=== PATIENT | female | born 1975 | race Two or more races ===

== ENCOUNTER 2024-05-19 08:48 | Inpatient (IN) | payer MEDICAID, OTHER ==
[~2024-05-19] VITALS: Ht 170.2 cm; Wt 73.7 kg
--- NOTE | 2024-05-19 09:29 | ED.PDOC ---
History of Present Illness HPI Comments 49-year-old female came to the ER complaining of shortness a breath chest pain for the past week. She was seen at [facility] discharged few days ago after being admitted for possible pneumonia. She continues to have shortness a breath even after discharge. She was using her mom's oxygen to maintain saturation. Patient came in with low saturation for which she was placed on 3 L oxygen. She denies history of asthma COPD. Denies any other symptoms. Chief Complaint: Shortness of Breath Time Seen by MD: 09:06 Reviewed Notes: Nurses Notes, Medications, Allergies Allergies: Coded Allergies: NO KNOWN ALLERGIES (Unverified , 05/19/24) Information Source: Patient Mode of Arrival: Ambulatory Severity: Moderate Timing: Days Duration: Since onset Past Medical History PAST MEDICAL HISTORY: Denies Surgical History: Denies all surgeries ASSISTANT MANAGER OF OPERATIONS History: No Pertinent ASSISTANT MANAGER OF OPERATIONS History Family History Family History: Reviewed,noncontributory to illness, No family hx of Cancer, No family hx of DM, No family hx of Heart néstor, No family hx of HTN, No family hx ofKidney néstor, No family hx of Liver néstor, No family hx of Lung néstor, No family hx of Stroke Social History Smoker: Non-Smoker Alcohol: Denies ETOH Use Drugs: Denies Drug Use Constitutional: denies: chills, diaphoresis, fatigue, fever, malaise, sweats, weakness, others EENTM: denies: blurred vision, double vision, ear bleeding, ear discharge, ear drainage, ear pain, ear ringing, eye pain, eye redness, hearing loss, mouth pain, mouth swelling, nasal discharge, nose bleeding, nose congestion, nose pain, photophobia, tearing, throat pain, throat swelling, voice changes, others Respiratory: reports: shortness of breath; denies: cough, hemoptysis, orthopnea, SOB at rest, SOB with excertion, stridor, wheezing, others Cardiovascular: denies: chest pain, dizzy spells, diaphoresis, Dyspnea on exertion, edema, irregular heart beat, left arm pain, lightheadedness, palpitations, PND, syncope, others Gastrointestinal: denies: abdomen distended, abdominal pain, blood streaked bowels, constipated, diarrhea, dysphagia, difficulty swallowing, hematemesis, melena, nausea, poor appetite, poor fluid intake, rectal bleeding, rectal pain, vomiting, others Genitourinary: denies: abnormal vagina bleeding, burning, dyspareunia, dysuria, flank pain, frequency, hematuria, incontinence, pain, , vagina discharge, urgency, others Neurological: denies: dizziness, fainting, headache, left sided numbness, left sided weakness, numbness, paresthesia, pre-existing deficit, right sided num bness, right sided weakness, seizure, speech problems, tingling, tremors, weakness, others Musculoskeletal: denies: back pain, gout, joint pain, joint swelling, muscle pain, muscle stiffness, neck pain, others Integumetry: denies: bruises, change in color, change in hair/nails, dryness, laceration, lesions, lumps, rash, wounds, others Allergic/Immunocompromised: denies: Difficulty Healing, Frequent Infections, Hives, Itching, others Hematologic/Lymphatic: denies: anemia, blood clots, easy bleeding, easy bruising, swollen glands, others Endocrine: denies: excessive hunger, excessive sweating, excessive thirst, excessive urination, flushing, intolerance to cold, intolerance to heat, unexplained weight gain, unexplained weight loss, others Psychiatric: denies: anxiety, bipolar disorder, depression, hopeless, panic disorder, schizophrenia, sleepless, suicidal, others Physical Exam General Appearance: Severe Distress HEENT: Normal ENT Inspection, Pharynx Normal, TMs Normal Neck: Full Range of Motion, Non-Tender, Normal, Normal Inspection Respiratory: Accessory Muscle Use, Respiratory Distress, Wheezing Cardiovascular: No Edema, No JVD, No Murmur, No Gallop, Normal Peripheral Pulses, Tachycardia Breast Exam: Deferred Gastrointestinal: No Organomegaly, Non Tender, No Pulsatile Mass, Normal Bowel Sounds, Soft Genitalia: Deferred Pelvic: Deferred Rectal: Deferred Extremities: No calf tenderness, Normal capillary refill, Normal inspection, Normal range of motion, Non-tender, No pedal edema Musculoskeletal : Apperance: Normal Neurologic: Alert, draw tender II-XII nml as Tested, No Motor Deficits, Normal Affect, Normal Mood, No Sensory Deficits Cerebellar Function: Normal Reflexes: Normal Skin: Dry, Normal Color, Warm Peripheral Pulses: 3+ Radial (R), 3+ Radial (L) Lymphatic: No Adenopathy Was a procedure done? Was a procedure done?: No Differential Dx Considerations may include: Pneumonia Electrolyte imbalance X-Ray, Labs, Meds, VS Vital Signs Date Time Temp Pulse Resp B/P (MAP) Pulse Ox O2 Delivery O2 Flow Rate FiO2 05/19/24 14:00 82 15 135/66 (89) 95 05/19/24 12:00 109 05/19/24 12:00 84 15 134/69 (90) 95 05/19/24 11:00 99 Nasal Cannula* 4 36 05/19/24 10:00 96 15 148/84 (105) 100 05/19/24 10:00 93 16 99 Nasal Cannula* 2 28 05/19/24 09:20 99.9 95 15 121/71 (88) 92 99.9 05/19/24 09:10 20 93 Nasal Cannula* 3 32 05/19/24 09:10 103 05/19/24 09:05 99.4 106 20 142/84 (103) 93 Lab Test 05/19/24 16:00 05/19/24 14:44 05/19/24 09:30 Range/Units Influenza Type A Antigen Pending Influenza Type B Antigen Pending SARS-CoV-2 Antigen (Rapid) Pending Urine Color Colorless Yellow Urine Clarity Clear Clear Urine pH 7.0 5.0-9.0 Urine Specific [place] 1.004 1.001-1.035 Urine Protein Negative Negative Urine Ketones 1+ H Negative Urine Blood 3+ H Negative /uL Urine Nitrite Negative Negative Urine Bilirubin Negative Negative Urine Urobilinogen Normal Negative mg/dL Urine Leukocyte Esterase Negative Negative /uL Urine RBC 53 0 - 4 /hpf Urine Microscopic WBC 6 H 0-5 /HPF Urine Squamous Epithelial Cells Few <5 /hpf Urine Bacteria None seen None Seen /hpf Urine Glucose Normal Normal mg/dL White Blood Count 21.6 H 4.4-10.8 10^3/uL Red Blood Count 3.80 L 4.0-5.20 10^6/uL Hemoglobin 10.9 L 12.2-16.2 g/dL Hematocrit 32.8 L 36.0-46.0 % Mean Corpuscular Volume 86.4 80.0-100.0 fL Mean Corpuscular Hemoglobin 28.6 28.0-32.0 pg Mean Corpuscular Hemoglobin Concent 33.2 32.0-36.0 g/dL Red Cell Distribution Width 16.4 H 11.8-14.3 % Platelet Count 405 140-450 10^3/uL Mean Platelet Volume 7.5 6.9-10.8 fL Neutrophils (%) (Auto) 37.0-80.0 % Lymphocytes (%) (Auto) 10.0-50.0 % Monocytes (%) (Auto) 0.0-12.0 % Basophils (%) (Auto) 0.0-2.0 % Neutrophils # (Auto) 1.6-8.6 10 ^3/uL Lymphocytes # (Auto) 0.4-5.4 10 ^3/uL Monocytes # (Auto) 0-1.3 10 ^3/uL Differential Total Cells Counted 100.0 100 Neutrophils % (Manual) 76 37.0-80.0 Band Neutrophils % (Manual) 10 Lymphocytes % (Manual) 6 L 10.0-50.0 Monocytes % (Manual) 6 0-12 Eosinophils % (Manual) 0 0-7 Basophils % (Manual) 0 0.0-2.0 Metamyelocytes % (manual) 1 Myelocytes % (Manual) 1 Promyelocytes % (Manual) 0 Blast Cells % (Manual) 0 Reactive Lymphocytes 0 Platelet Estimate Adequate Sodium Level 133 L 136-145 mmol/L Potassium Level 2.9 L 3.5-5.1 mmol/L Chloride Level 97 L 98-107 mmol/L Carbon Dioxide Level 26 20-31 mmol/L Anion Gap 10 5-15 Blood Urea Nitrogen 9 9-23 mg/dL Creatinine 0.86 0.550-1.02 mg/dL Glomerular Filtration Rate Calc 83 >90 mL/min BUN/Creatinine Ratio 10.5 10.0-20.0 Serum Glucose 100 74-106 mg/dL Lactic Acid Level 1.0 0.4-2.0 mmol/L Calcium Level 8.7 8.7-10.4 mg/dL Troponin I High Sensitivity 26 </=34 ng/L Current Medications Medications (Trade) Dose Ordered Sig/Mirian Route Start Time Stop Time Status Last Admin Methylprednisolone Sodium Succinate (Solu Medrol) 125 mg ONCE ONCE IV 05/19/24 09:30 05/19/24 09:31 DC 05/19/24 09:34 Ceftriaxone Sodium 50 ml @ 100 mls/hr ONCE ONCE IV 05/19/24 09:30 05/19/24 10:03 DC 05/19/24 09:34 Azithromycin 250 ml @ 125 mls/hr ONCE ONCE IV 05/19/24 09:30 05/19/24 11:29 DC 05/19/24 09:34 Patient alert. Complaining of shortness a breath. Tachycardia. Placed on oxygen. Mild fever. Possible pneumonia. Possible pneumonitis. Establish intravenous access. Was given Rocephin. Was given azithromycin. Reviewed her history. Explained to the patient. Continue cardiac monitoring. Time of 1ST Reevaluation: 09: Reevaluation 1ST: Unchanged Patient Education/Counseling: Diagnosis, Treatment, Prognosis Family Education/Counseling: No Family Present Departure 1 Departure Time of Disposition: : Impression: Primary Impression: Acute respiratory failure Qualified Codes: J96.01 - Acute respiratory failure with hypoxia Additional Impression: Pneumonia Qualified Codes: J18.9 - Pneumonia, unspecified organism Disposition: ADMITTED INPATIENT Admit to: Med Surg Condition: Guarded Critical Care Note Critical Care Time?: Yes (90 min-critical care time only) Stability Stability form required: No Heart Score Heart Score: Heart Score Response (Comments) Value History Slightly Suspicious 0 EKG Normal 0 Age 45-64 1 Risk Factors 1 or 2 risk factors 1 Troponin Normal limit 0 Total 2 JEREMY SUE MD May 19, 2024 09:29
[2024-05-19] MEDS: methylPREDNISolone SOD SUCC 125 MG/2 ML VL IV ONE (09:34)
[2024-05-19] MEDS: cefTRIAXone 1GM/50ML D5W 50 ML IV ONE (09:34)
[2024-05-19] MEDS: AZITHROMYCIN 500MG/ 250ML 250 ML IV ONE (09:34)
[2024-05-19 09:52] LABS: Hematocrit 32.8 % (36.0-46.0); Hemoglobin 10.9 g/dL (12.2-16.2); Mean Corpuscular Hemoglobin 28.6 pg (28.0-32.0); Mean Corpuscular Hgb Conc. 33.2 g/dL (32.0-36.0); Mean Corpuscular Volume 86.4 fL (80.0-100.0); Platelet Count (auto) 405 10^3/uL (140-450); Red Cell Distribution Width 16.4 % (11.8-14.3); White Blood Cell 21.6 10^3/uL (4.4-10.8)
--- NOTE | 2024-05-19 09:59 | DVH ---
EXAM: XY CHEST PORTABLE Indication: sob Technique: Single frontal view of the chest was obtained Comparison: 05/16/2024 FINDINGS: Lines and Tubes: None Lungs: Multifocal masslike opacities. Pleura: Small left pleural effusion. No pneumothorax. Cardiomediastinal contours: Unremarkable Bones: No acute osseous abnormality. IMPRESSION: Multifocal masslike opacities are visualized. Differential considerations include malignancy versus m ultifocal pneumonia.
[2024-05-19 10:00] VITALS: PULSE 93; RESP 16; O2SAT 99
[2024-05-19 10:09] LABS: Basophils % (manual) 0 (0.0-2.0); Blast Cells 0; Eosinophils % (manual) 0 (0-7); Promyelocytes % 0; Reactive Lymphocytes 0
[2024-05-19 10:17] LABS: Anion Gap 10 (5-15); Carbon Dioxide 26 mmol/L (20-31)
[2024-05-19 10:22] LABS: BUN/Creatinine Ratio 10.5 (10.0-20.0); Glucose 100 mg/dL (74-106)
[2024-05-19 10:34] LABS: Blood Urea Nitrogen 9 mg/dL (9-23); Calcium 8.7 mg/dL (8.7-10.4); Chloride 97 mmol/L (98-107); Potassium 2.9 mmol/L (3.5-5.1); Sodium 133 mmol/L (136-145)
[2024-05-19 11:24] LABS: Band Neutrophils % (manual) 10; Lymphocytes % (manual) 6 (10.0-50.0); Metamyelocytes % 1; Monocytes % (manual) 6 (0-12); Myelocytes % 1; Platelet Estimate Adequate
[2024-05-19 15:10] LABS: Urine Bacteria None Seen /hpf (None Seen)
[2024-05-19 15:18] LABS: Urine Blood 3+ /uL (Negative); Urine Clarity Clear (Clear); Urine Color Colorless (Yellow); Urine Protein, UAD Negative (Negative); Urine Specific Gravity 1.004 (1.001-1.035); Urine Squamous Epithelial Cell FEW /hpf (<5); Urine Urobilinogen Normal (Negative); Urine WBC 6 /HPF (0-5)
[2024-05-19 16:44] LABS: COVID19 ANTIGEN SOFIA FIA NEGATIVE (NEGATIVE); Rapid Influenza A Negative (Negative); Rapid Influenza B Negative (Negative)
[2024-05-19] MEDS ORDERED: NITROGLYCERIN 0.4 MG SL TAB SL PRN (17:00)
[2024-05-19] MEDS ORDERED: MORPHINE SULFATE INJ 2 MG/ml SYRG IV PRN (17:00)
[2024-05-19] MEDS ORDERED: AZITHROMYCIN 500MG/ 250ML 250 ML IV ONE (17:00)
[2024-05-19] MEDS: SODIUM CHLORIDE 0.9% 1,000 ML IV ONE (17:15)
[2024-05-19 19:03] LABS: % Iron Saturation 4.9 % (15-50)
[2024-05-19 19:15] VITALS: PULSE 80; RESP 22; O2SAT 95
--- NOTE | 2024-05-19 20:22 | DVHHP2 ---
Review of Systems Constitutional: No: Fever, Chills, Sweats, Weakness, Malaise, Other Respiratory: Cough, Shortness of breath Gastrointestinal: No: Nausea, Vomiting, Abdominal Pain, Diarrhea, Constipation, Melena, Hematochezia, Other Genitourinary: No Dysuria, No Frequency, No Incontinence, No Hematuria, No Retention, No Other Musculoskeletal: No: other, neck pain, shoulder pain, arm pain, back pain, hand pain, leg pain, foot pain Skin: No: Rash, Lesions, Jaundice, Bruising, Other Allergies: Coded Allergies: NO KNOWN ALLERGIES (Unverified , 05/19/24) Medications Current Medications Medications Dose Ordered Sig/Mirian Route Start Time Stop Time Status Last Admin Dose Admin Nitroglycerin 0.4 mg Q5MINP PRN SL 05/19/24 17:00 Morphine Sulfate 2 mg Q30M PRN IV 05/19/24 17:00 Ceftriaxone Sodium 50 ml @ 100 mls/hr DAILY@09 IV 05/20/24 09:00 Azithromycin 250 ml @ 125 mls/hr DAILY IV 05/20/24 10:00 Albuterol 2.5 mg Q6HPRN PRN NEB 05/19/24 17:00 Ferrous Sulfate 325 mg BIDWM PO 05/20/24 08:00 Exam Vital Signs Vital Signs Date Time Temp Pulse Resp B/P (MAP) Pulse Ox O2 Delivery O2 Flow Rate FiO2 05/19/24 19:15 80 22 95 Nasal Cannula* 05 1905/19/24 19:15 98.3 143/72 (95) 98.3 General Appearance: Alert, Oriented X3 Respiratory: Clear to auscultation, Other (Diminished) Cardiovascular: Regular rate, Normal S1, Normal S2, No murmurs Abdominal: Normal bowel sounds, Soft, No tenderness, No hepatospenomegaly, No masses Labs/Xrays Labs Test 05/19/24 17:27 05/19/24 16:00 05/19/24 14:44 05/19/24 09:30 Range/Units D-Dimer, Quantitative 3.49 H 0.0-0.49 mg/L FEU Iron Level 11 L 50-170 ug/dL Total Iron Binding Capacity 226 L 250-425 ug/dL Percent Iron Saturation 4.9 L 15-50 % Carcinoembryonic Antigen 0.63 <=5.0 ng/mL Influenza Type A Antigen Negative Negative Influenza Type B Antigen Negative Negative SARS-CoV-2 Antigen (Rapid) Negative NEGATIVE Urine Color Colorless Yellow Urine Clarity Clear Clear Urine pH 7.0 5.0-9.0 Urine Specific [place] 1.004 1.001-1.035 Urine Protein Negative Negative Urine Ketones 1+ H Negative Urine Blood 3+ H Negative /uL Urine Nitrite Negative Negative Urine Bilirubin Negative Negative Urine Urobilinogen Normal Negative mg/dL Urine Leukocyte Esterase Negative Negative /uL Urine RBC 53 0 - 4 /hpf Urine Microscopic WBC 6 H 0-5 /HPF Urine Squamous Epithelial Cells Few <5 /hpf Urine Bacteria None seen None Seen /hpf Urine Glucose Normal Normal mg/dL White Blood Count 21.6 H 4.4-10.8 10^3/uL Red Blood Count 3.80 L 4.0-5.20 10^6/uL Hemoglobin 10.9 L 12.2-16.2 g/dL Hematocrit 32.8 L 36.0-46.0 % Mean Corpuscular Volume 86.4 80.0-100.0 fL Mean Corpuscular Hemoglobin 28.6 28.0-32.0 pg Mean Corpuscular Hemoglobin Concent 33.2 32.0-36.0 g/dL Red Cell Distribution Width 16.4 H 11.8-14.3 % Platelet Count 405 140-450 10^3/uL Mean Platelet Volume 7.5 6.9-10.8 fL Neutrophils (%) (Auto) 37.0-80.0 % Lymphocytes (%) (Auto) 10.0-50.0 % Monocytes (%) (Auto) 0.0-12.0 % Basophils (%) (Auto) 0.0-2.0 % Neutrophils # (Auto) 1.6-8.6 10 ^3/uL Lymphocytes # (Auto) 0.4-5.4 10 ^3/uL Monocytes # (Auto) 0-1.3 10 ^3/uL Differential Total Cells Counted 100.0 100 Neutrophils % (Manual) 76 37.0-80.0 Band Neutrophils % (Manual) 10 Lymphocytes % (Manual) 6 L 10.0-50.0 Monocytes % (Manual) 6 0-12 Eosinophils % (Manual) 0 0-7 Basophils % (Manual) 0 0.0-2.0 Metamyelocytes % (manual) 1 Myelocytes % (Manual) 1 Promyelocytes % (Manual) 0 Blast Cells % (Manual) 0 Reactive Lymphocytes 0 Platelet Estimate Adequate Sodium Level 133 L 136-145 mmol/L Potassium Level 2.9 L 3.5-5.1 mmol/L Chloride Level 97 L 98-107 mmol/L Carbon Dioxide Level 26 20-31 mmol/L Anion Gap 10 5-15 Blood Urea Nitrogen 9 9-23 mg/dL Creatinine 0.86 0.550-1.02 mg/dL Glomerular Filtration Rate Calc 83 >90 mL/min BUN/Creatinine Ratio 10.5 10.0-20.0 Serum Glucose 100 74-106 mg/dL Hemoglobin A1c 5.5 <5.7 % A1C Lactic Acid Level 1.0 0.4-2.0 mmol/L Calcium Level 8.7 8.7-10.4 mg/dL Troponin I High Sensitivity 26 </=34 ng/L Assessment/Plan Assessment/Plan 1. Acute hypoxic respiratory failure likely from pneumonia IV antibiotics, pulmonary consult, med neb treatments 2. Community acquired pneumonia likely Gram-negative or Gram-positive IV antibiotics 3. Iron deficiency anemia Replace 4. Sepsis likely from pneumonia IV antibiotics, IV fluids Plan discussed with: Patient My Orders Orders - STEVE BRIGGS SENIOR WATER RESOURCES ENGINEER Procedure Category Date Status Time Admit ADMIT 05/19/24 Transmitted 16:58 Nitroglycerin PHA 05/19/24 In Process Sublingual (Ntrostat 17:00 Morphine Sulfate PHA 05/19/24 In Process Injection 17:00 Stat Ekg For Chest LESLYE 05/19/24 In Process Pain 16:58 Notify Of Changes [facility] 05/19/24 In Process From Base 16:58 Feller Machine Operator For [facility] 05/19/24 In Process 24 Hours 16:58 Emergency Dysrhythmia LESLYE 05/19/24 In Process Protocol 16:58 Rhythm Strips Once LESLYE 05/19/24 In Process Every Shift 16:58 Oxygen By Nasal RT 05/19/24 Transmitted Cannula 16:58 Ceftriaxone 1gm/50ml PHA 05/20/24 In Process D5w (Rocephin) 09:00 Azithromycin 500mg/ PHA 05/20/24 In Process 250ml (Zithromax 50 10:00 Albuterol Medneb PHA 05/19/24 In Process (Ventolin Medneb) 17:00 Respiratory Culture IRMA 05/19/24 Logged W/ Gs 17:01 *Consult CONS 05/19/24 Transmitted / 17:01 Carbohydrate Antigen LAB 05/19/24 In Process 19-9 Ca 125 (Serial) LAB 05/19/24 In Process 17:01 Sodium Chloride 0.9% PHA 05/19/24 In Process 17:15 Ferrous Sulfate Tablet PHA 05/20/24 In Process 08:[address] 05/19/24 Logged Contrast 20:02 Date of Service: May 19, 2024 Billing Provider: JERICA LUCIA MD Common Visit Codes: [id number] INP/OBS CARE (MOD) STEVE BRIGGS SENIOR WATER RESOURCES ENGINEER May 19, 2024 20:22
[2024-05-19 20:26] VITALS: BP 131/65; PULSE 85; RESP 20; O2SAT 95
[2024-05-19 21:35] VITALS: BP 154/92; PULSE 116; RESP 19; TEMP 98.1; O2SAT 90
[2024-05-19 21:36] VITALS: BP 154/92; PULSE 97; RESP 18; RESP 19; TEMP 98.1; O2SAT 90
--- NOTE | 2024-05-19 22:39 | DVH ---
Procedure: CT CT ANGIO CHEST CONTRAST Reason for study/Clinical History: r.o pe Comparison Study: None available at time of dictation. Exam Date: 05/19/2024 09:24 PM Radiation Dose Information: CT Dose: CTDI volume is 8.33 mGy. Dose-length product is 626.8 mGy*cm Contrast: Type of contrast: Omnipaque 350 Contrast inject: 100 mL Contrast wasted:0 TECHNIQUE: After the uneventful administration of intravenous contrast intravenously, CT imaging was performed through the chest. Coronal and sagittal reformations were performed by the technologist. Sagittal and coronal MIP reformations submitted for interpretation. FINDINGS: Lower Neck: Visualized portions of the thyroid gland are unremarkable. Aorta and Vasculature: Normal caliber of thoracic aorta. Lymph Nodes: No enlarged intrathoracic lymph nodes. Mediastinum: Heart size is normal. There is no pericardial effusion. The esophagus is unremarkable. Lungs: Multiple small cystic lesions no scattered throughout both lung king. These may represent ar eas of septic emboli or bronchiectatic changes. There also multiple pleural-based areas of consolidat ion. Musculoskeletal: No acute osseous abnormality. Upper abdomen: Limited portions of the upper abdomen are unremarkable. IMPRESSION: 1. No findings of pulmonary emboli or pulmonary artery hypertension. 2. Scattered areas of pleural-based consolidation as well as multiple small cystic areas which may re present septic emboli or bronchiectasis. All CT scans at this medical facility are performed using dose modulation techniques as appropriate t o a performed exam including the following: Automated exposure control was utilized; adjustment of th e MA and/or KV according to patient size; and use of iterative reconstruction technique. HS:Y
--- NOTE | 2024-05-19 22:45 | DVHINCON2 ---
Date of service: May 19, 2024 Referring Physician Petr Mayes NP Reason for Consultation Acute hypoxic respiratory failure, pneumonia, sepsis History of Present Illness A 49-year-old woman with no significant past medical history who presents to ED today complaining of shortness of breath and chest pain for the past week. She was seen at [facility] and discharged few days ago after being admitted for possible pneumonia. She continues to have shortness of breath even after discharge. She was using her mom's oxygen to maintain saturation. Patient came in with low saturation, for which she was placed on 3 L oxygen. She denies history of asthma or COPD. No other acute complaints. Patient was admitted for further care and pulmonary consultation is requested for evaluation and management of acute hypoxic respiratory failure, pneumonia and sepsis. Review of Systems: 14-point review of systems negative unless otherwise noted above. Past Medical History: Denies. Does report recent admission at [facility] for possible pneumonia. Past Surgical History: Denies Medications: Reviewed. Allergies: No known drug allergies. Family History: No family history of premature CAD. No family history of lung disorders. Social History: Nonsmoker. No alcohol or illicit drug use. Allergies: Coded Allergies: NO KNOWN ALLERGIES (Unverified , 05/19/24) Home Meds Reported Medications Fluticasone Propionate (Inhala (Fluticasone Propionate Di) 50 Mcg/Act Aer, 50 MCG IN PRN for SHORTNESS OF BREATH, AER 05/19/24 Tramadol Hcl (Tramadol Hcl) 50 Mg Tab, 50 MG PO Q8HP, MG 05/19/24 Current Medications Current Medications Medications (Trade) Dose Ordered Sig/Mirian Route PRN Reason Start Time Stop Time Status Last Admin Nitroglycerin (Ntrostat Sublingual) 0.4 mg Q5MINP PRN SL FOR CHEST PAIN 05/19/24 17:00 Morphine Sulfate 2 mg Q30M PRN IV FOR CHEST PAIN 05/19/24 17:00 Ceftriaxone Sodium 50 ml @ 100 mls/hr DAILY@09 IV 05/20/24 09:00 Azithromycin 250 ml @ 125 mls/hr DAILY IV 05/20/24 10:00 Albuterol (Ventolin Medneb) 2.5 mg Q6HPRN PRN NEB SHORTNESS OF BREATH 05/19/24 17:00 Ferrous Sulfate 325 mg BIDWM PO 05/20/24 08:00 Vital Signs Vital Signs Date Time Temp Pulse Resp B/P (MAP) Pulse Ox O2 Delivery O2 Flow Rate FiO2 05/19/24 21:35 98.1 116 19 154/92 (112) 90 98.1 05/19/24 20:26 2.0 28 05/19/24 19:15 Nasal Cannula* Physical Exam Gen.: Patient lying in bed in no apparent distress. On supplemental oxygen. Head: Normocephalic, atraumatic. Eyes: EOMI/PERRLA. Ears: Normal hearing. Normal anatomy. Neck/trachea: Trachea midline, supple. Nose: Normal external anatomy. Mouth: Moist mucous membranes. Chest: Decreased air entry bilaterally. No wheezing or rhonchi. Cardiovascular: Positive S1, positive S2. Regular rate and rhythm. Abdomen: Positive bowel sounds in all 4 quadrants. Soft, non-tender, non- distended. : Deferred. Rectal: Deferred. Skin: Warm, dry. Intact. Extremities: 2+ radial pulses bilaterally. No lower extremity edema. Neuro: Awake, alert, oriented x3. No gross motor or sensory deficits. Cranial nerves II through XII intact. Gait not assessed. Labs/Diagnostic Data Labs Test 05/19/24 17:27 05/19/24 16:00 05/19/24 14:44 05/19/24 09:30 Range/Units D-Dimer, Quantitative 3.49 H 0.0-0.49 mg/L FEU Iron Level 11 L 50-170 ug/dL Total Iron Binding Capacity 226 L 250-425 ug/dL Percent Iron Saturation 4.9 L 15-50 % Carcinoembryonic Antigen 0.63 <=5.0 ng/mL Influenza Type A Antigen Negative Negative Influenza Type B Antigen Negative Negative SARS-CoV-2 Antigen (Rapid) Negative NEGATIVE Urine Color Colorless Yellow Urine Clarity Clear Clear Urine pH 7.0 5.0-9.0 Urine Specific [place] 1.004 1.001-1.035 Urine Protein Negative Negative Urine Ketones 1+ H Negative Urine Blood 3+ H Negative /uL Urine Nitrite Negative Negative Urine Bilirubin Negative Negative Urine Urobilinogen Normal Negative mg/dL Urine Leukocyte Esterase Negative Negative /uL Urine RBC 53 0 - 4 /hpf Urine Microscopic WBC 6 H 0-5 /HPF Urine Squamous Epithelial Cells Few <5 /hpf Urine Bacteria None seen None Seen /hpf Urine Glucose Normal Normal mg/dL White Blood Count 21.6 H 4.4-10.8 10^3/uL Red Blood Count 3.80 L 4.0-5.20 10^6/uL Hemoglobin 10.9 L 12.2-16.2 g/dL Hematocrit 32.8 L 36.0-46.0 % Mean Corpuscular Volume 86.4 80.0-100.0 fL Mean Corpuscular Hemoglobin 28.6 28.0-32.0 pg Mean Corpuscular Hemoglobin Concent 33.2 32.0-36.0 g/dL Red Cell Distribution Width 16.4 H 11.8-14.3 % Platelet Count 405 140-450 10^3/uL Mean Platelet Volume 7.5 6.9-10.8 fL Neutrophils (%) (Auto) 37.0-80.0 % Lymphocytes (%) (Auto) 10.0-50.0 % Monocytes (%) (Auto) 0.0-12.0 % Basophils (%) (Auto) 0.0-2.0 % Neutrophils # (Auto) 1.6-8.6 10 ^3/uL Lymphocytes # (Auto) 0.4-5.4 10 ^3/uL Monocytes # (Auto) 0-1.3 10 ^3/uL Differential Total Cells Counted 100.0 100 Neutrophils % (Manual) 76 37.0-80.0 Band Neutrophils % (Manual) 10 Lymphocytes % (Manual) 6 L 10.0-50.0 Monocytes % (Manual) 6 0-12 Eosinophils % (Manual) 0 0-7 Basophils % (Manual) 0 0.0-2.0 Metamyelocytes % (manual) 1 Myelocytes % (Manual) 1 Promyelocytes % (Manual) 0 Blast Cells % (Manual) 0 Reactive Lymphocytes 0 Platelet Estimate Adequate Sodium Level 133 L 136-145 mmol/L Potassium Level 2.9 L 3.5-5.1 mmol/L Chloride Level 97 L 98-107 mmol/L Carbon Dioxide Level 26 20-31 mmol/L Anion Gap 10 5-15 Blood Urea Nitrogen 9 9-23 mg/dL Creatinine 0.86 0.550-1.02 mg/dL Glomerular Filtration Rate Calc 83 >90 mL/min BUN/Creatinine Ratio 10.5 10.0-20.0 Serum Glucose 100 74-106 mg/dL Hemoglobin A1c 5.5 <5.7 % A1C Lactic Acid Level 1.0 0.4-2.0 mmol/L Calcium Level 8.7 8.7-10.4 mg/dL Troponin I High Sensitivity 26 </=34 ng/L Assessment Impression: Acute hypoxic respiratory failure likely from pneumonia Pneumonia Dependence on supplemental oxygen Iron deficiency anemia Sepsis likely from pneumonia Bronchiectasis rule out MAC Plan: Supplemental oxygen Titrate to keep O2 sats above 92%. CXR reviewed, notable for multifocal masslike opacities and small left pleural effusion CTA of chest performed. No pulmonary emboli. Scattered areas of pleural based consolidation as well as multiple small cystic areas which may be septic emboli or bronchiectasis. Continue IV steroids Continue antibiotics Monitor hemoglobin Monitor renal function. Monitor electrolytes. Supplement as necessary. Monitor ins and outs. IV fluids with normal saline 100 ml/hr DVT prophylaxis. Prognosis: Poor given patient's multiple co-morbidities. Rest of plan per hospitalist and other consultants. Thank you, DRUG ABUSE PROGRAM COORDINATOR Sav Mayes, for allowing me to participate in this patient's care. Further recommendations will depend on the patient's clinical course. Please do not hesitate to contact me if you have any questions or concerns. This medical document was created using an electronic medical record system with [employer] dictation system. Although these documentations are being carefully reviewed, there may still be some phonetic and typographical changes. The errors are purely typographical, due to imperfection on the software program, and do not reflect any compromise in the patient's medical care. Plan discussed with: Patient, Other (RN/Sav Mayes DRUG ABUSE PROGRAM COORDINATOR/) REYES HOGUE MD May 19, 2024 22:45
[2024-05-19] MEDS ORDERED: TRAM50TA2 PO (23:25)
[2024-05-19] MEDS ORDERED: FLUT50AE5 IN (23:34)
[2024-05-20] VITALS (12 sets, daily range): BP systolic 104–129; BP diastolic 56–77; PULSE 78–111; RESP 16–20; TEMP 97.4–99.2; O2SAT 90–100
[2024-05-20] MEDS: FERROUS SULFATE 325mg EC TAB PO SCH (08:11)
[2024-05-20] MEDS: cefTRIAXone 1GM/50ML D5W 50 ML IV SCH (08:12)
[2024-05-20 09:07] LABS: Cancer Antigen (CA) 125 86.3 U/mL (0.0-38.1)
[2024-05-20] MEDS: AZITHROMYCIN 500MG/ 250ML 250 ML IV SCH (10:29)
[2024-05-20] MEDS: ALBUTEROL SULF 2.5 MG/0.5ML(0.5%) NEB SOLN NEB PRN (10:41)
[2024-05-20 11:59] LABS: Basophils # (auto) 0 10 ^3/uL (0-0.2); Basophils % (auto) 0.1 % (0.0-2.0); Eosinophils # (auto) 0.1 10 ^3/uL (0-0.8); Eosinophils % (auto) 0.4 % (0.0-7.0); Hemoglobin 9.5 g/dL (12.2-16.2); Lymphocytes # (auto) 1.5 10 ^3/uL (0.4-5.4); Lymphocytes % (auto) 8.9 % (10.0-50.0); Mean Corpuscular Hemoglobin 29.1 pg (28.0-32.0); Mean Corpuscular Volume 85.5 fL (80.0-100.0); Monocytes # (auto) 0.9 10 ^3/uL (0-1.3); Monocytes % (auto) 5.3 % (0.0-12.0); Neutrophils % (auto) 85.3 % (37.0-80.0); Platelet Count (auto) 424 10^3/uL (140-450); Red Blood Cells 3.27 10^6/uL (4.0-5.20); White Blood Cell 16.4 10^3/uL (4.4-10.8)
[2024-05-20 12:16] LABS: Alanine Aminotransferase 17 U/L (7-40); Albumin 3.3 g/dL (3.2-4.8); Alkaline Phosphatase 56 U/L (46-116); Anion Gap 8 (5-15); Aspartate Aminotransferase 14 U/L (13-40); BUN/Creatinine Ratio 14.3 (10.0-20.0); Blood Urea Nitrogen 11 mg/dL (9-23); Carbon Dioxide 27 mmol/L (20-31); Chloride 104 mmol/L (98-107); Sodium 139 mmol/L (136-145)
[2024-05-20 12:18] LABS: Bilirubin, Total 0.4 mg/dL (0.2-1.0)
[2024-05-20 12:25] LABS: Calcium 8.2 mg/dL (8.7-10.4); Glucose 148 mg/dL (74-106); Potassium 2.7 mmol/L (3.5-5.1); Total Protein 5.6 g/dL (5.7-8.2)
--- NOTE | 2024-05-20 13:42 | DVHINCON2 ---
Date of service: May 20, 2024 Referring Physician Petr Mayes NP Reason for Consultation Acute hypoxic respiratory failure, pneumonia, bronchiectasis History of Present Illness A 49-year-old woman with no significant past medical history who presented to ED on 05/19/24 complaining of shortness of breath and chest pain for the past week. She was seen at [facility] and discharged few days ago after being admitted for possible pneumonia. She continues to have shortness of breath even after discharge. She was using her mom's oxygen to maintain saturation. Patient came in with low saturation, for which she was placed on 3 L oxygen. She denies history of asthma or COPD. No other acute complaints. Patient was admitted for further care and pulmonary consultation is requested for evaluation and management of acute hypoxic respiratory failure, pneumonia and bronchiectasis. Review of Systems: 14-point review of systems negative unless otherwise noted above. Past Medical History: Denies. Does report recent admission at [facility] for possible pneumonia. Past Surgical History: Denies Medications: Reviewed. Allergies: No known drug allergies. Family History: No family history of premature CAD. No family history of lung disorders. Social History: Nonsmoker. No alcohol or illicit drug use. Family History: Diabetes mellitus G8 MOTHER G8 SISTER Allergies: Coded Allergies: NO KNOWN ALLERGIES (Unverified , 05/19/24) Home Meds Reported Medications Fluticasone Propionate (Inhala (Fluticasone Propionate Di) 50 Mcg/Act Aer, 50 MCG IN PRN for SHORTNESS OF BREATH, AER 05/19/24 Tramadol Hcl (Tramadol Hcl) 50 Mg Tab, 50 MG PO Q8HP, MG 05/19/24 Current Medications Current Medications Medications (Trade) Dose Ordered Sig/Mirian Route PRN Reason Start Time Stop Time Status Last Admin Nitroglycerin (Ntrostat Sublingual) 0.4 mg Q5MINP PRN SL FOR CHEST PAIN 05/19/24 17:00 Morphine Sulfate 2 mg Q30M PRN IV FOR CHEST PAIN 05/19/24 17:00 Ceftriaxone Sodium 50 ml @ 100 mls/hr DAILY@09 IV 05/20/24 09:00 05/20/24 08:12 Azithromycin 250 ml @ 125 mls/hr DAILY IV 05/20/24 10:00 05/20/24 10:29 Albuterol (Ventolin Medneb) 2.5 mg Q6HPRN PRN NEB SHORTNESS OF BREATH 05/19/24 17:00 05/20/24 10:41 Ferrous Sulfate 325 mg BIDWM PO 05/20/24 08:00 05/20/24 08:11 Vital Signs Vital Signs Date Time Temp Pulse Resp B/P (MAP) Pulse Ox O2 Delivery O2 Flow Rate FiO2 05/20/24 12:58 99.2 86 20 127/71 (89) 92 99.2 05/20/24 08:52 Nasal Cannula 2.0 05/20/24 08:52 28 Physical Exam Gen.: Patient lying in bed in no apparent distress. On supplemental oxygen. Head: Normocephalic, atraumatic. Eyes: EOMI/PERRLA. Ears: Normal hearing. Normal anatomy. Neck/trachea: Trachea midline, supple. Nose: Normal external anatomy. Mouth: Moist mucous membranes. Chest: Decreased air entry bilaterally. No wheezing or rhonchi. Cardiovascular: Positive S1, positive S2. Regular rate and rhythm. Abdomen: Positive bowel sounds in all 4 quadrants. Soft, non-tender, non- distended. : Deferred. Rectal: Deferred. Skin: Warm, dry. Intact. Extremities: 2+ radial pulses bilaterally. No lower extremity edema. Neuro: Awake, alert, oriented x3. No gross motor or sensory deficits. Cranial nerves II through XII intact. Gait not assessed. Labs/Diagnostic Data Labs Test 05/20/24 11:17 05/19/24 17:27 05/19/24 16:00 05/19/24 14:44 Range/Units White Blood Count 16.4 H 4.4-10.8 10^3/uL Red Blood Count 3.27 L 4.0-5.20 10^6/uL Hemoglobin 9.5 L 12.2-16.2 g/dL Hematocrit 28.0 #L 36.0-46.0 % Mean Corpuscular Volume 85.5 80.0-100.0 fL Mean Corpuscular Hemoglobin 29.1 28.0-32.0 pg Mean Corpuscular Hemoglobin Concent 34.0 32.0-36.0 g/dL Red Cell Distribution Width 16.0 H 11.8-14.3 % Platelet Count 424 140-450 10^3/uL Mean Platelet Volume 7.8 6.9-10.8 fL Neutrophils (%) (Auto) 85.3 H 37.0-80.0 % Lymphocytes (%) (Auto) 8.9 L 10.0-50.0 % Monocytes (%) (Auto) 5.3 0.0-12.0 % Eosinophils (%) (Auto) 0.4 0.0-7.0 % Basophils (%) (Auto) 0.1 0.0-2.0 % Neutrophils # (Auto) 14.0 H 1.6-8.6 10 ^3/uL Lymphocytes # (Auto) 1.5 0.4-5.4 10 ^3/uL Monocytes # (Auto) 0.9 0-1.3 10 ^3/uL Eosinophils # (Auto) 0.1 0-0.8 10 ^3/uL Basophils # (Auto) 0 0-0.2 10 ^3/uL Nucleated Red Blood Cells 0.0 % Sodium Level 139 # 136-145 mmol/L Potassium Level 2.7 L 3.5-5.1 mmol/L Chloride Level 104 98-107 mmol/L Carbon Dioxide Level 27 20-31 mmol/L Anion Gap 8 5-15 Blood Urea Nitrogen 11 9-23 mg/dL Creatinine 0.77 0.550-1.02 mg/dL Glomerular Filtration Rate Calc 95 >90 mL/min BUN/Creatinine Ratio 14.3 10.0-20.0 Serum Glucose 148 H 74-106 mg/dL Calcium Level 8.2 L 8.7-10.4 mg/dL Total Bilirubin 0.4 0.2-1.0 mg/dL Aspartate Amino Transferase (AST) 14 13-40 U/L Alanine Aminotransferase (ALT) 17 7-40 U/L Alkaline Phosphatase 56 46-116 U/L Total Protein 5.6 L 5.7-8.2 g/dL Albumin 3.3 3.2-4.8 g/dL D-Dimer, Quantitative 3.49 H 0.0-0.49 mg/L FEU Iron Level 11 L 50-170 ug/dL Total Iron Binding Capacity 226 L 250-425 ug/dL Percent Iron Saturation 4.9 L 15-50 % Carcinoembryonic Antigen 0.63 <=5.0 ng/mL CA 19-9 Antigen 7 0-35 U/mL CA 125 Antigen 86.3 H 0.0-38.1 U/mL Influenza Type A Antigen Negative Negative Influenza Type B Antigen Negative Negative SARS-CoV-2 Antigen (Rapid) Negative NEGATIVE Urine Color Colorless Yellow Urine Clarity Clear Clear Urine pH 7.0 5.0-9.0 Urine Specific [place] 1.004 1.001-1.035 Urine Protein Negative Negative Urine Ketones 1+ H Negative Urine Blood 3+ H Negative /uL Urine Nitrite Negative Negative Urine Bilirubin Negative Negative Urine Urobilinogen Normal Negative mg/dL Urine Leukocyte Esterase Negative Negative /uL Urine RBC 53 0 - 4 /hpf Urine Microscopic WBC 6 H 0-5 /HPF Urine Squamous Epithelial Cells Few <5 /hpf Urine Bacteria None seen None Seen /hpf Urine Glucose Normal Normal mg/dL Test 05/19/24 09:30 Range/Units Differential Total Cells Counted 100.0 100 Neutrophils % (Manual) 76 37.0-80.0 Band Neutrophils % (Manual) 10 Lymphocytes % (Manual) 6 L 10.0-50.0 Monocytes % (Manual) 6 0-12 Eosinophils % (Manual) 0 0-7 Basophils % (Manual) 0 0.0-2.0 Metamyelocytes % (manual) 1 Myelocytes % (Manual) 1 Promyelocytes % (Manual) 0 Blast Cells % (Manual) 0 Reactive Lymphocytes 0 Platelet Estimate Adequate Hemoglobin A1c 5.5 <5.7 % A1C Lactic Acid Level 1.0 0.4-2.0 mmol/L Troponin I High Sensitivity 26 </=34 ng/L Microbiology Date/Time Source Procedure Growth Status 05/19/24 09:40 Blood Blood Culture - Preliminary NO GROWTH AFTER 24 HOURS OF INCUBATION. Resulted Assessment Impression: Acute hypoxic respiratory failure Pneumonia Cough Dependence on supplemental oxygen Anemia Bronchiectasis Atelectasis Hypokalemia Elevated D-dimer Plan: Supplemental oxygen 2 LPM NC Titrate to keep O2 sats above 92%. Check QuantiFERON Gold CTA negative for pulmonary embolism CXR demonstrates Multifocal airspace opacities, similar to prior. Small left pleural effusion and/or atelectasis, slightly worse from prior. Obtain consent for bronchoscopy with BAL, possible brushings, possible biopsy. Pt agreed. Anesthesia for procedure discussed. Plan for conscious sedation. Pain control Avoid oversedation Antitussive for cough Continue bronchodilators Continue antibiotics Incentive spirometry Iron supplementation Monitor hemoglobin Monitor renal function. Monitor electrolytes. Supplement as necessary. Monitor ins and outs. Supplement potassium Check mag NPO at midnight. Plan for procedure in AM. IV fluids with normal saline 100 ml/hr DVT prophylaxis. Prognosis: Poor given patient's multiple co-morbidities. Rest of plan per hospitalist and other consultants. Thank you, MILAN Mayes, for allowing me to participate in this patient's care. Further recommendations will depend on the patient's clinical course. Please do not hesitate to contact me if you have any questions or concerns. This medical document was created using an electronic medical record system with [email or web address] dictation system. Although these documentations are being carefully reviewed, there may still be some phonetic and typographical changes. The errors are purely typographical, due to imperfection on the software program, and do not reflect any compromise in the patient's medical care. Plan discussed with: Patient, Other (ANTHONY David/MILAN Mayes/) REYES HOGUE MD May 20, 2024 13:42
[2024-05-20] MEDS: POTASSIUM EFFERVESENT TAB 25 MEQ PO ONE ×2 (14:10→18:28)
[2024-05-20] MEDS: guaiFENesin-CODEINE Liq 5 ML UD PO PRN (14:11)
--- NOTE | 2024-05-20 15:09 | DVH ---
EXAM: XY CHEST XRAY 1 VIEW TECHNIQUE: Single frontal chest radiograph CLINICAL HISTORY: pna COMPARISON: XY CHEST PORTABLE on DOS: 05/19/24 Findings/Impression: Frontal chest radiograph demonstrates no acute osseous or superficial soft tissue abnormalities. The trachea is midline. The cardiac silhouette and mediastinum are within normal limits. Multifocal airspace opacities, similar to prior. Small left pleural effusion and/or atelectasis, slightly worse from prior. No pneumothorax.
--- NOTE | 2024-05-20 17:36 | DVHINCON2 ---
"Date of service: May 20, 2024 Family History: Diabetes mellitus G8 MOTHER G8 SISTER Allergies: Coded Allergies: NO KNOWN ALLERGIES (Unverified , 05/19/24) Home Meds Reported Medications Fluticasone Propionate (Inhala (Fluticasone Propionate Di) 50 Mcg/Act Aer, 50 MCG IN PRN for SHORTNESS OF BREATH, AER 05/19/24 Tramadol Hcl (Tramadol Hcl) 50 Mg Tab, 50 MG PO Q8HP, MG 05/19/24 Current Medications Current Medications Medications (Trade) Dose Ordered Sig/Mirian Route PRN Reason Start Time Stop Time Status Last Admin Ceftriaxone Sodium 50 ml @ 100 mls/hr DAILY@09 IV 05/20/24 09:00 05/20/24 08:12 Azithromycin 250 ml @ 125 mls/hr DAILY IV 05/20/24 10:00 05/20/24 10:29 Ferrous Sulfate 325 mg BIDWM PO 05/20/24 08:00 05/20/24 08:11 Guaifenesin/ Codeine Phosphate (Robitussin/ Codeine Liq) 10 ml Q4HPRN PRN PO FOR COUGH 05/20/24 13:45 05/20/24 14:11 Vital Signs Vital Signs Date Time Temp Pulse Resp B/P (MAP) Pulse Ox O2 Delivery O2 Flow Rate FiO2 05/20/24 17:00 98.5 90 18 104/72 (83) 96 98.5 05/20/24 08:52 Nasal Cannula 2.0 05/20/24 08:52 28 Labs/Diagnostic Data Labs Test 05/20/24 16:20 05/20/24 11:17 05/19/24 17:27 05/19/24 16:00 Range/Units White Blood Count 16.4 H 4.4-10.8 10^3/uL Red Blood Count 3.27 L 4.0-5.20 10^6/uL Hemoglobin 9.5 L 12.2-16.2 g/dL Hematocrit 28.0 #L 36.0-46.0 % Mean Corpuscular Volume 85.5 80.0-100.0 fL Mean Corpuscular Hemoglobin 29.1 28.0-32.0 pg Mean Corpuscular Hemoglobin Concent 34.0 32.0-36.0 g/dL Red Cell Distribution Width 16.0 H 11.8-14.3 % Platelet Count 424 140-450 10^3/uL Mean Platelet Volume 7.8 6.9-10.8 fL Neutrophils (%) (Auto) 85.3 H 37.0-80.0 % Lymphocytes (%) (Auto) 8.9 L 10.0-50.0 % Monocytes (%) (Auto) 5.3 0.0-12.0 % Eosinophils (%) (Auto) 0.4 0.0-7.0 % Basophils (%) (Auto) 0.1 0.0-2.0 % Neutrophils # (Auto) 14.0 H 1.6-8.6 10 ^3/uL Lymphocytes # (Auto) 1.5 0.4-5.4 10 ^3/uL Monocytes # (Auto) 0.9 0-1.3 10 ^3/uL Eosinophils # (Auto) 0.1 0-0.8 10 ^3/uL Basophils # (Auto) 0 0-0.2 10 ^3/uL Nucleated Red Blood Cells 0.0 % Sodium Level 139 # 136-145 mmol/L Potassium Level 2.7 L 3.5-5.1 mmol/L Chloride Level 104 98-107 mmol/L Carbon Dioxide Level 27 20-31 mmol/L Anion Gap 8 5-15 Blood Urea Nitrogen 11 9-23 mg/dL Creatinine 0.77 0.550-1.02 mg/dL Glomerular Filtration Rate Calc 95 >90 mL/min BUN/Creatinine Ratio 14.3 10.0-20.0 Serum Glucose 148 H 74-106 mg/dL Calcium Level 8.2 L 8.7-10.4 mg/dL Magnesium Level 2.1 1.6-2.6 mg/dL Total Bilirubin 0.4 0.2-1.0 mg/dL Aspartate Amino Transferase (AST) 14 13-40 U/L Alanine Aminotransferase (ALT) 17 7-40 U/L Alkaline Phosphatase 56 46-116 U/L Total Protein 5.6 L 5.7-8.2 g/dL Albumin 3.3 3.2-4.8 g/dL D-Dimer, Quantitative 3.49 H 0.0-0.49 mg/L FEU Iron Level 11 L 50-170 ug/dL Total Iron Binding Capacity 226 L 250-425 ug/dL Percent Iron Saturation 4.9 L 15-50 % Carcinoembryonic Antigen 0.63 <=5.0 ng/mL CA 19-9 Antigen 7 0-35 U/mL CA 125 Antigen 86.3 H 0.0-38.1 U/mL Influenza Type A Antigen Negative Negative Influenza Type B Antigen Negative Negative SARS-CoV-2 Antigen (Rapid) Negative NEGATIVE Test 05/19/24 14:44 05/19/24 09:30 Range/Units Urine Color Colorless Yellow Urine Clarity Clear Clear Urine pH 7.0 5.0-9.0 Urine Specific Rosamond 1.004 1.001-1.035 Urine Protein Negative Negative Urine Ketones 1+ H Negative Urine Blood 3+ H Negative /uL Urine Nitrite Negative Negative Urine Bilirubin Negative Negative Urine Urobilinogen Normal Negative mg/dL Urine Leukocyte Esterase Negative Negative /uL Urine RBC 53 0 - 4 /hpf Urine Microscopic WBC 6 H 0-5 /HPF Urine Squamous Epithelial Cells Few <5 /hpf Urine Bacteria None seen None Seen /hpf Urine Glucose Normal Normal mg/dL Differential Total Cells Counted 100.0 100 Neutrophils % (Manual) 76 37.0-80.0 Band Neutrophils % (Manual) 10 Lymphocytes % (Manual) 6 L 10.0-50.0 Monocytes % (Manual) 6 0-12 Eosinophils % (Manual) 0 0-7 Basophils % (Manual) 0 0.0-2.0 Metamyelocytes % (manual) 1 Myelocytes % (Manual) 1 Promyelocytes % (Manual) 0 Blast Cells % (Manual) 0 Reactive Lymphocytes 0 Platelet Estimate Adequate Hemoglobin A1c 5.5 <5.7 % A1C Lactic Acid Level 1.0 0.4-2.0 mmol/L Troponin I High Sensitivity 26 </=34 ng/L Microbiology Date/Time Source Procedure Growth Status 05/19/24 22:45 Nose MRSA Screen - Final Complete 05/19/24 09:40 Blood Blood Culture - Preliminary NO GROWTH AFTER 24 HOURS OF INCUBATION. Resulted Problems(with codes): (1) MRSA (methicillin resistant staphylococcus aureus) pneumonia (2) Acute respiratory failure (3) Pneumonia Plan/Recommendation ASSESSMENT AND PLAN: ID Problem List: - Pneumonia - Hypoxia - Possible Staphylococcus aureus infection - Shortness of breath - Septic emboli - Tachycardia - Possible endocarditis Assessment This is a 49 y.o. female with no significant past medical history except possible asthma as a child, who presents with shortness of breath and chest pain. Patient was seen at [facility] a few days prior and was admitted for possible pneumonia. She continued to have shortness of breath after discharge. She was using her mother's oxygen and is requiring 3 liters nasal cannula here to maintain saturation at 90%. No history of COPD, smoking, alcohol, or heavy drug use. Medications include fluticasone. She was started on ceftriaxone and azithromycin while here. Vital signs notable for temperature of 98.1F, pulse of 116, respirations 19, blood pressure 154/92, requiring 3 liters nasal cannula and saturating at 90%. Physical exam notable for bilateral crackles and diffuse wheezing. COVID-19 rapid antigen negative, influenza A negative, influenza B negative. Lab results: Hemoglobin A1C is 5.5%. Chest CT notable for multifocal opacities and a small left pleural effusion. CT chest showed no pulmonary emboli, scattered areas of pleural-based consolidation, as well as multiple small cystic areas which may be due to septic emboli or bronchiectasis. Records from [facility] indicate the patient was seen by Dr. Sena on May 14 and was treated with azithromycin and vancomycin. Echocardiogram showed normal aortic, mitral, and tricuspid valves; pulmonic valve poorly visualized. No signs of endocarditis. Blood cultures were negative to date. Patient was discharged on levofloxacin 500 mg daily. EKG here shows sinus tachycardia with borderline repolarization abnormalities. Gram stain shows no organisms; however, there is concern for culture growth of likely Staphylococcus aureus. Plan: - Start vancomycin empirically to cover for staph pneumonia. - Continue ceftriaxone. - Discontinue azithromycin as the patient has already been treated for atypical pneumonia without response. - Follow up on sputum cultures and bronchoscopy with bronchoalveolar lavage results. - Follow up on sensitivities of the Staphylococcus aureus and respiratory cultures. - Follow up on blood cultures. - MRSA PCR nasal swab may be negative due to prior levofloxacin use; will not rely on this result. - Given visualization of septic emboli and possible Staphylococcus aureus pneumonia, concern for embolic source, primarily endocarditis. - Since TTE at [facility] did not show endocarditis, recommend CLAUDIA to further evaluate. - Defer to primary team for cardiology evaluation for CLAUDIA. Isolation Precautions: Standard Assessment and plan was discussed with the patient as written above. Plan is subject to change pending incorporation of new incoming information/diagnostics. Updates may be added as addendum at the bottom (OR TOP) of this note. Thank you for interesting consult. Will continue to follow. Please contact for any questions or concerns. Kelli Falcon M.D. [facility] Ph: ? History: The patient's chart and medications were reviewed in detail and the patient was seen and examined. History obtained from: patient Katya Mejia is a 49 y.o. female with no significant past medical history except possible asthma as a child, who presents with shortness of breath and chest pain. She was seen at [facility] a few days prior and was admitted for possible pneumonia. She continued to have shortness of breath after discharge. The patient was using her mother's oxygen and is requiring 3 liters nasal cannula here. No history of COPD, smoking, alcohol, or heavy drug use. Medications and allergies reviewed at home. She is on fluticasone. She was started on ceftriaxone and azithromycin while here. Review of Systems: A complete 10 system review of systems was completed and negative except as noted in the HPI or here. ROS: - CONSTITUTIONAL: Denies weight loss, fever, and chills. - HEENT: Denies changes in vision and hearing. - RESPIRATORY: Complains of shortness of breath and chest pain. Has crackles and wheezing. - CV: Denies palpitations and chest pain. - GI: Denies abdominal pain, nausea, vomiting, and diarrhea. - : Denies dysuria and urinary frequency. - MSK: Denies myalgia and joint pain. - SKIN: Denies rash and pruritus. - NEUROLOGICAL: Denies headache and syncope. - PSYCHIATRIC: Denies recent changes in mood. Denies anxiety and depression. Past Medical History: Diagnosis | Date - | Possible asthma as a child | Past Surgical History: History reviewed. No pertinent surgical history. Home Medications: Prior to Admission medications Medication | Sig - | fluticasone inhaler | Inhale as directed. Allergies: Allergies - No known drug allergies Family History: Family History Problem | Relation | Age of Onset - | - | Information not provided | | Family Status Relation | Name | Status - | - | Information not provided | | Social History: Socioeconomic History - Marital status: Not provided - Number of children: Not provided - Years of education: Not provided - Highest education level: Not provided Occupational History - Not provided Tobacco Use - Smoking status: Never smoker - Smokeless tobacco: Never Vaping Use - Vaping status: Never Used Substance and Sexual Activity - Alcohol use: Denies - Drug use: Denies - Sexual activity: Not provided Other Topics Concern - Not provided Social History Narrative - Not provided Social Determinants of Health Financial Resource Strain: Not provided Food Insecurity: Not provided Transportation Needs: Not provided Physical Activity: Not provided Stress: Not provided Social Connections: Not provided Intimate Partner Violence: Not provided Objective: Vital Signs on Arrival: Temp: 98.1F (36.7C)?BP: 154/92?Pulse: 116?Resp: 19?SpO?: 90% on 3L/min nasal cannula Most Recent Vital Signs: Not provided Admission Weight: Weight: Not provided?BMI: Not provided Physical Exam: General:?NAD Neck:?Supple. No masses. HEENT:?PERRL. Normal lids and conjunctiva. Moist mucous membranes. Oropharynx without lesions, exudates, or excessive erythema. Normal appearance of the external aspects of the nose and ears. Heart:?Regular rhythm, normal rate. No murmur. No lower extremity edema. Lungs:?Normal respiratory effort. Crackles and wheezing bilaterally. Abdomen:?Soft. Non-tender. Non-distended. No masses or abdominal hernia. MSK:?No digital cyanosis. Normal strength and tone in all 4 limbs Skin:?Warm and dry, no rashes. Neuro:?Alert. No facial droop or slurred speech. Extra-ocular movements intact. Sensation intact to soft touch in all 4 limbs. Psych:?Appropriate mood. Full affect. Oriented to person, place, time, and situation. Lines: Active Lines - Peripheral IV Line Diagnostic Studies: Available diagnostic studies were reviewed personally. Significant relevant results and findings are outlined below or addressed in the Assessment and Plan above. Pertinent Imaging: Recent Results (from the past 360 hour(s)) CT Chest with Contrast Impression IMPRESSION: 1. No pulmonary emboli. 2. Scattered areas of pleural-based consolidation. 3. Multiple small cystic areas which may be due to septic emboli or bronchiectasis. Chest X-ray Impression IMPRESSION: 1. Multifocal opacities. 2. Small left pleural effusion. Echocardiogram Impression IMPRESSION: 1. Normal aortic, mitral, and tricuspid valves. 2. Pulmonic valve poorly visualized. 3. No signs of endocarditis. EKG Impression IMPRESSION: 1. Sinus tachycardia with borderline repolarization abnormalities. Laboratory Studies: - COVID-19 rapid antigen: Negative - Influenza A and B: Negative - Hemoglobin A1C: 5.5% - Gram stain: No organisms seen - Blood cultures: No growth to date Plan discussed with: Patient KELLI AFLCON MD May 20, 2024 17:36"
[2024-05-20] MEDS: SODIUM CHLORIDE 0.9% 1,000 ML IV SCH (17:45)
--- NOTE | 2024-05-20 17:53 | DVHPN2 ---
Progress Note Date Seen: May 20, 2024 Medical Necessity Reason Pt with a Central, PICC or Fol: No Subjective Changes from previous H/P or p: No Changes Review of Systems: CVS:Normal, RESPIRATORY:Abnormal (Shortness of breath), NEURO:Normal Objective vital signs Vital Sign Date Time Temp Pulse Resp B/P (MAP) Pulse Ox O2 Delivery O2 Flow Rate FiO2 05/20/24 17:00 98.5 90 18 104/72 (83) 96 98.5 05/20/24 08:52 Nasal Cannula 2.0 05/20/24 08:52 28 Total Intake and Output 05/19/24 05/19/24 05/20/24 15:00 23:00 07:00 Intake Total 300 ml 300 ml Output Total 200 ml Balance 100 ml 300 ml medications Current Medications Medications Dose Ordered Sig/Mirian Route Start Time Stop Time Status Last Admin Dose Admin Nitroglycerin 0.4 mg Q5MINP PRN SL 05/19/24 17:00 Morphine Sulfate 2 mg Q30M PRN IV 05/19/24 17:00 Ceftriaxone Sodium 50 ml @ 100 mls/hr DAILY@09 IV 05/20/24 09:00 05/20/24 08:12 100 MLS/HR Azithromycin 250 ml @ 125 mls/hr DAILY IV 05/20/24 10:00 05/20/24 10:29 125 MLS/HR Albuterol 2.5 mg Q6HPRN PRN NEB 05/19/24 17:00 05/20/24 10:41 2.5 MG Ferrous Sulfate 325 mg BIDWM PO 05/20/24 08:00 05/20/24 08:11 325 MG Guaifenesin/ Codeine Phosphate 10 ml Q4HPRN PRN PO 05/20/24 13:45 05/20/24 14:11 10 ML Sodium Chloride 1,000 ml @ 75 mls/hr [id number] IV 05/20/24 17:45 UNV Examination: GENERAL:Normal, LUNGS:Abnormal (Diminished), ABDOMEN:Normal, SKIN:Normal, NEURO:Normal laboratory and microbiology Laboratory Tests 05/20/24 11:17 Test 05/20/24 11:17 Range/Units Serum Glucose 148 H 74-106 mg/dL Microbiology Date/Time Source Procedure Growth Status 05/19/24 22:45 Nose MRSA Screen - Final Complete 05/19/24 09:40 Blood Blood Culture - Preliminary NO GROWTH AFTER 24 HOURS OF INCUBATION. Resulted Labs and/or images reviewed: Labs reviewed by me, Image(s) reviewed by me Problem List/Assessment/Plan Problem List/Assessment/Plan 1. Acute hypoxic respiratory failure likely from pneumonia IV antibiotics, pulmonary consult, med neb treatments 2. Community acquired pneumonia likely Gram-negative or Gram-positive IV antibiotics 3. Iron deficiency anemia Replace 4. Sepsis likely from pneumonia IV antibiotics, IV fluids 5. Hypokalemia Replace Subjective awake and alert: Objective: Patient was admitted for acute hypoxic respiratory failure which is likely related to pneumonia. Patient was subsequently found to be septic with pneumonia. Patient was placed on IV antibiotics with IV Rocephin and azithromycin. D-dimer was elevated however CTA was negative for PE. Over CTA showing scattered areas of pleural-based consolidation as well as multiple small cystic areas which may represent septic emboli or brown bronchiectasis. Infectious Disease was consulted and is awaiting consult. Patient was seen by compliance advisor who planned for possible bronchoscopy. Patient was subsequently found to have iron-deficiency anemia with hemoglobin at 9.5. Plan: Continue with med neb treatments, continue with IV antibiotics, obtain sputum culture, obtain QuantiFERON gold test, consider bronchoscopy per compliance advisor, continue iron. Plan discussed with: Patient My Orders My Orders Orders - STEVE BRIGGS Procedure Category Date Status Time Ferrous Sulfate Tablet PHA 05/20/24 In Process 08:[address] 05/19/24 Resulted Contrast 20:02 * Infectious Fede- Dr. CONS 05/20/24 Transmitted K Ezekiel 07:05 Regular Diet DIET 05/20/24 Transmitted Lunch Chest Xray 1 View XY 05/20/24 Resulted 14:23 Complete Blood Count LAB 05/21/24 Verified 05:00 Basic Metabolic Panel LAB 05/21/24 Verified 05:00 Date of Service: May 20, 2024 Billing Provider: JERICA LUCIA MD Common Visit Codes: [id number] INP/OBS CARE (MOD) STEVE BRIGGS May 20, 2024 17:53
[2024-05-20] MEDS: MAGNESIUM SULFATE 1GM/100ML 100 ML IV SCH (20:46)
[2024-05-21] VITALS (14 sets, daily range): BP systolic 108–140; BP diastolic 54–81; PULSE 80–132; RESP 17–24; TEMP 98.4–100.2; O2SAT 92–100
[2024-05-21 07:12] LABS: Basophils # (auto) 0 10 ^3/uL (0-0.2); Eosinophils # (auto) 0.1 10 ^3/uL (0-0.8); Hematocrit 28.6 % (36.0-46.0); Hemoglobin 9.5 g/dL (12.2-16.2); Lymphocytes # (auto) 1.6 10 ^3/uL (0.4-5.4)
[2024-05-21 07:16] LABS: Basophils % (auto) 0.3 % (0.0-2.0); Eosinophils % (auto) 0.9 % (0.0-7.0); Lymphocytes % (auto) 11.7 % (10.0-50.0); Mean Corpuscular Hemoglobin 28.3 pg (28.0-32.0); Mean Corpuscular Hgb Conc. 33.2 g/dL (32.0-36.0); Mean Corpuscular Volume 85.5 fL (80.0-100.0); Monocytes # (auto) 0.9 10 ^3/uL (0-1.3); Monocytes % (auto) 6.5 % (0.0-12.0); Neutrophils # (auto) 10.8 10 ^3/uL (1.6-8.6); Neutrophils % (auto) 80.6 % (37.0-80.0); Platelet Count (auto) 530 10^3/uL (140-450); Red Blood Cells 3.35 10^6/uL (4.0-5.20); Red Cell Distribution Width 16.2 % (11.8-14.3); White Blood Cell 13.4 10^3/uL (4.4-10.8)
[2024-05-21 07:18] LABS: INR 1.02 (0.9-1.15); Partial Thromboplastin Time 26.2 SEC (24.5-34.5); Prothrombin Time 10.8 sec (9.3-11.8)
[2024-05-21 07:31] LABS: Chloride 105 mmol/L (98-107); Potassium 3.8 mmol/L (3.5-5.1); Sodium 141 mmol/L (136-145)
[2024-05-21 07:32] LABS: Anion Gap 10 (5-15); Carbon Dioxide 26 mmol/L (20-31)
[2024-05-21 07:33] LABS: Calcium 8.1 mg/dL (8.7-10.4)
[2024-05-21 07:37] LABS: BUN/Creatinine Ratio 12.7 (10.0-20.0); Glucose 103 mg/dL (74-106)
[2024-05-21 07:39] LABS: Blood Urea Nitrogen 9 mg/dL (9-23)
[2024-05-21] MEDS ORDERED: FLUMAZENIL 0.1 MG/ML INJ 10ML MDV IV ONE (09:01)
[2024-05-21] MEDS ORDERED: NALOXONE HCL 0.4 MG/ML VIAL ONE (09:01)
[2024-05-21] MEDS ORDERED: EPINEPHrine HCL 1 MG/1 ML AMP ONE (09:02)
[2024-05-21] MEDS ORDERED: MIDAZOLAM HCL 2MG/2ML 2ml VIAL (1mg/ml) ONE (09:03)
[2024-05-21] MEDS ORDERED: LIDOCAINE HCL 2% TOP JELLY 5ML TOP ONE (09:03)
[2024-05-21] MEDS ORDERED: ETOMIDATE (2MG/ML) 20ML VIAL IV ONE (09:18)
[2024-05-21] MEDS: GLYCOPYRROLATE 0.2 MG/ML 1ML VIAL ONE (10:09)
[2024-05-21] MEDS: fentaNYL CITRATE 100 MCG/2 ML VL ONE (10:09)
[2024-05-21] MEDS: diphenhdrAMINE HCL 50 MG/1 ML VL ONE (10:09)
[2024-05-21] MEDS: LIDOCAINE 2%HCL (LOCAL ANESTH.) INJ 20ML MDV ONE (10:10)
[2024-05-21] MEDS: EPINEPHrine HCL 0.5 ML NEB ONE (10:53)
--- NOTE | 2024-05-21 12:03 | DVHNC2 ---
Procedure - Bronchoscopy procedure note: Indications: Left lower lobe atelectasis, Possible mucous plugging. Obtain BAL for cultures, brushings and biopsy. Medicines: See blueprint reader notes. Complications: None Procedure: Patient medications and allergies reviewed. The risks and benefits of the procedure and the sedation options and risk were discussed with the patient's healthcare proxy. All questions were answered and informed consent was obtained. Patient identification and proposed procedure were verified prior to the procedure by the physician, and a nurse, and the respiratory therapist in ICU room. The heart rate, respiratory rate, oxygen saturations, blood pressure, adequacy of pulmonary ventilation, and response to care were monitored throughout the procedure. The physical status of the patient was reassessed after the procedure. After obtaining informed consent, the bronchoscope was introduced through the endotracheal tube and advanced into the trachea bronchial tree of both lungs. The procedure was accomplished without difficulty. The patient tolerated the procedure well. Findings: The trachea is in normal caliber. The magan is sharp. The tracheobronchial tree of the right lung was examined to at least the first subsegmental level. The bronchial mucosa was erythematous and friable. The anatomy in the right lung are normal. There are no endobronchial lesions. There was scant whitish secretions from right main stem bronchus onward throughout R1-R10. These were easily cleared. The left upper lobe, lingula, and left lower lobe were examined to at least the first subsegmental level. Bronchial mucosa was erythematous and friable. The anatomy in the left upper lobe and lingula are normal. There were no endobronchial lesions. There was copious whitish viscious secretions from left main stem bronchus onward throughout L1-L10. Mucous plugging removed from L1- L10. Left lower lobe (LLL) Bronchoalveolar lavage (BAL) obtained. LLL BAL sent for gram stain and culture, viral culture, fungal culture, and AFB smear and culture. Brushings and biopsies were obtained from left lower lobe. There was no active bleeding at the completion of the procedure. Estimated blood loss: Less than 5 mL. Impression: Left lower lobe atelectasis due to mucous plugging Mucous plugging from L1-L10 LLL BAL performed LLL brushings performed LLL biopsies performed. Recommendation: Follow-up LLL BAL, brushings and biopsies results. Procedure codes: 35188, bronchoscopy, rigid and flexible, including fluoroscopic guidance, one performed; with bronchial endobronchial broncho-alveolar lavage, single or multiple sites REYES HOGUE MD May 21, 2024 12:03
--- NOTE | 2024-05-21 12:36 | DVH ---
EXAM: XY CHEST XRAY 1 VIEW HISTORY: s/p bronchoscopy with biopsy COMPARISON: XY CHEST XRAY 1 VIEW on DOS: 05/20/24, XY CHEST PORTABLE on DOS: 05/19/24, CT scan of the est dated 05/19/2024. TECHNIQUE: Portable AP view of the chest was performed. FINDINGS: There are bilateral pulmonary infiltrates, predominating in the mid to lower lungs, with wo rsening compared with chest x-ray performed 1 day earlier. No pneumothorax. The heart is not enlarged . IMPRESSION: Multifocal bilateral pneumonia, with worsening compared with chest x-ray performed 1 day earlier.
--- NOTE | 2024-05-21 14:52 | DVHPN2 ---
Progress Note Date Seen: May 21, 2024 Medical Necessity Reason Pt with a Central, PICC or Fol: No Subjective Patient reports: No new complaints Review of Systems: CVS:Normal, RESPIRATORY:Abnormal (Shortness of breath) Objective vital signs Vital Sign Date Time Temp Pulse Resp B/P (MAP) Pulse Ox O2 Delivery O2 Flow Rate FiO2 05/21/24 13:00 99.1 88 24 108/54 (72) 97 99.1 05/21/24 10:53 Non-Rebreather 15 N/A Total Intake and Output 05/20/24 05/20/24 05/21/24 15:00 23:00 07:00 Intake Total 300 ml 536 ml 825 ml Balance 300 ml 536 ml 825 ml medications Current Medications Medications Dose Ordered Sig/Mirian Route Start Time Stop Time Status Last Admin Dose Admin Nitroglycerin 0.4 mg Q5MINP PRN SL 05/19/24 17:00 Morphine Sulfate 2 mg Q30M PRN IV 05/19/24 17:00 Ceftriaxone Sodium 50 ml @ 100 mls/hr DAILY@09 IV 05/20/24 09:00 05/20/24 08:12 100 MLS/HR Azithromycin 250 ml @ 125 mls/hr DAILY IV 05/20/24 10:00 05/20/24 10:29 125 MLS/HR Albuterol 2.5 mg Q6HPRN PRN NEB 05/19/24 17:00 05/21/24 10:53 2.5 MG Ferrous Sulfate 325 mg BIDWM PO 05/20/24 08:00 05/20/24 18:27 325 MG Guaifenesin/ Codeine Phosphate 10 ml Q4HPRN PRN PO 05/20/24 13:45 05/20/24 14:11 10 ML Sodium Chloride 1,000 ml @ 75 mls/hr [id number] IV 05/20/24 17:45 05/20/24 20:46 75 MLS/HR Examination: GENERAL:Normal, LUNGS:Normal, LUNGS:Abnormal (Diminished), CVS:Normal, ABDOMEN:Normal, SKIN:Normal, NEURO:Normal laboratory and microbiology Laboratory Tests 05/21/24 06:36 Test 05/21/24 06:36 Range/Units Serum Glucose 103 74-106 mg/dL Microbiology Date/Time Source Procedure Growth Status 05/20/24 11:00 Sputum Gram Stain Pending Resulted 05/20/24 11:00 Sputum Respiratory Culture - Preliminary Resulted 05/19/24 22:45 Nose MRSA Screen - Final Complete 05/19/24 09:40 Blood Blood Culture - Preliminary NO GROWTH AFTER 48 HOURS OF INCUBATION. Resulted Labs and/or images reviewed: Labs reviewed by me, Image(s) reviewed by me Problem List/Assessment/Plan Problem List/Assessment/Plan 1. Acute hypoxic respiratory failure likely from pneumonia IV antibiotics, pulmonary consult, med neb treatments 2. Community acquired pneumonia likely Gram-negative or Gram-positive IV antibiotics 3. Iron deficiency anemia Replace 4. Sepsis likely from pneumonia IV antibiotics, IV fluids 5. Hypokalemia Replace Subjective awake and alert: Objective: Patient was admitted for acute hypoxic respiratory failure which is likely related to pneumonia. Patient was subsequently found to be septic with pneumonia. Patient was placed on IV antibiotics with IV Rocephin and azithromycin. D-dimer was elevated however CTA was negative for PE. Over CTA showing scattered areas of pleural-based consolidation as well as multiple small cystic areas which may represent septic emboli or brown bronchiectasis. Infectious Disease was consulted and is awaiting consult. Patient is S/P bronchoscopy today by Dr. Monroy, respiratory cultures were sent. Patient was found to have mucus plug to left lower lobe. Patient was subsequently found to have iron-deficiency anemia with hemoglobin 9.5 currently on oral iron. Plan: Continue with med neb treatments, continue with IV antibiotics, await sputum cultures, await QuantiFERON gold test, pulmonology consult appreciated for bronchoscopy, continue iron Plan discussed with: Patient My Orders My Orders Orders - STEVE BRIGGS Procedure Category Date Status Time Complete Blood Count LAB 05/22/24 Verified 05:00 Basic Metabolic Panel LAB 05/22/24 Verified 05:00 Dietary Evaluation Review Comments: 1) Advance to regular diet when medically feasible, per [employer] approval 2) Continue iron supplementation - 325 mg bid 3) Encourage good PO intake 4) Continue to monitor appetite, labs, and skin integrity Expected Outcomes/Goals: 1) diet to advance 2) appetite and labs to improve 3) f/u in 5 days Date of Service: May 21, 2024 Billing Provider: JERICA LUCIA MD Common Visit Codes: [id number] INP/OBS CARE (MOD) STEVE BRIGGS May 21, 2024 14:52
[2024-05-21] MEDS: MIDAZOLAM HCL 2MG/2ML 2ml VIAL (1mg/ml) ONE (15:30)
[2024-05-21] MEDS: HYDROcodone-ACET 5/325MG TAB PO PRN (20:14)
--- NOTE | 2024-05-21 21:46 | DVHPN2 ---
Progress Note - Dictate Date Seen: May 21, 2024 Medical Necessity Reason Pt with a Central, PICC or Fol: No Subjective Patient seen and examined at bedside. Remains on supplemental oxygen Overnight events reviewed. vital signs Vital Sign Date Time Temp Pulse Resp B/P (MAP) Pulse Ox O2 Delivery O2 Flow Rate FiO2 05/21/24 21:00 98.4 80 18 116/57 (76) 100 98.4 05/21/24 20:26 Nasal Cannula* 4 36 Total Intake and Output 05/20/24 05/20/24 05/21/24 15:00 23:00 07:00 Intake Total 300 ml 536 ml 825 ml Balance 300 ml 536 ml 825 ml medications Current Medications Medications Dose Ordered Sig/Mirian Route Start Time Stop Time Status Last Admin Dose Admin Nitroglycerin 0.4 mg Q5MINP PRN SL 05/19/24 17:00 Morphine Sulfate 2 mg Q30M PRN IV 05/19/24 17:00 Ceftriaxone Sodium 50 ml @ 100 mls/hr DAILY@09 IV 05/20/24 09:00 05/20/24 08:12 100 MLS/HR Azithromycin 250 ml @ 125 mls/hr DAILY IV 05/20/24 10:00 05/20/24 10:29 125 MLS/HR Albuterol 2.5 mg Q6HPRN PRN NEB 05/19/24 17:00 05/21/24 10:53 2.5 MG Ferrous Sulfate 325 mg BIDWM PO 05/20/24 08:00 05/20/24 18:27 325 MG Guaifenesin/ Codeine Phosphate 10 ml Q4HPRN PRN PO 05/20/24 13:45 05/20/24 14:11 10 ML Sodium Chloride 1,000 ml @ 75 mls/hr [id number] IV 05/20/24 17:45 05/20/24 20:46 75 MLS/HR Acetaminophen/ Hydrocodone Bitart 1 tab Q4HPRN PRN PO 05/21/24 16:30 05/21/24 20:14 1 TAB Morphine Sulfate 2 mg Q4HPRN PRN IV 05/21/24 16:30 objective Gen.: Patient lying in bed in no apparent distress. On supplemental oxygen. Head: Normocephalic, atraumatic. Eyes: EOMI/PERRLA. Ears: Normal hearing. Normal anatomy. Neck/trachea: Trachea midline, supple. Nose: Normal external anatomy. Mouth: Moist mucous membranes. Chest: Decreased air entry bilaterally. No wheezing or rhonchi. Cardiovascular: Positive S1, positive S2. Regular rate and rhythm. Abdomen: Positive bowel sounds in all 4 quadrants. Soft, non-tender, non- distended. : Deferred. Rectal: Deferred. Skin: Warm, dry. Intact. Extremities: 2+ radial pulses bilaterally. No lower extremity edema. Neuro: Awake, alert, oriented x3. No gross motor or sensory deficits. Cranial nerves II through XII intact. Gait not assessed. laboratory and microbiology Laboratory Tests 05/21/24 06:36 Test 05/21/24 06:36 Range/Units Serum Glucose 103 74-106 mg/dL Assessment/Plan Impression: Acute hypoxic respiratory failure Pneumonia Cough Dependence on supplemental oxygen Anemia Bronchiectasis Atelectasis Hypokalemia Elevated D-dimer Events: Remains on supplemental oxygen, 5 LPM NC Taper O2 as tolerated Continue bronchodilators Continue antibiotics Incentive spirometry TB rule out ID recommendations appreciated. S/p bronchoscopy with biopsy today - see procedure note for details. LLL BAL sent for gram stain and culture, viral culture, fungal culture, and AFB smear and culture. Labs and imaging reviewed. Rest of plan as noted below. Plan: Supplemental oxygen Titrate to keep O2 sats above 92%. Check QuantiFERON Gold CTA negative for pulmonary embolism CXR demonstrates Multifocal airspace opacities, similar to prior. Small left pleural effusion and/or atelectasis, slightly worse from prior. Pain control Avoid oversedation Antitussive for cough Continue bronchodilators Continue antibiotics Incentive spirometry Iron supplementation Monitor hemoglobin Monitor renal function. Monitor electrolytes. Supplement as necessary. Monitor ins and outs. IV fluids with normal saline 75 ml/hr DVT prophylaxis. Prognosis: Poor given patient's multiple co-morbidities. Rest of plan per hospitalist and other consultants. Thank you, MILAN Mayes, for allowing me to participate in this patient's care. Further recommendations will depend on the patient's clinical course. Please do not hesitate to contact me if you have any questions or concerns. This medical document was created using an electronic medical record system with [employer] system. Although these documentations are being carefully reviewed, there may still be some phonetic and typographical changes. The errors are purely typographical, due to imperfection on the software program, and do not reflect any compromise in the patient's medical care. Dietary Evaluation Review Comments: 1) Advance to regular diet when medically feasible, per FISHING TOOL TECHNICIAN OIL WELL approval 2) Continue iron supplementation - 325 mg bid 3) Encourage good PO intake 4) Continue to monitor appetite, labs, and skin integrity Expected Outcomes/Goals: 1) diet to advance 2) appetite and labs to improve 3) f/u in 5 days Plan discussed with: Patient, Other (ANTHONY Ramirez) REYES HOGUE MD May 21, 2024 21:46
[2024-05-22] VITALS (13 sets, daily range): BP systolic 105–151; BP diastolic 63–89; PULSE 68–100; RESP 16–20; TEMP 97.4–100.6; O2SAT 93–98
[2024-05-22 06:18] LABS: Basophils # (auto) 0 10 ^3/uL (0-0.2); Eosinophils # (auto) 0.2 10 ^3/uL (0-0.8); Hemoglobin 9.1 g/dL (12.2-16.2); Lymphocytes # (auto) 1.4 10 ^3/uL (0.4-5.4); Mean Corpuscular Hemoglobin 28.8 pg (28.0-32.0); Monocytes # (auto) 0.6 10 ^3/uL (0-1.3); Red Blood Cells 3.15 10^6/uL (4.0-5.20)
[2024-05-22 06:22] LABS: Basophils % (auto) 0.2 % (0.0-2.0); Eosinophils % (auto) 1.8 % (0.0-7.0); Hematocrit 27.5 % (36.0-46.0); Lymphocytes % (auto) 14.4 % (10.0-50.0); Mean Corpuscular Volume 87.3 fL (80.0-100.0); Neutrophils # (auto) 7.7 10 ^3/uL (1.6-8.6); Neutrophils % (auto) 77.6 % (37.0-80.0); Platelet Count (auto) 530 10^3/uL (140-450); Red Cell Distribution Width 16.4 % (11.8-14.3); White Blood Cell 9.9 10^3/uL (4.4-10.8)
[2024-05-22 06:24] LABS: Chloride 104 mmol/L (98-107); Potassium 3.7 mmol/L (3.5-5.1); Sodium 138 mmol/L (136-145)
[2024-05-22 06:25] LABS: Anion Gap 9 (5-15); Carbon Dioxide 25 mmol/L (20-31)
[2024-05-22 06:30] LABS: BUN/Creatinine Ratio 11.8 (10.0-20.0); Glucose 101 mg/dL (74-106)
[2024-05-22 06:33] LABS: Blood Urea Nitrogen 9 mg/dL (9-23); Calcium 7.9 mg/dL (8.7-10.4)
[2024-05-22] MEDS: MORPHINE SULFATE INJ 2 MG/ml SYRG IV PRN (09:39)
--- NOTE | 2024-05-22 10:36 | DVH ---
CHEST RADIOGRAPH Indication: left side pain s/p bronchoscopy Technique: Portable AP view of the chest was performed. Comparison: XY CHEST XRAY 1 VIEW on DOS: 05/21/24, XY CHEST XRAY 1 VIEW on DOS: 05/20/24, XY CHEST PORTAB LE on DOS: 05/19/24, XY CHEST XRAY 1 VIEW on DOS: 05/21/24 FINDINGS: There are bilateral pulmonary infiltrates, predominating in the mid to lower lungs, with worsening co mpared with chest x-ray performed 1 day earlier. No pneumothorax. The heart is not enlarged. IMPRESSION: Multifocal bilateral pneumonia, with worsening compared with chest x-ray performed 1 day earlier. Moderate left pleural effusion.
--- NOTE | 2024-05-22 10:59 | DVHPN2 ---
Progress Note - Dictate Date Seen: May 22, 2024 Medical Necessity Reason Pt with a Central, PICC or Fol: No vital signs Vital Sign Date Time Temp Pulse Resp B/P (MAP) Pulse Ox O2 Delivery O2 Flow Rate FiO2 05/22/24 09:39 86 20 151/89 05/22/24 08:48 97.6 95 97.6 05/22/24 07:39 Nasal Cannula* 3 32 Total Intake and Output 05/21/24 05/21/24 05/22/24 15:00 23:00 07:00 Intake Total 118 ml 1275 ml Balance 118 ml 1275 ml medications Current Medications Medications Dose Ordered Sig/Mirian Route Start Time Stop Time Status Last Admin Dose Admin Nitroglycerin 0.4 mg Q5MINP PRN SL 05/19/24 17:00 Morphine Sulfate 2 mg Q30M PRN IV 05/19/24 17:00 Ceftriaxone Sodium 50 ml @ 100 mls/hr DAILY@09 IV 05/20/24 09:00 05/22/24 09:38 100 MLS/HR Azithromycin 250 ml @ 125 mls/hr DAILY IV 05/20/24 10:00 05/20/24 10:29 125 MLS/HR Albuterol 2.5 mg Q6HPRN PRN NEB 05/19/24 17:00 05/22/24 07:39 2.5 MG Ferrous Sulfate 325 mg BIDWM PO 05/20/24 08:00 05/22/24 09:38 325 MG Guaifenesin/ Codeine Phosphate 10 ml Q4HPRN PRN PO 05/20/24 13:45 05/20/24 14:11 10 ML Sodium Chloride 1,000 ml @ 75 mls/hr [id number] IV 05/20/24 17:45 05/21/24 23:42 75 MLS/HR Acetaminophen/ Hydrocodone Bitart 1 tab Q4HPRN PRN PO 05/21/24 16:30 05/22/24 02:29 1 TAB Morphine Sulfate 2 mg Q4HPRN PRN IV 05/21/24 16:30 05/22/24 09:39 2 MG objective General Appearance: alert, no distress HEENT: EOMI, PERRLA, normal external inspect of ears, no icterus, no nasal drainage Neck: no carotid bruit, no jugular venous distention (JVD), no lymphadenopathy Chest: normal thorax Respiratory: clear to auscultation, normal air movement Cardiovascular: regular rate and rhythm, no diastolic murmur, no jugular venous distention (JVD), no rub, no systolic murmur Abdominal: soft, no hepatomegaly, no mass, no splenomegaly, no tenderness Genitourinary: grossly normal external Musculoskeletal: no joint tenderness, no swelling Extremities: normal pulses, no calf tenderness, no clubbing, no cyanosis, no edema Skin: no bruising, no jaundice, no rash Neurological: alert, No focal deficit laboratory and microbiology Laboratory Tests 05/22/24 05:36 Test 05/22/24 05:36 Range/Units Serum Glucose 101 74-106 mg/dL Problem List 1. Acute hypoxic respiratory failure likely from pneumonia IV antibiotics, pulmonary consult, med neb treatments 2. Community acquired pneumonia likely Gram-negative or Gram-positive IV antibiotics 3. Iron deficiency anemia Replace 4. Sepsis likely from pneumonia IV antibiotics, IV fluids 5. Hypokalemia Replace Assessment/Plan Subjective Patient is awake and alert. Objective Patient was admitted on May 19, 2024. Patient had acute hypoxic respiratory failure related to community-acquired pneumonia most likely gram-negative and gram-positive. Patient was found to have sepsis. White blood cell count has now normalized. Patient has iron deficiency and anemia. Iron level was 11. Patient is currently on 3 L nasal cannula status post bronchoscopy. Respiratory cultures currently pending. Patient had hypokalemia which has since resolved. Patient had elevated D-dimer. CTA is negative for PE. Plan Continue antibiotics with azithromycin and Rocephin. Start iron replacement. Monitor daily labs. Monitor EKG. Continue to wean down O2 as tolerated. Dietary Evaluation Review Comments: 1) Advance to regular diet when medically feasible, per DECK OFFICER approval 2) Continue iron supplementation - 325 mg bid 3) Encourage good PO intake 4) Continue to monitor appetite, labs, and skin integrity Expected Outcomes/Goals: 1) diet to advance 2) appetite and labs to improve 3) f/u in 5 days Plan discussed with: Patient, Other LISS COHEN NP May 22, 2024 10:59
[2024-05-22] MEDS: ENOXAPARIN SOD 40 MG/0.4 ML SYRINGE SC SCH (11:00)
[2024-05-22] MEDS ORDERED: hydrALAZINE HCL 20 MG/ML VL IV PRN (11:00)
[2024-05-22] MEDS: IRON SUCROSE COMPLEX 110 ML IV SCH (12:00)
--- NOTE | 2024-05-22 12:17 | DVH ---
US CHEST ULTRASOUND, HISTORY: evaluate effusion COMPARISON(S): None TECHNICAL DATA: Transverse and longitudinal images are obtained of the chest. FINDING: IMPRESSION(S): There is small bilateral pleural effusion.
[2024-05-22] MEDS: FUROSEMIDE 40 MG/4 ML VIAL IV ONE (12:36)
[2024-05-22] MEDS: FAMOTIDINE 20 MG TAB PO SCH (12:36)
--- NOTE | 2024-05-22 22:13 | DVHPN2 ---
Progress Note - Dictate Date Seen: May 22, 2024 Medical Necessity Reason Pt with a Central, PICC or Fol: No Subjective Patient seen and examined at bedside. Remains on supplemental oxygen Overnight events reviewed. vital signs Vital Sign Date Time Temp Pulse Resp B/P (MAP) Pulse Ox O2 Delivery O2 Flow Rate FiO2 05/22/24 21:00 97.4 96 17 128/64 (85) 95 97.4 05/22/24 20:20 2.0 28 05/22/24 19:15 Nasal Cannula* Total Intake and Output 05/21/24 05/21/24 05/22/24 15:00 23:00 07:00 Intake Total 118 ml 1275 ml Balance 118 ml 1275 ml medications Current Medications Medications Dose Ordered Sig/Mirian Route Start Time Stop Time Status Last Admin Dose Admin Nitroglycerin 0.4 mg Q5MINP PRN SL 05/19/24 17:00 Morphine Sulfate 2 mg Q30M PRN IV 05/19/24 17:00 Ceftriaxone Sodium 50 ml @ 100 mls/hr DAILY@09 IV 05/20/24 09:00 05/22/24 09:38 100 MLS/HR Azithromycin 250 ml @ 125 mls/hr DAILY IV 05/20/24 10:00 05/22/24 10:00 125 MLS/HR Albuterol 2.5 mg Q6HPRN PRN NEB 05/19/24 17:00 05/22/24 19:18 2.5 MG Ferrous Sulfate 325 mg BIDWM PO 05/20/24 08:00 05/22/24 09:38 325 MG Guaifenesin/ Codeine Phosphate 10 ml Q4HPRN PRN PO 05/20/24 13:45 05/20/24 14:11 10 ML Sodium Chloride 1,000 ml @ 75 mls/hr [id number] IV 05/20/24 17:45 05/22/24 09:45 75 MLS/HR Acetaminophen/ Hydrocodone Bitart 1 tab Q4HPRN PRN PO 05/21/24 16:30 05/22/24 02:29 1 TAB Morphine Sulfate 2 mg Q4HPRN PRN IV 05/21/24 16:30 05/22/24 09:39 2 MG Iron Sucrose 110 ml @ 110 mls/hr DAILY@1200 IV 05/22/24 12:00 05/26/24 12:59 05/22/24 12:00 110 MLS/HR Hydralazine HCl 10 mg Q6HP PRN IV 05/22/24 11:00 Famotidine 20 mg DAILY PO 05/22/24 11:00 05/22/24 12:36 20 MG Enoxaparin Sodium 40 mg DAILY SC 05/22/24 11:00 Sodium Chloride 1 spr BIDPRN PRN EACHNOSTRI 05/22/24 17:00 Furosemide 20 mg DAILY IV 05/23/24 10:00 objective Gen.: Patient lying in bed in no apparent distress. On supplemental oxygen. Head: Normocephalic, atraumatic. Eyes: EOMI/PERRLA. Ears: Normal hearing. Normal anatomy. Neck/trachea: Trachea midline, supple. Nose: Normal external anatomy. Mouth: Moist mucous membranes. Chest: Decreased air entry bilaterally. No wheezing or rhonchi. Cardiovascular: Positive S1, positive S2. Regular rate and rhythm. Abdomen: Positive bowel sounds in all 4 quadrants. Soft, non-tender, non- distended. : Deferred. Rectal: Deferred. Skin: Warm, dry. Intact. Extremities: 2+ radial pulses bilaterally. No lower extremity edema. Neuro: Awake, alert, oriented x3. No gross motor or sensory deficits. Cranial nerves II through XII intact. Gait not assessed. laboratory and microbiology Laboratory Tests 05/22/24 05:36 Test 05/22/24 05:36 Range/Units Serum Glucose 101 74-106 mg/dL Assessment/Plan Impression: Acute hypoxic respiratory failure Pneumonia Cough Dependence on supplemental oxygen Anemia Bronchiectasis Atelectasis Hypokalemia Elevated D-dimer Events: Remains on supplemental oxygen, 3 LPM NC Taper O2 as tolerated Improving O2 requirements Gave Lasix 40 mg IVP Will give Lasix 20 mg IVP in the AM. Chest x-ray reviewed, improving except left lower lobe. Chest ultrasound revealed small bilateral pleural effusions. Continue bronchodilators Continue antibiotics Rillito nasal spray q.12 hours for dry nares. Incentive spirometry TB rule out ID recommendations appreciated. S/p bronchoscopy with biopsy on 05/21/24 - see procedure note for details. LLL BAL sent for gram stain and culture, viral culture, fungal culture, and AFB smear and culture. Labs and imaging reviewed. Rest of plan as noted below. Plan: Supplemental oxygen Titrate to keep O2 sats above 92%. Check QuantiFERON Gold CTA negative for pulmonary embolism CXR demonstrates Multifocal airspace opacities, similar to prior. Small left pleural effusion and/or atelectasis, slightly worse from prior. Pain control Avoid oversedation Antitussive for cough Continue bronchodilators Continue antibiotics Incentive spirometry Iron supplementation Monitor hemoglobin Monitor renal function. Monitor electrolytes. Supplement as necessary. Monitor ins and outs. IV fluids with normal saline 75 ml/hr DVT prophylaxis. Prognosis: Guarded given patient's multiple co-morbidities. Rest of plan per hospitalist and other consultants. Thank you, MILAN Mayes, for allowing me to participate in this patient's care. Further recommendations will depend on the patient's clinical course. Please do not hesitate to contact me if you have any questions or concerns. This medical document was created using an electronic medical record system with [employer] dictation system. Although these documentations are being carefully reviewed, there may still be some phonetic and typographical changes. The errors are purely typographical, due to imperfection on the software program, and do not reflect any compromise in the patient's medical care. Dietary Evaluation Review Comments: 1) Advance to regular diet when medically feasible, per MOLD STAMPER approval 2) Continue iron supplementation - 325 mg bid 3) Encourage good PO intake 4) Continue to monitor appetite, labs, and skin integrity Expected Outcomes/Goals: 1) diet to advance 2) appetite and labs to improve 3) f/u in 5 days Plan discussed with: Patient, Other (ANTHONY Ramirez) REYES HOGUE MD May 22, 2024 22:13
[2024-05-23] VITALS (10 sets, daily range): BP systolic 107–126; BP diastolic 54–72; PULSE 68–112; RESP 16–20; TEMP 98–99.3; O2SAT 92–100
[2024-05-23] MEDS: SALINE 0.65 % NASAL SPRAY 45ML BOTTLE EACHNOSTRI PRN (03:05)
--- NOTE | 2024-05-23 07:21 | DVH ---
EXAM: XR Chest, 1 View CLINICAL INDICATION: interval changes with pneumonia TECHNIQUE: Frontal view of the chest. COMPARISON: XY CHEST XRAY 1 VIEW on DOS: 05/22/24, XY CHEST XRAY 1 VIEW on DOS: 05/21/24, XY CHEST XRAY 1 VIEW on DOS: 05/20/24, XY CHEST PORTABLE on DOS: 05/19/24 FINDINGS: LUNGS AND PLEURAL SPACES: Congestion and edema, unchanged. No pneumothorax. HEART: Unremarkable. No cardiomegaly. MEDIASTINUM: Unremarkable. Normal mediastinal contour. BONES/JOINTS: Unremarkable. No acute fracture. OTHER FINDINGS: . No significant change from the prior exam. IMPRESSION: No acute cardiopulmonary process.
[2024-05-23] MEDS: FUROSEMIDE 20 MG/2 ML VIAL IV SCH (10:15)
--- NOTE | 2024-05-23 11:08 | DVHPN2 ---
Progress Note - Dictate Date Seen: May 23, 2024 Medical Necessity Reason Pt with a Central, PICC or Fol: No vital signs Vital Sign Date Time Temp Pulse Resp B/P (MAP) Pulse Ox O2 Delivery O2 Flow Rate FiO2 05/23/24 10:15 107/60 05/23/24 08:30 98.1 96 18 96 98.1 05/22/24 20:20 2.0 28 05/22/24 20:00 Nasal Cannula* Total Intake and Output 05/22/24 05/22/24 05/23/24 15:00 23:00 07:00 Intake Total 410 ml 225 ml 1150 ml Balance 410 ml 225 ml 1150 ml medications Current Medications Medications Dose Ordered Sig/Mirian Route Start Time Stop Time Status Last Admin Dose Admin Nitroglycerin 0.4 mg Q5MINP PRN SL 05/19/24 17:00 Morphine Sulfate 2 mg Q30M PRN IV 05/19/24 17:00 Ceftriaxone Sodium 50 ml @ 100 mls/hr DAILY@09 IV 05/20/24 09:00 05/23/24 10:19 100 MLS/HR Azithromycin 250 ml @ 125 mls/hr DAILY IV 05/20/24 10:00 05/22/24 10:00 125 MLS/HR Albuterol 2.5 mg Q6HPRN PRN NEB 05/19/24 17:00 05/22/24 19:18 2.5 MG Ferrous Sulfate 325 mg BIDWM PO 05/20/24 08:00 05/23/24 10:35 325 MG Sodium Chloride 1,000 ml @ 75 mls/hr [id number] IV 05/20/24 17:45 05/23/24 05:45 75 MLS/HR Acetaminophen/ Hydrocodone Bitart 1 tab Q4HPRN PRN PO 05/21/24 16:30 05/23/24 10:37 1 TAB Morphine Sulfate 2 mg Q4HPRN PRN IV 05/21/24 16:30 05/22/24 23:32 2 MG Iron Sucrose 110 ml @ 110 mls/hr DAILY@1200 IV 05/22/24 12:00 05/26/24 12:59 05/22/24 12:00 110 MLS/HR Hydralazine HCl 10 mg Q6HP PRN IV 05/22/24 11:00 Famotidine 20 mg DAILY PO 05/22/24 11:00 05/23/24 10:14 20 MG Enoxaparin Sodium 40 mg DAILY SC 05/22/24 11:00 05/23/24 10:15 40 MG Sodium Chloride 1 spr BIDPRN PRN EACHNOSTRI 05/22/24 17:00 05/23/24 10:14 1 SPR Furosemide 20 mg DAILY IV 05/23/24 10:00 05/23/24 10:15 20 MG Fluticasone Propionate 50 mcg Q12HR EACHNOSTRI 05/23/24 11:00 UNV objective General Appearance: alert, no distress HEENT: EOMI, PERRLA, normal external inspect of ears, no icterus, no nasal drainage Neck: no carotid bruit, no jugular venous distention (JVD), no lymphadenopathy Chest: normal thorax Respiratory: clear to auscultation, normal air movement Cardiovascular: regular rate and rhythm, no diastolic murmur, no jugular venous distention (JVD), no rub, no systolic murmur Abdominal: soft, no hepatomegaly, no mass, no splenomegaly, no tenderness Genitourinary: grossly normal external Musculoskeletal: no joint tenderness, no swelling Extremities: normal pulses, no calf tenderness, no clubbing, no cyanosis, no edema Skin: no bruising, no jaundice, no rash Neurological: alert, No focal deficit laboratory and microbiology Laboratory Tests 05/22/24 05:36 Test 05/22/24 05:36 Range/Units Serum Glucose 101 74-106 mg/dL Problem List 1. Acute hypoxic respiratory failure likely from pneumonia IV antibiotics, pulmonary consult, med neb treatments 2. Community acquired pneumonia likely Gram-negative or Gram-positive IV antibiotics 3. Iron deficiency anemia Replace 4. Sepsis likely from pneumonia IV antibiotics, IV fluids 5. Hypokalemia Replace Assessment/Plan Subjective Patient is awake and alert. Objective Patient was admitted for acute hypoxic respiratory failure related to community acquired pneumonia. Most likely gram positive and gram negative. Patient had an elevated D-dimer. CTA was negative for PE. Patient had status post bronchoscopy by Doctor Monroy. Patient has sepsis from pneumonia. Patient is still hypoxic, currently on three liters nasal cannula. Patient states she does not use oxygen at home. Plan Continue antibiotics with azithromycin and Rocephin. Patient has an elevated Ca125 level. Will need repeat CT of the chest for continued shortness of breath and CT of the abdomen and pelvis. Oncology consult. Continue med Neb treatments and IV antibiotics. Dietary Evaluation Review Comments: 1) Advance to regular diet when medically feasible, per TOY DEPARTMENT MANAGER approval 2) Continue iron supplementation - 325 mg bid 3) Encourage good PO intake 4) Continue to monitor appetite, labs, and skin integrity Expected Outcomes/Goals: 1) diet to advance 2) appetite and labs to improve 3) f/u in 5 days Plan discussed with: Patient, Other LISS COHEN NP May 23, 2024 11:08
--- NOTE | 2024-05-23 14:24 | ECG ---
[facility] Test Date: 2024-05-19 Test Time: 09:10:03 Pat Name: CHICO CARDENAS Department: ER Room: 0239T A Gender: F Inspector [employer]: ORTEGA : 1975 Requested By: JEREMY SUE Order Number: [id number] Reading MD: Steve Eli Measurements Intervals [place] Rate: 103 P: 75 OK: 123 QRS: 87 QRSD: 80 T: 63 QT: 358 QTc: 469 Interpretive Statements Sinus tachycardia Borderline repolarization abnormality Electronically Signed On 05-27-2024 16:45:15 PST by Steve Eli Please click the below link to view image of tracing.
[2024-05-23] MEDS: FLUTICASONE PROP NASAL SPR 0.05 % (50MCG) 16GM EACHNOSTRI SCH (14:57)
--- NOTE | 2024-05-23 14:57 | DVH ---
Exam: CT CHST AB PEL W WO CON-IV ONLY History: elevated ca 125 Comparison Study: None available at time of dictation. TECHNIQUE: Multidetector CT of the abdomen was performed from lung bases to pubic symphysis. Imaging was performed without IV contrast. Axial, coronal and sagittal multiplanar reformats were obtained fr om the axial data set by the technologist. Radiation Dose Information: CT Dose: CTDI volume is 8.59 mGy. Dose-length product is 1154.27 mGy*cm Omnipaque 300: 100 mL FINDINGS: Evaluation of solid organs is limited due to lack of intravenous contrast use. Findings: Lung Bases: Multiple patchy areas of pulmonary consolidation. Some pleural-based. Others containing lucent centers. Can not exclude septic emboli. Small left pleural effusion and consolidation left low er lobe. Left larger than right. Normal heart size. No pleural or pericardial effusion. No findings of pulmonary artery hypertension or pulmonary emboli. Liver: The liver is normal in size. No focal lesions. Gallbladder and Biliary Tree: No calcified gallstones Spleen: Unremarkable Pancreas: The pancreas is grossly normal in appearance. Adrenal Glands: Unremarkable Kidneys: Kidneys are grossly normal without calculi or hydronephrosis. Bladder: Grossly unremarkable for degree of distention. Bowel: The stomach is grossly normal in appearance. Small bowel and colon are normal in caliber and d istribution. Large stool burden throughout colon no findings to suggest abnormally dilated small charlotte l or colon to suggest obstruction. The appendix is not visualized; however, no secondary findings of acute appendicitis identified. Ascites: Absent Lymphadenopathy: No mesenteric, retroperitoneal or periportal lymphadenopathy. Abdominal Wall and Mesentery: Unremarkable. Vasculature: The visualized abdominal aorta is normal in size and caliber. Evaluation of abdominal a nd pelvic vessels is limited due to lack of intravenous contrast. Pelvic Organs: Unremarkable Musculoskeletal: No aggressive focal bony lesions, acute fractures or dislocation. Grade 1 anterior s pondylolisthesis L5-S1 Soft tissues: Unremarkable IMPRESSION: 1. CHEST: Patchy bilateral areas of pulmonary infiltrate and consolidations. Some of these areas of consolidation had lucent centers can not exclude septic emboli. Findings worse than 05/16/2024. 2. Bibasilar areas of atelectasis infiltrate and pleural effusions. Left worse than right. Findings w orse than 05/19/2024. 3. Liver and spleen are unremarkable. 4. No findings of bowel obstruction. 5. Large stool burden throughout the colon 6. No nephrolithiasis or hydronephrosis. 7. Gallbladder contracted no calcified gallstones 8. No free air no free fluid 9. Grade 1 anterior spondylolisthesis L5-S1. Radiation optimization: All CT scans at this facility use at least one of these dose optimization jessica hniques: automated exposure control mA and/or kV adjustment per patient size (includes targeted exam s where dose is matched to clinical indication) or iterative reconstruction.
[2024-05-23] MEDS ORDERED: VANCOMYCIN PER PHARMACY 0 MG IV SCH ×2 (15:00→16:45)
[2024-05-23] MEDS: VANCOMYCIN 1GM/250ML KIT 250 ML IV ONE (17:56)
--- NOTE | 2024-05-23 18:05 | DVHPN2 ---
Consult Progress Note Date Seen: May 21, 2024 Subjective Patient reports: Other (worsen to 15 liters non rebreather and underwent bronchoscopy today , crackles in lungs bilaterally and coarse rhonchi with thick yellow mucus production ) Objective vital signs Vital Sign Date Time Temp Pulse Resp B/P (MAP) Pulse Ox O2 Delivery O2 Flow Rate FiO2 05/23/24 16:30 98.7 89 18 126/70 (88) 96 98.7 05/23/24 14:13 Nasal Cannula 2.0 05/23/24 14:13 28 Total Intake and Output 05/22/24 05/22/24 05/23/24 15:00 23:00 07:00 Intake Total 410 ml 225 ml 1150 ml Balance 410 ml 225 ml 1150 ml medications Current Medications Medications Dose Ordered Sig/Mirian Route Start Time Stop Time Status Last Admin Dose Admin Nitroglycerin 0.4 mg Q5MINP PRN SL 05/19/24 17:00 Morphine Sulfate 2 mg Q30M PRN IV 05/19/24 17:00 Ceftriaxone Sodium 50 ml @ 100 mls/hr DAILY@09 IV 05/20/24 09:00 05/23/24 10:19 100 MLS/HR Albuterol 2.5 mg Q6HPRN PRN NEB 05/19/24 17:00 05/23/24 14:13 2.5 MG Ferrous Sulfate 325 mg BIDWM PO 05/20/24 08:00 05/23/24 18:00 325 MG Sodium Chloride 1,000 ml @ 75 mls/hr [id number] IV 05/20/24 17:45 05/23/24 05:45 75 MLS/HR Acetaminophen/ Hydrocodone Bitart 1 tab Q4HPRN PRN PO 05/21/24 16:30 05/23/24 10:37 1 TAB Morphine Sulfate 2 mg Q4HPRN PRN IV 05/21/24 16:30 05/22/24 23:32 2 MG Iron Sucrose 110 ml @ 110 mls/hr DAILY@1200 IV 05/22/24 12:00 05/26/24 12:59 05/23/24 12:00 110 MLS/HR Hydralazine HCl 10 mg Q6HP PRN IV 05/22/24 11:00 Famotidine 20 mg DAILY PO 05/22/24 11:00 05/23/24 10:14 20 MG Enoxaparin Sodium 40 mg DAILY SC 05/22/24 11:00 05/23/24 10:15 40 MG Sodium Chloride 1 spr BIDPRN PRN EACHNOSTRI 05/22/24 17:00 05/23/24 10:14 1 SPR Furosemide 20 mg DAILY IV 05/23/24 10:00 05/23/24 10:15 20 MG Fluticasone Propionate 50 mcg Q12HR EACHNOSTRI 05/23/24 11:00 05/23/24 14:57 50 MCG Vancomycin HCl 0 ml @ 0 mls/hr UD IV 05/23/24 16:45 Docusate Sodium 100 mg BID PO 05/23/24 22:00 Polyethylene Glycol 17 gm DAILY PO 05/24/24 10:00 Physical Exam: General:?NAD Neck:?Supple. No masses. HEENT:?PERRL. Normal lids and conjunctiva. Moist mucous membranes. Oropharynx without lesions, exudates, or excessive erythema. Normal appearance of the external aspects of the nose and ears. Heart:?Regular rhythm, normal rate. No murmur. No lower extremity edema. Lungs:?Normal respiratory effort. Crackles and wheezing bilaterally. Abdomen:?Soft. Non-tender. Non-distended. No masses or abdominal hernia. MSK:?No digital cyanosis. Normal strength and tone in all 4 limbs Skin:?Warm and dry, no rashes. Neuro:?Alert. No facial droop or slurred speech. Extra-ocular movements intact. Sensation intact to soft touch in all 4 limbs. Psych:?Appropriate mood. Full affect. Oriented to person, place, time, and situation. laboratory and microbiology Laboratory Tests 05/22/24 05:36 Test 05/22/24 05:36 Range/Units Serum Glucose 101 74-106 mg/dL Problem List/Assessment/Plan Problems(with codes): (1) Shortness of breath (2) Acute respiratory failure (3) Pneumonia (4) MRSA (methicillin resistant staphylococcus aureus) pneumonia (5) Hypoxia Problem List/Assessment/Plan ID Problem List: - Pneumonia - Hypoxia - Possible Staphylococcus aureus infection - Shortness of breath - Septic emboli - Tachycardia - Possible endocarditis Assessment This is a 49 y.o. female with no significant past medical history except possible asthma as a child, who presents with shortness of breath and chest pain. Patient was seen at [facility] a few days prior and was admitted for possible pneumonia. She continued to have shortness of breath after discharge. She was using her mother's oxygen and is requiring 3 liters nasal cannula here to maintain saturation at 90%. No history of COPD, smoking, alcohol, or heavy drug use. Medications include fluticasone. She was started on ceftriaxone and azithromycin while here. Vital signs notable for temperature of 98.1F, pulse of 116, respirations 19, blood pressure 154/92, requiring 3 liters nasal cannula and saturating at 90%. Physical exam notable for bilateral crackles and diffuse wheezing. COVID-19 rapid antigen negative, influenza A negative, influenza B negative. Lab results: Hemoglobin A1C is 5.5%. Chest CT notable for multifocal opacities and a small left pleural effusion. CT chest showed no pulmonary emboli, scattered areas of pleural-based consolidation, as well as multiple small cystic areas which may be due to septic emboli or bronchiectasis. Records from [facility] indicate the patient was seen by Dr. Sena on May 14 and was treated with azithromycin and vancomycin. Echocardiogram showed normal aortic, mitral, and tricuspid valves; pulmonic valve poorly visualized. No signs of endocarditis. Blood cultures were negative to date. Patient was discharged on levofloxacin 500 mg daily. EKG here shows sinus tachycardia with borderline repolarization abnormalities. Gram stain shows no organisms; however, there is concern for culture growth of likely Staphylococcus aureus. 05/21: Dr. Monroy preformed a bronchoscopy , there was left lower lobe atolectusis due to mucus plugging from L1-L10 which was relieved . biopsies and cultures were acquired Plan: - Follow up on BAL cultures , sputum cultures - Continue vancomycin empirically to cover for staph pneumonia. - Continue ceftriaxone. - Discontinue azithromycin as the patient has already been treated for atypical pneumonia without response. - Follow up on sputum cultures and bronchoscopy with bronchoalveolar lavage results. - Follow up on sensitivities of the Staphylococcus aureus and respiratory cultures. - Follow up on blood cultures. - MRSA PCR nasal swab may be negative due to prior levofloxacin use; will not rely on this result. - Given visualization of septic emboli and possible Staphylococcus aureus pneumonia, concern for embolic source, primarily endocarditis. - Since TTE at [facility] did not show endocarditis, recommend CLAUDIA to further evaluate. - Defer to primary team for cardiology evaluation for CLAUDIA. Isolation Precautions: Standard Plan discussed with: Other Dietary Evaluation Review Comments: 1) Advance to regular diet when medically feasible, per SENIOR C SOFTWARE ENGINEER approval 2) Continue iron supplementation - 325 mg bid 3) Encourage good PO intake 4) Continue to monitor appetite, labs, and skin integrity Expected Outcomes/Goals: 1) diet to advance 2) appetite and labs to improve 3) f/u in 5 days KELLI NIETO MD May 23, 2024 18:05
--- NOTE | 2024-05-23 18:05 | DVHPN2 ---
Consult Progress Note Date Seen: May 22, 2024 Subjective Patient reports: Other (on 3 liters nasal canula , hypoxia has improved , not coughing up as much sputum ) Objective vital signs Vital Sign Date Time Temp Pulse Resp B/P (MAP) Pulse Ox O2 Delivery O2 Flow Rate FiO2 05/23/24 16:30 98.7 89 18 126/70 (88) 96 98.7 05/23/24 14:13 Nasal Cannula 2.0 05/23/24 14:13 28 Total Intake and Output 05/22/24 05/22/24 05/23/24 15:00 23:00 07:00 Intake Total 410 ml 225 ml 1150 ml Balance 410 ml 225 ml 1150 ml medications Current Medications Medications Dose Ordered Sig/Mirian Route Start Time Stop Time Status Last Admin Dose Admin Nitroglycerin 0.4 mg Q5MINP PRN SL 05/19/24 17:00 Morphine Sulfate 2 mg Q30M PRN IV 05/19/24 17:00 Ceftriaxone Sodium 50 ml @ 100 mls/hr DAILY@09 IV 05/20/24 09:00 05/23/24 10:19 100 MLS/HR Albuterol 2.5 mg Q6HPRN PRN NEB 05/19/24 17:00 05/23/24 14:13 2.5 MG Ferrous Sulfate 325 mg BIDWM PO 05/20/24 08:00 05/23/24 18:00 325 MG Sodium Chloride 1,000 ml @ 75 mls/hr [id number] IV 05/20/24 17:45 05/23/24 05:45 75 MLS/HR Acetaminophen/ Hydrocodone Bitart 1 tab Q4HPRN PRN PO 05/21/24 16:30 05/23/24 10:37 1 TAB Morphine Sulfate 2 mg Q4HPRN PRN IV 05/21/24 16:30 05/22/24 23:32 2 MG Iron Sucrose 110 ml @ 110 mls/hr DAILY@1200 IV 05/22/24 12:00 05/26/24 12:59 05/23/24 12:00 110 MLS/HR Hydralazine HCl 10 mg Q6HP PRN IV 05/22/24 11:00 Famotidine 20 mg DAILY PO 05/22/24 11:00 05/23/24 10:14 20 MG Enoxaparin Sodium 40 mg DAILY SC 05/22/24 11:00 05/23/24 10:15 40 MG Sodium Chloride 1 spr BIDPRN PRN EACHNOSTRI 05/22/24 17:00 05/23/24 10:14 1 SPR Furosemide 20 mg DAILY IV 05/23/24 10:00 05/23/24 10:15 20 MG Fluticasone Propionate 50 mcg Q12HR EACHNOSTRI 05/23/24 11:00 05/23/24 14:57 50 MCG Vancomycin HCl 0 ml @ 0 mls/hr UD IV 05/23/24 16:45 Docusate Sodium 100 mg BID PO 05/23/24 22:00 Polyethylene Glycol 17 gm DAILY PO 05/24/24 10:00 Physical Exam: General:?NAD Neck:?Supple. No masses. HEENT:?PERRL. Normal lids and conjunctiva. Moist mucous membranes. Oropharynx without lesions, exudates, or excessive erythema. Normal appearance of the external aspects of the nose and ears. Heart:?Regular rhythm, normal rate. No murmur. No lower extremity edema. Lungs:?Normal respiratory effort. Crackles and wheezing bilaterally. Abdomen:?Soft. Non-tender. Non-distended. No masses or abdominal hernia. MSK:?No digital cyanosis. Normal strength and tone in all 4 limbs Skin:?Warm and dry, no rashes. Neuro:?Alert. No facial droop or slurred speech. Extra-ocular movements intact. Sensation intact to soft touch in all 4 limbs. Psych:?Appropriate mood. Full affect. Oriented to person, place, time, and situation. laboratory and microbiology Laboratory Tests 05/22/24 05:36 Test 05/22/24 05:36 Range/Units Serum Glucose 101 74-106 mg/dL Problem List/Assessment/Plan Problems(with codes): (1) MRSA (methicillin resistant staphylococcus aureus) pneumonia (2) Pneumonia (3) Acute respiratory failure (4) Hypoxia (5) Shortness of breath Problem List/Assessment/Plan ID Problem List: - Pneumonia - Hypoxia - Possible Staphylococcus aureus infection - Shortness of breath - Septic emboli - Tachycardia - Possible endocarditis Assessment This is a 49 y.o. female with no significant past medical history except possible asthma as a child, who presents with shortness of breath and chest pain. Patient was seen at [facility] a few days prior and was admitted for possible pneumonia. She continued to have shortness of breath after discharge. She was using her mother's oxygen and is requiring 3 liters nasal cannula here to maintain saturation at 90%. No history of COPD, smoking, alcohol, or heavy drug use. Medications include fluticasone. She was started on ceftriaxone and azithromycin while here. Vital signs notable for temperature of 98.1F, pulse of 116, respirations 19, blood pressure 154/92, requiring 3 liters nasal cannula and saturating at 90%. Physical exam notable for bilateral crackles and diffuse wheezing. COVID-19 rapid antigen negative, influenza A negative, influenza B negative. Lab results: Hemoglobin A1C is 5.5%. Chest CT notable for multifocal opacities and a small left pleural effusion. CT chest showed no pulmonary emboli, scattered areas of pleural-based consolidation, as well as multiple small cystic areas which may be due to septic emboli or bronchiectasis. Records from [facility] indicate the patient was seen by Dr. Sena on May 14 and was treated with azithromycin and vancomycin. Echocardiogram showed normal aortic, mitral, and tricuspid valves; pulmonic valve poorly visualized. No signs of endocarditis. Blood cultures were negative to date. Patient was discharged on levofloxacin 500 mg daily. EKG here shows sinus tachycardia with borderline repolarization abnormalities. Gram stain shows no organisms; however, there is concern for culture growth of likely Staphylococcus aureus. 3/: Dr. Monroy preformed a bronchoscopy , there was left lower lobe atelectasis due to mucus plugging from L1-L10 which was relieved . biopsies and cultures were acquired 05/22: Patient appears significantly improved after therapeutic bronchoscopy, growing MRSA in the lungs Plan: - Follow up on BAL cultures , sputum cultures - Continue vancomycin empirically to cover for staph pneumonia. - Continue ceftriaxone. - Discontinue azithromycin as the patient has already been treated for atypical pneumonia without response. - Follow up on sputum cultures and bronchoscopy with bronchoalveolar lavage results. - Follow up on sensitivities of the Staphylococcus aureus and respiratory cultures. - Follow up on blood cultures. - MRSA PCR nasal swab may be negative due to prior levofloxacin use; will not rely on this result. - Given visualization of septic emboli and possible Staphylococcus aureus pneumonia, concern for embolic source, primarily endocarditis. - Since TTE at [facility] did not show endocarditis, recommend CLAUDIA to further evaluate. - Defer to primary team for cardiology evaluation for CLAUDIA. Isolation Precautions: Standard Plan discussed with: Other Dietary Evaluation Review Comments: 1) Advance to regular diet when medically feasible, per CONTROL PANEL OPERATOR [employer]IT approval 2) Continue iron supplementation - 325 mg bid 3) Encourage good PO intake 4) Continue to monitor appetite, labs, and skin integrity Expected Outcomes/Goals: 1) diet to advance 2) appetite and labs to improve 3) f/u in 5 days KELLI NIETO MD May 23, 2024 18:05
--- NOTE | 2024-05-23 19:47 | DVHPN2 ---
Consult Progress Note Date Seen: May 23, 2024 Subjective Patient reports: Other (has been recieving vancoycin doses due to order eeor , remains afebrile and on 2 liters nasal canula settign 94% ) Objective vital signs Vital Sign Date Time Temp Pulse Resp B/P (MAP) Pulse Ox O2 Delivery O2 Flow Rate FiO2 05/23/24 16:30 98.7 89 18 126/70 (88) 96 98.7 05/23/24 14:13 Nasal Cannula 2.0 05/23/24 14:13 28 Total Intake and Output 05/22/24 05/22/24 05/23/24 15:00 23:00 07:00 Intake Total 410 ml 225 ml 1150 ml Balance 410 ml 225 ml 1150 ml medications Current Medications Medications Dose Ordered Sig/Mirian Route Start Time Stop Time Status Last Admin Dose Admin Nitroglycerin 0.4 mg Q5MINP PRN SL 05/19/24 17:00 Morphine Sulfate 2 mg Q30M PRN IV 05/19/24 17:00 Ceftriaxone Sodium 50 ml @ 100 mls/hr DAILY@09 IV 05/20/24 09:00 05/23/24 10:19 100 MLS/HR Albuterol 2.5 mg Q6HPRN PRN NEB 05/19/24 17:00 05/23/24 14:13 2.5 MG Ferrous Sulfate 325 mg BIDWM PO 05/20/24 08:00 05/23/24 18:00 325 MG Sodium Chloride 1,000 ml @ 75 mls/hr [id number] IV 05/20/24 17:45 05/23/24 05:45 75 MLS/HR Acetaminophen/ Hydrocodone Bitart 1 tab Q4HPRN PRN PO 05/21/24 16:30 05/23/24 10:37 1 TAB Morphine Sulfate 2 mg Q4HPRN PRN IV 05/21/24 16:30 05/22/24 23:32 2 MG Iron Sucrose 110 ml @ 110 mls/hr DAILY@1200 IV 05/22/24 12:00 05/26/24 12:59 05/23/24 12:00 110 MLS/HR Hydralazine HCl 10 mg Q6HP PRN IV 05/22/24 11:00 Famotidine 20 mg DAILY PO 05/22/24 11:00 05/23/24 10:14 20 MG Enoxaparin Sodium 40 mg DAILY SC 05/22/24 11:00 05/23/24 10:15 40 MG Sodium Chloride 1 spr BIDPRN PRN EACHNOSTRI 05/22/24 17:00 05/23/24 10:14 1 SPR Furosemide 20 mg DAILY IV 05/23/24 10:00 05/23/24 10:15 20 MG Fluticasone Propionate 50 mcg Q12HR EACHNOSTRI 05/23/24 11:00 05/23/24 14:57 50 MCG Vancomycin HCl 0 ml @ 0 mls/hr UD IV 05/23/24 16:45 Docusate Sodium 100 mg BID PO 05/23/24 22:00 Polyethylene Glycol 17 gm DAILY PO 05/24/24 10:00 Vancomycin HCl 250 ml @ 250 mls/hr Q10H IV 05/24/24 04:00 Physical Exam: General:?NAD Neck:?Supple. No masses. HEENT:?PERRL. Normal lids and conjunctiva. Moist mucous membranes. Oropharynx without lesions, exudates, or excessive erythema. Normal appearance of the external aspects of the nose and ears. Heart:?Regular rhythm, normal rate. No murmur. No lower extremity edema. Lungs:?Normal respiratory effort. Crackles and wheezing bilaterally. Abdomen:?Soft. Non-tender. Non-distended. No masses or abdominal hernia. MSK:?No digital cyanosis. Normal strength and tone in all 4 limbs Skin:?Warm and dry, no rashes. Neuro:?Alert. No facial droop or slurred speech. Extra-ocular movements intact. Sensation intact to soft touch in all 4 limbs. Psych:?Appropriate mood. Full affect. Oriented to person, place, time, and situation. laboratory and microbiology Laboratory Tests 05/22/24 05:36 Test 05/22/24 05:36 Range/Units Serum Glucose 101 74-106 mg/dL Problem List/Assessment/Plan Problems(with codes): (1) Hypoxia (2) Shortness of breath (3) MRSA (methicillin resistant staphylococcus aureus) pneumonia (4) Pneumonia (5) Acute respiratory failure Problem List/Assessment/Plan ID Problem List: - Pneumonia - Hypoxia - Possible Staphylococcus aureus infection - Shortness of breath - Septic emboli - Tachycardia - Possible endocarditis Assessment This is a 49 y.o. female with no significant past medical history except possible asthma as a child, who presents with shortness of breath and chest pain. Patient was seen at [facility] a few days prior and was admitted for possible pneumonia. She continued to have shortness of breath after discharge. She was using her mother's oxygen and is requiring 3 liters nasal cannula here to maintain saturation at 90%. No history of COPD, smoking, alcohol, or heavy drug use. Medications include fluticasone. She was started on ceftriaxone and azithromycin while here. Vital signs notable for temperature of 98.1F, pulse of 116, respirations 19, blood pressure 154/92, requiring 3 liters nasal cannula and saturating at 90%. Physical exam notable for bilateral crackles and diffuse wheezing. COVID-19 rapid antigen negative, influenza A negative, influenza B negative. Lab results: Hemoglobin A1C is 5.5%. Chest CT notable for multifocal opacities and a small left pleural effusion. CT chest showed no pulmonary emboli, scattered areas of pleural-based consolidation, as well as multiple small cystic areas which may be due to septic emboli or bronchiectasis. Records from [facility] indicate the patient was seen by Dr. Sena on May 14 and was treated with azithromycin and vancomycin. Echocardiogram showed normal aortic, mitral, and tricuspid valves; pulmonic valve poorly visualized. No signs of endocarditis. Blood cultures were negative to date. Patient was discharged on levofloxacin 500 mg daily. EKG here shows sinus tachycardia with borderline repolarization abnormalities. Gram stain shows no organisms; however, there is concern for culture growth of likely Staphylococcus aureus. 3: Dr. Monroy preformed a bronchoscopy , there was left lower lobe atelectasis due to mucus plugging from L1-L10 which was relieved . biopsies and cultures were acquired 3/3: Patient appears significantly improved after therapeutic bronchoscopy, growing MRSA in the lungs 3/4: Had a [facility] chest abdomen and pelvis done today which showed patchy bilateral areas of pulmonary infiltrated and consolidation ,some of these areas of consolidations has [facility] thaat cannot exclude septic emboli findings are worse than 05/16. bibasilar atolectissi infiltrated and plural effusions left worse than right . no finding of bowel infection , large stool burden throughout the colon , no nephrolithiasis , gallbladder consuelo no calcified , free air in gallbladder Plan: - given worsening left plural effusion defer to pulmonology if patient would warrant a therapeutic and diagnostic thoracentesis , if done send for bacterial culture as well as plural fluid analysis , protein , glucose , cell count - Follow up on BAL cultures , sputum cultures - Continue vancomycin empirically to cover for staph pneumonia. - Continue ceftriaxone. - Discontinue azithromycin as the patient has already been treated for atypical pneumonia without response. - Follow up on sputum cultures and bronchoscopy with bronchoalveolar lavage results. - Follow up on sensitivities of the Staphylococcus aureus and respiratory cultures. - Follow up on blood cultures. - MRSA PCR nasal swab may be negative due to prior levofloxacin use; will not rely on this result. - Given visualization of septic emboli and possible Staphylococcus aureus pneumonia, concern for embolic source, primarily endocarditis. - Since TTE at [facility] did not show endocarditis, recommend CLAUDIA to further evaluate. - Defer to primary team for cardiology evaluation for CLAUDIA. Isolation Precautions: Standard Plan discussed with: Other Dietary Evaluation Review Comments: 1) Advance to regular diet when medically feasible, per MACHINE BANDER AND CELLOPHANER approval 2) Continue iron supplementation - 325 mg bid 3) Encourage good PO intake 4) Continue to monitor appetite, labs, and skin integrity Expected Outcomes/Goals: 1) diet to advance 2) appetite and labs to improve 3) f/u in 5 days KELLI NIETO MD May 23, 2024 19:47
[2024-05-23] MEDS: DOCUSATE SOD 100 MG CAP PO SCH (22:00)
--- NOTE | 2024-05-23 22:09 | DVHPN2 ---
Progress Note - Dictate Date Seen: May 23, 2024 Medical Necessity Reason Pt with a Central, PICC or Fol: No Subjective Patient seen and examined at bedside. Remains on supplemental oxygen Overnight events reviewed. vital signs Vital Sign Date Time Temp Pulse Resp B/P (MAP) Pulse Ox O2 Delivery O2 Flow Rate FiO2 05/23/24 21:00 98.5 95 18 126/57 (80) 92 98.5 05/23/24 14:13 Nasal Cannula 2.0 05/23/24 14:13 28 Total Intake and Output 05/22/24 05/22/24 05/23/24 15:00 23:00 07:00 Intake Total 410 ml 225 ml 1150 ml Balance 410 ml 225 ml 1150 ml medications Current Medications Medications Dose Ordered Sig/Mirian Route Start Time Stop Time Status Last Admin Dose Admin Nitroglycerin 0.4 mg Q5MINP PRN SL 05/19/24 17:00 Morphine Sulfate 2 mg Q30M PRN IV 05/19/24 17:00 Ceftriaxone Sodium 50 ml @ 100 mls/hr DAILY@09 IV 05/20/24 09:00 05/23/24 10:19 100 MLS/HR Albuterol 2.5 mg Q6HPRN PRN NEB 05/19/24 17:00 05/23/24 14:13 2.5 MG Ferrous Sulfate 325 mg BIDWM PO 05/20/24 08:00 05/23/24 18:00 325 MG Sodium Chloride 1,000 ml @ 75 mls/hr [id number] IV 05/20/24 17:45 05/23/24 05:45 75 MLS/HR Acetaminophen/ Hydrocodone Bitart 1 tab Q4HPRN PRN PO 05/21/24 16:30 05/23/24 19:48 1 TAB Morphine Sulfate 2 mg Q4HPRN PRN IV 05/21/24 16:30 05/22/24 23:32 2 MG Iron Sucrose 110 ml @ 110 mls/hr DAILY@1200 IV 05/22/24 12:00 05/26/24 12:59 05/23/24 12:00 110 MLS/HR Hydralazine HCl 10 mg Q6HP PRN IV 05/22/24 11:00 Famotidine 20 mg DAILY PO 05/22/24 11:00 05/23/24 10:14 20 MG Enoxaparin Sodium 40 mg DAILY SC 05/22/24 11:00 05/23/24 10:15 40 MG Sodium Chloride 1 spr BIDPRN PRN EACHNOSTRI 05/22/24 17:00 05/23/24 10:14 1 SPR Furosemide 20 mg DAILY IV 05/23/24 10:00 05/23/24 10:15 20 MG Fluticasone Propionate 50 mcg Q12HR EACHNOSTRI 05/23/24 11:00 05/23/24 14:57 50 MCG Vancomycin HCl 0 ml @ 0 mls/hr UD IV 05/23/24 16:45 Docusate Sodium 100 mg BID PO 05/23/24 22:00 Polyethylene Glycol 17 gm DAILY PO 05/24/24 10:00 Vancomycin HCl 250 ml @ 250 mls/hr Q10H IV 05/24/24 04:00 objective Gen.: Patient lying in bed in no apparent distress. On supplemental oxygen. Head: Normocephalic, atraumatic. Eyes: EOMI/PERRLA. Ears: Normal hearing. Normal anatomy. Neck/trachea: Trachea midline, supple. Nose: Normal external anatomy. Mouth: Moist mucous membranes. Chest: Decreased air entry bilaterally. No wheezing or rhonchi. Cardiovascular: Positive S1, positive S2. Regular rate and rhythm. Abdomen: Positive bowel sounds in all 4 quadrants. Soft, non-tender, non- distended. : Deferred. Rectal: Deferred. Skin: Warm, dry. Intact. Extremities: 2+ radial pulses bilaterally. No lower extremity edema. Neuro: Awake, alert, oriented x3. No gross motor or sensory deficits. Cranial nerves II through XII intact. Gait not assessed. laboratory and microbiology Laboratory Tests 05/22/24 05:36 Test 05/22/24 05:36 Range/Units Serum Glucose 101 74-106 mg/dL Assessment/Plan Impression: Acute hypoxic respiratory failure Pneumonia Cough Dependence on supplemental oxygen Anemia Bronchiectasis Atelectasis Hypokalemia Elevated D-dimer Events: Remains on supplemental oxygen, 3 LPM NC Taper O2 as tolerated Improving O2 requirements Repeat CT chest - worsening bibasilar opacities and pleural effusions. Patient declined thoracentesis Sputum cultures positive for MRSA. Follow up ID recommendations for antibiotics Start vancomycin per pharmacy Continue antibiotics Colace/Miralax for constipation. Continue bronchodilators [place] nasal spray q.12 hours for dry nares. Incentive spirometry Pain control Avoid oversedation TB rule out - Follow up QuantiFERON Gold S/p bronchoscopy with biopsy on 05/21/24 - see procedure note for details. LLL BAL sent for gram stain and culture, viral culture, fungal culture, and AFB smear and culture. Labs and imaging reviewed. Rest of plan as noted below. Plan: Supplemental oxygen Titrate to keep O2 sats above 92%. Follow up QuantiFERON Gold CTA negative for pulmonary embolism Pain control Avoid oversedation Antitussive for cough Continue bronchodilators Continue antibiotics Incentive spirometry Iron supplementation Monitor hemoglobin Monitor renal function. Monitor electrolytes. Supplement as necessary. Monitor ins and outs. IV fluids with normal saline 75 ml/hr DVT prophylaxis. Prognosis: Guarded given patient's multiple co-morbidities. Rest of plan per hospitalist and other consultants. Thank you, MILAN Mayes, for allowing me to participate in this patient's care. Further recommendations will depend on the patient's clinical course. Please do not hesitate to contact me if you have any questions or concerns. This medical document was created using an electronic medical record system with [employer] dictation system. Although these documentations are being carefully reviewed, there may still be some phonetic and typographical changes. The errors are purely typographical, due to imperfection on the software program, and do not reflect any compromise in the patient's medical care. Dietary Evaluation Review Comments: 1) Advance to regular diet when medically feasible, per GERMINATION WORKER approval 2) Continue iron supplementation - 325 mg bid 3) Encourage good PO intake 4) Continue to monitor appetite, labs, and skin integrity Expected Outcomes/Goals: 1) diet to advance 2) appetite and labs to improve 3) f/u in 5 days Plan discussed with: Patient, Other (ANTHONY Humphreys) REYES HOGUE MD May 23, 2024 22:09
[2024-05-24] VITALS (11 sets, daily range): BP systolic 111–122; BP diastolic 56–66; PULSE 76–247; RESP 16–19; TEMP 97.6–98.4; O2SAT 93–96
[2024-05-24] MEDS: VANCOMYCIN 1GM/250ML KIT 250 ML IV SCH (03:43)
[2024-05-24] MEDS: POLYETHYLENE GLYCOL 17 GM PWDR PO SCH (08:39)
--- NOTE | 2024-05-24 14:48 | DVHPN2 ---
Progress Note - Dictate Date Seen: May 24, 2024 Medical Necessity Reason Pt with a Central, PICC or Fol: No vital signs Vital Sign Date Time Temp Pulse Resp B/P (MAP) Pulse Ox O2 Delivery O2 Flow Rate FiO2 05/24/24 12:36 98.4 91 19 118/61 (80) 96 98.4 05/24/24 08:00 Nasal Cannula* 3 32 Total Intake and Output 05/23/24 05/23/24 05/24/24 15:00 23:00 07:00 Intake Total 410 ml 863 ml 1050 ml Balance 410 ml 863 ml 1050 ml medications Current Medications Medications Dose Ordered Sig/Mirian Route Start Time Stop Time Status Last Admin Dose Admin Nitroglycerin 0.4 mg Q5MINP PRN SL 05/19/24 17:00 Morphine Sulfate 2 mg Q30M PRN IV 05/19/24 17:00 Ceftriaxone Sodium 50 ml @ 100 mls/hr DAILY@09 IV 05/20/24 09:00 05/24/24 08:31 100 MLS/HR Albuterol 2.5 mg Q6HPRN PRN NEB 05/19/24 17:00 05/23/24 14:13 2.5 MG Ferrous Sulfate 325 mg BIDWM PO 05/20/24 08:00 05/24/24 08:29 325 MG Sodium Chloride 1,000 ml @ 75 mls/hr [id number] IV 05/20/24 17:45 05/24/24 14:16 75 MLS/HR Acetaminophen/ Hydrocodone Bitart 1 tab Q4HPRN PRN PO 05/21/24 16:30 05/24/24 05:40 1 TAB Morphine Sulfate 2 mg Q4HPRN PRN IV 05/21/24 16:30 05/22/24 23:32 2 MG Iron Sucrose 110 ml @ 110 mls/hr DAILY@1200 IV 05/22/24 12:00 05/26/24 12:59 05/23/24 12:00 110 MLS/HR Hydralazine HCl 10 mg Q6HP PRN IV 05/22/24 11:00 Famotidine 20 mg DAILY PO 05/22/24 11:00 05/24/24 08:37 20 MG Enoxaparin Sodium 40 mg DAILY SC 05/22/24 11:00 05/24/24 08:38 40 MG Sodium Chloride 1 spr BIDPRN PRN EACHNOSTRI 05/22/24 17:00 05/23/24 10:14 1 SPR Furosemide 20 mg DAILY IV 05/23/24 10:00 05/24/24 08:38 20 MG Fluticasone Propionate 50 mcg Q12HR EACHNOSTRI 05/23/24 11:00 05/24/24 08:39 50 MCG Vancomycin HCl 0 ml @ 0 mls/hr UD IV 05/23/24 16:45 Docusate Sodium 100 mg BID PO 05/23/24 22:00 Polyethylene Glycol 17 gm DAILY PO 05/24/24 10:00 Vancomycin HCl 250 ml @ 250 mls/hr Q10H IV 05/24/24 04:00 05/24/24 14:16 250 MLS/HR objective General Appearance: alert, no distress HEENT: EOMI, PERRLA, normal external inspect of ears, no icterus, no nasal drainage Neck: no carotid bruit, no jugular venous distention (JVD), no lymphadenopathy Chest: normal thorax Respiratory: clear to auscultation, normal air movement Cardiovascular: regular rate and rhythm, no diastolic murmur, no jugular venous distention (JVD), no rub, no systolic murmur Abdominal: soft, no hepatomegaly, no mass, no splenomegaly, no tenderness Genitourinary: grossly normal external Musculoskeletal: no joint tenderness, no swelling Extremities: normal pulses, no calf tenderness, no clubbing, no cyanosis, no edema Skin: no bruising, no jaundice, no rash Neurological: alert, No focal deficit laboratory and microbiology Laboratory Tests 05/24/24 05:24 05/22/24 05:36 Test 05/22/24 05:36 Range/Units Serum Glucose 101 74-106 mg/dL Problem List 1. Acute hypoxic respiratory failure likely from pneumonia IV antibiotics, pulmonary consult, med neb treatments 2. Community acquired pneumonia likely Gram-negative or Gram-positive IV antibiotics 3. Iron deficiency anemia Replace 4. Sepsis likely from pneumonia IV antibiotics, IV fluids 5. Hypokalemia Replace Assessment/Plan Subjective Patient is awake and alert. Objective Patient remains short of breath related to acute hypoxic respiratory failure and pneumonia. CT imaging shows possible septic emboli. Echocardiogram has been ordered and cardiology has been consulted. Patient had an elevated D-dimer. CTA was negative for PE. Patient is status post bronchoscopy. Patient was offered a thoracentesis. Patient states she did not know what that entailed and she was nervous. Patient also noted to have an elevated CA125 level. Plan Oncology consulted. Awaiting for recommendations for elevated CA125. Possible thoracentesis if patient is agreeable. Continue antibiotics. Cardiology consult. Echocardiogram ordered to rule out endocarditis. Continue antibiotics as ordered by ID. Continue Med-Neb treatments. Continue Supplemental O2. Dietary Evaluation Review Comments: 1) Advance to regular diet when medically feasible, per STOCKROOM ASSOCIATE approval 2) Continue iron supplementation - 325 mg bid 3) Encourage good PO intake 4) Continue to monitor appetite, labs, and skin integrity Expected Outcomes/Goals: 1) diet to advance 2) appetite and labs to improve 3) f/u in 5 days Plan discussed with: Patient, Other LISS COHEN NP May 24, 2024 14:48
--- NOTE | 2024-05-24 14:55 | MEDREC ---
[facility] ASP Intervention Section I [facility] ASP Intervention: Deescalate AB based on CS (PLEASE CONSIDER DE-ESCALATION BASED ON CULTURE RESULTS ) BETI MADISON PHARMACIST May 24, 2024 14:55
--- NOTE | 2024-05-24 22:13 | DVHPN2 ---
Consult Progress Note Date Seen: May 24, 2024 Subjective Patient reports: Other (breathing much better today on room air , some occasional chest pains scattered mostly in back of her chest with clear lungs , settign well on 2 liters nasal canula 95% ) Objective vital signs Vital Sign Date Time Temp Pulse Resp B/P (MAP) Pulse Ox O2 Delivery O2 Flow Rate FiO2 05/24/24 16:54 98.4 88 17 122/66 (84) 95 98.4 05/24/24 16:00 Nasal Cannula 2.0 05/24/24 16:00 28 Total Intake and Output 05/23/24 05/23/24 05/24/24 15:00 23:00 07:00 Intake Total 410 ml 863 ml 1050 ml Balance 410 ml 863 ml 1050 ml medications Current Medications Medications Dose Ordered Sig/Mirian Route Start Time Stop Time Status Last Admin Dose Admin Nitroglycerin 0.4 mg Q5MINP PRN SL 05/19/24 17:00 Morphine Sulfate 2 mg Q30M PRN IV 05/19/24 17:00 Ceftriaxone Sodium 50 ml @ 100 mls/hr DAILY@09 IV 05/20/24 09:00 05/24/24 08:31 100 MLS/HR Albuterol 2.5 mg Q6HPRN PRN NEB 05/19/24 17:00 05/23/24 14:13 2.5 MG Ferrous Sulfate 325 mg BIDWM PO 05/20/24 08:00 05/24/24 17:39 325 MG Sodium Chloride 1,000 ml @ 75 mls/hr [id number] IV 05/20/24 17:45 05/24/24 21:26 75 MLS/HR Acetaminophen/ Hydrocodone Bitart 1 tab Q4HPRN PRN PO 05/21/24 16:30 05/24/24 21:43 1 TAB Morphine Sulfate 2 mg Q4HPRN PRN IV 05/21/24 16:30 05/22/24 23:32 2 MG Iron Sucrose 110 ml @ 110 mls/hr DAILY@1200 IV 05/22/24 12:00 05/26/24 12:59 05/24/24 15:28 110 MLS/HR Hydralazine HCl 10 mg Q6HP PRN IV 05/22/24 11:00 Famotidine 20 mg DAILY PO 05/22/24 11:00 05/24/24 08:37 20 MG Enoxaparin Sodium 40 mg DAILY SC 05/22/24 11:00 05/24/24 08:38 40 MG Sodium Chloride 1 spr BIDPRN PRN EACHNOSTRI 05/22/24 17:00 05/23/24 10:14 1 SPR Furosemide 20 mg DAILY IV 05/23/24 10:00 05/24/24 08:38 20 MG Fluticasone Propionate 50 mcg Q12HR EACHNOSTRI 05/23/24 11:00 05/24/24 21:32 50 MCG Vancomycin HCl 0 ml @ 0 mls/hr UD IV 05/23/24 16:45 Docusate Sodium 100 mg BID PO 05/23/24 22:00 05/24/24 21:26 100 MG Polyethylene Glycol 17 gm DAILY PO 05/24/24 10:00 Vancomycin HCl 250 ml @ 250 mls/hr Q10H IV 05/24/24 04:00 05/24/24 14:16 250 MLS/HR Temazepam 15 mg HSPRN PRN PO 05/24/24 18:30 Physical Exam: General:?NAD Neck:?Supple. No masses. HEENT:?PERRL. Normal lids and conjunctiva. Moist mucous membranes. Oropharynx without lesions, exudates, or excessive erythema. Normal appearance of the external aspects of the nose and ears. Heart:?Regular rhythm, normal rate. No murmur. No lower extremity edema. Lungs:?Normal respiratory effort. Crackles and wheezing bilaterally. Abdomen:?Soft. Non-tender. Non-distended. No masses or abdominal hernia. MSK:?No digital cyanosis. Normal strength and tone in all 4 limbs Skin:?Warm and dry, no rashes. Neuro:?Alert. No facial droop or slurred speech. Extra-ocular movements intact. Sensation intact to soft touch in all 4 limbs. Psych:?Appropriate mood. Full affect. Oriented to person, place, time, and situation. laboratory and microbiology Laboratory Tests 05/24/24 05:24 05/22/24 05:36 Test 05/22/24 05:36 Range/Units Serum Glucose 101 74-106 mg/dL Problem List/Assessment/Plan Problems(with codes): (1) Hypoxia (2) Shortness of breath (3) MRSA (methicillin resistant staphylococcus aureus) pneumonia (4) Pneumonia (5) Acute respiratory failure Problem List/Assessment/Plan ID Problem List: - Pneumonia - Hypoxia - Possible Staphylococcus aureus infection - Shortness of breath - Septic emboli - Tachycardia - Possible endocarditis Assessment This is a 49 y.o. female with no significant past medical history except possible asthma as a child, who presents with shortness of breath and chest pain. Patient was seen at [facility] a few days prior and was admitted for possible pneumonia. She continued to have shortness of breath after discharge. She was using her mother's oxygen and is requiring 3 liters nasal cannula here to maintain saturation at 90%. No history of COPD, smoking, alcohol, or heavy drug use. Medications include fluticasone. She was started on ceftriaxone and azithromycin while here. Vital signs notable for temperature of 98.1F, pulse of 116, respirations 19, blood pressure 154/92, requiring 3 liters nasal cannula and saturating at 90%. Physical exam notable for bilateral crackles and diffuse wheezing. COVID-19 rapid antigen negative, influenza A negative, influenza B negative. Lab results: Hemoglobin A1C is 5.5%. Chest CT notable for multifocal opacities and a small left pleural effusion. CT chest showed no pulmonary emboli, scattered areas of pleural-based consolidation, as well as multiple small cystic areas which may be due to septic emboli or bronchiectasis. Records from [facility] indicate the patient was seen by Dr. Sena on May 14 and was treated with azithromycin and vancomycin. Echocardiogram showed normal aortic, mitral, and tricuspid valves; pulmonic valve poorly visualized. No signs of endocarditis. Blood cultures were negative to date. Patient was discharged on levofloxacin 500 mg daily. EKG here shows sinus tachycardia with borderline repolarization abnormalities. Gram stain shows no organisms; however, there is concern for culture growth of likely Staphylococcus aureus. 05/21: Dr. Monroy preformed a bronchoscopy , there was left lower lobe atelectasis due to mucus plugging from L1-L10 which was relieved . biopsies and cultures were acquired 05/22: Patient appears significantly improved after therapeutic bronchoscopy, growing MRSA in the lungs 05/23: Had a [facility] chest abdomen and pelvis done today which showed patchy bilateral areas of pulmonary infiltrated and consolidation ,some of these areas of consolidations has lucent centers that cannot exclude septic emboli findings are worse than 05/16. bibasilar atelectasis infiltrated and plural effusions left worse than right . no finding of bowel infection , large stool burden throughout the colon , no nephrolithiasis , gallbladder consuelo no calcified , free air in gallbladder 5:is clearly having MRSA pneumonia , likely septic emboli based off imaging , awaiting CLAUDIA to be preformed Plan: - given worsening left plural effusion defer to pulmonology if patient would warrant a therapeutic and diagnostic thoracentesis , if done send for bacterial culture as well as plural fluid analysis , protein , glucose , cell count - Follow up on BAL cultures , sputum cultures - Continue vancomycin empirically to cover for staph pneumonia. - Continue ceftriaxone. - Discontinue azithromycin as the patient has already been treated for atypical pneumonia without response. - Follow up on sputum cultures and bronchoscopy with bronchoalveolar lavage results. - Follow up on sensitivities of the Staphylococcus aureus and respiratory cultures. - Follow up on blood cultures. - MRSA PCR nasal swab may be negative due to prior levofloxacin use; will not rely on this result. - Given visualization of septic emboli and possible Staphylococcus aureus pneumonia, concern for embolic source, primarily endocarditis. - Since TTE at [facility] did not show endocarditis, recommend CLAUDIA to further evaluate. - Defer to primary team for cardiology evaluation for CLAUDIA. Isolation Precautions: Standard Plan discussed with: Other Dietary Evaluation Review Comments: 1) Advance to regular diet when medically feasible, per WEATHER STRIP MECHANIC approval 2) Continue iron supplementation - 325 mg bid 3) Encourage good PO intake 4) Continue to monitor appetite, labs, and skin integrity Expected Outcomes/Goals: 1) diet to advance 2) appetite and labs to improve 3) f/u in 5 days KELLI NIETO MD May 24, 2024 22:13
--- NOTE | 2024-05-24 23:23 | DVHPN2 ---
Progress Note - Dictate Date Seen: May 24, 2024 Medical Necessity Reason Pt with a Central, PICC or Fol: No Subjective Patient seen and examined at bedside. Remains on supplemental oxygen Overnight events reviewed. vital signs Vital Sign Date Time Temp Pulse Resp B/P (MAP) Pulse Ox O2 Delivery O2 Flow Rate FiO2 05/24/24 21:00 97.6 82 18 111/61 (78) 93 97.6 05/24/24 16:00 Nasal Cannula 2.0 05/24/24 16:00 28 Total Intake and Output 05/23/24 05/23/24 05/24/24 15:00 23:00 07:00 Intake Total 410 ml 863 ml 1050 ml Balance 410 ml 863 ml 1050 ml medications Current Medications Medications Dose Ordered Sig/Mirian Route Start Time Stop Time Status Last Admin Dose Admin Nitroglycerin 0.4 mg Q5MINP PRN SL 05/19/24 17:00 Morphine Sulfate 2 mg Q30M PRN IV 05/19/24 17:00 Ceftriaxone Sodium 50 ml @ 100 mls/hr DAILY@09 IV 05/20/24 09:00 05/24/24 08:31 100 MLS/HR Albuterol 2.5 mg Q6HPRN PRN NEB 05/19/24 17:00 05/23/24 14:13 2.5 MG Ferrous Sulfate 325 mg BIDWM PO 05/20/24 08:00 05/24/24 17:39 325 MG Sodium Chloride 1,000 ml @ 75 mls/hr [id number] IV 05/20/24 17:45 05/24/24 21:26 75 MLS/HR Acetaminophen/ Hydrocodone Bitart 1 tab Q4HPRN PRN PO 05/21/24 16:30 05/24/24 21:43 1 TAB Morphine Sulfate 2 mg Q4HPRN PRN IV 05/21/24 16:30 05/22/24 23:32 2 MG Iron Sucrose 110 ml @ 110 mls/hr DAILY@1200 IV 05/22/24 12:00 05/26/24 12:59 05/24/24 15:28 110 MLS/HR Hydralazine HCl 10 mg Q6HP PRN IV 05/22/24 11:00 Famotidine 20 mg DAILY PO 05/22/24 11:00 05/24/24 08:37 20 MG Enoxaparin Sodium 40 mg DAILY SC 05/22/24 11:00 05/24/24 08:38 40 MG Sodium Chloride 1 spr BIDPRN PRN EACHNOSTRI 05/22/24 17:00 05/23/24 10:14 1 SPR Furosemide 20 mg DAILY IV 05/23/24 10:00 05/24/24 08:38 20 MG Fluticasone Propionate 50 mcg Q12HR EACHNOSTRI 05/23/24 11:00 05/24/24 21:32 50 MCG Vancomycin HCl 0 ml @ 0 mls/hr UD IV 05/23/24 16:45 Docusate Sodium 100 mg BID PO 05/23/24 22:00 05/24/24 21:26 100 MG Polyethylene Glycol 17 gm DAILY PO 05/24/24 10:00 Vancomycin HCl 250 ml @ 250 mls/hr Q10H IV 05/24/24 04:00 05/24/24 14:16 250 MLS/HR Temazepam 15 mg HSPRN PRN PO 05/24/24 18:30 objective Gen.: Patient lying in bed in no apparent distress. On supplemental oxygen. Head: Normocephalic, atraumatic. Eyes: EOMI/PERRLA. Ears: Normal hearing. Normal anatomy. Neck/trachea: Trachea midline, supple. Nose: Normal external anatomy. Mouth: Moist mucous membranes. Chest: Decreased air entry bilaterally. No wheezing or rhonchi. Cardiovascular: Positive S1, positive S2. Regular rate and rhythm. Abdomen: Positive bowel sounds in all 4 quadrants. Soft, non-tender, non- distended. : Deferred. Rectal: Deferred. Skin: Warm, dry. Intact. Extremities: 2+ radial pulses bilaterally. No lower extremity edema. Neuro: Awake, alert, oriented x3. No gross motor or sensory deficits. Cranial nerves II through XII intact. Gait not assessed. laboratory and microbiology Laboratory Tests 05/24/24 05:24 05/22/24 05:36 Test 05/22/24 05:36 Range/Units Serum Glucose 101 74-106 mg/dL Assessment/Plan Impression: Acute hypoxic respiratory failure Pneumonia Cough Dependence on supplemental oxygen Anemia Bronchiectasis Atelectasis Hypokalemia Elevated D-dimer Events: Remains on supplemental oxygen, 3 LPM NC Taper O2 as tolerated Restoril for sleep aid Repeat CT chest - worsening bibasilar opacities and pleural effusions. Patient declined thoracentesis Sputum cultures positive for MRSA. ID recommendations appreciated Continue antibiotics - vancomycin for MRSA. Continue bronchodilators PRN [place] nasal spray q.12 hours for dry nares. Incentive spirometry Hx of vaping likely made pt more susceptible to pneumonia Tachycardia - Cardiology recs appreciated Obtain TSH + Echo Monitor hemoglobin Iron supplementation Colace for constipation. Pain control Avoid oversedation TB rule out - Awaiting QuantiFERON Gold S/p bronchoscopy with biopsy on 05/21/24 - see procedure note for details. LLL BAL sent for gram stain and culture, viral culture, fungal culture, and AFB smear and culture. Labs and imaging reviewed. Rest of plan as noted below. Plan: Supplemental oxygen Titrate to keep O2 sats above 92%. Follow up QuantiFERON Gold CTA negative for pulmonary embolism Pain control Avoid oversedation Antitussive for cough Continue bronchodilators Continue antibiotics Incentive spirometry Iron supplementation Monitor hemoglobin Monitor renal function. Monitor electrolytes. Supplement as necessary. Monitor ins and outs. IV fluids with normal saline 75 ml/hr DVT prophylaxis. Prognosis: Guarded given patient's multiple co-morbidities. Rest of plan per hospitalist and other consultants. Thank you, MILAN Mayes, for allowing me to participate in this patient's care. Further recommendations will depend on the patient's clinical course. Please do not hesitate to contact me if you have any questions or concerns. This medical document was created using an electronic medical record system with [facility] dictation system. Although these documentations are being carefully reviewed, there may still be some phonetic and typographical changes. The errors are purely typographical, due to imperfection on the software program, and do not reflect any compromise in the patient's medical care. Dietary Evaluation Review Comments: 1) Advance to regular diet when medically feasible, per COURT COMMISSIONER approval 2) Continue iron supplementation - 325 mg bid 3) Encourage good PO intake 4) Continue to monitor appetite, labs, and skin integrity Expected Outcomes/Goals: 1) diet to advance 2) appetite and labs to improve 3) f/u in 5 days Plan discussed with: Patient, Other (ANTHONY Humphreys) REYES HOGUE MD May 24, 2024 23:23
[2024-05-25] VITALS (13 sets, daily range): BP systolic 112–128; BP diastolic 52–73; PULSE 70–89; RESP 16–19; TEMP 97.3–98.2; O2SAT 94–100
[2024-05-25 06:57] LABS: Basophils # (auto) 0.1 10 ^3/uL (0-0.2); Eosinophils # (auto) 0.1 10 ^3/uL (0-0.8); Hemoglobin 9.3 g/dL (12.2-16.2); Lymphocytes % (auto) 10.3 % (10.0-50.0); Mean Corpuscular Hemoglobin 29.8 pg (28.0-32.0); Monocytes # (auto) 0.8 10 ^3/uL (0-1.3)
[2024-05-25 06:59] LABS: Basophils % (auto) 0.7 % (0.0-2.0); Hematocrit 27.3 % (36.0-46.0); Lymphocytes # (auto) 1.1 10 ^3/uL (0.4-5.4); Mean Corpuscular Hgb Conc. 34.2 g/dL (32.0-36.0); Monocytes % (auto) 6.8 % (0.0-12.0); Neutrophils # (auto) 8.9 10 ^3/uL (1.6-8.6); Neutrophils % (auto) 81.2 % (37.0-80.0); Red Blood Cells 3.14 10^6/uL (4.0-5.20); Red Cell Distribution Width 15.5 % (11.8-14.3)
[2024-05-25 07:07] LABS: QuantiFERON-TB Gold Plus Negative (Negative)
[2024-05-25 07:09] LABS: Alanine Aminotransferase 31 U/L (7-40); Albumin 3.5 g/dL (3.2-4.8); Alkaline Phosphatase 52 U/L (46-116); Anion Gap 7 (5-15); Aspartate Aminotransferase 21 U/L (13-40); BUN/Creatinine Ratio 7.5 (10.0-20.0); Calcium 8.7 mg/dL (8.7-10.4); Carbon Dioxide 27 mmol/L (20-31); Chloride 105 mmol/L (98-107); Glucose 100 mg/dL (74-106); Phosphorus 3.4 mg/dL (2.4-5.1); Potassium 3.5 mmol/L (3.5-5.1); Sodium 139 mmol/L (136-145); Total Protein 6.4 g/dL (5.7-8.2)
[2024-05-25 07:15] LABS: Bilirubin, Total 0.3 mg/dL (0.2-1.0); Blood Urea Nitrogen 6 mg/dL (9-23)
[2024-05-25 07:17] LABS: Platelet Count (auto) 766 10^3/uL (140-450)
--- NOTE | 2024-05-25 07:25 | DVHSR ---
APPROVED REPORT EXAM: Two-dimensional and M-mode echocardiogram with Doppler and color Doppler. Blood Pressure: 118/61 mmHg INDICATION r/o endocarditis RISK FACTORS Height: 5'7, Weight: 165 DIMENSIONS LVDd5.0 (3.8-5.7cm)LA (2D)3.6 (1.9-4.0cm)Aortic Root3.0 (2.0-3.7cm) LVDs3.3 (2.5-4.0cm)LA (MM) (1.9-4.0cm)Aortic Cusp Exc1.8 (1.5-2.0cm) EF (%) 60.0 (55-70%)Rt. Atrium4.4 (1.9-4.0cm)Asc. Aorta cm IVSd0.7 (0.7-1.1cm)RV (D)4.5 (1.8-2.4cm) PWd0.8 (0.7-1.1cm) Mitral Valve MitralMitral Stenosis E wave0.89m/sMV Mean GR.mmHg A wave0.77m/sMV Peak GR.83mmHg E/A ratio1.22D MVAcm2 DECEL [id number] 1/2 Timems Aortic Valve Aortic ValveAortic Stenosis V11.27m/Anand Mean GR.5mmHg V21.52m/Anand Peak GR.9mmHg LVOT Diameter2.0 (1.8-2.4cm)Doppler AVA2.62cm2 Pulmonic Valve V21.00m/s Tricuspid Valve TR Velocity2.59m/s [id number] Other Information Quality : Technically LimitedRhythm : Technically limited study due to body habitus.patient position. Conclusion Left ventricle: Left ventricle was normal sized with normal systolic function. LVEF was 60-65%. Th ere was no wall motion abnormality. Diastolic function of left ventricle was considered normal. Right ventricle was dilated with normal systolic function. Left atrium was normal sized. Right atri um was mildly dilated. Aortic valve: Aortic valve was trileaflet. There was no aortic insufficiency stage stenosis. There was trace mitral/tricuspid regurgitation. Pulmonary valve was not well visualized. Right ventricular systolic pressure was assessed that 30 mm Hg (normal). IVC was normal size with no rmal respiratory variation. There was trace pericardial effusion.
--- NOTE | 2024-05-25 08:47 | DVHINCON2 ---
Date of service: May 25, 2024 Referring Physician Barry Anderson Reason for Consultation Anemia thrombocytosis iron deficiency. No history of cancer has some how the tumor markers checked with elevated CA 125 History of Present Illness 49 years old female who has been in good health until lately when she presented with shortness of breath and was admitted at [facility] and now she is here at [facility] [place] with coughing shortness of breath fevers. She has been having irregular vaginal bleeding for the last few months and has become iron deficient anemia with reactive thrombocytosis The CBC from 05/25/2024 showed a white count of 11 hemoglobin 9.3 MCV 87 platelets 766 with a normal differential Normal renal functions hepatic functions. Serum iron 11 saturation 4.9 TIBC 226 normal liver functions. For some unknown reason CA 125 was checked which was found to be 86.3. Beta HCG is negative PT INR 1.[address] of the chest abdomen pelvis with and without IV contrast showed patchy bilateral areas of pulmonary infiltrates and consolidations could be septic emboli also. Bibasilar areas of atelectasis infiltrate and pleural effusions left worse in the right. Otherwise abdomen pelvis is unremarkable There is no previous history of any anemia or any hematological problems or any malignancies. She has been twice and has two children normal deliveries No weight loss. No headaches nausea vomiting. No night sweats bruising. No significant abdominal pains The patient had bronchoscope on 05/21/2024 described left lower lobe atelectasis due to mucus plugging impressions biopsies were performed For the iron deficiency anemia she has been given IV iron Past Medical History Has been in good health Family History: Diabetes mellitus G8 MOTHER G8 SISTER Family History Unremarkable for malignancy or hematological disorders Social History No drinking alcohol or drugs. She does vaping Allergies: Coded Allergies: NO KNOWN ALLERGIES (Unverified , 05/19/24) Home Meds Reported Medications Fluticasone Propionate (Inhala (Fluticasone Propionate Di) 50 Mcg/Act Aer, 50 MCG IN PRN for SHORTNESS OF BREATH, AER 05/19/24 Tramadol Hcl (Tramadol Hcl) 50 Mg Tab, 50 MG PO Q8HP, MG 05/19/24 Current Medications Current Medications Medications (Trade) Dose Ordered Sig/Mirian Route PRN Reason Start Time Stop Time Status Last Admin Polyethylene Glycol (Miralax 17GM Powder) 17 gm DAILY PO 05/24/24 10:00 Temazepam (Restoril) 15 mg HSPRN PRN PO FOR INSOMNIA 05/24/24 18:30 Vital Signs Vital Signs Date Time Temp Pulse Resp B/P (MAP) Pulse Ox O2 Delivery O2 Flow Rate FiO2 05/25/24 05:00 98.2 78 18 119/71 (87) 96 98.2 05/25/24 04:31 Nasal Cannula 3.0 05/25/24 04:31 32 Physical Exam Moderately built and nourished, in no acute distress, alert and oriented. No jaundice Head and neck: Unremarkable for any masses or neck nodes. No conjunctival or mucosal hemorrhage Lungs: Clear Cardiovascular: S1-S2 heard well Abdomen: No organomegaly, tenderness or ascites. Bowel sounds are present. Extremities: No clubbing edema cyanosis or calf tenderness. Skin: Unremarkable for petechia purpura ecchymosis Lymphadenopathy: None Neurological exam: No focal deficit Labs/Diagnostic Data Labs Test 05/25/24 05:43 05/24/24 23:00 05/24/24 05:24 05/23/24 13:00 Range/Units White Blood Count 11.0 H 4.4-10.8 10^3/uL Red Blood Count 3.14 L 4.0-5.20 10^6/uL Hemoglobin 9.3 L 12.2-16.2 g/dL Hematocrit 27.3 L 36.0-46.0 % Mean Corpuscular Volume 87.0 80.0-100.0 fL Mean Corpuscular Hemoglobin 29.8 28.0-32.0 pg Mean Corpuscular Hemoglobin Concent 34.2 32.0-36.0 g/dL Red Cell Distribution Width 15.5 H 11.8-14.3 % Platelet Count 766 *H 140-450 10^3/uL Mean Platelet Volume 7.2 6.9-10.8 fL Neutrophils (%) (Auto) 81.2 H 37.0-80.0 % Lymphocytes (%) (Auto) 10.3 10.0-50.0 % Monocytes (%) (Auto) 6.8 0.0-12.0 % Eosinophils (%) (Auto) 1.0 0.0-7.0 % Basophils (%) (Auto) 0.7 0.0-2.0 % Neutrophils # (Auto) 8.9 H 1.6-8.6 10 ^3/uL Lymphocytes # (Auto) 1.1 0.4-5.4 10 ^3/uL Monocytes # (Auto) 0.8 0-1.3 10 ^3/uL Eosinophils # (Auto) 0.1 0-0.8 10 ^3/uL Basophils # (Auto) 0.1 0-0.2 10 ^3/uL Nucleated Red Blood Cells 0.0 % Sodium Level 139 136-145 mmol/L Potassium Level 3.5 3.5-5.1 mmol/L Chloride Level 105 98-107 mmol/L Carbon Dioxide Level 27 20-31 mmol/L Anion Gap 7 5-15 Blood Urea Nitrogen 6 L 9-23 mg/dL Creatinine 0.80 0.550-1.02 mg/dL Glomerular Filtration Rate Calc 91 >90 mL/min BUN/Creatinine Ratio 7.5 L 10.0-20.0 Serum Glucose 100 74-106 mg/dL Calcium Level 8.7 8.7-10.4 mg/dL Phosphorus Level 3.4 2.4-5.1 mg/dL Magnesium Level 2.0 1.6-2.6 mg/dL Total Bilirubin 0.3 0.2-1.0 mg/dL Aspartate Amino Transferase (AST) 21 13-40 U/L Alanine Aminotransferase (ALT) 31 7-40 U/L Alkaline Phosphatase 52 46-116 U/L Total Protein 6.4 5.7-8.2 g/dL Albumin 3.5 3.2-4.8 g/dL Vancomycin Level Trough 9.8 5-10 ug/mL Thyroid Stimulating Hormone (TSH) 6.71 H 0.55-4.78 uIU/mL HIV (1&2) Antibody Negative Negative Beta HCG, Quantitative 0.6 L 1.5-4.2 mIU/mL Test 05/21/24 06:36 05/21/24 06:20 05/20/24 16:20 05/19/24 17:27 Range/Units Prothrombin Time 10.8 9.3-11.8 sec Prothrombin Time INR 1.02 0.9-1.15 Activated Partial Thromboplast Time 26.2 24.5-34.5 SEC Urine Test Negative Negative TB Test (QFT) Gold Plus Negative Negative TB Test (QFT) Nil 0.01 . IU/mL TB Test (QFT) Mitogen 9.59 . IU/mL TB Test (QFT) Antigen 1 0.02 . IU/mL TB Test (QFT) Antigen 2 0.03 . IU/mL TB Test (QFT) Criteria Comment . D-Dimer, Quantitative 3.49 H 0.0-0.49 mg/L FEU Iron Level 11 L 50-170 ug/dL Total Iron Binding Capacity 226 L 250-425 ug/dL Percent Iron Saturation 4.9 L 15-50 % Carcinoembryonic Antigen 0.63 <=5.0 ng/mL CA 19-9 Antigen 7 0-35 U/mL CA 125 Antigen 86.3 H 0.0-38.1 U/mL Test 05/19/24 16:00 05/19/24 14:44 05/19/24 09:30 Range/Units Influenza Type A Antigen Negative Negative Influenza Type B Antigen Negative Negative SARS-CoV-2 Antigen (Rapid) Negative NEGATIVE Urine Color Colorless Yellow Urine Clarity Clear Clear Urine pH 7.0 5.0-9.0 Urine Specific [place] 1.004 1.001-1.035 Urine Protein Negative Negative Urine Ketones 1+ H Negative Urine Blood 3+ H Negative /uL Urine Nitrite Negative Negative Urine Bilirubin Negative Negative Urine Urobilinogen Normal Negative mg/dL Urine Leukocyte Esterase Negative Negative /uL Urine RBC 53 0 - 4 /hpf Urine Microscopic WBC 6 H 0-5 /HPF Urine Squamous Epithelial Cells Few <5 /hpf Urine Bacteria None seen None Seen /hpf Urine Glucose Normal Normal mg/dL Differential Total Cells Counted 100.0 100 Neutrophils % (Manual) 76 37.0-80.0 Band Neutrophils % (Manual) 10 Lymphocytes % (Manual) 6 L 10.0-50.0 Monocytes % (Manual) 6 0-12 Eosinophils % (Manual) 0 0-7 Basophils % (Manual) 0 0.0-2.0 Metamyelocytes % (manual) 1 Myelocytes % (Manual) 1 Promyelocytes % (Manual) 0 Blast Cells % (Manual) 0 Reactive Lymphocytes 0 Platelet Estimate Adequate Hemoglobin A1c 5.5 <5.7 % A1C Lactic Acid Level 1.0 0.4-2.0 mmol/L Troponin I High Sensitivity 26 </=34 ng/L Microbiology Date/Time Source Procedure Growth Status 05/21/24 16:20 Lung Pending Resulted 05/21/24 16:20 Lung Pending Resulted 05/21/24 16:20 Lung Pending Resulted 05/21/24 16:20 Lung Pending Resulted 05/21/24 16:20 Lung - Final See Separate Report... Resulted 05/21/24 16:20 Bronchial Washings Gram Stain - Final Complete 05/21/24 16:20 Respiratory Culture - Final Methicillin Resistant S.aureus Complete 05/19/24 09:40 Blood Blood Culture - Final NO GROWTH AFTER 5 DAYS OF INCUBATION. Complete Assessment 1. Microcytic hypochromic anemia consistent with iron deficiency and reactive thrombocytosis, secondary to irregular continues menstrual bleeding. Patient is receiving IV iron 2. For some unknown reasons CA 125 was checked which was elevated (86.3). The reasons for elevated CA 125 could be pelvic inflammatory disease versus hand heel seat fitter malignancy 3. Pneumonia being treated with the antibiotics Plan/Recommendation May give oral iron with ferrous sulfate 325 mg p.o. q.d. with vitamin-C 500 mg a day Ambulatory Care evaluation to rule out the possibility of any hand heel seat fitter malignancy Follow onto the CA 125 Plan discussed with: Patient FABIANO CYR MD May 25, 2024 08:47
--- NOTE | 2024-05-25 09:52 | DVHINCON2 ---
Date of service: May 25, 2024 History of Present Illness HPI Patient is a 49-year-old female who originally presented to the hospital on May 19, 2024 for shortness of breaths. Since that time, the patient is found to have pneumonia/respiratory failure/sepsis. She has been managed on telemetry unit she has had bronchoscopy. While on telemetry, patient had questionable tachyarrhythmia on May 24, 2024 and cardiology was involved. Review of the tele rhythms reveals artifact. Patient has remained in sinus rhythm with no tachy arrhythmia. Patient has also been seen by Pulm onary/ID/primary team. There is questioned for Staphylococcus pneumonia and possible endocarditis? Patient denies previous cardiac history. Patient herself actually denies any previous medical history prior to this presentation. There is question about childhood asthma. And there is also question about baseline history of some anemia. It is of note that since admission the patient was found to have increased D-dimer for which CT angiography ruled out pulmonary emboli. She also is found to have increased CA 125 antigen for which is being managed/evaluated by primary team Home Meds Reported Medications Fluticasone Propionate (Inhala (Fluticasone Propionate Di) 50 Mcg/Act Aer, 50 MCG IN PRN for SHORTNESS OF BREATH, AER 05/19/24 Tramadol Hcl (Tramadol Hcl) 50 Mg Tab, 50 MG PO Q8HP, MG 05/19/24 Past Medical History Others Denies previous medical history. There is question about previous anemia and also childhood asthma? Family History: No pertinent Hx Patient Family History: Diabetes mellitus G8 MOTHER G8 SISTER Smoker: Positive Alocohol: None Drugs: None Review of Systems Cardiovascular: No symptom reported All Other Systems Fourteen point review of system was performed. Relevant findings as per above and as per HPI. Otherwise negative H&P Exam Vital Signs Vital Signs Date Time Temp Pulse Resp B/P (MAP) Pulse Ox O2 Delivery O2 Flow Rate FiO2 05/25/24 08:59 97.9 70 16 125/52 (76) 94 97.9 05/25/24 04:31 Nasal Cannula 3.0 05/25/24 04:31 32 General Appeara: Well developed Head Exam: Normal inspection Eye Exam: bilateral eye PERRL Pulmonary/Respiratory: Rhonci Cardiovascular/Chest: Regular rate Neuro/Mental St: Alert, Oriented Appearance: Appropriate appearance Eye contact/ Speech: Cooperative Labs/Xrays Labs Test 3/6/25 05:43 05/24/24 23:00 05/24/24 05:24 05/23/24 13:00 Range/Units White Blood Count 11.0 H 4.4-10.8 10^3/uL Red Blood Count 3.14 L 4.0-5.20 10^6/uL Hemoglobin 9.3 L 12.2-16.2 g/dL Hematocrit 27.3 L 36.0-46.0 % Mean Corpuscular Volume 87.0 80.0-100.0 fL Mean Corpuscular Hemoglobin 29.8 28.0-32.0 pg Mean Corpuscular Hemoglobin Concent 34.2 32.0-36.0 g/dL Red Cell Distribution Width 15.5 H 11.8-14.3 % Platelet Count 766 *H 140-450 10^3/uL Mean Platelet Volume 7.2 6.9-10.8 fL Neutrophils (%) (Auto) 81.2 H 37.0-80.0 % Lymphocytes (%) (Auto) 10.3 10.0-50.0 % Monocytes (%) (Auto) 6.8 0.0-12.0 % Eosinophils (%) (Auto) 1.0 0.0-7.0 % Basophils (%) (Auto) 0.7 0.0-2.0 % Neutrophils # (Auto) 8.9 H 1.6-8.6 10 ^3/uL Lymphocytes # (Auto) 1.1 0.4-5.4 10 ^3/uL Monocytes # (Auto) 0.8 0-1.3 10 ^3/uL Eosinophils # (Auto) 0.1 0-0.8 10 ^3/uL Basophils # (Auto) 0.1 0-0.2 10 ^3/uL Nucleated Red Blood Cells 0.0 % Sodium Level 139 136-145 mmol/L Potassium Level 3.5 3.5-5.1 mmol/L Chloride Level 105 98-107 mmol/L Carbon Dioxide Level 27 20-31 mmol/L Anion Gap 7 5-15 Blood Urea Nitrogen 6 L 9-23 mg/dL Creatinine 0.80 0.550-1.02 mg/dL Glomerular Filtration Rate Calc 91 >90 mL/min BUN/Creatinine Ratio 7.5 L 10.0-20.0 Serum Glucose 100 74-106 mg/dL Calcium Level 8.7 8.7-10.4 mg/dL Phosphorus Level 3.4 2.4-5.1 mg/dL Magnesium Level 2.0 1.6-2.6 mg/dL Total Bilirubin 0.3 0.2-1.0 mg/dL Aspartate Amino Transferase (AST) 21 13-40 U/L Alanine Aminotransferase (ALT) 31 7-40 U/L Alkaline Phosphatase 52 46-116 U/L Total Protein 6.4 5.7-8.2 g/dL Albumin 3.5 3.2-4.8 g/dL Vancomycin Level Trough 9.8 5-10 ug/mL Thyroid Stimulating Hormone (TSH) 6.71 H 0.55-4.78 uIU/mL HIV (1&2) Antibody Negative Negative Beta HCG, Quantitative 0.6 L 1.5-4.2 mIU/mL Test 05/21/24 06:36 05/21/24 06:20 05/20/24 16:20 05/19/24 17:27 Range/Units Prothrombin Time 10.8 9.3-11.8 sec Prothrombin Time INR 1.02 0.9-1.15 Activated Partial Thromboplast Time 26.2 24.5-34.5 SEC Urine Test Negative Negative TB Test (QFT) Gold Plus Negative Negative TB Test (QFT) Nil 0.01 . IU/mL TB Test (QFT) Mitogen 9.59 . IU/mL TB Test (QFT) Antigen 1 0.02 . IU/mL TB Test (QFT) Antigen 2 0.03 . IU/mL TB Test (QFT) Criteria Comment . D-Dimer, Quantitative 3.49 H 0.0-0.49 mg/L FEU Iron Level 11 L 50-170 ug/dL Total Iron Binding Capacity 226 L 250-425 ug/dL Percent Iron Saturation 4.9 L 15-50 % Carcinoembryonic Antigen 0.63 <=5.0 ng/mL CA 19-9 Antigen 7 0-35 U/mL CA 125 Antigen 86.3 H 0.0-38.1 U/mL Test 05/19/24 16:00 05/19/24 14:44 05/19/24 09:30 Range/Units Influenza Type A Antigen Negative Negative Influenza Type B Antigen Negative Negative SARS-CoV-2 Antigen (Rapid) Negative NEGATIVE Urine Color Colorless Yellow Urine Clarity Clear Clear Urine pH 7.0 5.0-9.0 Urine Specific [place] 1.004 1.001-1.035 Urine Protein Negative Negative Urine Ketones 1+ H Negative Urine Blood 3+ H Negative /uL Urine Nitrite Negative Negative Urine Bilirubin Negative Negative Urine Urobilinogen Normal Negative mg/dL Urine Leukocyte Esterase Negative Negative /uL Urine RBC 53 0 - 4 /hpf Urine Microscopic WBC 6 H 0-5 /HPF Urine Squamous Epithelial Cells Few <5 /hpf Urine Bacteria None seen None Seen /hpf Urine Glucose Normal Normal mg/dL Differential Total Cells Counted 100.0 100 Neutrophils % (Manual) 76 37.0-80.0 Band Neutrophils % (Manual) 10 Lymphocytes % (Manual) 6 L 10.0-50.0 Monocytes % (Manual) 6 0-12 Eosinophils % (Manual) 0 0-7 Basophils % (Manual) 0 0.0-2.0 Metamyelocytes % (manual) 1 Myelocytes % (Manual) 1 Promyelocytes % (Manual) 0 Blast Cells % (Manual) 0 Reactive Lymphocytes 0 Platelet Estimate Adequate Hemoglobin A1c 5.5 <5.7 % A1C Lactic Acid Level 1.0 0.4-2.0 mmol/L Troponin I High Sensitivity 26 </=34 ng/L Microbiology Date/Time Source Procedure Growth Status 05/21/24 16:20 Lung Pending Resulted 05/21/24 16:20 Lung Pending Resulted 05/21/24 16:20 Lung Pending Resulted 05/21/24 16:20 Lung Pending Resulted 05/21/24 16:20 Lung - Final See Separate Report... Resulted 05/21/24 16:20 Bronchial Washings Gram Stain - Final Complete 05/21/24 16:20 Respiratory Culture - Final Methicillin Resistant S.aureus Complete 05/19/24 09:40 Blood Blood Culture - Final NO GROWTH AFTER 5 DAYS OF INCUBATION. Complete Assessment/Plan Plan Patient is a 49-year-old female who originally presented to the hospital on May 19, 2024 for shortness of breaths. Since that time, the patient is found to have pneumonia/respiratory failure/sepsis. She has been managed on telemetry unit she has had bronchoscopy. While on telemetry, patient had questionable tachyarrhythmia on May 24, 2024 and cardiology was involved. Review of the tele rhythms reveals artifact. Patient has remained in sinus rhythm with no tachy arrhythmia. Patient has also been seen by Pulmonary/ID/primary team. There is questioned for Staphylococcus pneumonia and possible endocarditis? Patient denies previous cardiac history. Patient herself actually denies any previous medical history prior to this presentation. There is question about childhood asthma. And there is also question about baseline history of some anemia. It is of note that since admission the patient was found to have increased D-dimer for which CT angiography ruled out pulmonary emboli. She also is found to have increased CA 125 antigen for which is being managed/evaluated by primary team Not in acute distress. Not using accessory muscles of breathing. Mucosa is pink and wet. No carotid bruit. Lungs reveal scattered rhonchi in the lungs. Cardiac regular, no thrills/gallop. Abdomen is soft. There is no hepatomegaly. Extremities do not reveal edema. Denies previous medical history. There is question about previous anemia and also childhood asthma? Troponin: 26 (within normal limit) D-dimer: 3.49 Chest x-ray revealed: IMPRESSION: Multifocal masslike opacities are visualized. Differential considerations include malignancy versus multifocal pneumonia. Repeat chest x-ray revealed: LUNGS AND PLEURAL SPACES: Congestion and edema, unchanged. No pneumothorax. HEART: Unremarkable. No cardiomegaly. MEDIASTINUM: Unremarkable. Normal mediastinal contour. BONES/JOINTS: Unremarkable. No acute fracture. OTHER FINDINGS: . No significant change from the prior exam. IMPRESSION: No acute cardiopulmonary process. CT angio of the chest reported: CT of the chest/abdomen and pelvis reported: Telemetry reveals sinus rhythm. Elaine occasions of artifact. There was no tachyarrhythmia Echocardiogram reported: Left ventricle: Left ventricle was normal sized with normal systolic function. LVEF was 60-65%. There was no wall motion abnormality. Diastolic function of left ventricle was considered normal. Right ventricle was dilated with normal systolic function. Left atrium was normal sized. Right atrium was mildly dilated. Aortic valve: Aortic valve was trileaflet. There was no aortic insufficiency stage stenosis. There was trace mitral/tricuspid regurgitation. Pulmonary valve was not well visualized. Right ventricular systolic pressure was assessed that 30 mm Hg (normal). IVC was normal size with normal respiratory variation. There was trace pericardial effusion. Patient is a 49-year-old female who presented with shortness of breaths and is found to have pneumonia. Has had bronchoscopy. There is question about MRSA pneumonia. D-dimer was elevated but CT angio of the chest ruled out pulmonary emboli. There was questionable with tachyarrhythmia which was artifact. Steph questions endocarditis as a source of infection. Echocardiogram has been nonrevealing. CLAUDIA was suggested to the patient. At this point, the patient is refusing and wants to think about Pneumonia Sepsis Pneumonia, MRSA Bronchiectasis Respiratory failure Increased D-dimer Cardiac suggestion for management: Managed on telemetry Follow up electrolytes and kidney function tests and correct abnormalities Transthoracic echocardiogram was non-revealing for any sign for endocarditis. As per suggestion of Infectious Disease, CLAUDIA was offered to the patient. At this point, patient is refusing and wants to think about it. Evaluation and management of sepsis/pneumonia as per primary team/pulmonary/infectious disease Evaluation and management of increased CA 125 antigen as per primary team. You may consider oncology evaluation Further evaluation and management depends on the above and clinical course Thank you for consultation A total of 75 minutes was spent reviewing the patient record, examining the patient, making a diagnostic and therapeutic plan, discussing this plan with medical personnel, following up on diagnostic studies and following the patient for clinical stability excluding any and all procedures. At least 50% of this time was spent in direct, [id number] contact. Thank you for allowing me to participate in this patient's care. Further recommendations will depend on patient's clinical course. Please do not hesitate to contact me if you have any questions or concerns. This medical document was created using electronic medical record system with [employer] computerized dictation system. Although this document has been carefully reviewed, there may still be some phonetic and typographical errors. These areas are purely typographical due to the imperfection of the software programs, and do not reflect any compromise in the patient's medical care. Plan discussed with: Patient, Other (nurse) FREDERICK CARNEY MD May 25, 2024 09:52
[2024-05-25 10:31] LABS: Hepatitis A Ab IgM Negative; Hepatitis B Core IgM Negative (Negative); Hepatitis B Surface Antigen Negative (Negative); Hepatitis C Antibody Negative (Negative)
--- NOTE | 2024-05-25 10:45 | DVHPN2 ---
Progress Note - Dictate Date Seen: May 25, 2024 Medical Necessity Reason Pt with a Central, PICC or Fol: No vital signs Vital Sign Date Time Temp Pulse Resp B/P (MAP) Pulse Ox O2 Delivery O2 Flow Rate FiO2 05/25/24 08:59 97.9 70 16 125/52 (76) 94 97.9 05/25/24 04:31 Nasal Cannula 3.0 05/25/24 04:31 32 Total Intake and Output 05/24/24 05/24/24 05/25/24 15:00 23:00 07:00 Intake Total 50 ml 1700 ml 1050 ml Balance 50 ml 1700 ml 1050 ml medications Current Medications Medications Dose Ordered Sig/Mirian Route Start Time Stop Time Status Last Admin Dose Admin Nitroglycerin 0.4 mg Q5MINP PRN SL 05/19/24 17:00 Morphine Sulfate 2 mg Q30M PRN IV 05/19/24 17:00 Ceftriaxone Sodium 50 ml @ 100 mls/hr DAILY@09 IV 05/20/24 09:00 05/24/24 08:31 100 MLS/HR Albuterol 2.5 mg Q6HPRN PRN NEB 05/19/24 17:00 05/25/24 04:31 2.5 MG Ferrous Sulfate 325 mg BIDWM PO 05/20/24 08:00 05/24/24 17:39 325 MG Sodium Chloride 1,000 ml @ 75 mls/hr [id number] IV 05/20/24 17:45 05/24/24 21:26 75 MLS/HR Acetaminophen/ Hydrocodone Bitart 1 tab Q4HPRN PRN PO 05/21/24 16:30 05/25/24 06:18 1 TAB Morphine Sulfate 2 mg Q4HPRN PRN IV 05/21/24 16:30 05/25/24 01:20 2 MG Iron Sucrose 110 ml @ 110 mls/hr DAILY@1200 IV 05/22/24 12:00 05/26/24 12:59 05/24/24 15:28 110 MLS/HR Hydralazine HCl 10 mg Q6HP PRN IV 05/22/24 11:00 Famotidine 20 mg DAILY PO 05/22/24 11:00 05/24/24 08:37 20 MG Enoxaparin Sodium 40 mg DAILY SC 05/22/24 11:00 05/24/24 08:38 40 MG Sodium Chloride 1 spr BIDPRN PRN EACHNOSTRI 05/22/24 17:00 05/23/24 10:14 1 SPR Furosemide 20 mg DAILY IV 05/23/24 10:00 05/24/24 08:38 20 MG Fluticasone Propionate 50 mcg Q12HR EACHNOSTRI 05/23/24 11:00 05/24/24 21:32 50 MCG Vancomycin HCl 0 ml @ 0 mls/hr UD IV 05/23/24 16:45 Docusate Sodium 100 mg BID PO 05/23/24 22:00 05/24/24 21:26 100 MG Polyethylene Glycol 17 gm DAILY PO 05/24/24 10:00 Temazepam 15 mg HSPRN PRN PO 05/24/24 18:30 Vancomycin HCl 250 ml @ 250 mls/hr Q8H IV 05/25/24 10:00 objective General Appearance: alert, no distress HEENT: EOMI, PERRLA, normal external inspect of ears, no icterus, no nasal drainage Neck: no carotid bruit, no jugular venous distention (JVD), no lymphadenopathy Chest: normal thorax Respiratory: clear to auscultation, normal air movement Cardiovascular: regular rate and rhythm, no diastolic murmur, no jugular venous distention (JVD), no rub, no systolic murmur Abdominal: soft, no hepatomegaly, no mass, no splenomegaly, no tenderness Genitourinary: grossly normal external Musculoskeletal: no joint tenderness, no swelling Extremities: normal pulses, no calf tenderness, no clubbing, no cyanosis, no edema Skin: no bruising, no jaundice, no rash Neurological: alert, No focal deficit laboratory and microbiology Laboratory Tests 05/25/24 05:43 Test 05/25/24 05:43 Range/Units Serum Glucose 100 74-106 mg/dL Problem List 1. Acute hypoxic respiratory failure likely from pneumonia IV antibiotics, pulmonary consult, med neb treatments 2. Community acquired pneumonia likely Gram-negative or Gram-positive IV antibiotics 3. Iron deficiency anemia Replace 4. Sepsis likely from pneumonia IV antibiotics, IV fluids 5. Hypokalemia Replace Assessment/Plan Objective Patient is awake and alert. Subjective Patient was admitted for shortness of breath related to sepsis and community- acquired pneumonia. Patient ic currently on 3 L nasal cannula. Patient status post bronchoscopy. Repeat chest x-ray shows pleural effusion. Patient refused thoracentesis offered by pulmonary. Patient had elevated CA125. Patient was seen by oncology. They are recommending follow-up with OB. Plan OB consult. Continue current treatment for sepsis and pneumonia. Continue to wean down O2 as tolerated. Echocardiogram is pending. CT imaging of chest showed possible septic emboli. Need to rule out endocarditis. Dietary Evaluation Review Comments: 1) Advance to regular diet when medically feasible, per DIRECTOR OF NUCLEAR MEDICINE approval 2) Continue iron supplementation - 325 mg bid 3) Encourage good PO intake 4) Continue to monitor appetite, labs, and skin integrity Expected Outcomes/Goals: 1) diet to advance 2) appetite and labs to improve 3) f/u in 5 days Plan discussed with: Patient, Other LISS COHEN NP May 25, 2024 10:45
[2024-05-25] MEDS: VANCOMYCIN 1GM/250ML KIT 250 ML IV SCH (11:38)
[2024-05-25] MEDS: FLEET MINERAL OIL ENEMA 133 ML PR PRN (17:00)
[2024-05-25] MEDS: TEMAZEPAM 15 MG CAP PO PRN (20:15)
--- NOTE | 2024-05-25 23:11 | DVHPN2 ---
Progress Note - Dictate Date Seen: May 25, 2024 Medical Necessity Reason Pt with a Central, PICC or Fol: No Subjective Patient seen and examined at bedside. Remains on supplemental oxygen Overnight events reviewed. vital signs Vital Sign Date Time Temp Pulse Resp B/P (MAP) Pulse Ox O2 Delivery O2 Flow Rate FiO2 05/25/24 20:46 97.9 81 19 115/62 (79) 94 97.9 05/25/24 20:28 Nasal Cannula 4.0 05/25/24 20:28 36 Total Intake and Output 05/24/24 05/24/24 05/25/24 15:00 23:00 07:00 Intake Total 50 ml 1700 ml 1050 ml Balance 50 ml 1700 ml 1050 ml medications Current Medications Medications Dose Ordered Sig/Mirian Route Start Time Stop Time Status Last Admin Dose Admin Nitroglycerin 0.4 mg Q5MINP PRN SL 05/19/24 17:00 Morphine Sulfate 2 mg Q30M PRN IV 05/19/24 17:00 Ceftriaxone Sodium 50 ml @ 100 mls/hr DAILY@09 IV 05/20/24 09:00 05/25/24 12:56 100 MLS/HR Albuterol 2.5 mg Q6HPRN PRN NEB 05/19/24 17:00 05/25/24 20:27 2.5 MG Ferrous Sulfate 325 mg BIDWM PO 05/20/24 08:00 05/25/24 17:00 325 MG Sodium Chloride 1,000 ml @ 75 mls/hr [id number] IV 05/20/24 17:45 05/25/24 16:35 75 MLS/HR Acetaminophen/ Hydrocodone Bitart 1 tab Q4HPRN PRN PO 05/21/24 16:30 05/25/24 12:55 1 TAB Morphine Sulfate 2 mg Q4HPRN PRN IV 05/21/24 16:30 05/25/24 01:20 2 MG Iron Sucrose 110 ml @ 110 mls/hr DAILY@1200 IV 05/22/24 12:00 05/26/24 12:59 05/25/24 14:06 110 MLS/HR Hydralazine HCl 10 mg Q6HP PRN IV 05/22/24 11:00 Famotidine 20 mg DAILY PO 05/22/24 11:00 05/25/24 11:39 20 MG Enoxaparin Sodium 40 mg DAILY SC 05/22/24 11:00 05/25/24 11:35 40 MG Sodium Chloride 1 spr BIDPRN PRN EACHNOSTRI 05/22/24 17:00 05/25/24 20:15 1 SPR Furosemide 20 mg DAILY IV 05/23/24 10:00 05/25/24 11:36 20 MG Fluticasone Propionate 50 mcg Q12HR EACHNOSTRI 05/23/24 11:00 05/25/24 11:51 50 MCG Vancomycin HCl 0 ml @ 0 mls/hr UD IV 05/23/24 16:45 Docusate Sodium 100 mg BID PO 05/23/24 22:00 05/24/24 21:26 100 MG Polyethylene Glycol 17 gm DAILY PO 05/24/24 10:00 Temazepam 15 mg HSPRN PRN PO 05/24/24 18:30 05/25/24 20:15 15 MG Vancomycin HCl 250 ml @ 250 mls/hr Q8H IV 05/25/24 10:00 05/25/24 17:00 250 MLS/HR Sodium Biphosphate/ Sodium Phosphate 133 ml DAILYP PRN NM 05/25/24 12:15 05/25/24 17:00 133 ML objective Gen.: Patient lying in bed in no apparent distress. On supplemental oxygen. Head: Normocephalic, atraumatic. Eyes: EOMI/PERRLA. Ears: Normal hearing. Normal anatomy. Neck/trachea: Trachea midline, supple. Nose: Normal external anatomy. Mouth: Moist mucous membranes. Chest: Decreased air entry bilaterally. No wheezing or rhonchi. Cardiovascular: Positive S1, positive S2. Regular rate and rhythm. Abdomen: Positive bowel sounds in all 4 quadrants. Soft, non-tender, non- distended. : Deferred. Rectal: Deferred. Skin: Warm, dry. Intact. Extremities: 2+ radial pulses bilaterally. No lower extremity edema. Neuro: Awake, alert, oriented x3. No gross motor or sensory deficits. Cranial nerves II through XII intact. Gait not assessed. laboratory and microbiology Laboratory Tests 05/25/24 05:43 Test 05/25/24 05:43 Range/Units Serum Glucose 100 74-106 mg/dL Assessment/Plan Impression: Acute hypoxic respiratory failure Pneumonia Cough Dependence on supplemental oxygen Anemia Bronchiectasis Atelectasis Hypokalemia Elevated D-dimer Events: Remains on supplemental oxygen, 3 LPM NC Taper O2 as tolerated Restoril for sleep aid QuantiFERON negative. Patient refused CLAUDIA. Cardiology recs appreciated. Repeat CT chest - worsening bibasilar opacities and pleural effusions. Patient declined thoracentesis Sputum cultures positive for MRSA. ID recommendations appreciated Continue antibiotics - vancomycin for MRSA. Continue bronchodilators PRN [place] nasal spray q.12 hours for dry nares. Incentive spirometry Hx of vaping likely made pt more susceptible to pneumonia Monitor hemoglobin Iron supplementation Pain control Avoid oversedation TB rule out - QuantiFERON Gold negative S/p bronchoscopy with biopsy on 05/21/24 - see procedure note for details. LLL BAL sent for gram stain and culture, viral culture, fungal culture, and AFB smear and culture. Labs and imaging reviewed. Rest of plan as noted below. Plan: Supplemental oxygen Titrate to keep O2 sats above 92%. QuantiFERON Gold negative CTA negative for pulmonary embolism Pain control Avoid oversedation Antitussive for cough Continue bronchodilators Continue antibiotics Incentive spirometry Iron supplementation Monitor hemoglobin Monitor renal function. Monitor electrolytes. Supplement as necessary. Monitor ins and outs. IV fluids with normal saline 75 ml/hr DVT prophylaxis. Prognosis: Guarded given patient's multiple co-morbidities. Rest of plan per hospitalist and other consultants. Thank you, MILAN Mayes, for allowing me to participate in this patient's care. Further recommendations will depend on the patient's clinical course. Please do not hesitate to contact me if you have any questions or concerns. This medical document was created using an electronic medical record system with [employer] dictation system. Although these documentations are being carefully reviewed, there may still be some phonetic and typographical changes. The errors are purely typographical, due to imperfection on the software program, and do not reflect any compromise in the patient's medical care. Dietary Evaluation Review Comments: 1) Advance to regular diet when medically feasible, per MACHINE OPERATIONS SUPERVISOR approval 2) Continue iron supplementation - 325 mg bid 3) Encourage good PO intake 4) Continue to monitor appetite, labs, and skin integrity Expected Outcomes/Goals: 1) diet to advance 2) appetite and labs to improve 3) f/u in 5 days Plan discussed with: Patient, Other (ANTHONY Umaña) REYES HOGUE MD May 25, 2024 23:11
[2024-05-26] VITALS (11 sets, daily range): BP systolic 113–133; BP diastolic 56–70; PULSE 75–104; RESP 16–20; TEMP 97.7–98.8; O2SAT 94–99
--- NOTE | 2024-05-26 06:53 | DVHPN2 ---
Progress Note - Dictate Date Seen: May 26, 2024 Medical Necessity Reason Pt with a Central, PICC or Fol: No vital signs Vital Sign Date Time Temp Pulse Resp B/P (MAP) Pulse Ox O2 Delivery O2 Flow Rate FiO2 05/26/24 06:49 75 16 99 05/26/24 06:43 Nasal Cannula 3.0 05/26/24 06:43 32 05/26/24 04:49 97.7 118/70 (86) 97.7 Total Intake and Output 05/25/24 05/25/24 05/26/24 15:00 23:00 07:00 Intake Total 300 ml 3130 ml 3050 ml Balance 300 ml 3130 ml 3050 ml medications Current Medications Medications Dose Ordered Sig/Mirian Route Start Time Stop Time Status Last Admin Dose Admin Nitroglycerin 0.4 mg Q5MINP PRN SL 05/19/24 17:00 Morphine Sulfate 2 mg Q30M PRN IV 05/19/24 17:00 Ceftriaxone Sodium 50 ml @ 100 mls/hr DAILY@09 IV 05/20/24 09:00 05/25/24 12:56 100 MLS/HR Albuterol 2.5 mg Q6HPRN PRN NEB 05/19/24 17:00 05/26/24 06:43 2.5 MG Ferrous Sulfate 325 mg BIDWM PO 05/20/24 08:00 05/25/24 17:00 325 MG Sodium Chloride 1,000 ml @ 75 mls/hr [id number] IV 05/20/24 17:45 05/26/24 01:37 75 MLS/HR Acetaminophen/ Hydrocodone Bitart 1 tab Q4HPRN PRN PO 05/21/24 16:30 05/25/24 12:55 1 TAB Morphine Sulfate 2 mg Q4HPRN PRN IV 05/21/24 16:30 05/25/24 01:20 2 MG Iron Sucrose 110 ml @ 110 mls/hr DAILY@1200 IV 05/22/24 12:00 05/26/24 12:59 05/25/24 14:06 110 MLS/HR Hydralazine HCl 10 mg Q6HP PRN IV 05/22/24 11:00 Famotidine 20 mg DAILY PO 05/22/24 11:00 05/25/24 11:39 20 MG Enoxaparin Sodium 40 mg DAILY SC 05/22/24 11:00 05/25/24 11:35 40 MG Sodium Chloride 1 spr BIDPRN PRN EACHNOSTRI 05/22/24 17:00 05/25/24 20:15 1 SPR Furosemide 20 mg DAILY IV 05/23/24 10:00 05/25/24 11:36 20 MG Fluticasone Propionate 50 mcg Q12HR EACHNOSTRI 05/23/24 11:00 05/25/24 11:51 50 MCG Vancomycin HCl 0 ml @ 0 mls/hr UD IV 05/23/24 16:45 Docusate Sodium 100 mg BID PO 05/23/24 22:00 05/24/24 21:26 100 MG Polyethylene Glycol 17 gm DAILY PO 05/24/24 10:00 Temazepam 15 mg HSPRN PRN PO 05/24/24 18:30 05/25/24 20:15 15 MG Vancomycin HCl 250 ml @ 250 mls/hr Q8H IV 05/25/24 10:00 05/26/24 01:37 250 MLS/HR Sodium Biphosphate/ Sodium Phosphate 133 ml DAILYP PRN [place] 05/25/24 12:15 05/25/24 17:00 133 ML laboratory and microbiology Laboratory Tests 05/25/24 05:43 Test 05/25/24 05:43 Range/Units Serum Glucose 100 74-106 mg/dL Assessment/Plan Patient is a 49-year-old female who originally presented to the hospital on May 19, 2024 for shortness of breaths. Since that time, the patient is found to have pneumonia/respiratory failure/sepsis. She has been managed on telemetry unit she has had bronchoscopy. While on telemetry, patient had questionable tachyarrhythmia on May 24, 2024 and cardiology was involved. Review of the tele rhythms reveals artifact. Patient has remained in sinus rhythm with no tachy arrhythmia. Patient has also been seen by Pulmonary/ID/primary team. There is questioned for Staphylococcus pneumonia and possible endocarditis? Patient denies previous cardiac history. Patient herself actually denies any previous medical history prior to this presentation. There is question about childhood asthma. And there is also question about baseline history of some anemia. It is of note that since admission the patient was found to have increased D-dimer for which CT angiography ruled out pulmonary emboli. She also is found to have increased CA 125 antigen for which is being managed/evaluated by primary team Not in acute distress. Not using accessory muscles of breathing. Mucosa is pink and wet. No carotid bruit. Lungs reveal scattered rhonchi in the lungs. Cardiac regular, no thrills/gallop. Abdomen is soft. There is no hepatomegaly. Extremities do not reveal edema. Denies previous medical history. There is question about previous anemia and also childhood asthma? Troponin: 26 (within normal limit) D-dimer: 3.49 Chest x-ray revealed: IMPRESSION: Multifocal masslike opacities are visualized. Differential considerations include malignancy versus multifocal pneumonia. Repeat chest x-ray revealed: LUNGS AND PLEURAL SPACES: Congestion and edema, unchanged. No pneumothorax. HEART: Unremarkable. No cardiomegaly. MEDIASTINUM: Unremarkable. Normal mediastinal contour. BONES/JOINTS: Unremarkable. No acute fracture. OTHER FINDINGS: . No significant change from the prior exam. IMPRESSION: No acute cardiopulmonary process. CT angio of the chest reported: CT of the chest/abdomen and pelvis reported: Telemetry reveals sinus rhythm. Elaine occasions of artifact. There was no tachyarrhythmia Echocardiogram reported: Left ventricle: Left ventricle was normal sized with normal systolic function. LVEF was 60-65%. There was no wall motion abnormality. Diastolic function of left ventricle was considered normal. Right ventricle was dilated with normal systolic function. Left atrium was normal sized. Right atrium was mildly dilated. Aortic valve: Aortic valve was trileaflet. There was no aortic insufficiency stage stenosis. There was trace mitral/tricuspid regurgitation. Pulmonary valve was not well visualized. Right ventricular systolic pressure was assessed that 30 mm Hg (normal). IVC was normal size with normal respiratory variation. There was trace pericardial effusion. Patient is a 49-year-old female who presented with shortness of breaths and is found to have pneumonia. Has had bronchoscopy. There is question about MRSA pneumonia. D-dimer was elevated but CT angio of the chest ruled out pulmonary emboli. There was questionable with tachyarrhythmia which was artifact. Steph questions endocarditis as a source of infection. Echocardiogram has been nonrevealing. CLAUDIA was suggested to the patient. At this point, the patient is refusing and wants to think about Pneumonia Sepsis Pneumonia, MRSA Bronchiectasis Respiratory failure Increased D-dimer Cardiac suggestion for management: Managed on telemetry Follow up electrolytes and kidney function tests and correct abnormalities Transthoracic echocardiogram was non-revealing for any sign for endocarditis. As per suggestion of Infectious Disease, CLAUDIA was offered to the patient. Again today, patient is refusing and wants to think about it. Wants to go for cleaning of lungs first and then decide. Evaluation and management of sepsis/pneumonia as per primary team/pulmonary/infectious disease Evaluation and management of increased CA 125 antigen as per primary team. You may consider oncology evaluation Further evaluation and management depends on the above and clinical course A total of 55 minutes was spent reviewing the patient record, examining the patient, making a diagnostic and therapeutic plan, discussing this plan with medical personnel, following up on diagnostic studies and following the patient for clinical stability excluding any and all procedures. At least 50% of this time was spent in direct, [id number] contact. Thank you for allowing me to participate in this patient's care. Further recommendations will depend on patient's clinical course. Please do not hesitate to contact me if you have any questions or concerns. This medical document was created using electronic medical record system with [employer] computerized dictation system. Although this document has been carefully reviewed, there may still be some phonetic and typographical errors. These areas are purely typographical due to the imperfection of the software programs, and do not reflect any compromise in the patient's medical care. Dietary Evaluation Review Comments: 1) Advance to regular diet when medically feasible, per JOB ANALYSIS MANAGER approval 2) Continue iron supplementation - 325 mg bid 3) Encourage good PO intake 4) Continue to monitor appetite, labs, and skin integrity Expected Outcomes/Goals: 1) diet to advance 2) appetite and labs to improve 3) f/u in 5 days Plan discussed with: Patient, Other (nurse) FREDERICK CARNEY MD May 26, 2024 06:53
--- NOTE | 2024-05-26 10:26 | DVHPN2 ---
Progress Note - Dictate Date Seen: May 26, 2024 Medical Necessity Reason Pt with a Central, PICC or Fol: No vital signs Vital Sign Date Time Temp Pulse Resp B/P (MAP) Pulse Ox O2 Delivery O2 Flow Rate FiO2 05/26/24 09:00 98.0 85 20 115/61 (79) 97 98.0 05/26/24 06:43 Nasal Cannula 3.0 05/26/24 06:43 32 Total Intake and Output 05/25/24 05/25/24 05/26/24 15:00 23:00 07:00 Intake Total 300 ml 3130 ml 3050 ml Balance 300 ml 3130 ml 3050 ml medications Current Medications Medications Dose Ordered Sig/Mirian Route Start Time Stop Time Status Last Admin Dose Admin Nitroglycerin 0.4 mg Q5MINP PRN SL 05/19/24 17:00 Morphine Sulfate 2 mg Q30M PRN IV 05/19/24 17:00 Ceftriaxone Sodium 50 ml @ 100 mls/hr DAILY@09 IV 05/20/24 09:00 05/25/24 12:56 100 MLS/HR Albuterol 2.5 mg Q6HPRN PRN NEB 05/19/24 17:00 05/26/24 06:43 2.5 MG Ferrous Sulfate 325 mg BIDWM PO 05/20/24 08:00 05/25/24 17:00 325 MG Acetaminophen/ Hydrocodone Bitart 1 tab Q4HPRN PRN PO 05/21/24 16:30 05/25/24 12:55 1 TAB Morphine Sulfate 2 mg Q4HPRN PRN IV 05/21/24 16:30 05/25/24 01:20 2 MG Iron Sucrose 110 ml @ 110 mls/hr DAILY@1200 IV 05/22/24 12:00 05/26/24 12:59 05/25/24 14:06 110 MLS/HR Hydralazine HCl 10 mg Q6HP PRN IV 05/22/24 11:00 Famotidine 20 mg DAILY PO 05/22/24 11:00 05/25/24 11:39 20 MG Enoxaparin Sodium 40 mg DAILY SC 05/22/24 11:00 05/25/24 11:35 40 MG Sodium Chloride 1 spr BIDPRN PRN EACHNOSTRI 05/22/24 17:00 05/25/24 20:15 1 SPR Furosemide 20 mg DAILY IV 05/23/24 10:00 05/25/24 11:36 20 MG Fluticasone Propionate 50 mcg Q12HR EACHNOSTRI 05/23/24 11:00 05/25/24 11:51 50 MCG Vancomycin HCl 0 ml @ 0 mls/hr UD IV 05/23/24 16:45 Docusate Sodium 100 mg BID PO 05/23/24 22:00 05/24/24 21:26 100 MG Polyethylene Glycol 17 gm DAILY PO 05/24/24 10:00 Temazepam 15 mg HSPRN PRN PO 05/24/24 18:30 05/25/24 20:15 15 MG Sodium Biphosphate/ Sodium Phosphate 133 ml DAILYP PRN [place] 05/25/24 12:15 05/25/24 17:00 133 ML Sodium Chloride 1,000 ml @ 30 mls/hr Q24H IV 05/26/24 10:30 UNV objective General Appearance: alert, no distress HEENT: EOMI, PERRLA, normal external inspect of ears, no icterus, no nasal drainage Neck: no carotid bruit, no jugular venous distention (JVD), no lymphadenopathy Chest: normal thorax Respiratory: clear to auscultation, normal air movement Cardiovascular: regular rate and rhythm, no diastolic murmur, no jugular venous distention (JVD), no rub, no systolic murmur Abdominal: soft, no hepatomegaly, no mass, no splenomegaly, no tenderness Genitourinary: grossly normal external Musculoskeletal: no joint tenderness, no swelling Extremities: normal pulses, no calf tenderness, no clubbing, no cyanosis, no edema Skin: no bruising, no jaundice, no rash Neurological: alert, No focal deficit laboratory and microbiology Laboratory Tests 05/26/24 08:57 05/25/24 05:43 Test 05/25/24 05:43 Range/Units Serum Glucose 100 74-106 mg/dL Problem List 1. Acute hypoxic respiratory failure likely from pneumonia IV antibiotics, pulmonary consult, med neb treatments 2. Community acquired pneumonia likely Gram-negative or Gram-positive IV antibiotics 3. Iron deficiency anemia Replace 4. Sepsis likely from pneumonia IV antibiotics, IV fluids 5. Hypokalemia Replace Assessment/Plan Subjective: Patient is awake and alert. Objective: Patient was admitted for acute hypoxic respiratory failure and sepsis related to community-acquired pneumonia. Elevated CA 125 levels were noted, and an OB consult is pending. The patient had episodes of constipation and received several enemas, resulting in three bowel movements. Sputum culture was positive for MRSA. Plan: Continue vancomycin for MRSA pneumonia. Awaiting ultrasound to determine if thoracentesis is needed today. Patient is now agreeable to the procedure. Continue to wean down O2 as tolerated. Dietary Evaluation Review Comments: 1) Advance to regular diet when medically feasible, per STOCK TRANSFER CLERK approval 2) Continue iron supplementation - 325 mg bid 3) Encourage good PO intake 4) Continue to monitor appetite, labs, and skin integrity Expected Outcomes/Goals: 1) diet to advance 2) appetite and labs to improve 3) f/u in 5 days Plan discussed with: Patient, Other LISS COHEN NP May 26, 2024 10:26
[2024-05-26] MEDS: SODIUM CHLORIDE 0.9% 1,000 ML IV SCH (10:30)
--- NOTE | 2024-05-26 10:45 | DVH ---
Bilateral Chest Sonogram Date: 05/26/2024 10:00 AM Clinical history: EVALUSTION OF PLEURAL EFFUSIONS Findings: Limited sonographic evaluation of the right and left chest was performed to localize and alyson fluid f or thoracentesis. Moderate left pleural effusion. Small right pleural effusion IMPRESSION: Moderate left pleural effusion. Small right pleural effusion END IMPRESSION:
[2024-05-26] MEDS: VANCOMYCIN 1GM/250ML KIT 250 ML IV SCH (16:00)
--- NOTE | 2024-05-26 18:14 | DVHPN2 ---
Consult Progress Note Date Seen: May 25, 2024 Subjective Patient reports: Other (on 4 liters nasal canula , lungs sound clear ) Objective vital signs Vital Sign Date Time Temp Pulse Resp B/P (MAP) Pulse Ox O2 Delivery O2 Flow Rate FiO2 05/26/24 16:55 98.5 80 16 118/68 (85) 96 98.5 05/26/24 08:00 Nasal Cannula* 2 28 Total Intake and Output 05/25/24 05/25/24 05/26/24 15:00 23:00 07:00 Intake Total 300 ml 3130 ml 3050 ml Balance 300 ml 3130 ml 3050 ml medications Current Medications Medications Dose Ordered Sig/Mirian Route Start Time Stop Time Status Last Admin Dose Admin Nitroglycerin 0.4 mg Q5MINP PRN SL 05/19/24 17:00 Morphine Sulfate 2 mg Q30M PRN IV 05/19/24 17:00 Ceftriaxone Sodium 50 ml @ 100 mls/hr DAILY@09 IV 05/20/24 09:00 05/26/24 11:12 100 MLS/HR Albuterol 2.5 mg Q6HPRN PRN NEB 05/19/24 17:00 05/26/24 06:43 2.5 MG Ferrous Sulfate 325 mg BIDWM PO 05/20/24 08:00 05/26/24 18:02 325 MG Acetaminophen/ Hydrocodone Bitart 1 tab Q4HPRN PRN PO 05/21/24 16:30 05/25/24 12:55 1 TAB Morphine Sulfate 2 mg Q4HPRN PRN IV 05/21/24 16:30 05/25/24 01:20 2 MG Hydralazine HCl 10 mg Q6HP PRN IV 05/22/24 11:00 Famotidine 20 mg DAILY PO 05/22/24 11:00 05/26/24 11:11 20 MG Enoxaparin Sodium 40 mg DAILY SC 05/22/24 11:00 05/26/24 11:10 40 MG Sodium Chloride 1 spr BIDPRN PRN EACHNOSTRI 05/22/24 17:00 05/25/24 20:15 1 SPR Furosemide 20 mg DAILY IV 05/23/24 10:00 05/26/24 11:11 20 MG Fluticasone Propionate 50 mcg Q12HR EACHNOSTRI 05/23/24 11:00 05/26/24 10:00 50 MCG Vancomycin HCl 0 ml @ 0 mls/hr UD IV 05/23/24 16:45 Docusate Sodium 100 mg BID PO 05/23/24 22:00 05/26/24 11:11 100 MG Polyethylene Glycol 17 gm DAILY PO 05/24/24 10:00 05/26/24 11:09 17 GM Temazepam 15 mg HSPRN PRN PO 05/24/24 18:30 05/25/24 20:15 15 MG Sodium Biphosphate/ Sodium Phosphate 133 ml DAILYP PRN KS 05/25/24 12:15 05/25/24 17:00 133 ML Sodium Chloride 1,000 ml @ 30 mls/hr Q24H IV 05/26/24 10:30 05/26/24 10:30 30 MLS/HR Vancomycin HCl 250 ml @ 250 mls/hr Q12HR@0500,1700 IV 05/26/24 16:00 05/26/24 16:00 250 MLS/HR Physical Exam: General:?NAD Neck:?Supple. No masses. HEENT:?PERRL. Normal lids and conjunctiva. Moist mucous membranes. Oropharynx without lesions, exudates, or excessive erythema. Normal appearance of the external aspects of the nose and ears. Heart:?Regular rhythm, normal rate. No murmur. No lower extremity edema. Lungs:?Normal respiratory effort. Crackles and wheezing bilaterally. Abdomen:?Soft. Non-tender. Non-distended. No masses or abdominal hernia. MSK:?No digital cyanosis. Normal strength and tone in all 4 limbs Skin:?Warm and dry, no rashes. Neuro:?Alert. No facial droop or slurred speech. Extra-ocular movements intact. Sensation intact to soft touch in all 4 limbs. Psych:?Appropriate mood. Full affect. Oriented to person, place, time, and situation. laboratory and microbiology Laboratory Tests 05/26/24 08:57 05/25/24 05:43 Test 05/25/24 05:43 Range/Units Serum Glucose 100 74-106 mg/dL Problem List/Assessment/Plan Problems(with codes): (1) Acute respiratory failure (2) Pneumonia (3) MRSA (methicillin resistant staphylococcus aureus) pneumonia (4) Shortness of breath (5) Hypoxia Problem List/Assessment/Plan ID Problem List: - Pneumonia - Hypoxia - Possible Staphylococcus aureus infection - Shortness of breath - Septic emboli - Tachycardia - Possible endocarditis Assessment This is a 49 y.o. female with no significant past medical history except possible asthma as a child, who presents with shortness of breath and chest pain. Patient was seen at [facility] a few days prior and was admitted for possible pneumonia. She continued to have shortness of breath after discharge. She was using her mother's oxygen and is requiring 3 liters nasal cannula here to maintain saturation at 90%. No history of COPD, smoking, alcohol, or heavy drug use. Medications include fluticasone. She was started on ceftriaxone and azithromycin while here. Vital signs notable for temperature of 98.1F, pulse of 116, respirations 19, blood pressure 154/92, requiring 3 liters nasal cannula and saturating at 90%. Physical exam notable for bilateral crackles and diffuse wheezing. COVID-19 rapid antigen negative, influenza A negative, influenza B negative. Lab results: Hemoglobin A1C is 5.5%. Chest CT notable for multifocal opacities and a small left pleural effusion. CT chest showed no pulmonary emboli, scattered areas of pleural-based consolidation, as well as multiple small cystic areas which may be due to septic emboli or bronchiectasis. Records from [facility] indicate the patient was seen by Dr. Sena on May 14 and was treated with azithromycin and vancomycin. Echocardiogram showed normal aortic, mitral, and tricuspid valves; pulmonic valve poorly visualized. No signs of endocarditis. Blood cultures were negative to date. Patient was discharged on levofloxacin 500 mg daily. EKG here shows sinus tachycardia with borderline repolarization abnormalities. Gram stain shows no organisms; however, there is concern for culture growth of likely Staphylococcus aureus. 3: Dr. Monroy preformed a bronchoscopy , there was left lower lobe atelectasis due to mucus plugging from L1-L10 which was relieved . biopsies and cultures were acquired 05/22: Patient appears significantly improved after therapeutic bronchoscopy, growing MRSA in the lungs 05/23: Had a [facility] chest abdomen and pelvis done today which showed patchy bilateral areas of pulmonary infiltrated and consolidation ,some of these areas of consolidations has lucent centers that cannot exclude septic emboli findings are worse than 05/16. bibasilar atelectasis infiltrated and plural effusions left worse than right . no finding of bowel infection , large stool burden throughout the colon , no nephrolithiasis , gallbladder consuelo no calcified , free air in gallbladder 05/24:is clearly having MRSA pneumonia , likely septic emboli based off imaging , awaiting CLAUDIA to be preformed 05/25: vancomycin trots are currently sub therapeutic. cardiology evaluated patient for CLAUDIA and patient is currently considering whether to have the procedure done Plan: - will discuss potential possibility of patient going on empiric antibiotics if CLAUDIA is not preformed , would likely be difficult given frequency of vancomycin currently required - increase vancomycin dose for troth for 15-20 for endocarditis - given worsening left plural effusion defer to pulmonology if patient would warrant a therapeutic and diagnostic thoracentesis , if done send for bacterial culture as well as plural fluid analysis , protein , glucose , cell count - Follow up on BAL cultures , sputum cultures - Continue vancomycin empirically to cover for staph pneumonia. - Continue ceftriaxone. - Discontinue azithromycin as the patient has already been treated for atypical pneumonia without response. - Follow up on sputum cultures and bronchoscopy with bronchoalveolar lavage results. - Follow up on sensitivities of the Staphylococcus aureus and respiratory cultures. - Follow up on blood cultures. - MRSA PCR nasal swab may be negative due to prior levofloxacin use; will not rely on this result. - Given visualization of septic emboli and possible Staphylococcus aureus pneumonia, concern for embolic source, primarily endocarditis. - Since TTE at [facility] did not show endocarditis, recommend CLAUDIA to further evaluate. - Defer to primary team for cardiology evaluation for CLAUDIA. Isolation Precautions: Standard Plan discussed with: Other Dietary Evaluation Review Comments: 1) Advance to regular diet when medically feasible, per WINDING RACK OPERATOR approval 2) Continue iron supplementation - 325 mg bid 3) Encourage good PO intake 4) Continue to monitor appetite, labs, and skin integrity Expected Outcomes/Goals: 1) diet to advance 2) appetite and labs to improve 3) f/u in 5 days KLELI NIETO MD May 26, 2024 18:14
--- NOTE | 2024-05-26 23:32 | DVHPN2 ---
Progress Note - Dictate Date Seen: May 26, 2024 Medical Necessity Reason Pt with a Central, PICC or Fol: No Subjective Patient seen and examined at bedside. Remains on supplemental oxygen Overnight events reviewed. vital signs Vital Sign Date Time Temp Pulse Resp B/P (MAP) Pulse Ox O2 Delivery O2 Flow Rate FiO2 05/26/24 21:00 98.8 78 19 127/68 (87) 94 98.8 05/26/24 19:05 Nasal Cannula 2.0 05/26/24 19:05 28 Total Intake and Output 05/25/24 05/25/24 05/26/24 15:00 23:00 07:00 Intake Total 300 ml 3130 ml 3050 ml Balance 300 ml 3130 ml 3050 ml medications Current Medications Medications Dose Ordered Sig/Mirian Route Start Time Stop Time Status Last Admin Dose Admin Nitroglycerin 0.4 mg Q5MINP PRN SL 05/19/24 17:00 Morphine Sulfate 2 mg Q30M PRN IV 05/19/24 17:00 Ceftriaxone Sodium 50 ml @ 100 mls/hr DAILY@09 IV 05/20/24 09:00 05/26/24 11:12 100 MLS/HR Albuterol 2.5 mg Q6HPRN PRN NEB 05/19/24 17:00 05/26/24 06:43 2.5 MG Ferrous Sulfate 325 mg BIDWM PO 05/20/24 08:00 05/26/24 18:02 325 MG Acetaminophen/ Hydrocodone Bitart 1 tab Q4HPRN PRN PO 05/21/24 16:30 05/26/24 21:33 1 TAB Morphine Sulfate 2 mg Q4HPRN PRN IV 05/21/24 16:30 05/25/24 01:20 2 MG Hydralazine HCl 10 mg Q6HP PRN IV 05/22/24 11:00 Famotidine 20 mg DAILY PO 05/22/24 11:00 05/26/24 11:11 20 MG Enoxaparin Sodium 40 mg DAILY SC 05/22/24 11:00 05/26/24 11:10 40 MG Sodium Chloride 1 spr BIDPRN PRN EACHNOSTRI 05/22/24 17:00 05/25/24 20:15 1 SPR Furosemide 20 mg DAILY IV 05/23/24 10:00 05/26/24 11:11 20 MG Fluticasone Propionate 50 mcg Q12HR EACHNOSTRI 05/23/24 11:00 05/26/24 21:36 50 MCG Vancomycin HCl 0 ml @ 0 mls/hr UD IV 05/23/24 16:45 Docusate Sodium 100 mg BID PO 05/23/24 22:00 05/26/24 21:32 100 MG Polyethylene Glycol 17 gm DAILY PO 05/24/24 10:00 05/26/24 11:09 17 GM Temazepam 15 mg HSPRN PRN PO 05/24/24 18:30 05/25/24 20:15 15 MG Sodium Biphosphate/ Sodium Phosphate 133 ml DAILYP PRN [place] 05/25/24 12:15 05/25/24 17:00 133 ML Sodium Chloride 1,000 ml @ 30 mls/hr Q24H IV 05/26/24 10:30 05/26/24 10:30 30 MLS/HR Vancomycin HCl 250 ml @ 250 mls/hr Q12HR@0500,1700 IV 05/26/24 16:00 05/26/24 16:00 250 MLS/HR objective Gen.: Patient lying in bed in no apparent distress. On supplemental oxygen. Head: Normocephalic, atraumatic. Eyes: EOMI/PERRLA. Ears: Normal hearing. Normal anatomy. Neck/trachea: Trachea midline, supple. Nose: Normal external anatomy. Mouth: Moist mucous membranes. Chest: Decreased air entry bilaterally. No wheezing or rhonchi. Cardiovascular: Positive S1, positive S2. Regular rate and rhythm. Abdomen: Positive bowel sounds in all 4 quadrants. Soft, non-tender, non- distended. : Deferred. Rectal: Deferred. Skin: Warm, dry. Intact. Extremities: 2+ radial pulses bilaterally. No lower extremity edema. Neuro: Awake, alert, oriented x3. No gross motor or sensory deficits. Cranial nerves II through XII intact. Gait not assessed. laboratory and microbiology Laboratory Tests 05/26/24 08:57 05/25/24 05:43 Test 05/25/24 05:43 Range/Units Serum Glucose 100 74-106 mg/dL Assessment/Plan Impression: Acute hypoxic respiratory failure Pneumonia Cough Dependence on supplemental oxygen Anemia Bronchiectasis Atelectasis Hypokalemia Elevated D-dimer Events: Remains on supplemental oxygen, 2 LPM NC Taper O2 as tolerated Improving O2 requirements Chest ultrasound revealed moderate left pleural effusion and small right pleural effusion. Plan for thoracentesis Sputum cultures positive for MRSA. ID recommendations appreciated Continue antibiotics - vancomycin for MRSA. Continue bronchodilators/Mucomyst Incentive spirometry Hx of vaping likely made pt more susceptible to pneumonia Monitor hemoglobin Iron supplementation IV fluids with normal saline 30 ml/hr Pain control Avoid oversedation Patient refused CLAUDIA. Cardiology recs appreciated. TB rule out - QuantiFERON Gold negative S/p bronchoscopy with biopsy on 05/21/24 - see procedure note for details. LLL BAL sent for gram stain and culture, viral culture, fungal culture, and AFB smear and culture. Labs and imaging reviewed. Rest of plan as noted below. Plan: Supplemental oxygen Titrate to keep O2 sats above 92%. QuantiFERON Gold negative CTA negative for pulmonary embolism Pain control Avoid oversedation Antitussive for cough Continue bronchodilators Continue antibiotics Incentive spirometry Iron supplementation Monitor hemoglobin Monitor renal function. Monitor electrolytes. Supplement as necessary. Monitor ins and outs. DVT prophylaxis. Prognosis: Guarded given patient's multiple co-morbidities. Rest of plan per hospitalist and other consultants. Thank you, MILAN Mayes, for allowing me to participate in this patient's care. Further recommendations will depend on the patient's clinical course. Please do not hesitate to contact me if you have any questions or concerns. This medical document was created using an electronic medical record system with [employer] dictation system. Although these documentations are being carefully reviewed, there may still be some phonetic and typographical changes. The errors are purely typographical, due to imperfection on the software program, and do not reflect any compromise in the patient's medical care. Dietary Evaluation Review Comments: 1) Advance to regular diet when medically feasible, per DIRECTOR OF HEMOPHILIA approval 2) Continue iron supplementation - 325 mg bid 3) Encourage good PO intake 4) Continue to monitor appetite, labs, and skin integrity Expected Outcomes/Goals: 1) diet to advance 2) appetite and labs to improve 3) f/u in 5 days Plan discussed with: Patient, Other (ANTHONY Ramirez) REYES HOGUE MD May 26, 2024 23:32
[2024-05-27] VITALS (10 sets, daily range): BP systolic 118–126; BP diastolic 55–71; PULSE 70–130; RESP 16–19; TEMP 97.8–98.6; O2SAT 91–97
[2024-05-27 05:58] LABS: Basophils # (auto) 0.1 10 ^3/uL (0-0.2); Eosinophils # (auto) 0.1 10 ^3/uL (0-0.8); Monocytes # (auto) 0.6 10 ^3/uL (0-1.3); Monocytes % (auto) 8.1 % (0.0-12.0)
[2024-05-27 06:00] LABS: Basophils % (auto) 1.2 % (0.0-2.0); Eosinophils % (auto) 1.2 % (0.0-7.0); Hematocrit 26.6 % (36.0-46.0); Hemoglobin 9.1 g/dL (12.2-16.2); Lymphocytes # (auto) 1.4 10 ^3/uL (0.4-5.4); Lymphocytes % (auto) 20.2 % (10.0-50.0); Mean Corpuscular Hemoglobin 30.1 pg (28.0-32.0); Mean Corpuscular Hgb Conc. 34.3 g/dL (32.0-36.0); Mean Corpuscular Volume 87.7 fL (80.0-100.0); Neutrophils # (auto) 4.9 10 ^3/uL (1.6-8.6); Neutrophils % (auto) 69.3 % (37.0-80.0); Platelet Count (auto) 746 10^3/uL (140-450); Red Blood Cells 3.04 10^6/uL (4.0-5.20); Red Cell Distribution Width 15.9 % (11.8-14.3); White Blood Cell 7.1 10^3/uL (4.4-10.8)
[2024-05-27 06:11] LABS: Calcium 8.7 mg/dL (8.7-10.4); Chloride 106 mmol/L (98-107); Potassium 4.1 mmol/L (3.5-5.1); Sodium 139 mmol/L (136-145)
[2024-05-27 06:12] LABS: Anion Gap 7 (5-15); Carbon Dioxide 26 mmol/L (20-31)
[2024-05-27 06:17] LABS: BUN/Creatinine Ratio 10.1 (10.0-20.0)
[2024-05-27 06:19] LABS: Phosphorus 3.5 mg/dL (2.4-5.1)
[2024-05-27 06:30] LABS: Blood Urea Nitrogen 8 mg/dL (9-23); Glucose 130 mg/dL (74-106)
[2024-05-27] MEDS: ROCURONIUM 10MG/ML 10ML VIAL IV ONE (08:52)
[2024-05-27] MEDS: IOHEXOL 350 MG/ML 100ML IJ ONE (08:52)
[2024-05-27] MEDS: CLOPIDOGREL BISULFATE 75 MG TAB ONE (08:53)
[2024-05-27] MEDS: IOHEXOL 300 MG/ML 100ML BOTTLE IJ ONE (08:53)
--- NOTE | 2024-05-27 10:43 | DVH ---
EXAM: XR Chest, 2 Views CLINICAL INDICATION: sob TECHNIQUE: Frontal and lateral views of the chest. COMPARISON: None FINDINGS: LUNGS AND PLEURAL SPACES: Left pleural effusion. HEART: Cardiomegaly with mild congestion. MEDIASTINUM: Unremarkable. Normal mediastinal contour. BONES/JOINTS: Unremarkable. No acute fracture. OTHER FINDINGS: . IMPRESSION: 1. Cardiomegaly with mild congestion. 2. Left pleural effusion.
--- NOTE | 2024-05-27 11:34 | DVHPN2 ---
Progress Note - Dictate Date Seen: May 27, 2024 Medical Necessity Reason Pt with a Central, PICC or Fol: No vital signs Vital Sign Date Time Temp Pulse Resp B/P (MAP) Pulse Ox O2 Delivery O2 Flow Rate FiO2 05/27/24 09:55 118/70 05/27/24 09:10 98.3 77 16 94 98.3 05/27/24 08:00 Nasal Cannula* 1 24 Total Intake and Output 05/26/24 05/26/24 05/27/24 15:00 23:00 07:00 Intake Total 160 ml 2090 ml 730 ml Balance 160 ml 2090 ml 730 ml medications Current Medications Medications Dose Ordered Sig/Mirian Route Start Time Stop Time Status Last Admin Dose Admin Nitroglycerin 0.4 mg Q5MINP PRN SL 05/19/24 17:00 Morphine Sulfate 2 mg Q30M PRN IV 05/19/24 17:00 Ceftriaxone Sodium 50 ml @ 100 mls/hr DAILY@09 IV 05/20/24 09:00 05/27/24 09:55 100 MLS/HR Albuterol 2.5 mg Q6HPRN PRN NEB 05/19/24 17:00 05/26/24 06:43 2.5 MG Ferrous Sulfate 325 mg BIDWM PO 05/20/24 08:00 05/27/24 09:56 325 MG Acetaminophen/ Hydrocodone Bitart 1 tab Q4HPRN PRN PO 05/21/24 16:30 05/26/24 21:33 1 TAB Morphine Sulfate 2 mg Q4HPRN PRN IV 05/21/24 16:30 05/25/24 01:20 2 MG Hydralazine HCl 10 mg Q6HP PRN IV 05/22/24 11:00 Famotidine 20 mg DAILY PO 05/22/24 11:00 05/27/24 09:55 20 MG Enoxaparin Sodium 40 mg DAILY SC 05/22/24 11:00 05/27/24 09:55 40 MG Sodium Chloride 1 spr BIDPRN PRN EACHNOSTRI 05/22/24 17:00 05/25/24 20:15 1 SPR Furosemide 20 mg DAILY IV 05/23/24 10:00 05/27/24 09:55 20 MG Fluticasone Propionate 50 mcg Q12HR EACHNOSTRI 05/23/24 11:00 05/27/24 09:56 50 MCG Vancomycin HCl 0 ml @ 0 mls/hr UD IV 05/23/24 16:45 Docusate Sodium 100 mg BID PO 05/23/24 22:00 05/27/24 09:55 100 MG Polyethylene Glycol 17 gm DAILY PO 05/24/24 10:00 05/27/24 09:56 17 GM Temazepam 15 mg HSPRN PRN PO 05/24/24 18:30 05/25/24 20:15 15 MG Sodium Biphosphate/ Sodium Phosphate 133 ml DAILYP PRN [place] 05/25/24 12:15 05/25/24 17:00 133 ML Sodium Chloride 1,000 ml @ 30 mls/hr Q24H IV 05/26/24 10:30 05/26/24 10:30 30 MLS/HR Vancomycin HCl 250 ml @ 250 mls/hr Q12HR@0500,1700 IV 05/26/24 16:00 05/27/24 04:35 250 MLS/HR objective General Appearance: alert, no distress HEENT: EOMI, PERRLA, normal external inspect of ears, no icterus, no nasal drainage Neck: no carotid bruit, no jugular venous distention (JVD), no lymphadenopathy Chest: normal thorax Respiratory: clear to auscultation, normal air movement Cardiovascular: regular rate and rhythm, no diastolic murmur, no jugular venous distention (JVD), no rub, no systolic murmur Abdominal: soft, no hepatomegaly, no mass, no splenomegaly, no tenderness Genitourinary: grossly normal external Musculoskeletal: no joint tenderness, no swelling Extremities: normal pulses, no calf tenderness, no clubbing, no cyanosis, no edema Skin: no bruising, no jaundice, no rash Neurological: alert, No focal deficit laboratory and microbiology Laboratory Tests 05/27/24 05:32 Test 05/27/24 05:32 Range/Units Serum Glucose 130 H 74-106 mg/dL Problem List 1. Acute hypoxic respiratory failure likely from pneumonia IV antibiotics, pulmonary consult, med neb treatments 2. Community acquired pneumonia likely Gram-negative or Gram-positive IV antibiotics 3. Iron deficiency anemia Replace 4. Sepsis likely from pneumonia IV antibiotics, IV fluids 5. Hypokalemia Replace Assessment/Plan Subjective: Patient is awake and alert. Objective: Patient was admitted for acute hypoxic respiratory failure and sepsis related to MRSA pneumonia. She continues to experience shortness of breath. Patient does not use oxygen at home but is currently on 3 liters via nasal cannula. Imaging revealed a moderate left pleural effusion, and the patient is now amenable to thoracentesis. CT imaging showed possible septic emboli. Elevated CA-125 level noted; OB consult is pending. Plan: Patient is scheduled for left thoracentesis today. Continue vancomycin for MRSA pneumonia. Continue supplemental oxygen. Plan for CLAUDIA, and schedule a transvaginal ultrasound to evaluate causes of elevated CA-125. Dietary Evaluation Review Comments: 1) Advance to regular diet when medically feasible, per REPAIRER HELPER approval 2) Continue iron supplementation - 325 mg bid 3) Encourage good PO intake 4) Continue to monitor appetite, labs, and skin integrity Expected Outcomes/Goals: 1) diet to advance 2) appetite and labs to improve 3) f/u in 5 days Plan discussed with: Patient, Other LISS COHEN NP May 27, 2024 11:34
--- NOTE | 2024-05-27 14:46 | DVHPN2 ---
Consult Progress Note Date Seen: May 26, 2024 Subjective Patient reports: Other (still SOB , on 1 liter nasal canula , has some diminished breath sounds in the left base lung ) Objective vital signs Vital Sign Date Time Temp Pulse Resp B/P (MAP) Pulse Ox O2 Delivery O2 Flow Rate FiO2 05/27/24 14:36 89 18 110/68 05/27/24 13:00 98.1 97 98.1 05/27/24 08:00 Nasal Cannula* 1 24 Total Intake and Output 05/26/24 05/26/24 05/27/24 14:59 22:59 06:59 Intake Total 160 ml 2090 ml 730 ml Balance 160 ml 2090 ml 730 ml medications Current Medications Medications Dose Ordered Sig/Mirian Route Start Time Stop Time Status Last Admin Dose Admin Nitroglycerin 0.4 mg Q5MINP PRN SL 05/19/24 17:00 Morphine Sulfate 2 mg Q30M PRN IV 05/19/24 17:00 Ceftriaxone Sodium 50 ml @ 100 mls/hr DAILY@09 IV 05/20/24 09:00 05/27/24 09:55 100 MLS/HR Albuterol 2.5 mg Q6HPRN PRN NEB 05/19/24 17:00 05/26/24 06:43 2.5 MG Ferrous Sulfate 325 mg BIDWM PO 05/20/24 08:00 05/27/24 09:56 325 MG Acetaminophen/ Hydrocodone Bitart 1 tab Q4HPRN PRN PO 05/21/24 16:30 05/26/24 21:33 1 TAB Morphine Sulfate 2 mg Q4HPRN PRN IV 05/21/24 16:30 05/27/24 14:05 2 MG Hydralazine HCl 10 mg Q6HP PRN IV 05/22/24 11:00 Famotidine 20 mg DAILY PO 05/22/24 11:00 05/27/24 09:55 20 MG Enoxaparin Sodium 40 mg DAILY SC 05/22/24 11:00 05/27/24 09:55 40 MG Sodium Chloride 1 spr BIDPRN PRN EACHNOSTRI 05/22/24 17:00 05/25/24 20:15 1 SPR Furosemide 20 mg DAILY IV 05/23/24 10:00 05/27/24 09:55 20 MG Fluticasone Propionate 50 mcg Q12HR EACHNOSTRI 05/23/24 11:00 05/27/24 09:56 50 MCG Vancomycin HCl 0 ml @ 0 mls/hr UD IV 05/23/24 16:45 Docusate Sodium 100 mg BID PO 05/23/24 22:00 05/27/24 09:55 100 MG Polyethylene Glycol 17 gm DAILY PO 05/24/24 10:00 05/27/24 09:56 17 GM Temazepam 15 mg HSPRN PRN PO 05/24/24 18:30 05/25/24 20:15 15 MG Sodium Biphosphate/ Sodium Phosphate 133 ml DAILYP PRN OK 05/25/24 12:15 05/25/24 17:00 133 ML Sodium Chloride 1,000 ml @ 30 mls/hr Q24H IV 05/26/24 10:30 05/26/24 10:30 30 MLS/HR Vancomycin HCl 250 ml @ 250 mls/hr Q12HR@0500,1700 IV 05/26/24 16:00 05/27/24 04:35 250 MLS/HR Physical Exam: General:?NAD Neck:?Supple. No masses. HEENT:?PERRL. Normal lids and conjunctiva. Moist mucous membranes. Oropharynx without lesions, exudates, or excessive erythema. Normal appearance of the external aspects of the nose and ears. Heart:?Regular rhythm, normal rate. No murmur. No lower extremity edema. Lungs:?Normal respiratory effort. Crackles and wheezing bilaterally. Abdomen:?Soft. Non-tender. Non-distended. No masses or abdominal hernia. MSK:?No digital cyanosis. Normal strength and tone in all 4 limbs Skin:?Warm and dry, no rashes. Neuro:?Alert. No facial droop or slurred speech. Extra-ocular movements intact. Sensation intact to soft touch in all 4 limbs. Psych:?Appropriate mood. Full affect. Oriented to person, place, time, and situation. laboratory and microbiology Laboratory Tests 05/27/24 05:32 Test 05/27/24 05:32 Range/Units Serum Glucose 130 H 74-106 mg/dL Problem List/Assessment/Plan Problems(with codes): (1) Hypoxia (2) Shortness of breath (3) MRSA (methicillin resistant staphylococcus aureus) pneumonia (4) Pneumonia (5) Acute respiratory failure Problem List/Assessment/Plan ID Problem List: - Pneumonia - Hypoxia - Possible Staphylococcus aureus infection - Shortness of breath - Septic emboli - Tachycardia - Possible endocarditis Assessment This is a 49 y.o. female with no significant past medical history except possible asthma as a child, who presents with shortness of breath and chest pain. Patient was seen at [facility] a few days prior and was admitted for possible pneumonia. She continued to have shortness of breath after discharge. She was using her mother's oxygen and is requiring 3 liters nasal cannula here to maintain saturation at 90%. No history of COPD, smoking, alcohol, or heavy drug use. Medications include fluticasone. She was started on ceftriaxone and azithromycin while here. Vital signs notable for temperature of 98.1F, pulse of 116, respirations 19, blood pressure 154/92, requiring 3 liters nasal cannula and saturating at 90%. Physical exam notable for bilateral crackles and diffuse wheezing. COVID-19 rapid antigen negative, influenza A negative, influenza B negative. Lab results: Hemoglobin A1C is 5.5%. Chest CT notable for multifocal opacities and a small left pleural effusion. CT chest showed no pulmonary emboli, scattered areas of pleural-based consolidation, as well as multiple small cystic areas which may be due to septic emboli or bronchiectasis. Records from [facility] indicate the patient was seen by Dr. Sena on May 14 and was treated with azithromycin and vancomycin. Echocardiogram showed normal aortic, mitral, and tricuspid valves; pulmonic valve poorly visualized. No signs of endocarditis. Blood cultures were negative to date. Patient was discharged on levofloxacin 500 mg daily. EKG here shows sinus tachycardia with borderline repolarization abnormalities. Gram stain shows no organisms; however, there is concern for culture growth of likely Staphylococcus aureus. 3: Dr. Monroy preformed a bronchoscopy , there was left lower lobe atelectasis due to mucus plugging from L1-L10 which was relieved . biopsies and cultures were acquired 05/22: Patient appears significantly improved after therapeutic bronchoscopy, growing MRSA in the lungs 3: Had a [facility] chest abdomen and pelvis done today which showed patchy bilateral areas of pulmonary infiltrated and consolidation ,some of these areas of consolidations has lucent centers that cannot exclude septic emboli findings are worse than 05/16. bibasilar atelectasis infiltrated and plural effusions left worse than right . no finding of bowel infection , large stool burden throughout the colon , no nephrolithiasis , gallbladder consuelo no calcified , free air in gallbladder 05/24:is clearly having MRSA pneumonia , likely septic emboli based off imaging , awaiting CLAUDIA to be preformed 05/25: vancomycin trots are currently sub therapeutic. cardiology evaluated patient for CLAUDIA and patient is currently considering whether to have the procedure done 05/26: IS to have a thoracentesis done by Dr Monroy on 05/27, will discuss doing a CLAUDIA option with patient today Plan: - will discuss potential possibility of patient going on empiric antibiotics if CLAUDIA is not preformed , would likely be difficult given frequency of vancomycin currently required - increase vancomycin dose for troth for 15-20 for endocarditis - given worsening left plural effusion defer to pulmonology if patient would warrant a therapeutic and diagnostic thoracentesis , if done send for bacterial culture as well as plural fluid analysis , protein , glucose , cell count - Follow up on BAL cultures , sputum cultures - Continue vancomycin empirically to cover for staph pneumonia. - Continue ceftriaxone. - Discontinue azithromycin as the patient has already been treated for atypical pneumonia without response. - Follow up on sputum cultures and bronchoscopy with bronchoalveolar lavage results. - Follow up on sensitivities of the Staphylococcus aureus and respiratory cultures. - Follow up on blood cultures. - MRSA PCR nasal swab may be negative due to prior levofloxacin use; will not rely on this result. - Given visualization of septic emboli and possible Staphylococcus aureus pneumonia, concern for embolic source, primarily endocarditis. - Since TTE at [facility] did not show endocarditis, recommend CLAUDIA to further evaluate. - Defer to primary team for cardiology evaluation for CLAUDIA. Isolation Precautions: Standard Plan discussed with: Other Dietary Evaluation Review Comments: 1) Advance to regular diet when medically feasible, per MANAGER CONSUMER INSIGHTS approval 2) Continue iron supplementation - 325 mg bid 3) Encourage good PO intake 4) Continue to monitor appetite, labs, and skin integrity Expected Outcomes/Goals: 1) diet to advance 2) appetite and labs to improve 3) f/u in 5 days KELLI NIETO MD May 27, 2024 14:46
--- NOTE | 2024-05-27 14:49 | DVH ---
INDICATION: elevated ca125 TECHNIQUE: Multiple real-time grayscale transabdominal patient declined transvaginal exam sonographic images along with color and duplex Doppler of the uterus and ovaries were obtained. COMPARISON: None FINDINGS: The uterus measures 7.3 x 4.9 x 4.5 cm. The endometrial stripe measures 0.28 cm. The right ovary not visualized The left not visualized IMPRESSION: 1. Uterus is unremarkable. 2. Ovaries not visualized. 3. Patient declined transvaginal exam
--- NOTE | 2024-05-27 14:58 | DVH ---
CHEST RADIOGRAPH Indication: rule out PTX, s/p left thoracentesis Technique: Single frontal view of the chest was obtained Comparison: XY CHEST XRAY 1 VIEW on DOS: 05/23/24, XY CHEST XRAY 1 VIEW on DOS: 05/22/24, XY CHEST XRAY 1 VIEW on DOS: 05/21/24 FINDINGS: Lines and Tubes: None Lungs: Airspace disease unimproved when compared to 05/27/2024 Pleura: No effusion. No pneumothorax. Cardiomediastinal contours: Unremarkable Bones: No acute osseous abnormality. IMPRESSION: 1. Unimproved airspace disease compared to 05/27/2024. 2. No pneumothorax on the left.
[2024-05-27 19:36] LABS: Body Fluid Polymorphonuclear 20 % (0-25); Body Fluid Red Blood Cells 2922 CUMM (0-2000); Body Fluid White Blood Cells 3088 CUMM (0-200)
--- NOTE | 2024-05-27 21:40 | DVHPN2 ---
Consult Progress Note Date Seen: May 27, 2024 Subjective Patient reports: Other (850ccs of fluid drained form her left plural via thoracentesis , has left sided chest tenderness, appears physicallt weak , sore throat ) Objective vital signs Vital Sign Date Time Temp Pulse Resp B/P (MAP) Pulse Ox O2 Delivery O2 Flow Rate FiO2 05/27/24 16:36 98.0 75 16 118/67 (84) 97 98.0 05/27/24 08:00 Nasal Cannula* 1 24 Total Intake and Output 05/26/24 05/26/24 05/27/24 15:00 23:00 07:00 Intake Total 160 ml 2090 ml 730 ml Balance 160 ml 2090 ml 730 ml medications Current Medications Medications Dose Ordered Sig/Mirian Route Start Time Stop Time Status Last Admin Dose Admin Nitroglycerin 0.4 mg Q5MINP PRN SL 05/19/24 17:00 Morphine Sulfate 2 mg Q30M PRN IV 05/19/24 17:00 Ceftriaxone Sodium 50 ml @ 100 mls/hr DAILY@09 IV 05/20/24 09:00 05/27/24 09:55 100 MLS/HR Albuterol 2.5 mg Q6HPRN PRN NEB 05/19/24 17:00 05/26/24 06:43 2.5 MG Ferrous Sulfate 325 mg BIDWM PO 05/20/24 08:00 05/27/24 17:10 325 MG Acetaminophen/ Hydrocodone Bitart 1 tab Q4HPRN PRN PO 05/21/24 16:30 05/26/24 21:33 1 TAB Morphine Sulfate 2 mg Q4HPRN PRN IV 05/21/24 16:30 05/27/24 14:05 2 MG Hydralazine HCl 10 mg Q6HP PRN IV 05/22/24 11:00 Famotidine 20 mg DAILY PO 05/22/24 11:00 05/27/24 09:55 20 MG Enoxaparin Sodium 40 mg DAILY SC 05/22/24 11:00 05/27/24 09:55 40 MG Sodium Chloride 1 spr BIDPRN PRN EACHNOSTRI 05/22/24 17:00 05/25/24 20:15 1 SPR Furosemide 20 mg DAILY IV 05/23/24 10:00 05/27/24 09:55 20 MG Fluticasone Propionate 50 mcg Q12HR EACHNOSTRI 05/23/24 11:00 05/27/24 09:56 50 MCG Vancomycin HCl 0 ml @ 0 mls/hr UD IV 05/23/24 16:45 Docusate Sodium 100 mg BID PO 05/23/24 22:00 05/27/24 21:27 100 MG Polyethylene Glycol 17 gm DAILY PO 05/24/24 10:00 05/27/24 09:56 17 GM Temazepam 15 mg HSPRN PRN PO 05/24/24 18:30 05/27/24 21:27 15 MG Sodium Biphosphate/ Sodium Phosphate 133 ml DAILYP PRN MN 05/25/24 12:15 05/25/24 17:00 133 ML Sodium Chloride 1,000 ml @ 30 mls/hr Q24H IV 05/26/24 10:30 05/26/24 10:30 30 MLS/HR Vancomycin HCl 250 ml @ 250 mls/hr Q12HR@0500,1700 IV 05/26/24 16:00 05/27/24 17:13 250 MLS/HR Physical Exam: General:?NAD Neck:?Supple. No masses. HEENT:?PERRL. Normal lids and conjunctiva. Moist mucous membranes. Oropharynx without lesions, exudates, or excessive erythema. Normal appearance of the external aspects of the nose and ears. Heart:?Regular rhythm, normal rate. No murmur. No lower extremity edema. Lungs:?Normal respiratory effort. Crackles and wheezing bilaterally. Abdomen:?Soft. Non-tender. Non-distended. No masses or abdominal hernia. MSK:?No digital cyanosis. Normal strength and tone in all 4 limbs Skin:?Warm and dry, no rashes. Neuro:?Alert. No facial droop or slurred speech. Extra-ocular movements intact. Sensation intact to soft touch in all 4 limbs. Psych:?Appropriate mood. Full affect. Oriented to person, place, time, and situation. laboratory and microbiology Laboratory Tests 05/27/24 05:32 Test 05/27/24 05:32 Range/Units Serum Glucose 130 H 74-106 mg/dL Problem List/Assessment/Plan Problems(with codes): (1) Acute respiratory failure (2) Pneumonia (3) MRSA (methicillin resistant staphylococcus aureus) pneumonia (4) Shortness of breath (5) Hypoxia Problem List/Assessment/Plan ID Problem List: - Pneumonia - Hypoxia - Possible Staphylococcus aureus infection - Shortness of breath - Septic emboli - Tachycardia - Possible endocarditis Assessment This is a 49 y.o. female with no significant past medical history except possible asthma as a child, who presents with shortness of breath and chest pain. Patient was seen at [facility] a few days prior and was admitted for possible pneumonia. She continued to have shortness of breath after discharge. She was using her mother's oxygen and is requiring 3 liters nasal cannula here to maintain saturation at 90%. No history of COPD, smoking, alcohol, or heavy drug use. Medications include fluticasone. She was started on ceftriaxone and azithromycin while here. Vital signs notable for temperature of 98.1F, pulse of 116, respirations 19, blood pressure 154/92, requiring 3 liters nasal cannula and saturating at 90%. Physical exam notable for bilateral crackles and diffuse wheezing. COVID-19 rapid antigen negative, influenza A negative, influenza B negative. Lab results: Hemoglobin A1C is 5.5%. Chest CT notable for multifocal opacities and a small left pleural effusion. CT chest showed no pulmonary emboli, scattered areas of pleural-based consolidation, as well as multiple small cystic areas which may be due to septic emboli or bronchiectasis. Records from [facility] indicate the patient was seen by Dr. Sena on May 14 and was treated with azithromycin and vancomycin. Echocardiogram showed normal aortic, mitral, and tricuspid valves; pulmonic valve poorly visualized. No signs of endocarditis. Blood cultures were negative to date. Patient was discharged on levofloxacin 500 mg daily. EKG here shows sinus tachycardia with borderline repolarization abnormalities. Gram stain shows no organisms; however, there is concern for culture growth of likely Staphylococcus aureus. 05/21: Dr. Monory preformed a bronchoscopy , there was left lower lobe atelectasis due to mucus plugging from L1-L10 which was relieved . biopsies and cultures were acquired 05/22: Patient appears significantly improved after therapeutic bronchoscopy, growing MRSA in the lungs 05/23: Had a [facility] Ct chest abdomen and pelvis done today which showed patchy bilateral areas of pulmonary infiltrated and consolidation ,some of these areas of consolidations has lucent centers that cannot exclude septic emboli findings are worse than 05/16. bibasilar atelectasis infiltrated and plural effusions left worse than right . no finding of bowel infection , large stool burden throughout the colon , no nephrolithiasis , gallbladder consuelo no calcified , free air in gallbladder 05/24:is clearly having MRSA pneumonia , likely septic emboli based off imaging , awaiting CLAUDIA to be preformed 05/25: vancomycin trots are currently sub therapeutic. cardiology evaluated patient for CLAUDIA and patient is currently considering whether to have the procedure done 05/26: IS to have a thoracentesis done by Dr Monroy on 05/27, will discuss doing a CLAUDIA option with patient today 05/27: Patient underwent left thoracentesis today , chest x ray appears largely unchanged after procedure , discussed with patient the prospect of doing a CLAUDIA and avoiding a prolonged IV antibiotic therapy if theirs no endocarditis and patient is currently deliberating whether or no to do the procedure Plan: - follow up on plural fluid cultures and analysis - will discuss potential possibility of patient going on empiric antibiotics if CLAUDIA is not preformed , would likely be difficult given frequency of vancomycin currently required - increase vancomycin dose for troth for 15-20 for endocarditis - given worsening left plural effusion defer to pulmonology if patient would warrant a therapeutic and diagnostic thoracentesis , if done send for bacterial culture as well as plural fluid analysis , protein , glucose , cell count - Follow up on BAL cultures , sputum cultures - Continue vancomycin empirically to cover for staph pneumonia. - Continue ceftriaxone. - Discontinue azithromycin as the patient has already been treated for atypical pneumonia without response. - Follow up on sputum cultures and bronchoscopy with bronchoalveolar lavage results. - Follow up on sensitivities of the Staphylococcus aureus and respiratory cultures. - Follow up on blood cultures. - MRSA PCR nasal swab may be negative due to prior levofloxacin use; will not rely on this result. - Given visualization of septic emboli and possible Staphylococcus aureus pneumonia, concern for embolic source, primarily endocarditis. - Since TTE at [facility] did not show endocarditis, recommend CLAUDIA to further evaluate. - Defer to primary team for cardiology evaluation for CLAUDIA. Isolation Precautions: Standard Plan discussed with: Other Dietary Evaluation Review Comments: 1) Advance to regular diet when medically feasible, per GAME DESIGNER approval 2) Continue iron supplementation - 325 mg bid 3) Encourage good PO intake 4) Continue to monitor appetite, labs, and skin integrity Expected Outcomes/Goals: 1) diet to advance 2) appetite and labs to improve 3) f/u in 5 days KELLI NIETO MD May 27, 2024 21:40
--- NOTE | 2024-05-27 23:27 | DVHPN2 ---
Progress Note - Dictate Date Seen: May 27, 2024 Medical Necessity Reason Pt with a Central, PICC or Fol: No Subjective Patient seen and examined at bedside. Remains on supplemental oxygen Overnight events reviewed. vital signs Vital Sign Date Time Temp Pulse Resp B/P (MAP) Pulse Ox O2 Delivery O2 Flow Rate FiO2 05/27/24 21:57 97 Nasal Cannula 1.0 05/27/24 21:57 24 05/27/24 21:00 97.8 76 18 121/55 (77) 97.8 Total Intake and Output 05/26/24 05/26/24 05/27/24 15:00 23:00 07:00 Intake Total 160 ml 2090 ml 730 ml Balance 160 ml 2090 ml 730 ml medications Current Medications Medications Dose Ordered Sig/Mirian Route Start Time Stop Time Status Last Admin Dose Admin Nitroglycerin 0.4 mg Q5MINP PRN SL 05/19/24 17:00 Morphine Sulfate 2 mg Q30M PRN IV 05/19/24 17:00 Ceftriaxone Sodium 50 ml @ 100 mls/hr DAILY@09 IV 05/20/24 09:00 05/27/24 09:55 100 MLS/HR Albuterol 2.5 mg Q6HPRN PRN NEB 05/19/24 17:00 05/26/24 06:43 2.5 MG Ferrous Sulfate 325 mg BIDWM PO 05/20/24 08:00 05/27/24 17:10 325 MG Acetaminophen/ Hydrocodone Bitart 1 tab Q4HPRN PRN PO 05/21/24 16:30 05/26/24 21:33 1 TAB Morphine Sulfate 2 mg Q4HPRN PRN IV 05/21/24 16:30 05/27/24 14:05 2 MG Hydralazine HCl 10 mg Q6HP PRN IV 05/22/24 11:00 Famotidine 20 mg DAILY PO 05/22/24 11:00 05/27/24 09:55 20 MG Enoxaparin Sodium 40 mg DAILY SC 05/22/24 11:00 05/27/24 09:55 40 MG Sodium Chloride 1 spr BIDPRN PRN EACHNOSTRI 05/22/24 17:00 05/25/24 20:15 1 SPR Furosemide 20 mg DAILY IV 05/23/24 10:00 05/27/24 09:55 20 MG Fluticasone Propionate 50 mcg Q12HR EACHNOSTRI 05/23/24 11:00 05/27/24 09:56 50 MCG Vancomycin HCl 0 ml @ 0 mls/hr UD IV 05/23/24 16:45 Docusate Sodium 100 mg BID PO 05/23/24 22:00 05/27/24 21:27 100 MG Polyethylene Glycol 17 gm DAILY PO 05/24/24 10:00 05/27/24 09:56 17 GM Temazepam 15 mg HSPRN PRN PO 05/24/24 18:30 05/27/24 21:27 15 MG Sodium Biphosphate/ Sodium Phosphate 133 ml DAILYP PRN ND 05/25/24 12:15 05/25/24 17:00 133 ML Sodium Chloride 1,000 ml @ 30 mls/hr Q24H IV 05/26/24 10:30 05/26/24 10:30 30 MLS/HR Vancomycin HCl 250 ml @ 250 mls/hr Q12HR@0500,1700 IV 05/26/24 16:00 05/27/24 17:13 250 MLS/HR objective Gen.: Patient lying in bed in no apparent distress. On supplemental oxygen. Head: Normocephalic, atraumatic. Eyes: EOMI/PERRLA. Ears: Normal hearing. Normal anatomy. Neck/trachea: Trachea midline, supple. Nose: Normal external anatomy. Mouth: Moist mucous membranes. Chest: Decreased air entry bilaterally. No wheezing or rhonchi. Cardiovascular: Positive S1, positive S2. Regular rate and rhythm. Abdomen: Positive bowel sounds in all 4 quadrants. Soft, non-tender, non- distended. : Deferred. Rectal: Deferred. Skin: Warm, dry. Intact. Extremities: 2+ radial pulses bilaterally. No lower extremity edema. Neuro: Awake, alert, oriented x3. No gross motor or sensory deficits. Cranial nerves II through XII intact. Gait not assessed. laboratory and microbiology Laboratory Tests 05/27/24 05:32 Test 05/27/24 05:32 Range/Units Serum Glucose 130 H 74-106 mg/dL Assessment/Plan Impression: Acute hypoxic respiratory failure Pneumonia Cough Dependence on supplemental oxygen Anemia Bronchiectasis Atelectasis Hypokalemia Elevated D-dimer Events: Remains on supplemental oxygen, 2 LPM NC Taper O2 as tolerated S/p left thoracentesis today with drainage of 850 mL jarad fluid from left pleural space See separate procedure note for details Plan for CLAUDIA to rule out endocarditis. Sputum cultures positive for MRSA. ID recommendations appreciated Cardiology recommendations appreciated Continue antibiotics - vancomycin for MRSA. Continue bronchodilators Incentive spirometry Hx of vaping likely made pt more susceptible to pneumonia Monitor hemoglobin Iron supplementation IV fluids with normal saline 30 ml/hr Pain control Avoid oversedation TB rule out - QuantiFERON Gold negative S/p bronchoscopy with biopsy on 05/21/24 - see procedure note for details. LLL BAL sent for gram stain and culture, viral culture, fungal culture, and AFB smear and culture. Labs and imaging reviewed. Rest of plan as noted below. Plan: Supplemental oxygen Titrate to keep O2 sats above 92%. QuantiFERON Gold negative CTA negative for pulmonary embolism Pain control Avoid oversedation Antitussive for cough Continue bronchodilators Continue antibiotics Incentive spirometry Iron supplementation Monitor hemoglobin Monitor renal function. Monitor electrolytes. Supplement as necessary. Monitor ins and outs. DVT prophylaxis. Prognosis: Guarded given patient's multiple co-morbidities. Rest of plan per hospitalist and other consultants. Thank you, LINING IRONER Sav Mayes, for allowing me to participate in this patient's care. Further recommendations will depend on the patient's clinical course. Please do not hesitate to contact me if you have any questions or concerns. This medical document was created using an electronic medical record system with [employer] dictation system. Although these documentations are being carefully reviewed, there may still be some phonetic and typographical changes. The errors are purely typographical, due to imperfection on the software program, and do not reflect any compromise in the patient's medical care. Dietary Evaluation Review Comments: 1) Advance to regular diet when medically feasible, per SALES PROGRAM COORDINATOR approval 2) Continue iron supplementation - 325 mg bid 3) Encourage good PO intake 4) Continue to monitor appetite, labs, and skin integrity Expected Outcomes/Goals: 1) diet to advance 2) appetite and labs to improve 3) f/u in 5 days Plan discussed with: Patient, Other (ANTHONY Posadas/Nallely) REYES HOGUE MD May 27, 2024 23:27
[2024-05-28] VITALS (7 sets, daily range): BP systolic 114–125; BP diastolic 59–74; PULSE 66–77; RESP 14–17; TEMP 98–98.7; O2SAT 95–99
[2024-05-28 05:51] LABS: Basophils # (auto) 0.1 10 ^3/uL (0-0.2); Basophils % (auto) 1.1 % (0.0-2.0); Eosinophils # (auto) 0.1 10 ^3/uL (0-0.8); Hematocrit 29.5 % (36.0-46.0); Hemoglobin 9.9 g/dL (12.2-16.2); Lymphocytes # (auto) 1.5 10 ^3/uL (0.4-5.4); Lymphocytes % (auto) 17.3 % (10.0-50.0); Mean Corpuscular Hemoglobin 29.5 pg (28.0-32.0); Mean Corpuscular Hgb Conc. 33.5 g/dL (32.0-36.0); Monocytes # (auto) 0.7 10 ^3/uL (0-1.3); Monocytes % (auto) 7.6 % (0.0-12.0); Neutrophils # (auto) 6.5 10 ^3/uL (1.6-8.6); Nucleated Red Blood Cells % 0.1 %; Red Blood Cells 3.35 10^6/uL (4.0-5.20); Red Cell Distribution Width 16.4 % (11.8-14.3); White Blood Cell 8.9 10^3/uL (4.4-10.8)
[2024-05-28 05:54] LABS: Platelet Count (auto) 770 10^3/uL (140-450)
--- NOTE | 2024-05-28 06:18 | DVHNC2 ---
Procedure - Ultrasound-guided LEFT thoracentesis procedure note: Physician: Dr Smitha Monroy Insurance Claims Examiner: ANTHONY Browning Date: 05/27/2024 Time out time: 1405 Patient medications and allergies reviewed. The risks and benefits of the procedure and the sedation options and risk were discussed with the patient's healthcare proxy. All questions were answered and informed consent was obtained. Patient identification and proposed procedure were verified prior to the procedure by the physician, and a nurse in the patient's room. The heart rate, respiratory rate, oxygen saturations, blood pressure, adequacy of pulmonary ventilation, and response to care were monitored throughout the procedure. The physical status of the patient was reassessed after the procedure. Consent: Consent was obtained from patient's healthcare proxy prior to procedure. Indication, risks, and benefits were explained at length. Procedure summary: A time-out was performed and a chest x-ray was reviewed prior to procedure. The appropriate site was confirmed and marked. My hands were washed immediately prior to the procedure, I wore a surgical cap, mask with protective eyewear, sterile gown and sterile gloves throughout the procedure. The patient was prepped and draped in a sterile manner using chlorhexidine scrub after the appropriate level was percussed and confirmed by ultrasound. 1% lidocaine was used to anesthetize the skin, subcutaneous tissue, superior aspect of the rib periosteum and parietal pleura. A finder needle was then introduced over the superior aspect of the rib to locate the pleural fluid; MIRELA fluid was aspirated. Thoracentesis needle was then introduced through the skin incision into the pleural space using negative aspiration pressure. The thoracentesis catheter was then threaded without difficulty. 850 mL's of MIRELA colored fluid were removed without difficulty. The catheter was then removed. No immediate complications were noted during the procedure. A postprocedure chest x-ray is pending at the time of this note. The pleural fluid will be sent for cultures and cytology. Estimated blood loss is less than 5 mL's. CPT: 15111 REYES MONROY MD May 28, 2024 06:18
[2024-05-28] MEDS: VANCOMYCIN 1GM/250ML KIT 250 ML IV SCH (06:51)
--- NOTE | 2024-05-28 11:21 | DVHINCON2 ---
Date of service: May 28, 2024 Referring Physician hospitalist Reason for Consultation Elevated CA 125 History of Present Illness Patient continues to have irregular menstruation at 49 years old. She had a Pap April 10, 2024 normal. Past Medical History Ultrasound shows no evidence of ascites were even able to detect enlargement of right or left ovary. right or left ovary not seen. Past Surgical History CT shows normal pelvic anatomy Family History Noncontributory Social History Denies contributory social history Patient Family History: Diabetes mellitus G8 MOTHER G8 SISTER Allergies: Coded Allergies: NO KNOWN ALLERGIES (Unverified , 05/19/24) Home Meds Reported Medications Fluticasone Propionate (Inhala (Fluticasone Propionate Di) 50 Mcg/Act Aer, 50 MCG IN PRN for SHORTNESS OF BREATH, AER 05/19/24 Tramadol Hcl (Tramadol Hcl) 50 Mg Tab, 50 MG PO Q8HP, MG 05/19/24 Current Medications Current Medications Medications (Trade) Dose Ordered Sig/Mirian Route PRN Reason Start Time Stop Time Status Last Admin Vancomycin HCl 250 ml @ 250 mls/hr Q12HR@0700,1900 IV 05/28/24 07:00 05/28/24 06:51 Review of Systems Constitutional: no fever, chill, weight loss HEENT: no eye pain, no hearing loss, no oral lesion, no scleral icterus Heart: no chest pain, no chest pressure Lung: no cough, no dyspnea with exertion Abdomen: see HPI : no pain with urination, normal appearing urine Musculoskeletal: no joint pain, no muscle pain Neurological: no seizure, no loss of sensation, no weakness in extremities Pysch: no depression, no anxiety Derm: no rash, no jaundice Vital Signs Vital Signs Date Time Temp Pulse Resp B/P (MAP) Pulse Ox O2 Delivery O2 Flow Rate FiO2 05/28/24 09:44 125/67 05/28/24 08:30 98.7 71 16 96 98.7 05/28/24 08:00 Nasal Cannula* 1 24 Physical Exam SKIN: Slightly pale and dry otherwise normal HEENT: Appropriate NECK: Soft CARDIAC: Rate rhythm regular PULMONARY: Deferred to hospital hospitalist team ABDOMEN: Soft positive bowel sounds non obese Pelvic exam external genitalia normal cervix normal no adnexal palpated masses uterus nontender no cervical motion tenderness no discharge or bleeding noted. Rectal exam no rectal masses guaiac-negative no gross blood normal-appearing stool MUSCULOSKELETAL: Appears normal NEURO: Alert awake oriented x3 Labs/Diagnostic Data Labs Test 05/28/24 04:40 05/27/24 14:25 05/27/24 05:32 05/26/24 14:00 Range/Units White Blood Count 8.9 # 4.4-10.8 10^3/uL Red Blood Count 3.35 L 4.0-5.20 10^6/uL Hemoglobin 9.9 L 12.2-16.2 g/dL Hematocrit 29.5 #L 36.0-46.0 % Mean Corpuscular Volume 88.0 80.0-100.0 fL Mean Corpuscular Hemoglobin 29.5 28.0-32.0 pg Mean Corpuscular Hemoglobin Concent 33.5 32.0-36.0 g/dL Red Cell Distribution Width 16.4 H 11.8-14.3 % Platelet Count 770 *H 140-450 10^3/uL Mean Platelet Volume 7.1 6.9-10.8 fL Neutrophils (%) (Auto) 73.0 37.0-80.0 % Lymphocytes (%) (Auto) 17.3 10.0-50.0 % Monocytes (%) (Auto) 7.6 0.0-12.0 % Eosinophils (%) (Auto) 1.0 0.0-7.0 % Basophils (%) (Auto) 1.1 0.0-2.0 % Neutrophils # (Auto) 6.5 1.6-8.6 10 ^3/uL Lymphocytes # (Auto) 1.5 0.4-5.4 10 ^3/uL Monocytes # (Auto) 0.7 0-1.3 10 ^3/uL Eosinophils # (Auto) 0.1 0-0.8 10 ^3/uL Basophils # (Auto) 0.1 0-0.2 10 ^3/uL Nucleated Red Blood Cells 0.1 % Creatinine 0.81 0.550-1.02 mg/dL Glomerular Filtration Rate Calc 89 >90 mL/min Vancomycin Level Trough 17.0 H 5-10 ug/mL Body Fluid Source Pleural fluid Body Fluid pH 9.0 Body Fluid WBC (Manual) 3088 H 0-200 CUMM Body Fluid RBC (Manual) 2922 H 0-2000 CUMM Body Fluid Mononuclear Cells 80 % Body Fluid Polymorphonuclear Cells 20 0-25 % Sodium Level 139 136-145 mmol/L Potassium Level 4.1 3.5-5.1 mmol/L Chloride Level 106 98-107 mmol/L Carbon Dioxide Level 26 20-31 mmol/L Anion Gap 7 5-15 Blood Urea Nitrogen 8 L 9-23 mg/dL BUN/Creatinine Ratio 10.1 10.0-20.0 Serum Glucose 130 H 74-106 mg/dL Calcium Level 8.7 8.7-10.4 mg/dL Phosphorus Level 3.5 2.4-5.1 mg/dL Magnesium Level 2.0 1.6-2.6 mg/dL Random Vancomycin Level 15.0 H 5-10 ug/mL Test 05/25/24 05:43 05/24/24 05:24 05/23/24 13:00 05/21/24 06:36 Range/Units Total Bilirubin 0.3 0.2-1.0 mg/dL Aspartate Amino Transferase (AST) 21 13-40 U/L Alanine Aminotransferase (ALT) 31 7-40 U/L Alkaline Phosphatase 52 46-116 U/L Total Protein 6.4 5.7-8.2 g/dL Albumin 3.5 3.2-4.8 g/dL Thyroid Stimulating Hormone (TSH) 6.71 H 0.55-4.78 uIU/mL Hepatitis A IgM Antibody Negative Hepatitis B Surface Antigen Negative Negative Hepatitis B Core IgM Antibody Negative Negative Hepatitis C Antibody Negative Negative HIV (1&2) Antibody Negative Negative Beta HCG, Quantitative 0.6 L 1.5-4.2 mIU/mL Prothrombin Time 10.8 9.3-11.8 sec Prothrombin Time INR 1.02 0.9-1.15 Activated Partial Thromboplast Time 26.2 24.5-34.5 SEC Test 05/21/24 06:20 05/20/24 16:20 05/19/24 17:27 05/19/24 16:00 Range/Units Urine Test Negative Negative TB Test (QFT) Gold Plus Negative Negative TB Test (QFT) Nil 0.01 . IU/mL TB Test (QFT) Mitogen 9.59 . IU/mL TB Test (QFT) Antigen 1 0.02 . IU/mL TB Test (QFT) Antigen 2 0.03 . IU/mL TB Test (QFT) Criteria Comment . D-Dimer, Quantitative 3.49 H 0.0-0.49 mg/L FEU Iron Level 11 L 50-170 ug/dL Total Iron Binding Capacity 226 L 250-425 ug/dL Percent Iron Saturation 4.9 L 15-50 % Carcinoembryonic Antigen 0.63 <=5.0 ng/mL CA 19-9 Antigen 7 0-35 U/mL CA 125 Antigen 86.3 H 0.0-38.1 U/mL Influenza Type A Antigen Negative Negative Influenza Type B Antigen Negative Negative SARS-CoV-2 Antigen (Rapid) Negative NEGATIVE Test 05/19/24 14:44 05/19/24 09:30 Range/Units Urine Color Colorless Yellow Urine Clarity Clear Clear Urine pH 7.0 5.0-9.0 Urine Specific [place] 1.004 1.001-1.035 Urine Protein Negative Negative Urine Ketones 1+ H Negative Urine Blood 3+ H Negative /uL Urine Nitrite Negative Negative Urine Bilirubin Negative Negative Urine Urobilinogen Normal Negative mg/dL Urine Leukocyte Esterase Negative Negative /uL Urine RBC 53 0 - 4 /hpf Urine Microscopic WBC 6 H 0-5 /HPF Urine Squamous Epithelial Cells Few <5 /hpf Urine Bacteria None seen None Seen /hpf Urine Glucose Normal Normal mg/dL Differential Total Cells Counted 100.0 100 Neutrophils % (Manual) 76 37.0-80.0 Band Neutrophils % (Manual) 10 Lymphocytes % (Manual) 6 L 10.0-50.0 Monocytes % (Manual) 6 0-12 Eosinophils % (Manual) 0 0-7 Basophils % (Manual) 0 0.0-2.0 Metamyelocytes % (manual) 1 Myelocytes % (Manual) 1 Promyelocytes % (Manual) 0 Blast Cells % (Manual) 0 Reactive Lymphocytes 0 Platelet Estimate Adequate Hemoglobin A1c 5.5 <5.7 % A1C Lactic Acid Level 1.0 0.4-2.0 mmol/L Troponin I High Sensitivity 26 </=34 ng/L Microbiology Date/Time Source Procedure Growth Status 05/27/24 14:25 Pleural Fluid Gram Stain Pending Resulted 05/27/24 14:25 Pleural Fluid Body Fluid Culture - Preliminary Resulted 05/21/24 16:20 Lung - Final Resulted 05/21/24 16:20 Lung - Final Resulted 05/21/24 16:20 Lung Pending Resulted 05/21/24 16:20 Lung Pending Resulted 05/21/24 16:20 Lung - Final See Separate Report... Resulted 05/21/24 16:20 Bronchial Washings Gram Stain - Final Complete 05/21/24 16:20 Respiratory Culture - Final Methicillin Resistant S.aureus Complete 05/19/24 09:40 Blood Blood Culture - Final NO GROWTH AFTER 5 DAYS OF INCUBATION. Complete Primary Diagnosis Elevated CA with 125 + 86 incidentally Admitting Diagnosis: Elevated CA 125 FYI many benign processes can lead to increased CA-125 as high as [id number]. Most commonly these benign conditions may be as simple as menstruation ,,pelvic benign tumors, pelvic inflammatory disease, ovarian hyperstimulation syndrome, and peritonitis. Also any diseases leading to pleural effusion or ascites may increase the CA - 125 Plan I reassured the patient I found no evidence of ovarian cancer and that many different benign benign diagnosis is can increase the CA 125 Plan discussed with: Patient YUDITH PRAJAPATI DO May 28, 2024 11:20
--- NOTE | 2024-05-28 11:54 | DVHPN2 ---
Progress Note Date Seen: May 27, 2024 Medical Necessity Reason Pt with a Central, PICC or Fol: No Objective vital signs Vital Sign Date Time Temp Pulse Resp B/P (MAP) Pulse Ox O2 Delivery O2 Flow Rate FiO2 05/28/24 09:44 125/67 05/28/24 08:30 98.7 71 16 96 98.7 05/28/24 08:00 Nasal Cannula* 1 24 Total Intake and Output 05/27/24 05/27/24 05/28/24 15:00 23:00 07:00 Intake Total 500 ml 1500 ml 1225 ml Balance 500 ml 1500 ml 1225 ml medications Current Medications Medications Dose Ordered Sig/Mirian Route Start Time Stop Time Status Last Admin Dose Admin Nitroglycerin 0.4 mg Q5MINP PRN SL 05/19/24 17:00 Morphine Sulfate 2 mg Q30M PRN IV 05/19/24 17:00 Ceftriaxone Sodium 50 ml @ 100 mls/hr DAILY@09 IV 05/20/24 09:00 05/28/24 09:44 100 MLS/HR Ferrous Sulfate 325 mg BIDWM PO 05/20/24 08:00 05/28/24 09:44 325 MG Acetaminophen/ Hydrocodone Bitart 1 tab Q4HPRN PRN PO 05/21/24 16:30 05/26/24 21:33 1 TAB Morphine Sulfate 2 mg Q4HPRN PRN IV 05/21/24 16:30 05/27/24 14:05 2 MG Hydralazine HCl 10 mg Q6HP PRN IV 05/22/24 11:00 Famotidine 20 mg DAILY PO 05/22/24 11:00 05/28/24 09:43 20 MG Enoxaparin Sodium 40 mg DAILY SC 05/22/24 11:00 05/28/24 09:44 40 MG Sodium Chloride 1 spr BIDPRN PRN EACHNOSTRI 05/22/24 17:00 05/25/24 20:15 1 SPR Furosemide 20 mg DAILY IV 05/23/24 10:00 05/28/24 09:44 20 MG Fluticasone Propionate 50 mcg Q12HR EACHNOSTRI 05/23/24 11:00 05/27/24 09:56 50 MCG Vancomycin HCl 0 ml @ 0 mls/hr UD IV 05/23/24 16:45 Docusate Sodium 100 mg BID PO 05/23/24 22:00 05/28/24 09:44 100 MG Polyethylene Glycol 17 gm DAILY PO 05/24/24 10:00 05/28/24 09:44 17 GM Temazepam 15 mg HSPRN PRN PO 05/24/24 18:30 05/27/24 21:27 15 MG Sodium Biphosphate/ Sodium Phosphate 133 ml DAILYP PRN UT 05/25/24 12:15 05/25/24 17:00 133 ML Sodium Chloride 1,000 ml @ 30 mls/hr Q24H IV 05/26/24 10:30 05/28/24 09:46 30 MLS/HR Vancomycin HCl 250 ml @ 250 mls/hr Q12HR@0700,1900 IV 05/28/24 07:00 05/28/24 06:51 250 MLS/HR laboratory and microbiology Laboratory Tests 05/28/24 04:40 05/27/24 05:32 Test 05/27/24 05:32 Range/Units Serum Glucose 130 H 74-106 mg/dL Microbiology Date/Time Source Procedure Growth Status 05/27/24 14:25 Pleural Fluid Gram Stain Pending Resulted 05/27/24 14:25 Pleural Fluid Body Fluid Culture - Preliminary Resulted 05/21/24 16:20 Lung - Final Resulted 05/21/24 16:20 Lung - Final Resulted 05/21/24 16:20 Lung Pending Resulted 05/21/24 16:20 Lung Pending Resulted 05/21/24 16:20 Lung - Final See Separate Report... Resulted 05/21/24 16:20 Bronchial Washings Gram Stain - Final Complete 05/21/24 16:20 Respiratory Culture - Final Methicillin Resistant S.aureus Complete 05/19/24 09:40 Blood Blood Culture - Final NO GROWTH AFTER 5 DAYS OF INCUBATION. Complete Problem List/Assessment/Plan Problem List/Assessment/Plan Assessment/Plan Plan Patient is a 49-year-old female who originally presented to the hospital on May 19, 2024 for shortness of breaths. Since that time, the patient is found to have pneumonia/respiratory failure/sepsis. She has been managed on telemetry unit she has had bronchoscopy. While on telemetry, patient had questionable tachyarrhythmia on May 24, 2024 and cardiology was involved. Review of the tele rhythms reveals artifact. Patient has remained in sinus rhythm with no tachy arrhythmia. Patient has also been seen by Pulmonary/ID/primary team. There is questioned for Staphylococcus pneumonia and possible endocarditis? Patient denies previous cardiac history. Patient herself actually denies any previous medical history prior to this presentation. There is question about childhood asthma. And there is also question about baseline history of some anemia. It is of note that since admission the patient was found to have increased D-dimer for which CT angiography ruled out pulmonary emboli. She also is found to have increased CA 125 antigen for which is being managed/evaluated by primary team Not in acute distress. Not using accessory muscles of breathing. Mucosa is pink and wet. No carotid bruit. Lungs reveal scattered rhonchi in the lungs. Cardiac regular, no thrills/gallop. Abdomen is soft. There is no hepatomegaly. Extremities do not reveal edema. Denies previous medical history. There is question about previous anemia and also childhood asthma? Troponin: 26 (within normal limit) D-dimer: 3.49 Chest x-ray revealed: IMPRESSION: Multifocal masslike opacities are visualized. Differential considerations include malignancy versus multifocal pneumonia. Repeat chest x-ray revealed: LUNGS AND PLEURAL SPACES: Congestion and edema, unchanged. No pneumothorax. HEART: Unremarkable. No cardiomegaly. MEDIASTINUM: Unremarkable. Normal mediastinal contour. BONES/JOINTS: Unremarkable. No acute fracture. OTHER FINDINGS: . No significant change from the prior exam. IMPRESSION: No acute cardiopulmonary process. CT angio of the chest reported: CT of the chest/abdomen and pelvis reported: Telemetry reveals sinus rhythm. Elaine occasions of artifact. There was no tachyarrhythmia Echocardiogram reported: Left ventricle: Left ventricle was normal sized with normal systolic function. LVEF was 60-65%. There was no wall motion abnormality. Diastolic function of left ventricle was considered normal. Right ventricle was dilated with normal systolic function. Left atrium was normal sized. Right atrium was mildly dilated. Aortic valve: Aortic valve was trileaflet. There was no aortic insufficiency stage stenosis. There was trace mitral/tricuspid regurgitation. Pulmonary valve was not well visualized. Right ventricular systolic pressure was assessed that 30 mm Hg (normal). IVC was normal size with normal respiratory variation. There was trace pericardial effusion. Patient is a 49-year-old female who presented with shortness of breaths and is found to have pneumonia. Has had bronchoscopy. There is question about MRSA pneumonia. D-dimer was elevated but CT angio of the chest ruled out pulmonary emboli. There was questionable with tachyarrhythmia which was artifact. Steph questions endocarditis as a source of infection. Echocardiogram has been nonrevealing. CLAUDIA was suggested to the patient. At this point, the patient is refusing and wants to think about Pneumonia Sepsis Pneumonia, MRSA Bronchiectasis Respiratory failure Increased D-dimer Cardiac suggestion for management: Managed on telemetry Follow up electrolytes and kidney function tests and correct abnormalities Transthoracic echocardiogram was non-revealing for any sign for endocarditis. As per suggestion of Infectious Disease, CLAUDIA was offered to the patient. At this point, patient is refusing and wants to think about it. Evaluation and management of sepsis/pneumonia as per primary team/pulmonary/infectious disease Evaluation and management of increased CA 125 antigen as per primary team. You may consider oncology evaluation Further evaluation and management depends on the above and clinical course Thank you for consultation A total of 55 minutes was spent reviewing the patient record, examining the patient, making a diagnostic and therapeutic plan, discussing this plan with medical personnel, following up on diagnostic studies and following the patient for clinical stability excluding any and all procedures. At least 50% of this time was spent in direct, [id number] contact. Thank you for allowing me to participate in this patient's care. Further recommendations will depend on patient's clinical course. Please do not hesitate to contact me if you have any questions or concerns. Plan discussed with: Other (nurse) Dietary Evaluation Review Comments: 1) Advance to regular diet when medically feasible, per PLASMA TABLE OPERATOR approval 2) Continue iron supplementation - 325 mg bid 3) Encourage good PO intake 4) Continue to monitor appetite, labs, and skin integrity Expected Outcomes/Goals: 1) diet to advance 2) appetite and labs to improve 3) f/u in 5 days ZULY SANDERS MD May 28, 2024 11:54
--- NOTE | 2024-05-28 20:53 | DVHPN2 ---
Progress Note - Dictate Date Seen: May 28, 2024 Medical Necessity Reason Pt with a Central, PICC or Fol: No vital signs Vital Sign Date Time Temp Pulse Resp B/P (MAP) Pulse Ox O2 Delivery O2 Flow Rate FiO2 05/28/24 16:43 98.5 77 16 117/69 (85) 99 98.5 05/28/24 08:00 Nasal Cannula* 1 24 Total Intake and Output 05/27/24 05/27/24 05/28/24 15:00 23:00 07:00 Intake Total 500 ml 1500 ml 1225 ml Balance 500 ml 1500 ml 1225 ml medications Current Medications Medications Dose Ordered Sig/Mirian Route Start Time Stop Time Status Last Admin Dose Admin Nitroglycerin 0.4 mg Q5MINP PRN SL 05/19/24 17:00 Ceftriaxone Sodium 50 ml @ 100 mls/hr DAILY@09 IV 05/20/24 09:00 05/28/24 09:44 100 MLS/HR Ferrous Sulfate 325 mg BIDWM PO 05/20/24 08:00 05/28/24 17:52 325 MG Acetaminophen/ Hydrocodone Bitart 1 tab Q4HPRN PRN PO 05/21/24 16:30 05/28/24 18:06 1 TAB Morphine Sulfate 2 mg Q4HPRN PRN IV 05/21/24 16:30 05/27/24 14:05 2 MG Hydralazine HCl 10 mg Q6HP PRN IV 05/22/24 11:00 Famotidine 20 mg DAILY PO 05/22/24 11:00 05/28/24 09:43 20 MG Enoxaparin Sodium 40 mg DAILY SC 05/22/24 11:00 05/28/24 09:44 40 MG Sodium Chloride 1 spr BIDPRN PRN EACHNOSTRI 05/22/24 17:00 05/25/24 20:15 1 SPR Furosemide 20 mg DAILY IV 05/23/24 10:00 05/28/24 09:44 20 MG Fluticasone Propionate 50 mcg Q12HR EACHNOSTRI 05/23/24 11:00 05/27/24 09:56 50 MCG Vancomycin HCl 0 ml @ 0 mls/hr UD IV 05/23/24 16:45 Docusate Sodium 100 mg BID PO 05/23/24 22:00 05/28/24 09:44 100 MG Polyethylene Glycol 17 gm DAILY PO 05/24/24 10:00 05/28/24 09:44 17 GM Temazepam 15 mg HSPRN PRN PO 05/24/24 18:30 05/27/24 21:27 15 MG Sodium Biphosphate/ Sodium Phosphate 133 ml DAILYP PRN [place] 05/25/24 12:15 05/25/24 17:00 133 ML Sodium Chloride 1,000 ml @ 30 mls/hr Q24H IV 05/26/24 10:30 05/28/24 09:46 30 MLS/HR Vancomycin HCl 250 ml @ 250 mls/hr Q12HR@0700,1900 IV 05/28/24 07:00 05/28/24 17:56 250 MLS/HR objective General Appearance: alert, no distress HEENT: EOMI, PERRLA, normal external inspect of ears, no icterus, no nasal drainage Neck: no carotid bruit, no jugular venous distention (JVD), no lymphadenopathy Chest: normal thorax Respiratory: clear to auscultation, normal air movement Cardiovascular: regular rate and rhythm, no diastolic murmur, no jugular venous distention (JVD), no rub, no systolic murmur Abdominal: soft, no hepatomegaly, no mass, no splenomegaly, no tenderness Genitourinary: grossly normal external Musculoskeletal: no joint tenderness, no swelling Extremities: normal pulses, no calf tenderness, no clubbing, no cyanosis, no edema Skin: no bruising, no jaundice, no rash Neurological: alert, No focal deficit laboratory and microbiology Laboratory Tests 05/28/24 04:40 05/27/24 05:32 Test 05/27/24 05:32 Range/Units Serum Glucose 130 H 74-106 mg/dL Problem List 1. Acute hypoxic respiratory failure likely from pneumonia IV antibiotics, pulmonary consult, med neb treatments 2. Community acquired pneumonia likely Gram-negative or Gram-positive IV antibiotics 3. Iron deficiency anemia Replace 4. Sepsis likely from pneumonia IV antibiotics, IV fluids 5. Hypokalemia Replace Assessment/Plan Subjective: Patient is awake and alert. Objective: Patient was admitted for acute hypoxic respiratory failure related to MRSA pneumonia. CT imaging showed possible septic thrombosis. Patient is scheduled for CLAUDIA today. Echocardiogram was negative for endocarditis. Patient was seen by infectious disease. Patient had elevated Ca125 level. Patient had a transvaginal ultrasound done. Plan: Continue current treatment. Patient will need possible OB outpatient follow up. Patient could also have other reasons for elevated Ca125 levels. Continue to wean down O2 as tolerated. Continue IV antibiotics. Patient to ambulate and monitor daily labs. Dietary Evaluation Review Comments: 1) Advance to regular diet when medically feasible, per AURICULAR ACUPUNCTURIST approval 2) Continue iron supplementation - 325 mg bid 3) Encourage good PO intake 4) Continue to monitor appetite, labs, and skin integrity Expected Outcomes/Goals: 1) diet to advance 2) appetite and labs to improve 3) f/u in 5 days Plan discussed with: Patient, Other LISS COHEN NP May 28, 2024 20:53
--- NOTE | 2024-05-28 21:16 | DVHPN2 ---
Progress Note - Dictate Date Seen: May 28, 2024 Medical Necessity Reason Pt with a Central, PICC or Fol: No Subjective Patient seen and examined at bedside. Remains on supplemental oxygen Overnight events reviewed. vital signs Vital Sign Date Time Temp Pulse Resp B/P (MAP) Pulse Ox O2 Delivery O2 Flow Rate FiO2 05/28/24 16:43 98.5 77 16 117/69 (85) 99 98.5 05/28/24 08:00 Nasal Cannula* 1 24 Total Intake and Output 05/27/24 05/27/24 05/28/24 14:59 22:59 06:59 Intake Total 500 ml 1500 ml 1225 ml Balance 500 ml 1500 ml 1225 ml medications Current Medications Medications Dose Ordered Sig/Mirian Route Start Time Stop Time Status Last Admin Dose Admin Nitroglycerin 0.4 mg Q5MINP PRN SL 05/19/24 17:00 Ceftriaxone Sodium 50 ml @ 100 mls/hr DAILY@09 IV 05/20/24 09:00 05/28/24 09:44 100 MLS/HR Ferrous Sulfate 325 mg BIDWM PO 05/20/24 08:00 05/28/24 17:52 325 MG Acetaminophen/ Hydrocodone Bitart 1 tab Q4HPRN PRN PO 05/21/24 16:30 05/28/24 18:06 1 TAB Morphine Sulfate 2 mg Q4HPRN PRN IV 05/21/24 16:30 05/27/24 14:05 2 MG Hydralazine HCl 10 mg Q6HP PRN IV 05/22/24 11:00 Famotidine 20 mg DAILY PO 05/22/24 11:00 05/28/24 09:43 20 MG Enoxaparin Sodium 40 mg DAILY SC 05/22/24 11:00 05/28/24 09:44 40 MG Sodium Chloride 1 spr BIDPRN PRN EACHNOSTRI 05/22/24 17:00 05/25/24 20:15 1 SPR Furosemide 20 mg DAILY IV 05/23/24 10:00 05/28/24 09:44 20 MG Fluticasone Propionate 50 mcg Q12HR EACHNOSTRI 05/23/24 11:00 05/27/24 09:56 50 MCG Vancomycin HCl 0 ml @ 0 mls/hr UD IV 05/23/24 16:45 Docusate Sodium 100 mg BID PO 05/23/24 22:00 3/9/25 09:44 100 MG Polyethylene Glycol 17 gm DAILY PO 05/24/24 10:00 05/28/24 09:44 17 GM Temazepam 15 mg HSPRN PRN PO 05/24/24 18:30 05/27/24 21:27 15 MG Sodium Biphosphate/ Sodium Phosphate 133 ml DAILYP PRN [place] 05/25/24 12:15 05/25/24 17:00 133 ML Sodium Chloride 1,000 ml @ 30 mls/hr Q24H IV 05/26/24 10:30 05/28/24 09:46 30 MLS/HR Vancomycin HCl 250 ml @ 250 mls/hr Q12HR@0700,1900 IV 05/28/24 07:00 05/28/24 17:56 250 MLS/HR objective Gen.: Patient lying in bed in no apparent distress. On supplemental oxygen. Head: Normocephalic, atraumatic. Eyes: EOMI/PERRLA. Ears: Normal hearing. Normal anatomy. Neck/trachea: Trachea midline, supple. Nose: Normal external anatomy. Mouth: Moist mucous membranes. Chest: Decreased air entry bilaterally. No wheezing or rhonchi. Cardiovascular: Positive S1, positive S2. Regular rate and rhythm. Abdomen: Positive bowel sounds in all 4 quadrants. Soft, non-tender, non- distended. : Deferred. Rectal: Deferred. Skin: Warm, dry. Intact. Extremities: 2+ radial pulses bilaterally. No lower extremity edema. Neuro: Awake, alert, oriented x3. No gross motor or sensory deficits. Cranial nerves II through XII intact. Gait not assessed. laboratory and microbiology Laboratory Tests 05/28/24 04:40 05/27/24 05:32 Test 05/27/24 05:32 Range/Units Serum Glucose 130 H 74-106 mg/dL Assessment/Plan Impression: Acute hypoxic respiratory failure Pneumonia Cough Dependence on supplemental oxygen Anemia Bronchiectasis Atelectasis Hypokalemia Elevated D-dimer Events: Remains on supplemental oxygen, 2 LPM NC Taper O2 as tolerated S/p left thoracentesis on 05/27/24 with drainage of 850 mL jarad fluid from left pleural space See separate procedure note for details Pleural fluid culture shows no growth Plan for CLAUDIA to rule out endocarditis. Sputum cultures positive for MRSA. ID recommendations appreciated Cardiology recommendations appreciated Continue antibiotics - vancomycin for MRSA. Continue bronchodilators Incentive spirometry Hx of vaping likely made pt more susceptible to pneumonia Monitor hemoglobin Iron supplementation IV fluids with normal saline 30 ml/hr Pain control Avoid oversedation TB rule out - QuantiFERON Gold negative S/p bronchoscopy with biopsy on 05/21/24 - see procedure note for details. LLL BAL sent for gram stain and culture, viral culture, fungal culture, and AFB smear and culture. Labs and imaging reviewed. Rest of plan as noted below. Plan: Supplemental oxygen Titrate to keep O2 sats above 92%. QuantiFERON Gold negative CTA negative for pulmonary embolism Pain control Avoid oversedation Antitussive for cough Continue bronchodilators Continue antibiotics Incentive spirometry Iron supplementation Monitor hemoglobin Monitor renal function. Monitor electrolytes. Supplement as necessary. Monitor ins and outs. DVT prophylaxis. Prognosis: Guarded given patient's multiple co-morbidities. Rest of plan per hospitalist and other consultants. Thank you, MILAN Mayes, for allowing me to participate in this patient's care. Further recommendations will depend on the patient's clinical course. Please do not hesitate to contact me if you have any questions or concerns. This medical document was created using an electronic medical record system with [employer] dictation system. Although these documentations are being carefully reviewed, there may still be some phonetic and typographical changes. The errors are purely typographical, due to imperfection on the software program, and do not reflect any compromise in the patient's medical care. Dietary Evaluation Review Comments: 1) Advance to regular diet when medically feasible, per OTHER SPATIAL SCIENTIST approval 2) Continue iron supplementation - 325 mg bid 3) Encourage good PO intake 4) Continue to monitor appetite, labs, and skin integrity Expected Outcomes/Goals: 1) diet to advance 2) appetite and labs to improve 3) f/u in 5 days Plan discussed with: Patient, Other (ANTHONY Langford) REYES HOGUE MD May 28, 2024 21:16
--- NOTE | 2024-05-28 22:49 | DVHPN2 ---
Consult Progress Note Date Seen: May 28, 2024 Subjective Patient reports: Other (patient was evaluated by gynecology for regular period and was determined to have no overclinical signs of uterine cancer , Patient is scheduled to get a CLAUDIA ) Objective vital signs Vital Sign Date Time Temp Pulse Resp B/P (MAP) Pulse Ox O2 Delivery O2 Flow Rate FiO2 05/28/24 21:00 98.1 68 17 118/69 (85) 95 98.1 05/28/24 08:00 Nasal Cannula* 1 24 Total Intake and Output 05/27/24 05/27/24 05/28/24 15:00 23:00 07:00 Intake Total 500 ml 1500 ml 1225 ml Balance 500 ml 1500 ml 1225 ml medications Current Medications Medications Dose Ordered Sig/Mirian Route Start Time Stop Time Status Last Admin Dose Admin Nitroglycerin 0.4 mg Q5MINP PRN SL 05/19/24 17:00 Ceftriaxone Sodium 50 ml @ 100 mls/hr DAILY@09 IV 05/20/24 09:00 05/28/24 09:44 100 MLS/HR Ferrous Sulfate 325 mg BIDWM PO 05/20/24 08:00 05/28/24 17:52 325 MG Acetaminophen/ Hydrocodone Bitart 1 tab Q4HPRN PRN PO 05/21/24 16:30 05/28/24 18:06 1 TAB Morphine Sulfate 2 mg Q4HPRN PRN IV 05/21/24 16:30 05/27/24 14:05 2 MG Hydralazine HCl 10 mg Q6HP PRN IV 05/22/24 11:00 Famotidine 20 mg DAILY PO 05/22/24 11:00 05/28/24 09:43 20 MG Enoxaparin Sodium 40 mg DAILY SC 05/22/24 11:00 05/28/24 09:44 40 MG Sodium Chloride 1 spr BIDPRN PRN EACHNOSTRI 05/22/24 17:00 05/25/24 20:15 1 SPR Furosemide 20 mg DAILY IV 05/23/24 10:00 05/28/24 09:44 20 MG Fluticasone Propionate 50 mcg Q12HR EACHNOSTRI 05/23/24 11:00 05/27/24 09:56 50 MCG Vancomycin HCl 0 ml @ 0 mls/hr UD IV 05/23/24 16:45 Docusate Sodium 100 mg BID PO 05/23/24 22:00 05/28/24 22:33 100 MG Polyethylene Glycol 17 gm DAILY PO 05/24/24 10:00 05/28/24 09:44 17 GM Temazepam 15 mg HSPRN PRN PO 05/24/24 18:30 05/28/24 22:39 15 MG Sodium Biphosphate/ Sodium Phosphate 133 ml DAILYP PRN [place] 05/25/24 12:15 05/25/24 17:00 133 ML Sodium Chloride 1,000 ml @ 30 mls/hr Q24H IV 05/26/24 10:30 05/28/24 09:46 30 MLS/HR Vancomycin HCl 250 ml @ 250 mls/hr Q12HR@0700,1900 IV 05/28/24 07:00 05/28/24 17:56 250 MLS/HR Physical Exam: General:?NAD Neck:?Supple. No masses. HEENT:?PERRL. Normal lids and conjunctiva. Moist mucous membranes. Oropharynx without lesions, exudates, or excessive erythema. Normal appearance of the external aspects of the nose and ears. Heart:?Regular rhythm, normal rate. No murmur. No lower extremity edema. Lungs:?Normal respiratory effort. Crackles and wheezing bilaterally. Abdomen:?Soft. Non-tender. Non-distended. No masses or abdominal hernia. MSK:?No digital cyanosis. Normal strength and tone in all 4 limbs Skin:?Warm and dry, no rashes. Neuro:?Alert. No facial droop or slurred speech. Extra-ocular movements intact. Sensation intact to soft touch in all 4 limbs. Psych:?Appropriate mood. Full affect. Oriented to person, place, time, and situation. laboratory and microbiology Laboratory Tests 05/28/24 04:40 05/27/24 05:32 Test 05/27/24 05:32 Range/Units Serum Glucose 130 H 74-106 mg/dL Problem List/Assessment/Plan Problems(with codes): (1) MRSA (methicillin resistant staphylococcus aureus) pneumonia (2) Pneumonia (3) Acute respiratory failure (4) Shortness of breath (5) Hypoxia Problem List/Assessment/Plan ID Problem List: - Pneumonia - Hypoxia - Possible Staphylococcus aureus infection - Shortness of breath - Septic emboli - Tachycardia - Possible endocarditis Assessment This is a 49 y.o. female with no significant past medical history except possible asthma as a child, who presents with shortness of breath and chest pain. Patient was seen at [facility] a few days prior and was admitted for possible pneumonia. She continued to have shortness of breath after discharge. She was using her mother's oxygen and is requiring 3 liters nasal cannula here to maintain saturation at 90%. No history of COPD, smoking, alcohol, or heavy drug use. Medications include fluticasone. She was started on ceftriaxone and azithromycin while here. Vital signs notable for temperature of 98.1F, pulse of 116, respirations 19, blood pressure 154/92, requiring 3 liters nasal cannula and saturating at 90%. Physical exam notable for bilateral crackles and diffuse wheezing. COVID-19 rapid antigen negative, influenza A negative, influenza B negative. Lab results: Hemoglobin A1C is 5.5%. Chest CT notable for multifocal opacities and a small left pleural effusion. CT chest showed no pulmonary emboli, scattered areas of pleural-based consolidation, as well as multiple small cystic areas which may be due to septic emboli or bronchiectasis. Records from [facility] indicate the patient was seen by Dr. Sena on May 14 and was treated with azithromycin and vancomycin. Echocardiogram showed normal aortic, mitral, and tricuspid valves; pulmonic valve poorly visualized. No signs of endocarditis. Blood cultures were negative to date. Patient was discharged on levofloxacin 500 mg daily. EKG here shows sinus tachycardia with borderline repolarization abnormalities. Gram stain shows no organisms; however, there is concern for culture growth of likely Staphylococcus aureus. 3: Dr. Monroy preformed a bronchoscopy , there was left lower lobe atelectasis due to mucus plugging from L1-L10 which was relieved . biopsies and cultures were acquired 05/22: Patient appears significantly improved after therapeutic bronchoscopy, growing MRSA in the lungs 3: Had a [facility] chest abdomen and pelvis done today which showed patchy bilateral areas of pulmonary infiltrated and consolidation ,some of these areas of consolidations has lucent centers that cannot exclude septic emboli findings are worse than 05/16. bibasilar atelectasis infiltrated and plural effusions left worse than right . no finding of bowel infection , large stool burden throughout the colon , no nephrolithiasis , gallbladder consuelo no calcified , free air in gallbladder 05/24:is clearly having MRSA pneumonia , likely septic emboli based off imaging , awaiting CLAUDIA to be preformed 05/25: vancomycin trots are currently sub therapeutic. cardiology evaluated patient for CLAUDIA and patient is currently considering whether to have the procedure done 05/26: IS to have a thoracentesis done by Dr Monroy on 05/27, will discuss doing a CLAUDIA option with patient today 05/27: Patient underwent left thoracentesis today , chest x ray appears largely unchanged after procedure , discussed with patient the prospect of doing a CLAUDIA and avoiding a prolonged IV antibiotic therapy if theirs no endocarditis and patient is currently deliberating whether or no to do the procedure 05/28: Platelets are up to 770 and could be associated with ongoing sepsis Plan: - recommend patient undergo CLAUDIA , will follow up on results - follow up on plural fluid cultures and analysis - will discuss potential possibility of patient going on empiric antibiotics if CLAUDIA is not preformed , would likely be difficult given frequency of vancomycin currently required - Continue vancomycin dose - given worsening left plural effusion defer to pulmonology if patient would warrant a therapeutic and diagnostic thoracentesis , if done send for bacterial culture as well as plural fluid analysis , protein , glucose , cell count - Follow up on BAL cultures , sputum cultures - Continue ceftriaxone. - Discontinue azithromycin as the patient has already been treated for atypical pneumonia without response. - Follow up on sputum cultures and bronchoscopy with bronchoalveolar lavage results. - Follow up on sensitivities of the Staphylococcus aureus and respiratory cultures. - Follow up on blood cultures. - MRSA PCR nasal swab may be negative due to prior levofloxacin use; will not rely on this result. - Given visualization of septic emboli and possible Staphylococcus aureus pneumonia, concern for embolic source, primarily endocarditis. - Since TTE at [facility] did not show endocarditis, recommend CLAUDIA to further evaluate. - Defer to primary team for cardiology evaluation for CLAUDIA. Isolation Precautions: Standard Plan discussed with: Other Dietary Evaluation Review Comments: 1) Advance to regular diet when medically feasible, per GAMB CUTTER approval 2) Continue iron supplementation - 325 mg bid 3) Encourage good PO intake 4) Continue to monitor appetite, labs, and skin integrity Expected Outcomes/Goals: 1) diet to advance 2) appetite and labs to improve 3) f/u in 5 days KELLI NIETO MD May 28, 2024 22:49
[2024-05-29] VITALS (13 sets, daily range): BP systolic 109–126; BP diastolic 63–74; PULSE 57–89; RESP 14–18; TEMP 97.9–98.5; O2SAT 92–99
[2024-05-29 06:40] LABS: Basophils # (auto) 0.1 10 ^3/uL (0-0.2); Eosinophils # (auto) 0.1 10 ^3/uL (0-0.8); Hemoglobin 9.9 g/dL (12.2-16.2); Lymphocytes # (auto) 1.6 10 ^3/uL (0.4-5.4); Neutrophils # (auto) 5.1 10 ^3/uL (1.6-8.6); Red Blood Cells 3.29 10^6/uL (4.0-5.20)
[2024-05-29 06:43] LABS: Basophils % (auto) 0.9 % (0.0-2.0); Eosinophils % (auto) 1.5 % (0.0-7.0); Lymphocytes % (auto) 21.8 % (10.0-50.0); Mean Corpuscular Volume 88.2 fL (80.0-100.0); Monocytes # (auto) 0.5 10 ^3/uL (0-1.3); Monocytes % (auto) 7.1 % (0.0-12.0); Neutrophils % (auto) 68.7 % (37.0-80.0); Nucleated Red Blood Cells % 0.1 %; Platelet Count (auto) 683 10^3/uL (140-450); Red Cell Distribution Width 16.4 % (11.8-14.3); White Blood Cell 7.5 10^3/uL (4.4-10.8)
--- NOTE | 2024-05-29 08:13 | DVHPN2 ---
Progress Note - Dictate Date Seen: May 29, 2024 Medical Necessity Reason Pt with a Central, PICC or Fol: No vital signs Vital Sign Date Time Temp Pulse Resp B/P (MAP) Pulse Ox O2 Delivery O2 Flow Rate FiO2 05/29/24 05:00 98.3 75 17 126/74 (91) 94 98.3 05/28/24 20:00 Nasal Cannula* 1 24 Total Intake and Output 05/28/24 05/28/24 05/29/24 15:00 23:00 07:00 Intake Total 375 ml 2520 ml 600 ml Balance 375 ml 2520 ml 600 ml medications Current Medications Medications Dose Ordered Sig/Mirian Route Start Time Stop Time Status Last Admin Dose Admin Nitroglycerin 0.4 mg Q5MINP PRN SL 05/19/24 17:00 Ceftriaxone Sodium 50 ml @ 100 mls/hr DAILY@09 IV 05/20/24 09:00 05/28/24 09:44 100 MLS/HR Ferrous Sulfate 325 mg BIDWM PO 05/20/24 08:00 05/28/24 17:52 325 MG Acetaminophen/ Hydrocodone Bitart 1 tab Q4HPRN PRN PO 05/21/24 16:30 05/28/24 18:06 1 TAB Morphine Sulfate 2 mg Q4HPRN PRN IV 05/21/24 16:30 05/27/24 14:05 2 MG Hydralazine HCl 10 mg Q6HP PRN IV 05/22/24 11:00 Famotidine 20 mg DAILY PO 05/22/24 11:00 05/28/24 09:43 20 MG Enoxaparin Sodium 40 mg DAILY SC 05/22/24 11:00 05/28/24 09:44 40 MG Sodium Chloride 1 spr BIDPRN PRN EACHNOSTRI 05/22/24 17:00 05/25/24 20:15 1 SPR Furosemide 20 mg DAILY IV 05/23/24 10:00 05/28/24 09:44 20 MG Fluticasone Propionate 50 mcg Q12HR EACHNOSTRI 05/23/24 11:00 05/27/24 09:56 50 MCG Vancomycin HCl 0 ml @ 0 mls/hr UD IV 05/23/24 16:45 Docusate Sodium 100 mg BID PO 05/23/24 22:00 05/28/24 22:33 100 MG Polyethylene Glycol 17 gm DAILY PO 05/24/24 10:00 05/28/24 09:44 17 GM Temazepam 15 mg HSPRN PRN PO 05/24/24 18:30 05/28/24 22:39 15 MG Sodium Biphosphate/ Sodium Phosphate 133 ml DAILYP PRN [place] 05/25/24 12:15 05/25/24 17:00 133 ML Sodium Chloride 1,000 ml @ 30 mls/hr Q24H IV 05/26/24 10:30 05/28/24 09:46 30 MLS/HR Vancomycin HCl 250 ml @ 250 mls/hr Q12HR@0700,1900 IV 05/28/24 07:00 05/28/24 17:56 250 MLS/HR laboratory and microbiology Laboratory Tests 05/29/24 05:41 05/27/24 05:32 Test 05/27/24 05:32 Range/Units Serum Glucose 130 H 74-106 mg/dL Assessment/Plan Patient is a 49-year-old female who originally presented to the hospital on May 19, 2024 for shortness of breaths. Since that time, the patient is found to have pneumonia/respiratory failure/sepsis. She has been managed on telemetry unit she has had bronchoscopy. While on telemetry, patient had questionable tachyarrhythmia on May 24, 2024 and cardiology was involved. Review of the tele rhythms reveals artifact. Patient has remained in sinus rhythm with no tachy arrhythmia. Patient has also been seen by Pulmonary/ID/primary team. There is questioned for Staphylococcus pneumonia and possible endocarditis? Patient denies previous cardiac history. Patient herself actually denies any previous medical history prior to this presentation. There is question about childhood asthma. And there is also question about baseline history of some anemia. It is of note that since admission the patient was found to have increased D-dimer for which CT angiography ruled out pulmonary emboli. She also is found to have increased CA 125 antigen for which is being managed/evaluated by primary team Not in acute distress. Not using accessory muscles of breathing. Mucosa is pink and wet. No carotid bruit. Lungs reveal scattered rhonchi in the lungs. Cardiac regular, no thrills/gallop. Abdomen is soft. There is no hepatomegaly. Extremities do not reveal edema. Denies previous medical history. There is question about previous anemia and also childhood asthma? Troponin: 26 (within normal limit) D-dimer: 3.49 Chest x-ray revealed: IMPRESSION: Multifocal masslike opacities are visualized. Differential considerations include malignancy versus multifocal pneumonia. Repeat chest x-ray revealed: LUNGS AND PLEURAL SPACES: Congestion and edema, unchanged. No pneumothorax. HEART: Unremarkable. No cardiomegaly. MEDIASTINUM: Unremarkable. Normal mediastinal contour. BONES/JOINTS: Unremarkable. No acute fracture. OTHER FINDINGS: . No significant change from the prior exam. IMPRESSION: No acute cardiopulmonary process. CT angio of the chest reported: CT of the chest/abdomen and pelvis reported: Telemetry reveals sinus rhythm. Elaine occasions of artifact. There was no tachyarrhythmia Echocardiogram reported: Left ventricle: Left ventricle was normal sized with normal systolic function. LVEF was 60-65%. There was no wall motion abnormality. Diastolic function of left ventricle was considered normal. Right ventricle was dilated with normal systolic function. Left atrium was normal sized. Right atrium was mildly dilated. Aortic valve: Aortic valve was trileaflet. There was no aortic insufficiency stage stenosis. There was trace mitral/tricuspid regurgitation. Pulmonary valve was not well visualized. Right ventricular systolic pressure was assessed that 30 mm Hg (normal). IVC was normal size with normal respiratory variation. There was trace pericardial effusion. Patient is a 49-year-old female who presented with shortness of breaths and is found to have pneumonia. Has had bronchoscopy. There is question about MRSA pneumonia. D-dimer was elevated but CT angio of the chest ruled out pulmonary emboli. There was questionable with tachyarrhythmia which was artifact. Steph questions endocarditis as a source of infection. Echocardiogram has been nonrevealing. CLAUDIA was suggested to the patient. Pneumonia Sepsis Pneumonia, MRSA Bronchiectasis Respiratory failure Increased D-dimer Cardiac suggestion for management: Managed on telemetry Follow up electrolytes and kidney function tests and correct abnormalities Transthoracic echocardiogram was non-revealing for any sign for endocarditis. As per suggestion of Infectious Disease, CLAUDIA was offered to the patient. She agrees. CLAUDIA tentatively to be performed tomorrow Evaluation and management of sepsis/pneumonia as per primary team/pulmonary/infectious disease Evaluation and management of increased CA 125 antigen as per primary team. You may consider oncology evaluation Further evaluation and management depends on the above and clinical course A total of 55 minutes was spent reviewing the patient record, examining the patient, making a diagnostic and therapeutic plan, discussing this plan with medical personnel, following up on diagnostic studies and following the patient for clinical stability excluding any and all procedures. At least 50% of this time was spent in direct, [id number] contact. Thank you for allowing me to participate in this patient's care. Further recommendations will depend on patient's clinical course. Please do not hesitate to contact me if you have any questions or concerns. This medical document was created using electronic medical record system with [employer] computerized dictation system. Although this document has been carefully reviewed, there may still be some phonetic and typographical errors. These areas are purely typographical due to the imperfection of the software programs, and do not reflect any compromise in the patient's medical care. Dietary Evaluation Review Comments: 1) Advance to regular diet when medically feasible, per PROJECT STRUCTURAL ENGINEER approval 2) Continue iron supplementation - 325 mg bid 3) Encourage good PO intake 4) Continue to monitor appetite, labs, and skin integrity Expected Outcomes/Goals: 1) diet to advance 2) appetite and labs to improve 3) f/u in 5 days Plan discussed with: Patient, Other (nurse) FREDERICK CARNEY MD May 29, 2024 08:13
--- NOTE | 2024-05-29 11:43 | DVHPN2 ---
Progress Note - Dictate Date Seen: May 29, 2024 Medical Necessity Reason Pt with a Central, PICC or Fol: No vital signs Vital Sign Date Time Temp Pulse Resp B/P (MAP) Pulse Ox O2 Delivery O2 Flow Rate FiO2 05/29/24 09:00 98.0 76 18 121/70 (87) 97 98.0 05/29/24 08:00 Room Air* 0 21 Total Intake and Output 05/28/24 05/28/24 05/29/24 15:00 23:00 07:00 Intake Total 375 ml 2520 ml 600 ml Balance 375 ml 2520 ml 600 ml medications Current Medications Medications Dose Ordered Sig/Mirian Route Start Time Stop Time Status Last Admin Dose Admin Nitroglycerin 0.4 mg Q5MINP PRN SL 05/19/24 17:00 Ceftriaxone Sodium 50 ml @ 100 mls/hr DAILY@09 IV 05/20/24 09:00 05/29/24 08:27 100 MLS/HR Ferrous Sulfate 325 mg BIDWM PO 05/20/24 08:00 05/29/24 08:27 325 MG Acetaminophen/ Hydrocodone Bitart 1 tab Q4HPRN PRN PO 05/21/24 16:30 05/28/24 18:06 1 TAB Morphine Sulfate 2 mg Q4HPRN PRN IV 05/21/24 16:30 05/27/24 14:05 2 MG Hydralazine HCl 10 mg Q6HP PRN IV 05/22/24 11:00 Famotidine 20 mg DAILY PO 05/22/24 11:00 05/29/24 08:27 20 MG Enoxaparin Sodium 40 mg DAILY SC 05/22/24 11:00 05/29/24 08:27 40 MG Sodium Chloride 1 spr BIDPRN PRN EACHNOSTRI 05/22/24 17:00 05/25/24 20:15 1 SPR Furosemide 20 mg DAILY IV 05/23/24 10:00 05/29/24 08:28 20 MG Fluticasone Propionate 50 mcg Q12HR EACHNOSTRI 05/23/24 11:00 05/27/24 09:56 50 MCG Vancomycin HCl 0 ml @ 0 mls/hr UD IV 05/23/24 16:45 Docusate Sodium 100 mg BID PO 05/23/24 22:00 05/29/24 08:27 100 MG Polyethylene Glycol 17 gm DAILY PO 05/24/24 10:00 05/29/24 08:27 17 GM Temazepam 15 mg HSPRN PRN PO 05/24/24 18:30 05/28/24 22:39 15 MG Sodium Biphosphate/ Sodium Phosphate 133 ml DAILYP PRN [place] 05/25/24 12:15 05/25/24 17:00 133 ML Sodium Chloride 1,000 ml @ 30 mls/hr Q24H IV 05/26/24 10:30 05/28/24 09:46 30 MLS/HR Vancomycin HCl 250 ml @ 250 mls/hr Q12HR@0700,1900 IV 05/28/24 07:00 05/28/24 17:56 250 MLS/HR objective General Appearance: alert, no distress HEENT: EOMI, PERRLA, normal external inspect of ears, no icterus, no nasal drainage Neck: no carotid bruit, no jugular venous distention (JVD), no lymphadenopathy Chest: normal thorax Respiratory: clear to auscultation, normal air movement Cardiovascular: regular rate and rhythm, no diastolic murmur, no jugular venous distention (JVD), no rub, no systolic murmur Abdominal: soft, no hepatomegaly, no mass, no splenomegaly, no tenderness Genitourinary: grossly normal external Musculoskeletal: no joint tenderness, no swelling Extremities: normal pulses, no calf tenderness, no clubbing, no cyanosis, no edema Skin: no bruising, no jaundice, no rash Neurological: alert, No focal deficit laboratory and microbiology Laboratory Tests 05/29/24 05:41 05/27/24 05:32 Test 05/27/24 05:32 Range/Units Serum Glucose 130 H 74-106 mg/dL Problem List 1. Acute hypoxic respiratory failure likely from pneumonia IV antibiotics, pulmonary consult, med neb treatments 2. Community acquired pneumonia likely Gram-negative or Gram-positive IV antibiotics 3. Iron deficiency anemia Replace 4. Sepsis likely from pneumonia IV antibiotics, IV fluids 5. Hypokalemia Replace Assessment/Plan Subjective: Patient is awake and alert. Objective: Patient was admitted for acute hypoxic respiratory failure related to MRSA and pneumonia. Patient had pleural effusions. Repeat ultrasound of the chest was done. Patient was scheduled for thoracentesis. Patient CT imaging showed possible septic emboli. Patient was seen by cardiology. Echocardiogram was done. Patient is scheduled for CLAUDIA with Dr. Villa patient had an elevated CA125. Patient was seen by OB. No acute findings were found. No suspicion for any active cancer. Plan: Continue supplemental O2. Continue breathing treatments. Continue IV antibiotics. Patient has MRSA and pneumonia. Continue to wean down O2 as tolerated. Plan for CLAUDIA. DC planning. Dietary Evaluation Review Comments: 1) Advance to regular diet when medically feasible, per GRANT WRITER approval 2) Continue iron supplementation - 325 mg bid 3) Encourage good PO intake 4) Continue to monitor appetite, labs, and skin integrity Expected Outcomes/Goals: 1) diet to advance 2) appetite and labs to improve 3) f/u in 5 days Plan discussed with: Patient, Other LISS COHEN NP May 29, 2024 11:43
[2024-05-29] MEDS: ALBUTEROL SULF 2.5 MG/0.5ML(0.5%) NEB SOLN ONE (15:35)
[2024-05-29] MEDS: IPRATROPIUM BROM 0.5 MG/2.5ML INH SOL ONE (15:35)
[2024-05-29] MEDS: ALBUTEROL SULF 2.5 MG/0.5ML(0.5%) NEB SOLN NEB ONE (15:45)
[2024-05-29] MEDS: IPRATROPIUM BROM 0.5 MG/2.5ML INH SOL NEB ONE (15:45)
--- NOTE | 2024-05-29 21:45 | DVHPN2 ---
Consult Progress Note Date Seen: May 29, 2024 Subjective Patient reports: Other (breathing better after thorocenthesis , feeling generally weak ) Objective vital signs Vital Sign Date Time Temp Pulse Resp B/P (MAP) Pulse Ox O2 Delivery O2 Flow Rate FiO2 05/29/24 17:00 98.3 81 17 117/64 (81) 95 98.3 05/29/24 16:02 2.0 28 05/29/24 16:00 Nasal Cannula* Total Intake and Output 05/28/24 05/28/24 05/29/24 15:00 23:00 07:00 Intake Total 375 ml 2520 ml 600 ml Balance 375 ml 2520 ml 600 ml medications Current Medications Medications Dose Ordered Sig/Mirian Route Start Time Stop Time Status Last Admin Dose Admin Nitroglycerin 0.4 mg Q5MINP PRN SL 05/19/24 17:00 Ceftriaxone Sodium 50 ml @ 100 mls/hr DAILY@09 IV 05/20/24 09:00 05/29/24 08:27 100 MLS/HR Ferrous Sulfate 325 mg BIDWM PO 05/20/24 08:00 05/29/24 17:53 325 MG Acetaminophen/ Hydrocodone Bitart 1 tab Q4HPRN PRN PO 05/21/24 16:30 05/28/24 18:06 1 TAB Morphine Sulfate 2 mg Q4HPRN PRN IV 05/21/24 16:30 05/27/24 14:05 2 MG Hydralazine HCl 10 mg Q6HP PRN IV 05/22/24 11:00 Famotidine 20 mg DAILY PO 05/22/24 11:00 05/29/24 08:27 20 MG Enoxaparin Sodium 40 mg DAILY SC 05/22/24 11:00 05/29/24 08:27 40 MG Sodium Chloride 1 spr BIDPRN PRN EACHNOSTRI 05/22/24 17:00 05/25/24 20:15 1 SPR Furosemide 20 mg DAILY IV 05/23/24 10:00 05/29/24 08:28 20 MG Fluticasone Propionate 50 mcg Q12HR EACHNOSTRI 05/23/24 11:00 05/27/24 09:56 50 MCG Vancomycin HCl 0 ml @ 0 mls/hr UD IV 05/23/24 16:45 Docusate Sodium 100 mg BID PO 05/23/24 22:00 05/29/24 21:10 100 MG Polyethylene Glycol 17 gm DAILY PO 05/24/24 10:00 05/29/24 08:27 17 GM Temazepam 15 mg HSPRN PRN PO 05/24/24 18:30 05/29/24 21:10 15 MG Sodium Biphosphate/ Sodium Phosphate 133 ml DAILYP PRN [place] 05/25/24 12:15 05/25/24 17:00 133 ML Sodium Chloride 1,000 ml @ 30 mls/hr Q24H IV 05/26/24 10:30 05/29/24 17:52 30 MLS/HR Vancomycin HCl 250 ml @ 250 mls/hr Q12HR@0700,1900 IV 05/28/24 07:00 05/29/24 17:54 250 MLS/HR Albuterol 2.5 mg Q4HPRN PRN NEB 05/29/24 15:30 Ipratropium [place] 0.5 mg Q4HPRN PRN NEB 05/29/24 15:30 Physical Exam: General:?NAD Neck:?Supple. No masses. HEENT:?PERRL. Normal lids and conjunctiva. Moist mucous membranes. Oropharynx without lesions, exudates, or excessive erythema. Normal appearance of the external aspects of the nose and ears. Heart:?Regular rhythm, normal rate. No murmur. No lower extremity edema. Lungs:?Normal respiratory effort. Crackles and wheezing bilaterally. Abdomen:?Soft. Non-tender. Non-distended. No masses or abdominal hernia. MSK:?No digital cyanosis. Normal strength and tone in all 4 limbs Skin:?Warm and dry, no rashes. Neuro:?Alert. No facial droop or slurred speech. Extra-ocular movements intact. Sensation intact to soft touch in all 4 limbs. Psych:?Appropriate mood. Full affect. Oriented to person, place, time, and situation. laboratory and microbiology Laboratory Tests 05/29/24 05:41 05/27/24 05:32 Test 05/27/24 05:32 Range/Units Serum Glucose 130 H 74-106 mg/dL Problem List/Assessment/Plan Problems(with codes): (1) Acute respiratory failure (2) Pneumonia (3) MRSA (methicillin resistant staphylococcus aureus) pneumonia (4) Shortness of breath (5) Hypoxia Problem List/Assessment/Plan ID Problem List: - Pneumonia - Hypoxia - Possible Staphylococcus aureus infection - Shortness of breath - Septic emboli - Tachycardia - Possible endocarditis Assessment This is a 49 y.o. female with no significant past medical history except possible asthma as a child, who presents with shortness of breath and chest pain. Patient was seen at [facility] a few days prior and was admitted for possible pneumonia. She continued to have shortness of breath after discharge. She was using her mother's oxygen and is requiring 3 liters nasal cannula here to maintain saturation at 90%. No history of COPD, smoking, alcohol, or heavy drug use. Medications include fluticasone. She was started on ceftriaxone and azithromycin while here. Vital signs notable for temperature of 98.1F, pulse of 116, respirations 19, blood pressure 154/92, requiring 3 liters nasal cannula and saturating at 90%. Physical exam notable for bilateral crackles and diffuse wheezing. COVID-19 rapid antigen negative, influenza A negative, influenza B negative. Lab results: Hemoglobin A1C is 5.5%. Chest CT notable for multifocal opacities and a small left pleural effusion. CT chest showed no pulmonary emboli, scattered areas of pleural-based consolidation, as well as multiple small cystic areas which may be due to septic emboli or bronchiectasis. Records from [facility] indicate the patient was seen by Dr. Sena on May 14 and was treated with azithromycin and vancomycin. Echocardiogram showed normal aortic, mitral, and tricuspid valves; pulmonic valve poorly visualized. No signs of endocarditis. Blood cultures were negative to date. Patient was discharged on levofloxacin 500 mg daily. EKG here shows sinus tachycardia with borderline repolarization abnormalities. Gram stain shows no organisms; however, there is concern for culture growth of likely Staphylococcus aureus. 3: Dr. Monroy preformed a bronchoscopy , there was left lower lobe atelectasis due to mucus plugging from L1-L10 which was relieved . biopsies and cultures were acquired 05/22: Patient appears significantly improved after therapeutic bronchoscopy, growing MRSA in the lungs 05/23: Had a [facility] chest abdomen and pelvis done today which showed patchy bilateral areas of pulmonary infiltrated and consolidation ,some of these areas of consolidations has lucent centers that cannot exclude septic emboli findings are worse than 05/16. bibasilar atelectasis infiltrated and plural effusions left worse than right . no finding of bowel infection , large stool burden throughout the colon , no nephrolithiasis , gallbladder consuelo no calcified , free air in gallbladder 05/24:is clearly having MRSA pneumonia , likely septic emboli based off imaging , awaiting CLAUDIA to be preformed 05/25: vancomycin trots are currently sub therapeutic. cardiology evaluated patient for CLAUDIA and patient is currently considering whether to have the procedure done 05/26: IS to have a thoracentesis done by Dr Monroy on 05/27, will discuss doing a CLAUDIA option with patient today 05/27: Patient underwent left thoracentesis today , chest x ray appears largely unchanged after procedure , discussed with patient the prospect of doing a CLAUDIA and avoiding a prolonged IV antibiotic therapy if theirs no endocarditis and patient is currently deliberating whether or no to do the procedure 05/28: Platelets are up to 770 and could be associated with ongoing sepsis 05/29: Platelets have improved to 683 , plural fluid cultures are no growth to date Plan: - recommend patient undergo CLAUDIA , will follow up on results - follow up on plural fluid cultures and analysis - will discuss potential possibility of patient going on empiric antibiotics if CLAUDIA is not preformed , would likely be difficult given frequency of vancomycin currently required - Continue vancomycin dose - given worsening left plural effusion defer to pulmonology if patient would warrant a therapeutic and diagnostic thoracentesis , if done send for bacterial culture as well as plural fluid analysis , protein , glucose , cell count - Follow up on BAL cultures , sputum cultures - Continue ceftriaxone. - Discontinue azithromycin as the patient has already been treated for atypical pneumonia without response. - Follow up on sputum cultures and bronchoscopy with bronchoalveolar lavage results. - Follow up on sensitivities of the Staphylococcus aureus and respiratory cultures. - Follow up on blood cultures. - MRSA PCR nasal swab may be negative due to prior levofloxacin use; will not rely on this result. - Given visualization of septic emboli and possible Staphylococcus aureus pneumonia, concern for embolic source, primarily endocarditis. - Since TTE at [facility] did not show endocarditis, recommend CLAUDIA to further evaluate. - Defer to primary team for cardiology evaluation for CLAUDIA. Isolation Precautions: Standard Plan discussed with: Other Dietary Evaluation Review Comments: 1) Advance to regular diet when medically feasible, per WATERPROOFING MIXER approval 2) Continue iron supplementation - 325 mg bid 3) Encourage good PO intake 4) Continue to monitor appetite, labs, and skin integrity Expected Outcomes/Goals: 1) diet to advance 2) appetite and labs to improve 3) f/u in 5 days KELLI NIETO MD May 29, 2024 21:45
--- NOTE | 2024-05-29 21:54 | DVHPN2 ---
Progress Note - Dictate Date Seen: May 29, 2024 Medical Necessity Reason Pt with a Central, PICC or Fol: No Subjective Patient seen and examined at bedside. Remains on supplemental oxygen Overnight events reviewed. vital signs Vital Sign Date Time Temp Pulse Resp B/P (MAP) Pulse Ox O2 Delivery O2 Flow Rate FiO2 05/29/24 17:00 98.3 81 17 117/64 (81) 95 98.3 05/29/24 16:02 2.0 28 05/29/24 16:00 Nasal Cannula* Total Intake and Output 05/28/24 05/28/24 05/29/24 15:00 23:00 07:00 Intake Total 375 ml 2520 ml 600 ml Balance 375 ml 2520 ml 600 ml medications Current Medications Medications Dose Ordered Sig/Mirian Route Start Time Stop Time Status Last Admin Dose Admin Nitroglycerin 0.4 mg Q5MINP PRN SL 05/19/24 17:00 Ceftriaxone Sodium 50 ml @ 100 mls/hr DAILY@09 IV 05/20/24 09:00 05/29/24 08:27 100 MLS/HR Ferrous Sulfate 325 mg BIDWM PO 05/20/24 08:00 05/29/24 17:53 325 MG Acetaminophen/ Hydrocodone Bitart 1 tab Q4HPRN PRN PO 05/21/24 16:30 05/28/24 18:06 1 TAB Morphine Sulfate 2 mg Q4HPRN PRN IV 05/21/24 16:30 05/27/24 14:05 2 MG Hydralazine HCl 10 mg Q6HP PRN IV 05/22/24 11:00 Famotidine 20 mg DAILY PO 05/22/24 11:00 05/29/24 08:27 20 MG Enoxaparin Sodium 40 mg DAILY SC 05/22/24 11:00 05/29/24 08:27 40 MG Sodium Chloride 1 spr BIDPRN PRN EACHNOSTRI 05/22/24 17:00 05/25/24 20:15 1 SPR Furosemide 20 mg DAILY IV 05/23/24 10:00 05/29/24 08:28 20 MG Fluticasone Propionate 50 mcg Q12HR EACHNOSTRI 05/23/24 11:00 05/27/24 09:56 50 MCG Vancomycin HCl 0 ml @ 0 mls/hr UD IV 05/23/24 16:45 Docusate Sodium 100 mg BID PO 05/23/24 22:00 05/29/24 21:10 100 MG Polyethylene Glycol 17 gm DAILY PO 05/24/24 10:00 05/29/24 08:27 17 GM Temazepam 15 mg HSPRN PRN PO 05/24/24 18:30 05/29/24 21:10 15 MG Sodium Biphosphate/ Sodium Phosphate [address] 05/25/24 12:15 05/25/24 17:00 133 ML Sodium Chloride 1,000 ml @ 30 mls/hr Q24H IV 05/26/24 10:30 05/29/24 17:52 30 MLS/HR Vancomycin HCl 250 ml @ 250 mls/hr Q12HR@0700,1900 IV 05/28/24 07:00 05/29/24 17:54 250 MLS/HR Albuterol 2.5 mg Q4HPRN PRN NEB 05/29/24 15:30 Ipratropium [place] 0.5 mg Q4HPRN PRN NEB 05/29/24 15:30 objective Gen.: Patient lying in bed in no apparent distress. On supplemental oxygen. Head: Normocephalic, atraumatic. Eyes: EOMI/PERRLA. Ears: Normal hearing. Normal anatomy. Neck/trachea: Trachea midline, supple. Nose: Normal external anatomy. Mouth: Moist mucous membranes. Chest: Decreased air entry bilaterally. No wheezing or rhonchi. Cardiovascular: Positive S1, positive S2. Regular rate and rhythm. Abdomen: Positive bowel sounds in all 4 quadrants. Soft, non-tender, non- distended. : Deferred. Rectal: Deferred. Skin: Warm, dry. Intact. Extremities: 2+ radial pulses bilaterally. No lower extremity edema. Neuro: Awake, alert, oriented x3. No gross motor or sensory deficits. Cranial nerves II through XII intact. Gait not assessed. laboratory and microbiology Laboratory Tests 05/29/24 05:41 05/27/24 05:32 Test 05/27/24 05:32 Range/Units Serum Glucose 130 H 74-106 mg/dL Assessment/Plan Impression: Acute hypoxic respiratory failure Pneumonia Cough Dependence on supplemental oxygen Anemia Bronchiectasis Atelectasis Hypokalemia Elevated D-dimer Events: Remains on supplemental oxygen, 2 LPM NC Taper O2 as tolerated S/p left thoracentesis on 05/27/24 with drainage of 850 mL jarad fluid from left pleural space See separate procedure note for details Pleural fluid culture shows no growth ID recommendations appreciated Plan for CLAUDIA to rule out endocarditis. Follow up Cardiology recommendations Sputum cultures positive for MRSA. Continue antibiotics - vancomycin for MRSA; ceftriaxone. Continue bronchodilators Incentive spirometry Hx of vaping likely made pt more susceptible to pneumonia Monitor hemoglobin Iron supplementation IV fluids with normal saline 30 ml/hr S/p bronchoscopy with biopsy on 05/21/24 - see procedure note for details. LLL BAL sent for gram stain and culture, viral culture, fungal culture, and AFB smear and culture. Labs and imaging reviewed. Rest of plan as noted below. Plan: Supplemental oxygen Titrate to keep O2 sats above 92%. QuantiFERON Gold negative CTA negative for pulmonary embolism Continue bronchodilators Continue antibiotics Incentive spirometry Iron supplementation Monitor hemoglobin Monitor renal function. Monitor electrolytes. Supplement as necessary. Monitor ins and outs. DVT prophylaxis. Prognosis: Guarded given patient's multiple co-morbidities. Rest of plan per hospitalist and other consultants. Thank you, MILAN Mayes, for allowing me to participate in this patient's care. Further recommendations will depend on the patient's clinical course. Please do not hesitate to contact me if you have any questions or concerns. This medical document was created using an electronic medical record system with [employer] dictation system. Although these documentations are being carefully reviewed, there may still be some phonetic and typographical changes. The errors are purely typographical, due to imperfection on the software program, and do not reflect any compromise in the patient's medical care. Dietary Evaluation Review Comments: 1) Advance to regular diet when medically feasible, per CRANE ENGINEER approval 2) Continue iron supplementation - 325 mg bid 3) Encourage good PO intake 4) Continue to monitor appetite, labs, and skin integrity Expected Outcomes/Goals: 1) diet to advance 2) appetite and labs to improve 3) f/u in 5 days Plan discussed with: Patient, Other (ANTHONY Langford) REYES HOGUE MD May 29, 2024 21:54
[2024-05-30] VITALS (15 sets, daily range): BP systolic 121–157; BP diastolic 54–92; PULSE 65–108; RESP 15–21; TEMP 97.2–98.2; O2SAT 92–99
[2024-05-30 06:30] LABS: Basophils # (auto) 0.1 10 ^3/uL (0-0.2); Eosinophils # (auto) 0.1 10 ^3/uL (0-0.8); Hemoglobin 10.7 g/dL (12.2-16.2); Lymphocytes # (auto) 1.9 10 ^3/uL (0.4-5.4); Nucleated Red Blood Cells % 0.1 %; White Blood Cell 7.5 10^3/uL (4.4-10.8)
[2024-05-30 06:33] LABS: Basophils % (auto) 1.1 % (0.0-2.0); Eosinophils % (auto) 1.5 % (0.0-7.0); Hematocrit 31.7 % (36.0-46.0); Lymphocytes % (auto) 25.7 % (10.0-50.0); Mean Corpuscular Hemoglobin 29.9 pg (28.0-32.0); Mean Corpuscular Hgb Conc. 33.7 g/dL (32.0-36.0); Monocytes # (auto) 0.4 10 ^3/uL (0-1.3); Monocytes % (auto) 5.9 % (0.0-12.0); Neutrophils # (auto) 4.9 10 ^3/uL (1.6-8.6); Neutrophils % (auto) 65.8 % (37.0-80.0); Platelet Count (auto) 708 10^3/uL (140-450); Red Blood Cells 3.56 10^6/uL (4.0-5.20); Red Cell Distribution Width 16.8 % (11.8-14.3)
[2024-05-30 06:47] LABS: INR 0.96 (0.9-1.15); Partial Thromboplastin Time 28.5 SEC (24.5-34.5); Prothrombin Time 10.2 sec (9.3-11.8)
--- NOTE | 2024-05-30 07:02 | DVHPN2 ---
Progress Note - Dictate Date Seen: May 30, 2024 Medical Necessity Reason Pt with a Central, PICC or Fol: No vital signs Vital Sign Date Time Temp Pulse Resp B/P (MAP) Pulse Ox O2 Delivery O2 Flow Rate FiO2 05/30/24 06:42 98 Nasal Cannula* 1 24 05/30/24 05:00 97.9 73 16 125/55 (78) 97.9 Total Intake and Output 05/29/24 05/29/24 05/30/24 15:00 23:00 07:00 Intake Total 50 ml 3070 ml 400 ml Balance 50 ml 3070 ml 400 ml medications Current Medications Medications Dose Ordered Sig/Mirian Route Start Time Stop Time Status Last Admin Dose Admin Nitroglycerin 0.4 mg Q5MINP PRN SL 05/19/24 17:00 Ceftriaxone Sodium 50 ml @ 100 mls/hr DAILY@09 IV 05/20/24 09:00 05/29/24 08:27 100 MLS/HR Ferrous Sulfate 325 mg BIDWM PO 05/20/24 08:00 05/29/24 17:53 325 MG Acetaminophen/ Hydrocodone Bitart 1 tab Q4HPRN PRN PO 05/21/24 16:30 05/28/24 18:06 1 TAB Morphine Sulfate 2 mg Q4HPRN PRN IV 05/21/24 16:30 05/27/24 14:05 2 MG Hydralazine HCl 10 mg Q6HP PRN IV 05/22/24 11:00 Famotidine 20 mg DAILY PO 05/22/24 11:00 05/29/24 08:27 20 MG Enoxaparin Sodium 40 mg DAILY SC 05/22/24 11:00 05/29/24 08:27 40 MG Sodium Chloride 1 spr BIDPRN PRN EACHNOSTRI 05/22/24 17:00 05/25/24 20:15 1 SPR Furosemide 20 mg DAILY IV 05/23/24 10:00 05/29/24 08:28 20 MG Fluticasone Propionate 50 mcg Q12HR EACHNOSTRI 05/23/24 11:00 05/27/24 09:56 50 MCG Vancomycin HCl 0 ml @ 0 mls/hr UD IV 05/23/24 16:45 Docusate Sodium 100 mg BID PO 05/23/24 22:00 05/29/24 21:10 100 MG Polyethylene Glycol 17 gm DAILY PO 05/24/24 10:00 05/29/24 08:27 17 GM Temazepam 15 mg HSPRN PRN PO 05/24/24 18:30 05/29/24 21:10 15 MG Sodium Biphosphate/ Sodium Phosphate 133 ml DAILYP PRN [place] 05/25/24 12:15 05/25/24 17:00 133 ML Sodium Chloride 1,000 ml @ 30 mls/hr Q24H IV 05/26/24 10:30 05/29/24 17:52 30 MLS/HR Vancomycin HCl 250 ml @ 250 mls/hr Q12HR@0700,1900 IV 05/28/24 07:00 05/30/24 06:45 250 MLS/HR Albuterol 2.5 mg Q4HPRN PRN NEB 05/29/24 15:30 Ipratropium [place] 0.5 mg Q4HPRN PRN NEB 05/29/24 15:30 laboratory and microbiology Laboratory Tests 05/30/24 05:41 05/27/24 05:32 Test 05/27/24 05:32 Range/Units Serum Glucose 130 H 74-106 mg/dL Assessment/Plan Patient is a 49-year-old female who originally presented to the hospital on May 19, 2024 for shortness of breaths. Since that time, the patient is found to have pneumonia/respiratory failure/sepsis. She has been managed on telemetry unit she has had bronchoscopy. While on telemetry, patient had questionable tachyarrhythmia on May 24, 2024 and cardiology was involved. Review of the tele rhythms reveals artifact. Patient has remained in sinus rhythm with no tachy arrhythmia. Patient has also been seen by Pulmonary/ID/primary team. There is questioned for Staphylococcus pneumonia and possible endocarditis? Patient denies previous cardiac history. Patient herself actually denies any previous medical history prior to this presentation. There is question about childhood asthma. And there is also question about baseline history of some anemia. It is of note that since admission the patient was found to have increased D-dimer for which CT angiography ruled out pulmonary emboli. She also is found to have increased CA 125 antigen for which is being managed/evaluated by primary team Not in acute distress. Not using accessory muscles of breathing. Mucosa is pink and wet. No carotid bruit. Lungs reveal scattered rhonchi in the lungs. Cardiac regular, no thrills/gallop. Abdomen is soft. There is no hepatomegaly. Extremities do not reveal edema. Denies previous medical history. There is question about previous anemia and also childhood asthma? Troponin: 26 (within normal limit) D-dimer: 3.49 Chest x-ray revealed: IMPRESSION: Multifocal masslike opacities are visualized. Differential considerations include malignancy versus multifocal pneumonia. Repeat chest x-ray revealed: LUNGS AND PLEURAL SPACES: Congestion and edema, unchanged. No pneumothorax. HEART: Unremarkable. No cardiomegaly. MEDIASTINUM: Unremarkable. Normal mediastinal contour. BONES/JOINTS: Unremarkable. No acute fracture. OTHER FINDINGS: . No significant change from the prior exam. IMPRESSION: No acute cardiopulmonary process. CT angio of the chest reported: CT of the chest/abdomen and pelvis reported: Telemetry reveals sinus rhythm. Elaine occasions of artifact. There was no tachyarrhythmia Echocardiogram reported: Left ventricle: Left ventricle was normal sized with normal systolic function. LVEF was 60-65%. There was no wall motion abnormality. Diastolic function of left ventricle was considered normal. Right ventricle was dilated with normal systolic function. Left atrium was normal sized. Right atrium was mildly dilated. Aortic valve: Aortic valve was trileaflet. There was no aortic insufficiency stage stenosis. There was trace mitral/tricuspid regurgitation. Pulmonary valve was not well visualized. Right ventricular systolic pressure was assessed that 30 mm Hg (normal). IVC was normal size with normal respiratory variation. There was trace pericardial effusion. CLAUDIA was performed and did not reveal any vegetation. Patient is a 49-year-old female who presented with shortness of breaths and is found to have pneumonia. Has had bronchoscopy. There is question about MRSA pneumonia. D-dimer was elevated but CT angio of the chest ruled out pulmonary emboli. There was questionable with tachyarrhythmia which was artifact. Steph questions endocarditis as a source of infection. Echocardiogram has been nonrevealing. CLAUDIA did not reveal any vegetation. Endocarditis is less likely. Pneumonia Sepsis Pneumonia, MRSA Bronchiectasis Respiratory failure Increased D-dimer Cardiac suggestion for management: Managed on telemetry Follow up electrolytes and kidney function tests and correct abnormalities Transthoracic echocardiogram was non-revealing for any sign for endocarditis. CLAUDIA did not reveal any vegetation. Endocarditis is less likely. Cardiac richards, stable Evaluation and management of sepsis/pneumonia as per primary team/pulmonary/infectious disease Evaluation and management of increased CA 125 antigen as per primary team. You may consider oncology evaluation Further evaluation and management depends on the above and clinical course A total of 55 minutes was spent reviewing the patient record, examining the patient, making a diagnostic and therapeutic plan, discussing this plan with medical personnel, following up on diagnostic studies and following the patient for clinical stability excluding any and all procedures. At least 50% of this time was spent in direct, [id number] contact. Thank you for allowing me to participate in this patient's care. Further recommendations will depend on patient's clinical course. Please do not hesitate to contact me if you have any questions or concerns. This medical document was created using electronic medical record system with 1EQ computerized dictation system. Although this document has been carefully reviewed, there may still be some phonetic and typographical errors. These areas are purely typographical due to the imperfection of the software programs, and do not reflect any compromise in the patient's medical care. Dietary Evaluation Review Comments: 1) Advance to regular diet when medically feasible, per [employer] approval 2) Continue iron supplementation - 325 mg bid 3) Encourage good PO intake 4) Continue to monitor appetite, labs, and skin integrity Expected Outcomes/Goals: 1) diet to advance 2) appetite and labs to improve 3) f/u in 5 days Plan discussed with: Patient, Other (nurse) FREDERICK CARNEY MD May 30, 2024 07:02
--- NOTE | 2024-05-30 09:02 | DVHPN2 ---
Progress Note - Dictate Date Seen: May 30, 2024 Medical Necessity Reason Pt with a Central, PICC or Fol: No vital signs Vital Sign Date Time Temp Pulse Resp B/P (MAP) Pulse Ox O2 Delivery O2 Flow Rate FiO2 05/30/24 06:42 98 Nasal Cannula* 1 24 05/30/24 05:00 97.9 73 16 125/55 (78) 97.9 Total Intake and Output 05/29/24 05/29/24 05/30/24 15:00 23:00 07:00 Intake Total 50 ml 3070 ml 400 ml Balance 50 ml 3070 ml 400 ml medications Current Medications Medications Dose Ordered Sig/Mirian Route Start Time Stop Time Status Last Admin Dose Admin Nitroglycerin 0.4 mg Q5MINP PRN SL 05/19/24 17:00 Ceftriaxone Sodium 50 ml @ 100 mls/hr DAILY@09 IV 05/20/24 09:00 05/29/24 08:27 100 MLS/HR Ferrous Sulfate 325 mg BIDWM PO 05/20/24 08:00 05/29/24 17:53 325 MG Acetaminophen/ Hydrocodone Bitart 1 tab Q4HPRN PRN PO 05/21/24 16:30 05/28/24 18:06 1 TAB Morphine Sulfate 2 mg Q4HPRN PRN IV 05/21/24 16:30 05/27/24 14:05 2 MG Hydralazine HCl 10 mg Q6HP PRN IV 05/22/24 11:00 Famotidine 20 mg DAILY PO 05/22/24 11:00 05/29/24 08:27 20 MG Enoxaparin Sodium 40 mg DAILY SC 05/22/24 11:00 05/29/24 08:27 40 MG Sodium Chloride 1 spr BIDPRN PRN EACHNOSTRI 05/22/24 17:00 05/25/24 20:15 1 SPR Furosemide 20 mg DAILY IV 05/23/24 10:00 05/29/24 08:28 20 MG Fluticasone Propionate 50 mcg Q12HR EACHNOSTRI 05/23/24 11:00 05/27/24 09:56 50 MCG Vancomycin HCl 0 ml @ 0 mls/hr UD IV 05/23/24 16:45 Docusate Sodium 100 mg BID PO 05/23/24 22:00 05/29/24 21:10 100 MG Polyethylene Glycol 17 gm DAILY PO 05/24/24 10:00 05/29/24 08:27 17 GM Temazepam 15 mg HSPRN PRN PO 05/24/24 18:30 05/29/24 21:10 15 MG Sodium Biphosphate/ Sodium Phosphate 133 ml DAILYP PRN [place] 05/25/24 12:15 05/25/24 17:00 133 ML Sodium Chloride 1,000 ml @ 30 mls/hr Q24H IV 05/26/24 10:30 05/29/24 17:52 30 MLS/HR Vancomycin HCl 250 ml @ 250 mls/hr Q12HR@0700,1900 IV 05/28/24 07:00 05/30/24 06:45 250 MLS/HR Albuterol 2.5 mg Q4HPRN PRN NEB 05/29/24 15:30 Ipratropium [place] 0.5 mg Q4HPRN PRN NEB 05/29/24 15:30 objective General Appearance: alert, no distress HEENT: EOMI, PERRLA, normal external inspect of ears, no icterus, no nasal drainage Neck: no carotid bruit, no jugular venous distention (JVD), no lymphadenopathy Chest: normal thorax Respiratory: clear to auscultation, normal air movement Cardiovascular: regular rate and rhythm, no diastolic murmur, no jugular venous distention (JVD), no rub, no systolic murmur Abdominal: soft, no hepatomegaly, no mass, no splenomegaly, no tenderness Genitourinary: grossly normal external Musculoskeletal: no joint tenderness, no swelling Extremities: normal pulses, no calf tenderness, no clubbing, no cyanosis, no edema Skin: no bruising, no jaundice, no rash Neurological: alert, No focal deficit laboratory and microbiology Laboratory Tests 05/30/24 05:41 05/27/24 05:32 Test 05/27/24 05:32 Range/Units Serum Glucose 130 H 74-106 mg/dL Problem List 1. Acute hypoxic respiratory failure likely from pneumonia IV antibiotics, pulmonary consult, med neb treatments 2. Community acquired pneumonia likely Gram-negative or Gram-positive IV antibiotics 3. Iron deficiency anemia Replace 4. Sepsis likely from pneumonia IV antibiotics, IV fluids 5. Hypokalemia Replace Assessment/Plan Subjective: Patient is awake and alert. Objective: Patient was downstairs for a CLAUDIA. She was admitted for acute hypoxic respiratory failure related to MRSA pneumonia. CT imaging raised concerns for possible septic emboli. However, echocardiogram findings were negative for endocarditis, and the CLAUDIA was negative for vegetations. Estimated ejection fraction (EF) was 60-65%. The patient is status post thoracentesis on 05/27/2024 and status post bronchoscopy on 05/21/2024. Plan: Continue antibiotics. Wean off oxygen as tolerated. Proceed with discharge planning. Dietary Evaluation Review Comments: 1) Advance to regular diet when medically feasible, per [employer] approval 2) Continue iron supplementation - 325 mg bid 3) Encourage good PO intake 4) Continue to monitor appetite, labs, and skin integrity Expected Outcomes/Goals: 1) diet to advance 2) appetite and labs to improve 3) f/u in 5 days Plan discussed with: Patient, Other LISS COHEN NP May 30, 2024 09:02
[2024-05-30 09:47] LABS: Chloride 106 mmol/L (98-107); Potassium 4.2 mmol/L (3.5-5.1); Sodium 140 mmol/L (136-145)
[2024-05-30 09:48] LABS: Anion Gap 11 (5-15); Calcium 9.4 mg/dL (8.7-10.4); Carbon Dioxide 23 mmol/L (20-31)
--- NOTE | 2024-05-30 09:50 | DVHOP2 ---
Operative Report Trans-Esophageal Echocardiogram PROCEDURE REPORT Date of Service: 05/30/2024 Escalator Mechanic: Frederick Carney MD PROCEDURE PERFORMED: Transesophageal echocardiogram, conscious sedation administration and supervision, more than 15 minutes. Intra cardiac bubble study. PREOPERATIVE DIAGNOSES: r/o endocarditis? DESCRIPTION OF PROCEDURE: The patient signed informed consent understanding risks, benefits and alternatives of the procedure, she wished to proceed. The patient was given 15 mL of oral viscous lidocaine. She was placed in a left lateral decubitus position and conscious sedation was administered per clinical laboratory aide protocol (1 mg of Versed and 25 mcg of Fentanyl). I administered a bite block into her mouth and a CLAUDIA probe into the mid esophagus without any difficulties or complications. Multiple planar images were obtained. Bubble study was also performed. At the completion of procedure, CLAUDIA probe was removed and there were no immediate complications. Vitals signs were stable throughout the procedure. FINDINGS: 1. Left ventricle: LVEF was 65%. There was no gross wall motion abnormality seen. 2. Right ventricle: Normal RV size with normal systolic function. 3. Left atrium: LA was normal sized 4. Right atrium: RA was normal sized 5. Mitral valve: Mild Mitral regurgitation, no significant stenosis, normal functioning valve. No evidence for vegetation. 6. Left atrial appendage: No evidence of thrombus. 7. Aortic valve: Aortic valve was trileaflet. There was no stenosis/insufficiency. There was no vegetation. 8. Pulmonic valve: Trivial pulmonic insufficiency. No significant stenosis. No evidence for vegetation. 9. Tricuspid valve: Mild tricuspid regurgitation. No evidence for vegetation. 10. Interatrial septum: Color flow was negative for shunt. Bubble study was performed and was negative for shunt. 11. Pericardium: No significant effusion. 12. Thoracic aorta: No significant plaquing. No vegetation was seen. FREDERICK CARNEY MD May 30, 2024 09:50
[2024-05-30 09:53] LABS: BUN/Creatinine Ratio 12.3 (10.0-20.0); Blood Urea Nitrogen 10 mg/dL (9-23); Glucose 90 mg/dL (74-106)
[2024-05-30] MEDS: MIDAZOLAM HCL 2MG/2ML 2ml VIAL (1mg/ml) IV ONE (16:04)
[2024-05-30] MEDS: fentaNYL CITRATE 100 MCG/2 ML VL IV ONE (16:04)
[2024-05-30] MEDS: LIDOCAINE VISCOUS 2% 15ML UD PO ONE (16:05)
[2024-05-30 16:07] LABS: Protein, Body Fluid 4.5 g/dL (.)
--- NOTE | 2024-05-30 19:51 | DVHPN2 ---
Progress Note - Dictate Date Seen: May 30, 2024 Medical Necessity Reason Pt with a Central, PICC or Fol: No Subjective Patient seen and examined at bedside. Tapered off supplemental oxygen, currently on room air Overnight events reviewed. vital signs Vital Sign Date Time Temp Pulse Resp B/P (MAP) Pulse Ox O2 Delivery O2 Flow Rate FiO2 05/30/24 17:00 98.2 71 18 125/73 (90) 97 98.2 05/30/24 08:00 Room Air* 0 21 Total Intake and Output 05/29/24 05/29/24 05/30/24 15:00 23:00 07:00 Intake Total 50 ml 3070 ml 400 ml Balance 50 ml 3070 ml 400 ml medications Current Medications Medications Dose Ordered Sig/Mirian Route Start Time Stop Time Status Last Admin Dose Admin Nitroglycerin 0.4 mg Q5MINP PRN SL 05/19/24 17:00 Ceftriaxone Sodium 50 ml @ 100 mls/hr DAILY@09 IV 05/20/24 09:00 05/30/24 10:22 100 MLS/HR Ferrous Sulfate 325 mg BIDWM PO 05/20/24 08:00 05/30/24 18:54 325 MG Hydralazine HCl 10 mg Q6HP PRN IV 05/22/24 11:00 Famotidine 20 mg DAILY PO 05/22/24 11:00 05/30/24 10:22 20 MG Enoxaparin Sodium 40 mg DAILY SC 05/22/24 11:00 05/30/24 10:23 40 MG Sodium Chloride 1 spr BIDPRN PRN EACHNOSTRI 05/22/24 17:00 05/25/24 20:15 1 SPR Furosemide 20 mg DAILY IV 05/23/24 10:00 05/30/24 10:25 20 MG Fluticasone Propionate 50 mcg Q12HR EACHNOSTRI 05/23/24 11:00 05/27/24 09:56 50 MCG Vancomycin HCl 0 ml @ 0 mls/hr UD IV 05/23/24 16:45 Docusate Sodium 100 mg BID PO 05/23/24 22:00 05/30/24 10:22 100 MG Polyethylene Glycol 17 gm DAILY PO 05/24/24 10:00 05/30/24 10:23 17 GM Temazepam 15 mg HSPRN PRN PO 05/24/24 18:30 05/29/24 21:10 15 MG Sodium Biphosphate/ Sodium Phosphate 133 ml DAILYP PRN [place] 05/25/24 12:15 05/25/24 17:00 133 ML Sodium Chloride 1,000 ml @ 30 mls/hr Q24H IV 05/26/24 10:30 05/29/24 17:52 30 MLS/HR Vancomycin HCl 250 ml @ 250 mls/hr Q12HR@0700,1900 IV 05/28/24 07:00 05/30/24 18:55 250 MLS/HR Albuterol 2.5 mg Q4HPRN PRN NEB 05/29/24 15:30 Ipratropium [place] 0.5 mg Q4HPRN PRN NEB 05/29/24 15:30 objective Gen.: Patient lying in bed in no apparent distress. On room air Head: Normocephalic, atraumatic. Eyes: EOMI/PERRLA. Ears: Normal hearing. Normal anatomy. Neck/trachea: Trachea midline, supple. Nose: Normal external anatomy. Mouth: Moist mucous membranes. Chest: Decreased air entry bilaterally. No wheezing or rhonchi. Cardiovascular: Positive S1, positive S2. Regular rate and rhythm. Abdomen: Positive bowel sounds in all 4 quadrants. Soft, non-tender, non- distended. : Deferred. Rectal: Deferred. Skin: Warm, dry. Intact. Extremities: 2+ radial pulses bilaterally. No lower extremity edema. Neuro: Awake, alert, oriented x3. No gross motor or sensory deficits. Cranial nerves II through XII intact. Gait not assessed. laboratory and microbiology Laboratory Tests 05/30/24 05:41 Test 05/30/24 05:41 Range/Units Serum Glucose 90 74-106 mg/dL Assessment/Plan Impression: Acute hypoxic respiratory failure Pneumonia Cough Dependence on supplemental oxygen Anemia Bronchiectasis Atelectasis Hypokalemia Elevated D-dimer MRSA pneumonia Events: Tapered off 2 LPM NC --> room air. No distress. Supplemental oxygen PRN QuantiFERON negative. Patient with congestion. Continue antibiotics (vancomycin, ceftriaxone) for MRSA pneumonia ID recommendations appreciated. Hx of vaping likely made pt more susceptible to pneumonia Stopped Flonase Incentive spirometry Status post CLAUDIA, ruled out endocarditis. Cardiology recommendations appreciated. Monitor hemoglobin Iron supplementation S/p left thoracentesis on 05/27/24 with drainage of 850 mL jarad fluid from left pleural space See separate procedure note for details Pleural fluid culture shows no growth S/p bronchoscopy with biopsy on 05/21/24 - see procedure note for details. LLL BAL sent for gram stain and culture, viral culture, fungal culture, and AFB smear and culture. Labs and imaging reviewed. Rest of plan as noted below. Plan: Supplemental oxygen PRN Titrate to keep O2 sats above 92%. QuantiFERON Gold negative CTA negative for pulmonary embolism Continue antibiotics Incentive spirometry Iron supplementation Monitor hemoglobin Monitor renal function. Monitor electrolytes. Supplement as necessary. Monitor ins and outs. DVT prophylaxis. Prognosis: Guarded given patient's multiple co-morbidities. Rest of plan per hospitalist and other consultants. Thank you, MILAN Mayes, for allowing me to participate in this patient's care. Further recommendations will depend on the patient's clinical course. Please do not hesitate to contact me if you have any questions or concerns. This medical document was created using an electronic medical record system with [employer] dictation system. Although these documentations are being carefully reviewed, there may still be some phonetic and typographical changes. The errors are purely typographical, due to imperfection on the software program, and do not reflect any compromise in the patient's medical care. Dietary Evaluation Review Comments: 1) Advance to regular diet when medically feasible, per [employer] approval 2) Continue iron supplementation - 325 mg bid 3) Encourage good PO intake 4) Continue to monitor appetite, labs, and skin integrity Expected Outcomes/Goals: 1) diet to advance 2) appetite and labs to improve 3) f/u in 5 days Plan discussed with: Patient, Other (ANTHONY Arshad) REYES HOGUE MD May 30, 2024 19:51
[2024-05-30] MEDS: IPRATROPIUM BROM 0.5 MG/2.5ML INH SOL NEB PRN (21:20)
[2024-05-30] MEDS: ALBUTEROL SULF 2.5 MG/0.5ML(0.5%) NEB SOLN NEB PRN (21:20)
[2024-05-31] VITALS (9 sets, daily range): BP systolic 111–123; BP diastolic 43–67; PULSE 64–85; RESP 16–19; TEMP 98–99.7; O2SAT 93–98
--- NOTE | 2024-05-31 05:52 | DVHPN2 ---
Progress Note - Dictate Date Seen: May 31, 2024 Medical Necessity Reason Pt with a Central, PICC or Fol: No vital signs Vital Sign Date Time Temp Pulse Resp B/P (MAP) Pulse Ox O2 Delivery O2 Flow Rate FiO2 05/31/24 05:00 99.7 80 18 111/43 (65) 95 99.7 05/30/24 21:20 Nasal Cannula* 1 24 Total Intake and Output 05/30/24 05/30/24 05/31/24 15:00 23:00 07:00 Intake Total 300 ml 500 ml 200 ml Output Total 1 ml Balance 300 ml 500 ml 199 ml medications Current Medications Medications Dose Ordered Sig/Mirian Route Start Time Stop Time Status Last Admin Dose Admin Nitroglycerin 0.4 mg Q5MINP PRN SL 05/19/24 17:00 Ceftriaxone Sodium 50 ml @ 100 mls/hr DAILY@09 IV 05/20/24 09:00 05/30/24 10:22 100 MLS/HR Ferrous Sulfate 325 mg BIDWM PO 05/20/24 08:00 05/30/24 18:54 325 MG Hydralazine HCl 10 mg Q6HP PRN IV 05/22/24 11:00 Famotidine 20 mg DAILY PO 05/22/24 11:00 05/30/24 10:22 20 MG Enoxaparin Sodium 40 mg DAILY SC 05/22/24 11:00 05/30/24 10:23 40 MG Sodium Chloride 1 spr BIDPRN PRN EACHNOSTRI 05/22/24 17:00 05/25/24 20:15 1 SPR Furosemide 20 mg DAILY IV 05/23/24 10:00 05/30/24 10:25 20 MG Fluticasone Propionate 50 mcg Q12HR EACHNOSTRI 05/23/24 11:00 05/27/24 09:56 50 MCG Vancomycin HCl 0 ml @ 0 mls/hr UD IV 05/23/24 16:45 Docusate Sodium 100 mg BID PO 05/23/24 22:00 05/30/24 21:02 100 MG Polyethylene Glycol 17 gm DAILY PO 05/24/24 10:00 05/30/24 10:23 17 GM Temazepam 15 mg HSPRN PRN PO 05/24/24 18:30 05/30/24 21:03 15 MG Sodium Biphosphate/ Sodium Phosphate 133 ml DAILYP PRN MI 05/25/24 12:15 05/25/24 17:00 133 ML Sodium Chloride 1,000 ml @ 30 mls/hr Q24H IV 05/26/24 10:30 05/29/24 17:52 30 MLS/HR Vancomycin HCl 250 ml @ 250 mls/hr Q12HR@0700,1900 IV 05/28/24 07:00 05/30/24 18:55 250 MLS/HR Albuterol 2.5 mg Q4HPRN PRN NEB 05/29/24 15:30 05/30/24 21:20 2.5 MG Ipratropium [place] 0.5 mg Q4HPRN PRN NEB 05/29/24 15:30 05/30/24 21:20 0.5 MG laboratory and microbiology Laboratory Tests 05/30/24 05:41 Test 05/30/24 05:41 Range/Units Serum Glucose 90 74-106 mg/dL Assessment/Plan Patient is a 49-year-old female who originally presented to the hospital on May 19, 2024 for shortness of breaths. Since that time, the patient is found to have pneumonia/respiratory failure/sepsis. She has been managed on telemetry unit she has had bronchoscopy. While on telemetry, patient had questionable tachyarrhythmia on May 24, 2024 and cardiology was involved. Review of the tele rhythms reveals artifact. Patient has remained in sinus rhythm with no tachy arrhythmia. Patient has also been seen by Pulmonary/ID/primary team. There is questioned for Staphylococcus pneumonia and possible endocarditis? Patient denies previous cardiac history. Patient herself actually denies any previous medical history prior to this presentation. There is question about childhood asthma. And there is also question about baseline history of some anemia. It is of note that since admission the patient was found to have increased D-dimer for which CT angiography ruled out pulmonary emboli. She also is found to have increased CA 125 antigen for which is being managed/evaluated by primary team Not in acute distress. Not using accessory muscles of breathing. Mucosa is pink and wet. No carotid bruit. Lungs reveal scattered rhonchi in the lungs. Cardiac regular, no thrills/gallop. Abdomen is soft. There is no hepatomegaly. Extremities do not reveal edema. Denies previous medical history. There is question about previous anemia and also childhood asthma? Troponin: 26 (within normal limit) D-dimer: 3.49 Chest x-ray revealed: IMPRESSION: Multifocal masslike opacities are visualized. Differential considerations include malignancy versus multifocal pneumonia. Repeat chest x-ray revealed: LUNGS AND PLEURAL SPACES: Congestion and edema, unchanged. No pneumothorax. HEART: Unremarkable. No cardiomegaly. MEDIASTINUM: Unremarkable. Normal mediastinal contour. BONES/JOINTS: Unremarkable. No acute fracture. OTHER FINDINGS: . No significant change from the prior exam. IMPRESSION: No acute cardiopulmonary process. CT angio of the chest reported: CT of the chest/abdomen and pelvis reported: Telemetry reveals sinus rhythm. Elaine occasions of artifact. There was no tachyarrhythmia Echocardiogram reported: Left ventricle: Left ventricle was normal sized with normal systolic function. LVEF was 60-65%. There was no wall motion abnormality. Diastolic function of left ventricle was considered normal. Right ventricle was dilated with normal systolic function. Left atrium was normal sized. Right atrium was mildly dilated. Aortic valve: Aortic valve was trileaflet. There was no aortic insufficiency stage stenosis. There was trace mitral/tricuspid regurgitation. Pulmonary valve was not well visualized. Right ventricular systolic pressure was assessed that 30 mm Hg (normal). IVC was normal size with normal respiratory variation. There was trace pericardial effusion. CLAUDIA was performed and did not reveal any vegetation. Patient is a 49-year-old female who presented with shortness of breaths and is found to have pneumonia. Has had bronchoscopy. There is question about MRSA pneumonia. D-dimer was elevated but CT angio of the chest ruled out pulmonary emboli. There was questionable with tachyarrhythmia which was artifact. Steph questions endocarditis as a source of infection. Echocardiogram has been nonrevealing. CLAUDIA did not reveal any vegetation. Endocarditis is less likely. Pneumonia Sepsis Pneumonia, MRSA Bronchiectasis Respiratory failure Increased D-dimer Cardiac suggestion for management: Managed on telemetry Follow up electrolytes and kidney function tests and correct abnormalities Transthoracic echocardiogram was non-revealing for any sign for endocarditis. CLAUDIA did not reveal any vegetation. Endocarditis is less likely. Cardiac richards, stable. Will sign off. Please call for follow up PRN Evaluation and management of sepsis/pneumonia as per primary team/pulmonary/infectious disease Evaluation and management of increased CA 125 antigen as per primary team. You may consider oncology evaluation Further evaluation and management depends on the above and clinical course A total of 55 minutes was spent reviewing the patient record, examining the patient, making a diagnostic and therapeutic plan, discussing this plan with medical personnel, following up on diagnostic studies and following the patient for clinical stability excluding any and all procedures. At least 50% of this time was spent in direct, [id number] contact. Thank you for allowing me to participate in this patient's care. Further recommendations will depend on patient's clinical course. Please do not hesitate to contact me if you have any questions or concerns. This medical document was created using electronic medical record system with [employer] dictation system. Although this document has been carefully reviewed, there may still be some phonetic and typographical errors. These areas are purely typographical due to the imperfection of the software programs, and do not reflect any compromise in the patient's medical care. Dietary Evaluation Review Comments: 1) Advance to regular diet when medically feasible, per MANAGER QUALITY COMPLIANCE approval 2) Continue iron supplementation - 325 mg bid 3) Encourage good PO intake 4) Continue to monitor appetite, labs, and skin integrity Expected Outcomes/Goals: 1) diet to advance 2) appetite and labs to improve 3) f/u in 5 days Plan discussed with: Patient, Other (nurse) FREDERICK CARNEY MD May 31, 2024 05:52
[2024-05-31] MEDS ORDERED: LINE1TAB6 PO (13:35)
--- NOTE | 2024-05-31 13:37 | DVHDS2 ---
Discharge Summary Date of Admission May 19, 2024 at 16:58 Date of Discharge: May 31, 2024 Labs/Diagnostic Data: Laboratory Results Test 05/31/24 05:25 05/30/24 05:41 05/27/24 14:25 05/27/24 05:32 Vancomycin Level Trough 16.7 ug/mL (5-10) White Blood Count 7.5 10^3/uL (4.4-10.8) Red Blood Count 3.56 10^6/uL (4.0-5.20) Hemoglobin 10.7 g/dL (12.2-16.2) Hematocrit 31.7 % (36.0-46.0) Mean Corpuscular Volume 89.0 fL (80.0-100.0) Mean Corpuscular Hemoglobin 29.9 pg (28.0-32.0) Mean Corpuscular Hemoglobin Concent 33.7 g/dL (32.0-36.0) Red Cell Distribution Width 16.8 % (11.8-14.3) Platelet Count 708 10^3/uL (140-450) Mean Platelet Volume 7.0 fL (6.9-10.8) Neutrophils (%) (Auto) 65.8 % (37.0-80.0) Lymphocytes (%) (Auto) 25.7 % (10.0-50.0) Monocytes (%) (Auto) 5.9 % (0.0-12.0) Eosinophils (%) (Auto) 1.5 % (0.0-7.0) Basophils (%) (Auto) 1.1 % (0.0-2.0) Neutrophils # (Auto) 4.9 10 ^3/uL (1.6-8.6) Lymphocytes # (Auto) 1.9 10 ^3/uL (0.4-5.4) Monocytes # (Auto) 0.4 10 ^3/uL (0-1.3) Eosinophils # (Auto) 0.1 10 ^3/uL (0-0.8) Basophils # (Auto) 0.1 10 ^3/uL (0-0.2) Nucleated Red Blood Cells 0.1 % Prothrombin Time 10.2 sec (9.3-11.8) Prothrombin Time INR 0.96 (0.9-1.15) Activated Partial Thromboplast Time 28.5 SEC (24.5-34.5) Sodium Level 140 mmol/L (136-145) Potassium Level 4.2 mmol/L (3.5-5.1) Chloride Level 106 mmol/L (98-107) Carbon Dioxide Level 23 mmol/L (20-31) Anion Gap 11 (5-15) Blood Urea Nitrogen 10 mg/dL (9-23) Creatinine 0.81 mg/dL (0.550-1.02) Glomerular Filtration Rate Calc 89 mL/min (>90) BUN/Creatinine Ratio 12.3 (10.0-20.0) Serum Glucose 90 mg/dL (74-106) Calcium Level 9.4 mg/dL (8.7-10.4) Body Fluid Source Pleural fluid Body Fluid pH 9.0 Body Fluid WBC (Manual) 3088 CUMM (0-200) Body Fluid RBC (Manual) 2922 CUMM (0-2000) Body Fluid Mononuclear Cells 80 % Body Fluid Polymorphonuclear Cells 20 % (0-25) Body Fluid Glucose 93 mg/dL (.) Body Fluid Total Protein 4.5 g/dL (.) Body Fluid Lactate Dehydrogenase 262 IU/L (.) Phosphorus Level 3.5 mg/dL (2.4-5.1) Magnesium Level 2.0 mg/dL (1.6-2.6) Test 05/26/24 14:00 05/25/24 05:43 05/24/24 05:24 05/23/24 13:00 Random Vancomycin Level 15.0 ug/mL (5-10) Total Bilirubin 0.3 mg/dL (0.2-1.0) Aspartate Amino Transferase (AST) 21 U/L (13-40) Alanine Aminotransferase (ALT) 31 U/L (7-40) Alkaline Phosphatase 52 U/L (46-116) Total Protein 6.4 g/dL (5.7-8.2) Albumin 3.5 g/dL (3.2-4.8) Thyroid Stimulating Hormone (TSH) 6.71 uIU/mL (0.55-4.78) Hepatitis A IgM Antibody Negative Hepatitis B Surface Antigen Negative (Negative) Hepatitis B Core IgM Antibody Negative (Negative) Hepatitis C Antibody Negative (Negative) HIV (1&2) Antibody Negative (Negative) Beta HCG, Quantitative 0.6 mIU/mL (1.5-4.2) Test 05/21/24 06:20 05/20/24 16:20 05/19/24 17:27 05/19/24 16:00 Urine Test Negative (Negative) TB Test (QFT) Gold Plus Negative (Negative) TB Test (QFT) Nil 0.01 IU/mL (.) TB Test (QFT) Mitogen 9.59 IU/mL (.) TB Test (QFT) Antigen 1 0.02 IU/mL (.) TB Test (QFT) Antigen 2 0.03 IU/mL (.) TB Test (QFT) Criteria Comment (.) D-Dimer, Quantitative 3.49 mg/L FEU (0.0-0.49) Iron Level 11 ug/dL (50-170) Total Iron Binding Capacity 226 ug/dL (250-425) Percent Iron Saturation 4.9 % (15-50) Carcinoembryonic Antigen 0.63 ng/mL (<=5.0) CA 19-9 Antigen 7 U/mL (0-35) CA 125 Antigen 86.3 U/mL (0.0-38.1) Influenza Type A Antigen Negative (Negative) Influenza Type B Antigen Negative (Negative) SARS-CoV-2 Antigen (Rapid) Negative (NEGATIVE) Test 05/19/24 14:44 05/19/24 09:30 Urine Color Colorless (Yellow) Urine Clarity Clear (Clear) Urine pH 7.0 (5.0-9.0) Urine Specific [place] 1.004 (1.001-1.035) Urine Protein Negative (Negative) Urine Ketones 1+ (Negative) Urine Blood 3+ /uL (Negative) Urine Nitrite Negative (Negative) Urine Bilirubin Negative (Negative) Urine Urobilinogen Normal mg/dL (Negative) Urine Leukocyte Esterase Negative /uL (Negative) Urine RBC 53 /hpf (0 - 4) Urine Microscopic WBC 6 /HPF (0-5) Urine Squamous Epithelial Cells Few /hpf (<5) Urine Bacteria None seen /hpf (None Seen) Urine Glucose Normal mg/dL (Normal) Differential Total Cells Counted 100.0 (100) Neutrophils % (Manual) 76 (37.0-80.0) Band Neutrophils % (Manual) 10 Lymphocytes % (Manual) 6 (10.0-50.0) Monocytes % (Manual) 6 (0-12) Eosinophils % (Manual) 0 (0-7) Basophils % (Manual) 0 (0.0-2.0) Metamyelocytes % (manual) 1 Myelocytes % (Manual) 1 Promyelocytes % (Manual) 0 Blast Cells % (Manual) 0 Reactive Lymphocytes 0 Platelet Estimate Adequate Hemoglobin A1c 5.5 % A1C (<5.7) Lactic Acid Level 1.0 mmol/L (0.4-2.0) Troponin I High Sensitivity 26 ng/L (</=34) Other Laboratory Tests 05/30/24 05:41 Brief Hx & Hospital Course: 49 year old female is complaining of chest pain and shortness of breath for one week. Patient was admitted on 05/19/2024 for acute hypoxic respiratory failure. Patient was recently seen and treated with antibiotics at [facility]. Patient has community-acquired pneumonia with MRSA. Patient was found to be septic. She was found to have elevated D-dimer. CTA was negative for PE. CT imaging showed possible septic emboli .patient was seen by cardiology as well as ID. Echocardiogram was negative for endocarditis. CLAUDIA was negative for vegetation. Patient had an elevated CA125 level. Patient was seen by OB, abdominal ultrasound was done. Elevated CA125 not related to any seen malignancy. Per [employer] INVESTIGATOR SPECIAL AGENT most likely this could be from her regular menstrual cycle. Studies show woman also have elevated CA125 levels. Patient was weaned off oxygen and on room air. Patient will continue complete additional 10 days of oral Zyvox and complete her antibiotic course. Patient will follow-up with her PCP in 1 week. The patient received proper medical treatment and medications. Vital signs, Imaging and Laboratory Work was monitored daily. All consults recommendations were followed as provided. There were no complaints or new complaints upon discharge, all questions and concerns were answered. Patient was advised to return to the ER or call 911 if any headaches, dizziness, shortness of breath, chest pain, bleeding, fevers, or worsening of medical condition. Patient/Family was counseled about treatment plan, medications, possible side effects, patient verbalized understanding. All questions were answered to the best of my ability. The patient symptoms improved and they are okay to be DC. Condition at Discharge: Good Final Diagnosis/Problems List Sepsis Acute hypoxic resp failure PNA- MRSA elevated ddimer-CTA neg for pulmonary embolus Secondary Diagnosis: Acute hypoxic respiratory failure likely from pneumonia Community acquired pneumonia likely Gram-negative or Gram-positive Iron deficiency anemia Sepsis likely from pneumonia Hypokalemia Discharge Disposition: Home Discharge Instruct/Medications Diet: Cardiac 2g Na,low cholest Activity: No Restrictions, As Tolerated Follow Up/Referral: pcp 1 week Medications: zyvox BID 10 days Discharge Statement: "Patient was advised to return to the ER or call 911 if any headaches, dizziness, shortness of breath, chest pain, abdominal pain, bleeding, fevers, or worsening of medical condition. Patient was counseled about treatment plan, medications, possible side effects, patientverbalized understanding. All questions were answered to the best of my ability. This discharge took greater then 30 minutes in planning, reviewing documentation, counseling the patient, and discussing with other team members." ASSESSMENT ASSESSMENT Assessment Sepsis Acute hypoxic resp failure PNA- MRSA elevated ddimer-CTA neg for pulmonary embolus LISS COHEN NP May 31, 2024 13:37
--- NOTE | 2024-05-31 14:04 | DVH ---
CHEST RADIOGRAPH Indication: f/u pna Technique: Single frontal view of the chest was obtained COMPARISON: XY CHEST XRAY 1 VIEW on DOS: 05/27/24, XY CHEST XRAY 1 VIEW on DOS: 05/23/24, XY CHEST XRAY 1 VIEW on DOS: 05/22/24, XY CHEST XRAY 1 VIEW on DOS: 05/21/24, XY CHEST XRAY 1 VIEW on DOS: 05/20/24 FINDINGS: Lines and Tubes: None Lungs: Unchanged multifocal airspace disease. Pleura: Small left pleural effusion, unchanged. No pneumothorax. Cardiomediastinal contours: Unremarkable Bones: Unremarkable IMPRESSION: No significant interval change.
--- NOTE | 2024-05-31 20:53 | DVHPN2 ---
Progress Note - Dictate Date Seen: May 31, 2024 Medical Necessity Reason Pt with a Central, PICC or Fol: No Subjective Patient seen and examined at bedside. Currently breathing on room air Overnight events reviewed. vital signs Vital Sign Date Time Temp Pulse Resp B/P (MAP) Pulse Ox O2 Delivery O2 Flow Rate FiO2 05/31/24 17:00 98.3 75 19 113/51 (71) 93 98.3 05/31/24 10:34 Room Air 0.0 05/31/24 10:34 21 Total Intake and Output 05/30/24 05/30/24 05/31/24 15:00 23:00 07:00 Intake Total 300 ml 500 ml 200 ml Output Total 1 ml Balance 300 ml 500 ml 199 ml objective Gen.: Patient lying in bed in no apparent distress. On room air Head: Normocephalic, atraumatic. Eyes: EOMI/PERRLA. Ears: Normal hearing. Normal anatomy. Neck/trachea: Trachea midline, supple. Nose: Normal external anatomy. Mouth: Moist mucous membranes. Chest: Decreased air entry bilaterally. No wheezing or rhonchi. Cardiovascular: Positive S1, positive S2. Regular rate and rhythm. Abdomen: Positive bowel sounds in all 4 quadrants. Soft, non-tender, non- distended. : Deferred. Rectal: Deferred. Skin: Warm, dry. Intact. Extremities: 2+ radial pulses bilaterally. No lower extremity edema. Neuro: Awake, alert, oriented x3. No gross motor or sensory deficits. Cranial nerves II through XII intact. Gait not assessed. laboratory and microbiology Laboratory Tests 05/30/24 05:41 Test 05/30/24 05:41 Range/Units Serum Glucose 90 74-106 mg/dL Assessment/Plan Impression: Acute hypoxic respiratory failure Pneumonia Cough Dependence on supplemental oxygen Anemia Bronchiectasis Atelectasis Hypokalemia Elevated D-dimer MRSA pneumonia Events: Currently breathing on room air Supplemental oxygen 2 LPM NC PRN. QuantiFERON negative. Patient with congestion. Continue antibiotics (vancomycin, ceftriaxone) for MRSA pneumonia ID recommendations appreciated. Hx of vaping likely made pt more susceptible to pneumonia Incentive spirometry Status post CLAUDIA, ruled out endocarditis. Cardiology recommendations appreciated. Monitor hemoglobin Iron supplementation Patient is stable for discharge from the pulmonary standpoint. Disposition per hospitalist. S/p left thoracentesis on 05/27/24 with drainage of 850 mL jarad fluid from left pleural space See separate procedure note for details Pleural fluid culture shows no growth S/p bronchoscopy with biopsy on 05/21/24 - see procedure note for details. LLL BAL sent for gram stain and culture, viral culture, fungal culture, and AFB smear and culture. Labs and imaging reviewed. Rest of plan as noted below. Plan: Supplemental oxygen PRN Titrate to keep O2 sats above 92%. QuantiFERON Gold negative CTA negative for pulmonary embolism Continue antibiotics Incentive spirometry Iron supplementation Monitor hemoglobin Monitor renal function. Monitor electrolytes. Supplement as necessary. Monitor ins and outs. DVT prophylaxis. Prognosis: Guarded given patient's multiple co-morbidities. Rest of plan per hospitalist and other consultants. Thank you, CENTRAL COMMUNICATIONS SPECIALIST Sav Mayes, for allowing me to participate in this patient's care. Further recommendations will depend on the patient's clinical course. Please do not hesitate to contact me if you have any questions or concerns. This medical document was created using an electronic medical record system with [employer] dictation system. Although these documentations are being carefully reviewed, there may still be some phonetic and typographical changes. The errors are purely typographical, due to imperfection on the software program, and do not reflect any compromise in the patient's medical care. Dietary Evaluation Review Comments: 1) Advance to regular diet when medically feasible, per DEALER CARD ROOM approval 2) Continue iron supplementation - 325 mg bid 3) Encourage good PO intake 4) Continue to monitor appetite, labs, and skin integrity Expected Outcomes/Goals: 1) diet to advance 2) appetite and labs to improve 3) f/u in 5 days Plan discussed with: Patient, Other (ANTHONY Michaels) REYES HOGUE MD May 31, 2024 20:53
--- NOTE | 2024-05-31 21:11 | DVHPN2 ---
Consult Progress Note Date Seen: May 30, 2024 Subjective Patient reports: Other (new sore throat , a bit lethargic , completed CLAUDIA ) Objective vital signs Vital Sign Date Time Temp Pulse Resp B/P (MAP) Pulse Ox O2 Delivery O2 Flow Rate FiO2 05/31/24 17:00 98.3 75 19 113/51 (71) 93 98.3 05/31/24 10:34 Room Air 0.0 05/31/24 10:34 21 Total Intake and Output 05/30/24 05/30/24 05/31/24 15:00 23:00 07:00 Intake Total 300 ml 500 ml 200 ml Output Total 1 ml Balance 300 ml 500 ml 199 ml medications Physical Exam: General:?NAD Neck:?Supple. No masses. HEENT:?PERRL. Normal lids and conjunctiva. Moist mucous membranes. Oropharynx without lesions, exudates, or excessive erythema. Normal appearance of the external aspects of the nose and ears. Heart:?Regular rhythm, normal rate. No murmur. No lower extremity edema. Lungs:?Normal respiratory effort. Crackles and wheezing bilaterally. Abdomen:?Soft. Non-tender. Non-distended. No masses or abdominal hernia. MSK:?No digital cyanosis. Normal strength and tone in all 4 limbs Skin:?Warm and dry, no rashes. Neuro:?Alert. No facial droop or slurred speech. Extra-ocular movements intact. Sensation intact to soft touch in all 4 limbs. Psych:?Appropriate mood. Full affect. Oriented to person, place, time, and situation. laboratory and microbiology Laboratory Tests 05/30/24 05:41 Test 05/30/24 05:41 Range/Units Serum Glucose 90 74-106 mg/dL Problem List/Assessment/Plan Problems(with codes): (1) Hypoxia (2) Shortness of breath (3) MRSA (methicillin resistant staphylococcus aureus) pneumonia (4) Pneumonia (5) Acute respiratory failure Problem List/Assessment/Plan ID Problem List: - Pneumonia - Hypoxia - Possible Staphylococcus aureus infection - Shortness of breath - Septic emboli - Tachycardia - Possible endocarditis Assessment This is a 49 y.o. female with no significant past medical history except possible asthma as a child, who presents with shortness of breath and chest pain. Patient was seen at [facility] a few days prior and was admitted for possible pneumonia. She continued to have shortness of breath after discharge. She was using her mother's oxygen and is requiring 3 liters nasal cannula here to maintain saturation at 90%. No history of COPD, smoking, alcohol, or heavy drug use. Medications include fluticasone. She was started on ceftriaxone and azithromycin while here. Vital signs notable for temperature of 98.1F, pulse of 116, respirations 19, blood pressure 154/92, requiring 3 liters nasal cannula and saturating at 90%. Physical exam notable for bilateral crackles and diffuse wheezing. COVID-19 rapid antigen negative, influenza A negative, influenza B negative. Lab results: Hemoglobin A1C is 5.5%. Chest CT notable for multifocal opacities and a small left pleural effusion. CT chest showed no pulmonary emboli, scattered areas of pleural-based consolidation, as well as multiple small cystic areas which may be due to septic emboli or bronchiectasis. Records from [facility] indicate the patient was seen by Dr. Sena on May 14 and was treated with azithromycin and vancomycin. Echocardiogram showed normal aortic, mitral, and tricuspid valves; pulmonic valve poorly visualized. No signs of endocarditis. Blood cultures were negative to date. Patient was discharged on levofloxacin 500 mg daily. EKG here shows sinus tachycardia with borderline repolarization abnormalities. Gram stain shows no organisms; however, there is concern for culture growth of likely Staphylococcus aureus. 05/21: Dr. Monroy preformed a bronchoscopy , there was left lower lobe atelectasis due to mucus plugging from L1-L10 which was relieved . biopsies and cultures were acquired 05/22: Patient appears significantly improved after therapeutic bronchoscopy, growing MRSA in the lungs 05/23: Had a [facility] chest abdomen and pelvis done today which showed patchy bilateral areas of pulmonary infiltrated and consolidation ,some of these areas of consolidations has lucent centers that cannot exclude septic emboli findings are worse than 05/16. bibasilar atelectasis infiltrated and plural effusions left worse than right . no finding of bowel infection , large stool burden throughout the colon , no nephrolithiasis , gallbladder consuelo no calcified , free air in gallbladder 3:is clearly having MRSA pneumonia , likely septic emboli based off imaging , awaiting CLAUDIA to be preformed 05/25: vancomycin trots are currently sub therapeutic. cardiology evaluated patient for CLAUDIA and patient is currently considering whether to have the procedure done 05/26: IS to have a thoracentesis done by Dr Monroy on 05/27, will discuss doing a CLAUDIA option with patient today 05/27: Patient underwent left thoracentesis today , chest x ray appears largely unchanged after procedure , discussed with patient the prospect of doing a CLAUDIA and avoiding a prolonged IV antibiotic therapy if theirs no endocarditis and patient is currently deliberating whether or no to do the procedure 05/28: Platelets are up to 770 and could be associated with ongoing sepsis 05/29: Platelets have improved to 683 , plural fluid cultures are no growth to date 05/30: CLAUDIA was done and showed no vegetation , all the valves appeared normal in her ES 65% Plan: - recommend completing a 2 weeks course of vancomycin - patient can be discharged on oral bactrum 1 double strength 2x a day to complete therapy coarse - no longer required piccline placement - STOP Ceftriaxone - follow up on plural fluid cultures and analysis - Follow up on BAL cultures , sputum cultures - Follow up on blood cultures. - MRSA PCR nasal swab may be negative due to prior levofloxacin use; will not rely on this result. Isolation Precautions: Standard Plan discussed with: Other Dietary Evaluation Review Comments: 1) Advance to regular diet when medically feasible, per AUDIO VISUAL PRODUCTION SPECIALIST approval 2) Continue iron supplementation - 325 mg bid 3) Encourage good PO intake 4) Continue to monitor appetite, labs, and skin integrity Expected Outcomes/Goals: 1) diet to advance 2) appetite and labs to improve 3) f/u in 5 days KELLI NIETO MD May 31, 2024 21:11
--- NOTE | 2024-05-31 21:11 | DVHPN2 ---
Consult Progress Note Date Seen: May 31, 2024 Subjective Patient reports: Other (no longer has sore throat and breathing well on room air , clear lungs bilaterally ) Objective vital signs Vital Sign Date Time Temp Pulse Resp B/P (MAP) Pulse Ox O2 Delivery O2 Flow Rate FiO2 05/31/24 17:00 98.3 75 19 113/51 (71) 93 98.3 05/31/24 10:34 Room Air 0.0 05/31/24 10:34 21 Total Intake and Output 05/30/24 05/30/24 05/31/24 15:00 23:00 07:00 Intake Total 300 ml 500 ml 200 ml Output Total 1 ml Balance 300 ml 500 ml 199 ml medications Physical Exam: General:?NAD Neck:?Supple. No masses. HEENT:?PERRL. Normal lids and conjunctiva. Moist mucous membranes. Oropharynx without lesions, exudates, or excessive erythema. Normal appearance of the external aspects of the nose and ears. Heart:?Regular rhythm, normal rate. No murmur. No lower extremity edema. Lungs:?Normal respiratory effort. Crackles and wheezing bilaterally. Abdomen:?Soft. Non-tender. Non-distended. No masses or abdominal hernia. MSK:?No digital cyanosis. Normal strength and tone in all 4 limbs Skin:?Warm and dry, no rashes. Neuro:?Alert. No facial droop or slurred speech. Extra-ocular movements intact. Sensation intact to soft touch in all 4 limbs. Psych:?Appropriate mood. Full affect. Oriented to person, place, time, and situation. laboratory and microbiology Laboratory Tests 05/30/24 05:41 Test 05/30/24 05:41 Range/Units Serum Glucose 90 74-106 mg/dL Problem List/Assessment/Plan Problems(with codes): (1) Acute respiratory failure (2) Pneumonia (3) MRSA (methicillin resistant staphylococcus aureus) pneumonia (4) Shortness of breath (5) Hypoxia Problem List/Assessment/Plan ID Problem List: - Pneumonia - Hypoxia - Possible Staphylococcus aureus infection - Shortness of breath - Septic emboli - Tachycardia - Possible endocarditis Assessment This is a 49 y.o. female with no significant past medical history except possible asthma as a child, who presents with shortness of breath and chest pain. Patient was seen at [facility] a few days prior and was admitted for possible pneumonia. She continued to have shortness of breath after discharge. She was using her mother's oxygen and is requiring 3 liters nasal cannula here to maintain saturation at 90%. No history of COPD, smoking, alcohol, or heavy drug use. Medications include fluticasone. She was started on ceftriaxone and azithromycin while here. Vital signs notable for temperature of 98.1F, pulse of 116, respirations 19, blood pressure 154/92, requiring 3 liters nasal cannula and saturating at 90%. Physical exam notable for bilateral crackles and diffuse wheezing. COVID-19 rapid antigen negative, influenza A negative, influenza B negative. Lab results: Hemoglobin A1C is 5.5%. Chest CT notable for multifocal opacities and a small left pleural effusion. CT chest showed no pulmonary emboli, scattered areas of pleural-based consolidation, as well as multiple small cystic areas which may be due to septic emboli or bronchiectasis. Records from [facility] indicate the patient was seen by Dr. Sena on May 14 and was treated with azithromycin and vancomycin. Echocardiogram showed normal aortic, mitral, and tricuspid valves; pulmonic valve poorly visualized. No signs of endocarditis. Blood cultures were negative to date. Patient was discharged on levofloxacin 500 mg daily. EKG here shows sinus tachycardia with borderline repolarization abnormalities. Gram stain shows no organisms; however, there is concern for culture growth of likely Staphylococcus aureus. 3: Dr. Monroy preformed a bronchoscopy , there was left lower lobe atelectasis due to mucus plugging from L1-L10 which was relieved . biopsies and cultures were acquired 05/22: Patient appears significantly improved after therapeutic bronchoscopy, growing MRSA in the lungs 05/23: Had a [facility] Ct chest abdomen and pelvis done today which showed patchy bilateral areas of pulmonary infiltrated and consolidation ,some of these areas of consolidations has lucent centers that cannot exclude septic emboli findings are worse than 05/16. bibasilar atelectasis infiltrated and plural effusions left worse than right . no finding of bowel infection , large stool burden throughout the colon , no nephrolithiasis , gallbladder consuelo no calcified , free air in gallbladder 35:is clearly having MRSA pneumonia , likely septic emboli based off imaging , awaiting CLAUDIA to be preformed 05/25: vancomycin trots are currently sub therapeutic. cardiology evaluated patient for CLAUDIA and patient is currently considering whether to have the procedure done 05/26: IS to have a thoracentesis done by Dr Monroy on 05/27, will discuss doing a CLAUDIA option with patient today 05/27: Patient underwent left thoracentesis today , chest x ray appears largely unchanged after procedure , discussed with patient the prospect of doing a CLAUDIA and avoiding a prolonged IV antibiotic therapy if theirs no endocarditis and patient is currently deliberating whether or no to do the procedure 05/28: Platelets are up to 770 and could be associated with ongoing sepsis 05/29: Platelets have improved to 683 , plural fluid cultures are no growth to date 05/30: CLAUDIA was done and showed no vegetation , all the valves appeared normal in her ES 65% 05/31: tolerating IV vancomycin and doses have been therapeutic Plan: - recommend completing a 2 weeks course of vancomycin - patient can be discharged on oral bactrum 1 double strength 2x a day to complete therapy coarse , end of therapy coarse will be 06/09/24 - oral doxycyline 600 milligrams PO BID for 10 days is also an acceptable home regimen - no longer required piccline placement - follow up on plural fluid cultures and analysis - Follow up on BAL cultures , sputum cultures - Follow up on blood cultures. - MRSA PCR nasal swab may be negative due to prior levofloxacin use; will not rely on this result. Isolation Precautions: Standard Plan discussed with: Other Dietary Evaluation Review Comments: 1) Advance to regular diet when medically feasible, per MEMBERSHIP COUNSELOR approval 2) Continue iron supplementation - 325 mg bid 3) Encourage good PO intake 4) Continue to monitor appetite, labs, and skin integrity Expected Outcomes/Goals: 1) diet to advance 2) appetite and labs to improve 3) f/u in 5 days KELLI NIETO MD May 31, 2024 21:11
== END 2024-05-31 17:05 | disposition home or self-care (01) | DRG 720 ==
LOC: ER 08:48 → OVERFLOW 16:58 → TELE-EAST 17:00 → EAST 21:35 → TELE-EAST 05-20 19:55
PROVIDERS: ADMIT Nurse Practitioner; ATTEND Nurse Practitioner
PROC: 0BDB8ZX Extraction of Left Lower Lobe Bronchus, Via Natural or Artificial Opening Endoscopic, Diagnostic (ICD-10-PCS; 2024-05-21)
PROC: 0BC78ZZ Extirpation of Matter from Left Main Bronchus, Via Natural or Artificial Opening Endoscopic (ICD-10-PCS; 2024-05-21)
PROC: 0B9J8ZX Drainage of Left Lower Lung Lobe, Via Natural or Artificial Opening Endoscopic, Diagnostic (ICD-10-PCS; principal; 2024-05-21 09:30)
PROC: 0W9B3ZZ Drainage of Left Pleural Cavity, Percutaneous Approach (ICD-10-PCS; 2024-05-27)
PROC: B24BZZ4 Ultrasonography of Heart with Aorta, Transesophageal (ICD-10-PCS; 2024-05-30)
DX: A41.02 Sepsis due to Methicillin resistant Staphylococcus aureus (principal); J96.01 Acute respiratory failure with hypoxia; I76 Septic arterial embolism; J15.212 Pneumonia due to Methicillin resistant Staphylococcus aureus; J47.0 Bronchiectasis with acute lower respiratory infection; J90 Pleural effusion, not elsewhere classified; J15.69 Pneumonia due to other Gram-negative bacteria; Z99.81 Dependence on supplemental oxygen; D50.9 Iron deficiency anemia, unspecified; Z20.822 Contact with and (suspected) exposure to COVID-19; E87.6 Hypokalemia; K59.00 Constipation, unspecified; Z53.20 Procedure and treatment not carried out because of patient's decision for unspecified reasons; A41.50 Gram-negative sepsis, unspecified; R79.89 Other specified abnormal findings of blood chemistry; D75.838 Other thrombocytosis; R97.1 Elevated cancer antigen 125 [CA 125]; Z79.2 Long term (current) use of antibiotics; Z79.899 Other long term (current) drug therapy; Z83.3 Family history of diabetes mellitus; Z87.09 Personal history of other diseases of the respiratory system
CPT/HCPCS: 31625; 32555; 36415; 71045; 71046; 71275; 74178; 76604; 76856; 80048; 80053; 80074; 80202; 81001; 81025; 82378; 82565; 83036; 83540; 83550; 83605; 83735; 83986; 84100; 84443; 84484; 84702; 85007; 85025; 85027; 85379; 85610; 85730; 86301; 86304; 86703; 86850; 86900; 86901; 87040; 87070; 87077; 87081; 87186; 87205; 87426; 87804; 89051; 93005; 93306; 93312; 94640; 96361; 96365; 96368; 96375; 99152; 99291; 99292; G0378; J0171; J1756; J2250

== ENCOUNTER 2024-11-03 09:12 | Emergency (ER) | payer MEDICAID ==
[~2024-11-03] VITALS: Ht 170.2 cm; Wt 72.7 kg
[~2024-11-03 09:12] MED LIST: LINE1TAB6 PO
--- NOTE | 2024-11-03 10:02 | ED.PDOC ---
Musculoskeletal HPI Comments A 49 YEAR OLD FEMALE WITH NO SIGNIFICANT PMHX PRESENTS TO THE ED WITH A C/C OF RIGHT FOOT PAIN AFTER EXPERIENCING A MECHANICAL FALL. PATIENT STATES THAT SHE EXPERIENCING MECHANICAL FALL YESTERDAY WHILE ON A HIKING TRIP. IN HIS SINCE FUNDAL ALLEVIATING FACTORS AT THIS TIME. PATIENT DENIES LOSS OF CONSCIOUSNESS, HEADACHE, BLURRY VISION, NAUSEA, VOMITING, DIARRHEA, OR ANY OTHER ASSOCIATED SYMPTOMS, MODIFIERS AT THIS TIME. Chief Complaint: Lower Extremity Time Seen by MD: 09:59 Reviewed Notes: Nurses Notes, Medications, Allergies Allergies: Coded Allergies: NO KNOWN ALLERGIES (Unverified , 05/19/24) Home Meds Active Scripts Linezolid (Zyvox) 600 Mg Tab, 600 MG PO BID for 10 Days, #20 TAB Prov:LISS COHEN ETCHER APPRENTICE PHOTOENGRAVING 05/31/24 Information Source: Patient Mode of Arrival: Ambulatory Location: Right Extremity Location: Foot Timing: Hours Prehospital treatment: None Severity: Moderate Able to Move Extremity: Yes Bear Weight: Fully Pain: Moderate Hand Dominance: Right Mechanism: None Circumstances: Fall Onset of Symptoms: After Trauma Symptoms: Swelling, Pain DVT Risk Factors: NONE Last Tetanus: UTD, Unknown Associated signs and symptoms: None Past Medical History PAST MEDICAL HISTORY: Denies Surgical History: Denies all surgeries GAS OPERATIONS SUPERINTENDENT History: No Pertinent GAS OPERATIONS SUPERINTENDENT History Family History Family History: Reviewed,noncontributory to illness, No family hx of Cancer, No family hx of DM, No family hx of Heart néstor, No family hx of HTN, No family hx ofKidney néstor, No family hx of Liver néstor, No family hx of Lung néstor, No family hx of Stroke Social History Smoker: Non-Smoker Alcohol: Denies ETOH Use Drugs: Denies Drug Use Lives In: Home Constitutional: denies: chills, diaphoresis, fatigue, fever, malaise, sweats, weakness, others EENTM: denies: blurred vision, double vision, ear bleeding, ear discharge, ear drainage, ear pain, ear ringing, eye pain, eye redness, hearing loss, mouth pain, mouth swelling, nasal discharge, nose bleeding, nose congestion, nose pain, photophobia, tearing, throat pain, throat swelling, voice changes, others Respiratory: denies: cough, hemoptysis, orthopnea, SOB at rest, shortness of breath, SOB with excertion, stridor, wheezing, others Cardiovascular: denies: chest pain, dizzy spells, diaphoresis, Dyspnea on exertion, edema, irregular heart beat, left arm pain, lightheadedness, palpitations, PND, syncope, others Gastrointestinal: denies: abdomen distended, abdominal pain, blood streaked bowels, constipated, diarrhea, dysphagia, difficulty swallowing, hematemesis, melena, nausea, poor appetite, poor fluid intake, rectal bleeding, rectal pain, vomiting, others Genitourinary: denies: abnormal vagina bleeding, burning, dyspareunia, dysuria, flank pain, frequency, hematuria, incontinence, pain, , vagina discharge, urgency, others Neurological: denies: dizziness, fainting, headache, left sided numbness, left sided weakness, numbness, paresthesia, pre-existing deficit, right sided numbness, right sided weakness, seizure, speech problems, tingling, tremors, weakness, others Musculoskeletal: reports: joint pain, joint swelling, others (RIGHT FOOT PAIN); denies: back pain, gout, muscle pain, muscle stiffness, neck pain Integumetry: denies: bruises, change in color, change in hair/nails, dryness, laceration, lesions, lumps, rash, wounds, others Allergic/Immunocompromised: denies: Difficulty Healing, Frequent Infections, Hives, Itching, others Hematologic/Lymphatic: denies: anemia, blood clots, easy bleeding, easy bruising, swollen glands, others Endocrine: denies: excessive hunger, excessive sweating, excessive thirst, excessive urination, flushing, intolerance to cold, intolerance to heat, unexplained weight gain, unexplained weight loss, others Psychiatric: denies: anxiety, bipolar disorder, depression, hopeless, panic disorder, schizophrenia, sleepless, suicidal, others All Other Systems: Reviewed and Negative Physical Exam General Appearance: No Apparent Distress, Normal HEENT: Normal ENT Inspection, PERRL/EOMI, Pharynx Normal, TMs Normal Neck: Full Range of Motion, Non-Tender, Normal, Normal Inspection Respiratory: Chest Non-Tender, Lungs Clear, No Accessory Muscle Use, No Respiratory Distress, Normal Breath Sounds Cardiovascular: No Edema, No JVD, No Murmur, No Gallop, Normal Peripheral Pulses, Regular Rate/Rhythm Breast Exam: Deferred Gastrointestinal: No Organomegaly, Non Tender, No Pulsatile Mass, Normal Bowel Sounds, Soft Genitalia: Deferred Pelvic: Deferred Rectal: Deferred Extremities: Decreased range of motion (SLIGHTLY), No calf tenderness, Normal capillary refill, No pedal edema, Tender (AND MILD SWELLING ON RIGHT FOOT, NO B RA TENDERNESS AND DEFORMITY. ) Musculoskeletal : Apperance: Normal Neurologic: Alert, lead athlete II-XII nml as Tested, No Motor Deficits, Normal Affect, Normal Mood, No Sensory Deficits Cerebellar Function: Normal Reflexes: Normal Skin: Dry, Normal Color, Warm Peripheral Pulses: 2+ carotid (R), 2+ carotid (L), 2+ femoral (L), 2+ dorsalis pedis (R) Lymphatic: No Adenopathy Was a procedure done? Was a procedure done?: No Differential Diagnosis EXT Differential Diagnosis: Cellulitis, Fracture, Sprain, Bursitis X-Ray, Labs, Meds, VS Vital Signs Date Time Temp Pulse Resp B/P (MAP) Pulse Ox O2 Delivery O2 Flow Rate FiO2 11/03/24 09:14 98.4 74 16 125/62 99 98.4 X-Ray, Labs, Meds, VS Comment EXTERNAL MEDICAL RECORDS REVIEWED: [NONE] INDEPENDENT HISTORIANS: [NONE] SOCIAL DETERMINANTS OF HEALTH: [NONE] LABS ORDERED: NONE REVIEWED AND INTERPRETED RESULTS: NONE IMAGING ORDERED: RIGHT FOOT X-RAY ORDERED AND PENDING: NO FX AND DISLOCATION, READ BY ME, [PENDING RADIOLOGIST READING. TREATMENTS ORDERED: PROCEDURES PERFORMED: NONE CRITICAL CARE TIME: NONE I HAVE DISCUSSED THE PATIENT WITH THE ATTENDING PHYSICIAN [PHYSICIAN'S NAME] AND HE AGREES WITH THE PATIENT'S PLAN OF CARE AND DISPOSITION. BASED ON HISTORY OF PRESENT ILLNESS, AND PHYSICAL EXAM, PATIENT WILL BE DISCHARGED HOME. DISCUSSED PLAN FOR DISCHARGE HOME WITH RX [MOTRIN 800MG]. MEDICATION WARNINGS GIVEN. SHARED DECISION MAKING: DISCUSSED WITH PATIENT THAT THEIR WORKUP WAS NORMAL. PATIENT INSTRUCTED TO FOLLOW UP WITH PRIMARY CARE PROVIDER IN 1-2 DAYS FOR RE- EVALUATION OF SYMPTOMS. PATIENT VERBALIZES UNDERSTANDING TO RETURN TO ED FOR NEW OR WORSENING SYMPTOMS OR IF FOLLOW UP WITH PCP CANNOT BE OBTAINED. PATIENT FEELS COMFORTABLE GOING HOME AT THIS TIME. ALL QUESTIONS ADDRESSED AT TIME OF DISCHARGE. Time of 1ST Reevaluation: 10:30 Reevaluation 1ST: Improved Patient Education/Counseling: Diagnosis, Treatment, Need For Follow Up Family Education/Counseling: Diagnosis, Treatment, No Family Present Medical Screening: No EMC Exist At This Time Departure 1 Departure Time of Disposition: 10:20 Impression: Primary Impression: Sprain of right foot Qualified Codes: S93.601A - Unspecified sprain of right foot, initial encounter Disposition: HOME / SELF CARE / HOMELESS Condition: Stable Additional Instructions: FOLLOW-UP WITH PCP IN 1 TO 2 DAYS. TAKE MEDICATIONS PRESCRIBED. RETURN TO ED FOR ANY NEW OR WORSENING SYMPTOMS. e-Prescriptions Ibuprofen (Ibuprofen) 800 Mg Tab 1 TAB PO TID, #30 TAB Prov: GRAY ROMERO 11/03/24 Discharged With: Self Critical Care Note Critical Care Time?: No Stability Stability form required: No Heart Score Heart Score: Heart Score Response (Comments) Value History N/A 0 EKG N/A 0 Age N/A 0 Risk Factors N/A 0 Troponin N/A 0 Total 0 I personally scribed for GRAY ROMERO ([email or web address]) on 11/03/24 at 10:02. Electronically submitted by Simone Marquez ([email or web address]). I personally scribed for GRAY ROMERO ([email or web address]) on 11/03/24 at 10:12. Electronically submitted by Simone Marquez ([email or web address]). GRAY ROMERO Nov 03, 2024 10:02
[2024-11-03] MEDS ORDERED: IBUP-1456 PO (10:21)
[2024-11-03 10:28] VITALS: BP 126/74; PULSE 66; RESP 16; TEMP 98.1; O2SAT 97
--- NOTE | 2024-11-03 10:28 | DVH ---
CLINICAL INDICATION: pain; FALL TECHNIQUE: 3 radiographic views of the right foot were obtained. Comparison: None FINDINGS/IMPRESSION: There is no evidence of acute fracture or dislocation. The visualized joint space is well maintained. The alignment is anatomical. There is no radiopaque foreign body.
== END 2024-11-03 10:30 | disposition home or self-care (01) ==
LOC: ER 09:12
DX: S93.691A Other sprain of right foot, initial encounter (principal); W18.39XA Other fall on same level, initial encounter; Y93.01 Activity, walking, marching and hiking; Y92.89 Other specified places as the place of occurrence of the external cause; Y99.8 Other external cause status
CPT/HCPCS: 73630